=== PATIENT | male | born 1955 | race Caucasian/White ===

== ENCOUNTER 2017-09-24 23:14 | Inpatient (IN) | payer OTHER ==
[~2017-09-24] VITALS: Ht 177.8 cm; Wt 94.5 kg
[2017-09-24 23:17] VITALS: BP 187/100; PULSE 78; O2SAT 99
[2017-09-24 23:23] VITALS: BP 183/81; PULSE 88; RESP 14; O2SAT 99
[2017-09-24 23:26] VITALS: BP 144/103; PULSE 109; RESP 16; O2SAT 100
[2017-09-24 23:28] VITALS: O2SAT 100
[2017-09-24 23:45] VITALS: BP 225/106; PULSE 71; RESP 16; O2SAT 100
[2017-09-24] MEDS ORDERED: HEPARIN NS IV FLUSH ONE (23:51)
[2017-09-24] MEDS ORDERED: FLUSH IV FLUSH ONE (23:51)
[2017-09-24] MEDS ORDERED: HEPARIN SODIUM - IV 10,000 UNITS/10 ML VIAL ONE (23:51)
[2017-09-24] MEDS ORDERED: NITROGLYCERIN INJ 0 ML ONE (23:52)
[2017-09-25] VITALS (16 sets, daily range): BP systolic 91–201; BP diastolic 57–99; PULSE 45–87; RESP 15–39; TEMP 91.1–99; O2SAT 96–100
--- NOTE | 2017-09-25 00:11 | PD ---
HPI Chief Complaint: STEMI Alert Time Seen by Provider: 00:03 Travel History International Travel<30 days: No Contact w/Intl Traveler<30days: No Traveled to known affect area: No History of Present Illness HPI Patient is a 62-year-old male who suddenly became unresponsive after a day full of burping and complaining of indigestion to his . Patient has no significant cardiac history he is not diabetic his reports that he has had 2 episodes in the last year of passing out but usually after emotional upset. 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 Paramedics intubated and then shocked him out of V. fib after he was out of V. fib he went into PEA. PA on the monitor they gave epi and 2 A of bicarb with return of spontaneous pulse. Patient did not respond when he was intubated he had no gag reflex he had no neurological signs he arrives to the ER with a good pulse and good pressures his initial pressure was 186/100. He is satting 100% on the ventilator being bpm on arrival with an ET tube of 8.[address] confirmed by auscultation of the axilla. EKG shows inferior lead ST elevation and then he rapidly goes back into V. fib we immediately shocking with 200 J biphasic and he comes out of V. fib and goes back into normal sinus rhythm and his pressure returns to normal elevated 186 SBP. Patient's repeat EKG shows inferiorly elevation greater than 1 mm in 2-[address] Zacarias the ambulatory services representative interventionalists described EKG and his cardiac history of the night. I also called Dr. Patton the ICU attending to describe the possibility of post cardiac arrest cooling. Patient remains completely without any neurological response he is not fighting the tube he has not been giving any sedation and he has no 2 mm pupils bilateral nonreactive. Narcan is given to see if there is any component of opiate overdose and he has no response he still has no neurological activity . both cardiology and airline stewardess are en route [facility] Social History Tobacco Use: No (unable to obtain tobacco info) Allergies-Medications (Allergen,Severity, Reaction): Coded Allergies: No Known Allergies (Unverified , 09/24/17) Review of Systems ROS Limitations: Intubated, Unresponsive Except as stated in HPI: all other systems reviewed are Neg Physical Exam Narrative GENERAL: pt is intubated and without any response to pain he is not fighting the tube , he is not sedated SKIN: Warm and dry. HEAD: Atraumatic. Normocephalic. EYES: Pupils 2 mm equal sluggish to non reactive ENT: No nasal bleeding or discharge. Mucous membranes pink and moist. ET in oral airway NECK: Trachea midline. No JVD. CARDIOVASCULAR: pt was in sinus rhythm then he loss pulse, CPR resumed and epi Hco3 IVP to V fib 200 J shocked into sinus rhythm now has strong LV activity on US bedside RESPIRATORY: No respiratory effort , intubated has bilateral axilla BS with BVM only GASTROINTESTINAL: Abdomen soft, non-tender, nondistended. Hepatic and splenic margins not palpable. MUSCULOSKELETAL: Extremities without clubbing, cyanosis, or edema. No obvious deformities. NEUROLOGICAL: obtunded no cardiac activity no neurologic signs of response GCS 3 Data Data Last Documented VS Vital Signs Date Time Temp Pulse Resp B/P (MAP) Pulse Ox O2 Delivery O2 Flow Rate FiO2 09/24/17 23:46 100 09/24/17 23:45 71 16 225/106 (145) 100 Ventilator Orders Orders I-Stat Profile (09/24/17 23:20) Heparin-Ns/Pf Flush Bag (Heparin-Ns/Pf F (09/24/17 23:51) Heparin Inj (Heparin Inj) (09/24/17 23:51) Nitroglycerin Inj (Nitroglycerin Inj) (09/24/17 23:52) Ct Brain W/O Iv Contrast(Rout) (09/25/17 ) Naloxone Inj (Narcan Inj) (09/25/17 00:15) Admit Order (Ed Use Only) (09/25/17 00:11) Labs Laboratory Tests Test 09/24/17 23:20 Bedside Hemoglobin 14.6 G/DL Bedside Hematocrit 43.0 % Bedside Sodium 138 MMOL/L Blood Urea Nitrogen 25 MG/DL Creatinine 1.96 MG/DL Random Glucose 228 MG/DL Total Protein 6.8 GM/DL Albumin 3.6 GM/DL Calcium Level 8.6 MG/DL Phosphorus Level 5.8 MG/DL Magnesium Level 2.3 MG/DL Alkaline Phosphatase 100 U/L Aspartate Amino Transf (AST/SGOT) 247 U/L Alanine Aminotransferase (ALT/SGPT) 207 U/L Total Bilirubin 0.4 MG/DL Sodium Level 139 MEQ/L Potassium Level 3.4 MEQ/L Chloride Level 101 MEQ/L Carbon Dioxide Level 21.6 MEQ/L Bedside Potassium 3.3 MMOL/L Bedside Chloride 100 MMOL/L Anion Gap 16 MEQ/L Bedside Blood Urea Nitrogen 23 MG/DL Bedside Creatinine 1.7 MG/DL Estimat Glomerular Filtration Rate 30 ML/MIN Bedside Glucose 236 MG/DL Total Creatine Kinase 856 U/L Creatine Kinase MB 84.2 NG/ML Creatine Kinase MB % 9.8 % Troponin I 12.00 NG/ML Salicylates Level 3.3 MG/DL Acetaminophen Level LESS THAN 2.0 MCG/ML Ethyl Alcohol Level LESS THAN 3 MG/DL MDM Medical Decision Making Medical Screen Exam Complete: Yes Emergency Medical Condition: Yes Differential Diagnosis cardiac arrest from Resp arrest vs cardiac arrest to resp arrest, pt is v-fib arrest vs acidosisi from resp failure , vs ACS to CT - -> V-fib arrest Narrative Course pt has been resusitated by EMS then losses pulse agian goes into v-fib arrest , 200 J biphasic and shocked into sinus rhythm that continues steady after 1 shock and CPR then pulse check, and has BP and heart rate sinus on monitor, Inferior lead has mild elevation 2,3,avf cardilogy is paged and ICU called for possible post arrest cooling, I speak to who describes events and her immediate CPR and 20 minutes before EMS arrives and intubates , Pt EMS shows 12 lead with inferior lead elevation EKG in ER has elevation > 1mm in II III AvL pt admitted to ICU Dr Rell Bradshaw Cardilogy bedside. Critical Care Narrative CPR to v fib arrest to shock 200 J to sinus critical care time 30 minutes Diagnosis Primary Impression: Cardiac arrest with ventricular fibrillation Admitting Information Admitting Physician Requests: Admit Akbar Pagan MD Sep 25, 2017 00:11
[2017-09-25] MEDS ORDERED: ONDANSETRON HCL 4 MG/2 ML VIAL IV PUSH PRN (00:15)
[2017-09-25] MEDS: SODIUM CHLOR 0.9% 1000 ML INJ 1,000 ML IV SCH ×2 (00:15→16:40)
[2017-09-25] MEDS ORDERED: RESP: ALBUTEROL 2.5 MG/IPRATROPIUM 0.5 MG NEB (PRN) INH (00:15)
[2017-09-25] MEDS ORDERED: TERBUTALINE INJ 1 MG/ML AMP SQ PRN (00:15)
[2017-09-25] MEDS ORDERED: DEXTROSE 50% IN WATER 50 ML VIAL(D50) IV PUSH PRN ×3 (00:15→16:30)
[2017-09-25] MEDS ORDERED: NALOXONE HCL 2 MG/2 ML VIAL IV PUSH ONE (00:15)
[2017-09-25] MEDS ORDERED: NOREPINEPHRINE INJ 4 MG in SODIUM CHLOR 0.9% 250 ML INJ 246 ML IV PRN (00:15)
[2017-09-25] MEDS ORDERED: MISCELLANEOUS NURSING INFORMATION XX SCH (00:15)
[2017-09-25] MEDS ORDERED: CHLORHEXIDINE GLUCONATE 2 % 1 PACK (2 CLOTHS) TOP PRN (00:15)
[2017-09-25] MEDS ORDERED: LIDOCAINE HCL 2% 100 MG/5 ML SYRINGE IV PUSH ONE (00:30)
--- NOTE | 2017-09-25 00:33 | HHI.HP ---
[facility] Critical Care Medicine Primary Care Physician Unknown Admission Diagnosis POST CARDIAC ARREST Diagnosis: Chief Complaint: post-cardiac arrest Travel History International Travel<30 Days: No Contact w/Intl Traveler <30 Da: No Traveled to Known Affected Are: No History of Present Illness This is a 60yM who presented as an [id number] v. fib cardiac arrest. Per report, he complained of heartburn most of the day today. This evening he became acutely unresponsive. family member started bystander CPR. Reported down- time was 20 minutes. presenting rhythm to EMS was v. fib. ROSC was obtained and [id number] 12-leads suggests inferior st-elevations. upon arrival to ED, patient again had pulseless v. tach/v. fib arrest, ROSC obtained and again repeat 12-lead with inferior st- elevations. patient has poor neurologic exam despite receiving no neuro altering medications. long discussion with Dr. Zacarias: holding off on emergent left heart cath given poor neurologic function. no additional information obtainable from the patient due to his clinical condition. ROS unobtainable. Review of Systems ROS Limitations: Clinical Condition, Intubated, Altered Mental Status, Unresponsive Past Family Social History Allergies: Coded Allergies: No Known Allergies (Unverified , 09/24/17) Past Medical History unknown and unobtainable secondary to the clinical condition of the patient. Past Surgical History unknown and unobtainable secondary to the clinical condition of the patient. Reported Medications unknown and unobtainable secondary to the clinical condition of the patient. Active Ordered Medications See MAR Family History unknown and unobtainable secondary to the clinical condition of the patient. Social History unknown and unobtainable secondary to the clinical condition of the patient. Physical Exam Vital Signs Vital Signs Date Time Temp Pulse Resp B/P (MAP) Pulse Ox O2 Delivery O2 Flow Rate FiO2 09/24/17 23:46 100 09/24/17 23:45 71 16 225/106 (145) 100 Ventilator 09/24/17 23:28 100 100 09/24/17 23:26 109 16 144/103 (117) 100 09/24/17 23:23 88 14 183/81 (115) 99 09/24/17 23:17 78 187/100 (129) 99 Physical Exam gen: elderly-appearing male, lying in bed, intubated, unresponsive heent: nc. at. pupils are 2mm and equal, but disconjugate gaze. mucous membranes are moist neck: no jvd. trachea midline. chest: intubated. equal chest rise. prvc, fio2 40%. cv: normal rate, regular rhythm. sinus by tele. abd: soft, nontender, nondistended. no guarding. extr: cool, poorly perfused. no peripheral edema. distal pulses 2+ neuro: GCS 4. extensor posturing x 4. + cough. - gag. - corneals. pupils as above. Laboratory Laboratory Tests Test 09/24/17 23:20 Bedside Hemoglobin 14.6 Bedside Hematocrit 43.0 Bedside Sodium 138 Bedside Potassium 3.3 Bedside Chloride 100 Bedside Blood Urea Nitrogen 23 Bedside Creatinine 1.7 Bedside Glucose 236 Imaging Last Impressions Head CT 09/25/17 0000 Signed Impressions: Service Date/Time: Monday, September 25, 2017 00:31 - CONCLUSION: 1. No acute intracranial abnormality demonstrated. 2. Sinus disease. MD Sancho Dawson VTE Risk Assessment Caprini VTE Risk Assessment: Mod/High Risk (score >= 2) Caprini Risk Assessment Model Point Value = 1 Point Value = 2 Point Value = 3 Point Value = 5 Age 41-60 Minor surgery BMI > 25 kg/m2 Swollen legs Varicose veins or History of unexplained or recurrent spontaneous Oral contraceptives or hormone replacement Sepsis (< 1 month) Serious lung disease, including pneumonia (< 1 month) Abnormal pulmonary function Acute myocardial infarction Congestive heart failure (< 1 month) History of inflammatory bowel disease Medical patient at bed rest Age 61-74 Arthroscopic surgery Major open surgery (> 45 min) Laparoscopic surgery (> 45 min) Malignancy Confined to bed (> 72 hours) Immobilizing plaster cast Central venous access Age >= 75 History of VTE Family history of VTE Factor V Leiden Prothrombin [id number] Lupus anticoagulant Anticardiolipin antibodies Elevated serum homocysteine Heparin-induced thrombocytopenia Other congenital or acquired thrombophilia Stroke (< 1 month) Elective arthroplasty Hip, pelvis, or leg fracture Acute spinal cord injury (< 1 month) Prophylaxis Regimen Total Risk Factor Score Risk Level Prophylaxis Regimen 0-1 Low Early ambulation 2 Moderate Order ONE of the following: *Sequential Compression Device (SCD) *Heparin 5000 units SQ BID 3-4 Higher Order ONE of the following medications: *Heparin 5000 units SQ TID *Enoxaparin/Lovenox 40 mg SQ daily (WT < 150 kg, CrCl > 30 mL/min) *Enoxaparin/Lovenox 30 mg SQ daily (WT < 150 kg, CrCl > 10-29 mL/min) *Enoxaparin/Lovenox 30 mg SQ BID (WT < 150 kg, CrCl > 30 mL/min) AND/OR *Sequential Compression Device (SCD) 5 or more Highest Order ONE of the following medications: *Heparin 5000 units SQ TID (Preferred with Epidurals) *Enoxaparin/Lovenox 40 mg SQ daily (WT < 150 kg, CrCl > 30 mL/min) *Enoxaparin/Lovenox 30 mg SQ daily (WT < 150 kg, CrCl > 10-29 mL/min) *Enoxaparin/Lovenox 30 mg SQ BID (WT < 150 kg, CrCl > 30 mL/min) AND *Sequential Compression Device (SCD) Assessment and Plan Assessment and Plan Assessment: 60yM with out of hospital V. fib cardiac arrest. This is very clearly ischemic in nature, however given the patient's severely poor neurologic exam, risk-benefit at this time of invasive left heart catheterization is in favor of conservative management. I do think given that there is a clear timeline the patient was down for a minimal amount of time, 20 minutes, it is reasonable to proceed with therapeutic hypothermia. I agree with Dr. Zacarias's assessment and we will utilize lidocaine infusion to help prevent further V. fib and V. tach incidents. Patient remains very critically ill. Plan by systems: Neurologic: Hypoxic ischemic encephalopathy Acute encephalopathy Frequent neuro checks Therapeutic hypothermia for cerebral protection Propofol for sedation Goal RASS -2 Cisatricurium to prevent shivering Respiratory: Acute hypoxic and hypercarbic respiratory failure Vent bundle Head of bed 30 Nebs Wean FiO2 for goal SPO2 greater than 94% No weaning of mechanical ventilation until mental status improves Cardiovascular: Out of hospital V. fib cardiac arrest Recurrent ventricular tachycardia Cardiogenic shock Inferior STEMI Cardiology consulted: Dr. Zacarias Trend cardiac enzymes for prognosis and to develop trend Norepinephrine if needed to maintain endorgan perfusion, map greater than 65 Lidocaine infusion Heparin drip Renal: Acute kidney injury -- Strict I/Os Place Shazia FEN/GI: Normal saline at 42 mL's an hour ICU electrolyte protocol N.p.o. while in shock Daily BMP Send stat CMP, magnesium, phosphorus Heme/ID: send sputum culture in the setting that the patient may have aspirated. There is no clinical indication for antibiotics at this time Daily CBC Stat CBC and coags Endocrine: Hyperglycemia of critical illness -- SSI Prophylaxis: GI Prophylaxis Pepcid IV DVT Prophylaxis -- SCDs Heparin infusion Lines: 09/25 right femoral arterial line 09/25 right femoral cooling catheter [place] Dispo: Admit to ICU. Critically ill. This patient remains critically ill with one or more organ systems which are or may become a threat to life. I have spent in excess of 78 minutes discontinuously in the care and management of this patient. This time is exclusive of procedures, and includes, but is not limited to, evaluation of the patient, review of the medical record, discussions with family, consultants, nursing staff, or respiratory therapy, and documentation in the medical record. Alirio Silva MD Sep 25, 2017 00:33
--- NOTE | 2017-09-25 00:53 | RADRPT ---
EXAM DATE/TIME: 09/25/2017 00:31 [facility] COMPARISON: No previous studies available for comparison. INDICATIONS : Altered mental status. RADIATION DOSE: 38.64 CTDIvol (mGy) ; Patient motion MEDICAL HISTORY : Non-responsive. SURGICAL HISTORY : Non-responsive. ENCOUNTER: Initial ACUITY: 1 day PAIN SCALE: Non-responsive LOCATION: cranial TECHNIQUE: Multiple contiguous axial images were obtained of the head. Using automated exposure control and adj ustment of the mA and/or kV according to patient size, radiation dose was kept as low as reasonably a chievable to obtain optimal diagnostic quality images. DICOM format image data is available electro nically for review and comparison. FINDINGS: CEREBRUM: The ventricles are normal for age. No evidence of midline shift, mass lesion, hemorrhage or acute in farction. No extra-axial fluid collections are seen. POSTERIOR FOSSA: The cerebellum and brainstem are intact. The 4th ventricle is midline. The cerebellopontine angle i s unremarkable. EXTRACRANIAL: There is mucoperiosteal thickening of the paranasal sinuses, especially the ethmoid air cells. There is a fluid level in the left sphenoid air cell. Mastoid air cells are clear. SKULL: The calvaria is intact. No evidence of skull fracture. CONCLUSION: 1. No acute intracranial abnormality demonstrated. 2. Sinus disease. Mikhail Ruiz MD on September 25, 2017 at 0:51 Board Certified Radiologist. This report was verified electronically.
[2017-09-25] MEDS: PROPOFOL 1000 MG/100 ML INJ 100 ML IV PRN ×5 (00:55→18:12)
--- NOTE | 2017-09-25 00:58 | MB ---
cc: Zeke Zacarias DO DATE OF CONSULT: 09/25/2017 REASON FOR CONSULTATION: Cardiac arrest. HISTORY OF PRESENT ILLNESS: Colin [id number] is a 61-year-old male who presented as a cardiac arrest to [facility] on 09/24/2017. Due to the patient's current situation, he is unable to provide any history, and history is taken from his significant other. Apparently starting this afternoon and into this evening, he was having continual gas pain and indigestion which was not going away with simethicone. They were sitting on the couch and he kept saying the gas pain just was not going away like it normally would. Apparently he slumped over onto her lap and she kind of woke him up, and then he ended up doing it for a second time, and this time he did not wake up. At that time, she started CPR and called 911. She attempted CPR as well as respirations as best she could. EMS showed up and apparently he was in VFib arrest, and so he was shocked, given epinephrine and bicarb. He was intubated in the field without medications. He also went into PA arrest, and so CPR was continued. Per EMS, from the time of the 911 call to the time that he regained pulses, it was 20 minutes. On arrival, he was found to have ST elevations in the inferior leads. He also had one other episode of VFib arrest for which he was defibrillated. I was called emergently and came in to see the patient. On my exam, there is concern for no neurological function at this time. PAST MEDICAL HISTORY: History is limited, but per the significant other, no significant diabetes or coronary artery disease. PAST SURGICAL HISTORY: Unable to obtain at this time. ALLERGIES: NO KNOWN DRUG ALLERGIES. MEDICATIONS: Unable to obtain at this time. SOCIAL HISTORY: Unable to obtain at this time. FAMILY HISTORY: Unable to obtain at this time. PHYSICAL EXAMINATION: VITAL SIGNS: Heart rate 109, blood pressure 144/103, respirations 16, pulse ox 100% on the ventilator. GENERAL: The patient appears older than his stated age, currently intubated. HEENT: Pupils are pinpoint. No corneal reflex is obtained. Mucous membranes are moist. ET tube in place. No gag reflex noted. Minimal cough noted. NECK: No JVD at 45 degrees, no carotid bruits heard bilaterally. HEART: Regular rate and rhythm, positive first and second heart sounds with no noted murmurs, gallops or rubs. LUNGS: Decreased breath sounds bilaterally but no overt wheezes, rales or rhonchi. ABDOMEN: Soft, nondistended. EXTREMITIES: Trace edema but no cyanosis or clubbing. NEUROLOGICAL: Unable to obtain corneal reflex or gag reflex. He is not reacting to noxious stimuli. He does have some minimal movements concerning for posturing. SKIN: Warm, dry and intact. OSTEOPATHIC: No kyphoscoliosis or lordosis. LABORATORY DATA: Hemoglobin 14.6, hematocrit 43.0, potassium 3.3, BUN 23, creatinine 1.7. Electrocardiogram (09/24/2017): Sinus rhythm, minimal ST elevations inferiorly with expansive ST depressions anteriorly concerning for an inferior posterior CO. IMPRESSIONS: 1. Acute inferior posterior myocardial infarction. 2. Cardiac arrest. 3. Concern for hypoxic brain injury. RECOMMENDATIONS: 1. Colin Pena appears to have had an acute inferior posterior myocardial infarction complicated by VFib arrest. 2. His overall downtime was around 20 minutes, and there is concern for hypoxic brain injury, as he has no corneal or gag reflex, as well as posturing noted. 3. At this time, he is not a cardiac catheterization candidate due to limited chances of neurological return. 4. This was discussed with the patient's significant other, and she understands the decision. 5. Case was discussed with Dr. Silva from Critical Care. We will plan to CT his head to evaluate for any possible bleed. If CT of the head is negative, he can be started on heparin. 6. We will plan on starting him on antiarrhythmic medications, with a plan for Lidocaine due to his ischemia as well as VFib arrest. 7. If CT of the head is negative, consideration will be made for hypothermic protocol. 8. We will check a 2D echo to look at his overall left ventricular function, cardiac structure, and possible valvopathies. 9. Overall prognosis is poor at this time but will be reevaluated after hypothermic protocol. Thank you for allowing me to see Mikhail Pena. If there are any questions, please do not hesitate to call. Greater than 60 minutes of critical care time was spent evaluating the patient, discussing with his significant other, as well as ER physician, ER nurse, and critical care. DO JAMEL Bright , 12:23 AM , 12:56 AM MTDStephanie
[2017-09-25] MEDS: LIDOCAINE/D5W 2000 MG/500 ML 500 ML IV SCH ×2 (00:59→16:11)
[2017-09-25] MEDS ORDERED: ARTIFICIAL TEARS OPTH OINT 3.5 APPLIC/3.5 GM TUBO EACH EYE PRN ×2 (01:00→16:15)
[2017-09-25] MEDS ORDERED: SODIUM CHLORIDE 0.9% FLUSH 10 ML FLUSH IV FLUSH PRN ×2 (01:00→16:15)
[2017-09-25 01:40] LABS: ALBUMIN 3.6 GM/DL (3.4-5.0); ALT (GPT) 207 U/L (12-78); AST (GOT) 247 U/L (15-37); BICARBONATE 21.6 MEQ/L (21.0-32.0); BLOOD UREA NITROGEN 25 MG/DL (7-18); CALCIUM 8.6 MG/DL (8.5-10.1); CHLORIDE 101 MEQ/L (98-107); CREATININE 1.96 MG/DL (0.60-1.30); GLOMERULAR FILTRATION RATE 30 ML/MIN (>89); GLUCOSE,RANDOM 228 MG/DL (74-106); MAGNESIUM 2.3 MG/DL (1.5-2.5); PHOSPHORUS 5.8 MG/DL (2.5-4.9); SODIUM (NA) 139 MEQ/L (136-145)
[2017-09-25 01:46] LABS: ACETAMINOPHEN LESS THAN 2.0 MCG/ML (10.0-30.0); ALKALINE PHOSPHATASE 100 U/L (45-117); TOTAL BILIRUBIN ADULT 0.4 MG/DL (0.2-1.0); TOTAL PROTEIN 6.8 GM/DL (6.4-8.2)
--- NOTE | 2017-09-25 02:09 | PD.PROCEDR ---
Procedure Note Procedure Procedure: Arterial Line Placement Right femoral 16-gauge 20 cm arterial line Diagnosis: Cardiogenic shock Indications: Need for beat to beat hemodynamic monitoring Consent: Emergent Description of the Procedure: The right groin was prepped and draped sterilely. 1% lidocaine was used for local anesthesia. The pulse was located and a needle was advanced into the artery. A 16 gauge, 20 cm catheter was advanced into the artery using a modified Seldinger technique. The catheter was sutured to the skin and a sterile dressing was applied. The catheter was connected to a pressure transducer and an arterial waveform was noted. There were no immediate complications noted. There was minimal EBL. I personally performed the procedure. Alirio Silva MD Sep 25, 2017 02:09
--- NOTE | 2017-09-25 02:10 | PD.PROCEDR ---
Procedure Note Procedure Central Line Procedure Note Right femoral Quatro cooling catheter Diagnosis: Status post out of hospital cardiac arrest Indications: Status post out of hospital cardiac arrest with poor neurologic recovery Consent: Emergent Anesthesia: none Description of the Procedure: The patient was placed in the supine, mild- Trendelenburg position. The area was prepped and draped sterilely. A 19g needle was inserted under negative pressure aspiration and dark venous blood was obtained. A guidewire was inserted easily without resistance. A small incision was made using a #11 blade. Using a modified Seldinger technique, the dilator and cooling catheter were advanced over the guidewire without resistance. All ports were aspirated and flushed, and had brisk blood return. The line was secured at the skin using 2-0 silk interrupted sutures. A Biopatch and Transparent sterile dressing were applied. There were no immediate complications noted. There was minimal EBL. The patient tolerated the procedure well. Note, sutures were used to secure the device to the skin due to body habitus the patient and the size of the cooling catheter, since a non-suture StatLock device would not adequately secure device Ultrasound guidance was not used for this procedure I personally performed the procedure. Alirio Silva MD Sep 25, 2017 02:10
[2017-09-25] MEDS: CISATRACURIUM INJ 100 MG in SODIUM CHLOR 0.9% 250 ML INJ 240 ML IV PRN ×6 (02:33→22:14)
[2017-09-25] MEDS: RESP: ALBUTEROL 2.5 MG/IPRATROPIUM 0.5 MG NEB (SCH) INH ×4 (02:57→19:54)
[2017-09-25 03:20] LABS: WHITE BLOOD COUNT 15.7 TH/MM3 (4.0-11.0)
[2017-09-25 03:21] LABS: AUTOMATED NEUTROPHIL # 13.5 TH/MM3 (1.8-7.7); BASOPHIL % 0.1 % (0.0-2.0); HEMATOCRIT 39.6 % (39.0-51.0); HEMOGLOBIN 13.6 GM/DL (13.0-17.0); LYMPH % 5.7 % (9.0-44.0); LYMPHOCYTE # 0.9 TH/MM3 (1.0-4.8); MEAN CELL VOLUME 85.6 FL (80.0-100.0); MEAN CORPUSCULAR HEMOGLOBIN 29.5 PG (27.0-34.0); MEAN CORPUSCULAR HGB CONC 34.5 % (32.0-36.0); MEAN PLATELET VOLUME 9.2 FL (7.0-11.0); MONO % 7.9 % (0.0-8.0); MONOCYTE # 1.2 TH/MM3 (0-0.9); NEUT % 86.3 % (16.0-70.0); PLATELET COUNT 192 TH/MM3 (150-450); RED BLOOD COUNT 4.62 MIL/MM3 (4.50-5.90); RED CELL DISTRIBUTION WIDTH 13.7 % (11.6-17.2)
[2017-09-25] MEDS ORDERED: levETIRAcetam INJ 100 ML IV SCH (03:30)
[2017-09-25 03:35] LABS: PROTHROMBIN TIME - PATIENT 10.5 SEC (9.8-11.6)
[2017-09-25] MEDS: INSULIN NovoLIN REGULAR SUPPLEMENTAL SCALE SQ SCH ×3 (04:00→11:46)
[2017-09-25] MEDS: CHLORHEXIDINE GLUCONATE 2 % 1 PACK (2 CLOTHS) TOP SCH (04:00)
[2017-09-25] MEDS: niCARdipine 25 MG/NS 250 ML Vial2Bag or IV room IV PRN ×2 (04:07)
[2017-09-25] MEDS: HEPARIN INJ 25,000 UNITS in SODIUM CHLOR 0.9% 250 ML INJ 247.5 ML IV PRN (04:09)
[2017-09-25] MEDS: levETIRAcetam INJ 100 ML IV SCH ×2 (04:14→16:12)
[2017-09-25 04:35] LABS: BILIRUBIN, URINE NEG (NEG); BLOOD, URINE MOD (NEG); GLUCOSE,URINE TRACE mg/dL (NEG); KETONE, URINE 10 mg/dL (NEG); MUCUS URINE FEW /lpf (OCC); NITRITE,URINE NEG (NEG); SQUAMOUS EPITHELIAL CELL URINE 1 /hpf (0-5); URINE COLOR YELLOW (YELLW/STRAW); URINE LEUKOCYTE ESTERASE NEG (NEG)
[2017-09-25] MEDS ORDERED: AMIODARONE HCL 150 MG/3 ML VIAL IV ONE (05:00)
[2017-09-25] MEDS ORDERED: NALOXONE HCL 4 MG/10 ML MDV IV ONE (05:00)
[2017-09-25] MEDS ORDERED: SODIUM BICARBONATE 8.4% INJ 50 MEQ/50 ML SYR IV ONE (05:00)
[2017-09-25] MEDS ORDERED: EPINEPHrine HCL (1:10,000) 1 MG/10 ML SYRINGE IV ONE (05:00)
[2017-09-25 07:43] LABS: TROPONIN I 21.7 NG/ML (0.02-0.05)
[2017-09-25] MEDS: CHLORHEXIDINE 0.12% (ORAL KIT) 15 ML CUP MT SCH ×2 (08:05→22:12)
[2017-09-25] MEDS: ASPIRIN 81 MG CHEW TAB CHEW SCH (09:00)
[2017-09-25] MEDS ORDERED: SODIUM CHLORIDE 0.9% FLUSH 10 ML FLUSH IV FLUSH SCH (09:00)
[2017-09-25] MEDS ORDERED: FAMOTIDINE 20 MG/2 ML VIAL IV PUSH SCH (09:00)
[2017-09-25 13:39] LABS: TROPONIN I 24.3 NG/ML (0.02-0.05)
--- NOTE | 2017-09-25 14:18 | RADRPT ---
EXAM DATE/TIME: 09/25/2017 13:33 [facility] COMPARISON: No previous studies available for comparison. INDICATIONS : Post ET tube palcement. MEDICAL HISTORY : None. SURGICAL HISTORY : None. ENCOUNTER: Initial ACUITY: 1 day PAIN SCORE: Non-responsive. LOCATION: Bilateral chest FINDINGS: Single AP view of the chest. Endotracheal tube is in place with the tip 4 cm above the denton. Nasoga stric tube is in place with the tip below the [id number] of the radiograph. Mild patchy opacity at the left lung base. No evidence of pleural effusion or pneumothorax. Cardiomediastinal silhouette wi thin normal limits. CONCLUSION: 1. Mild patchy left lung base atelectasis versus consolidation. 2. Endotracheal tube and nasogastric tube in place. Pedro Aguirre MD on September 25, 2017 at 14:15 Board Certified Radiologist. This report was verified electronically.
--- NOTE | 2017-09-25 14:21 | PD.CARD.PN ---
Subjective Subjective Remarks Started on hypothermia protocol, reached goal temp at 5am No further arrhythmias noted Objective Medications Current Medications Medications (Trade) Dose Ordered Sig/Isabel Route Start Time Stop Time Status Last Admin (Peridex 0.12% Liq) 15 ml BID@08,20 MT 09/25/17 08:00 09/25/17 08:05 (D50w (Vial) Inj) 25 ml UNSCH PRN IV PUSH 09/25/17 00:15 (NovoLIN R SUPPLEMENTAL SCALE) 1 Q4HR SQ 09/25/17 04:00 09/25/17 11:46 (Duoneb Neb) 1 ampule Q6HR NEB INH 09/25/17 04:00 09/25/17 08:27 (Duoneb Neb) 1 ampule Q2HR NEB PRN INH 09/25/17 00:15 Propofol 100 ml @ 2.727 mls/ hr TITRATE PRN IV 09/25/17 00:15 09/25/17 12:11 Sodium Chloride 1,000 ml @ 42 mls/hr [id number] IV 09/25/17 00:15 09/25/17 00:15 (Pepcid Inj) 20 mg Q12HR IV PUSH 09/25/17 09:00 09/25/17 09:06 (Zofran Inj) 4 mg Q6H PRN IV PUSH 09/25/17 00:15 Miscellaneous Information 1 Q361D XX 09/25/17 00:15 (Chlorhexidine 2% Cloth) 3 pack Taper DAILY@04 TOP 09/25/17 04:00 09/21/18 03:59 09/25/17 04:00 (Chlorhexidine 2% Cloth) 3 pack UNSCH PRN TOP 09/25/17 00:15 09/25/17 02:31 Norepinephrine Bitartrate 4 mg/ Sodium Chloride 250 ml @ 7.5 mls/hr TITRATE PRN IV 09/25/17 00:15 (Brethine Inj) 1 mg UNSCH PRN SQ 09/25/17 00:15 Lidocaine HCl/ Dextrose 500 ml @ 30 mls/hr [id number] IV 09/25/17 00:21 09/25/17 00:59 (Aspirin Chew) 81 mg DAILY CHEW 09/25/17 09:00 (Ativan Inj) 1 mg Q1H PRN IV PUSH 09/25/17 01:00 Cisatracurium Besylate 100 mg/ Sodium Chloride 250 ml @ 45 mls/hr TITRATE PRN IV 09/25/17 01:30 09/25/17 13:06 (Lacrilube Opht Oint) 1 applic Q4H PRN EACH EYE 09/25/17 01:00 (NS Flush) 2 ml BID IV FLUSH 09/25/17 09:00 09/25/17 09:06 (NS Flush) 2 ml UNSCH PRN IV FLUSH 09/25/17 01:00 Miscellaneous Information 0 ml @ 0 mls/hr UNSCH IV 09/25/17 01:00 Heparin Sodium (Porcine) 97212 units/Sodium Chloride 250 ml @ 10 mls/hr TITRATE PRN IV 09/25/17 01:00 09/25/17 04:09 Levetriacetam 100 ml @ 400 mls/hr Q12H IV 09/25/17 04:00 09/25/17 04:14 Nicardipine HCl 25 mg/Sodium Chloride 250 ml @ 50 mls/hr TITRATE PRN IV 09/25/17 03:45 09/25/17 04:07 Vital Signs / I&O Vital Signs Date Time Temp Pulse Resp B/P (MAP) Pulse Ox O2 Delivery O2 Flow Rate FiO2 09/25/17 12:57 99 40 09/25/17 11:03 40 09/25/17 11:03 99 Mechanical Ventilator 40 09/25/17 11:02 53 09/25/17 11:01 91.1 52 15 99 122/73 (89) 09/25/17 08:27 97 40 09/25/17 07:49 96 Mechanical Ventilator 40 09/25/17 07:47 40 09/25/17 07:46 67 09/25/17 07:41 91.1 67 15 91/63 (72) 96 98/57 (71) 09/25/17 07:10 64 09/25/17 04:07 78 199/102 09/25/17 03:18 99 40 09/25/17 03:00 98.0 87 39 156/93 (114) 98 169/84 (112) 09/25/17 03:00 100 Mechanical Ventilator 40 09/25/17 03:00 80 09/25/17 01:00 99.0 87 39 201/99 (133) 98 09/25/17 01:00 80 09/25/17 01:00 98 Mechanical Ventilator 40 09/25/17 00:59 83 225/98 09/25/17 00:46 99 40 09/25/17 00:32 100 100 09/24/17 23:46 100 09/24/17 23:45 71 16 225/106 (145) 100 Ventilator 09/24/17 23:28 100 100 09/24/17 23:26 109 16 144/103 (117) 100 09/24/17 23:23 88 14 183/81 (115) 99 09/24/17 23:17 78 187/100 (129) 99 I/O 09/24/17 09/24/17 09/24/17 09/25/17 09/25/17 09/25/17 07:00 15:00 23:00 07:00 15:00 23:00 Intake Total 725 ml 1248.6 ml Output Total 1201 ml Balance 725 ml 47.6 ml Intake IV Total 725 ml 1248.6 ml Output Urine Total 900 ml Stool Total 1 ml Gastric Drainage Total 300 ml Physical Exam GENERAL: Intubated SKIN: Cool/dry HEAD: Atraumatic. Normocephalic. EYES: Pupils equal and round. No scleral icterus. No injection or drainage. ENT: No nasal bleeding or discharge. Mucous membranes pink and moist. NECK: Trachea midline. No JVD. CARDIOVASCULAR: Regular rate and rhythm. RESPIRATORY: No accessory muscle use. Clear to auscultation. Breath sounds equal bilaterally. GASTROINTESTINAL: Abdomen soft, non-tender, nondistended. Hepatic and splenic margins not palpable. MUSCULOSKELETAL: Extremities without clubbing, cyanosis, or edema. No obvious deformities. NEUROLOGICAL: Intubated Laboratory Laboratory Tests Test 09/24/17 23:20 09/25/17 00:15 09/25/17 00:45 09/25/17 02:58 Bedside Hemoglobin 14.6 G/DL Bedside Hematocrit 43.0 % Bedside Sodium 138 MMOL/L Blood Urea Nitrogen 25 MG/DL Creatinine 1.96 MG/DL Random Glucose 228 MG/DL Total Protein 6.8 GM/DL Albumin 3.6 GM/DL Calcium Level 8.6 MG/DL Phosphorus Level 5.8 MG/DL Magnesium Level 2.3 MG/DL Alkaline Phosphatase 100 U/L Aspartate Amino Transf (AST/SGOT) 247 U/L Alanine Aminotransferase (ALT/SGPT) 207 U/L Total Bilirubin 0.4 MG/DL Sodium Level 139 MEQ/L Potassium Level 3.4 MEQ/L Chloride Level 101 MEQ/L Carbon Dioxide Level 21.6 MEQ/L Bedside Potassium 3.3 MMOL/L Bedside Chloride 100 MMOL/L Anion Gap 16 MEQ/L Bedside Blood Urea Nitrogen 23 MG/DL Bedside Creatinine 1.7 MG/DL Estimat Glomerular Filtration Rate 30 ML/MIN Bedside Glucose 236 MG/DL Total Creatine Kinase 856 U/L Creatine Kinase MB 84.2 NG/ML Creatine Kinase MB % 9.8 % Troponin I 12.00 NG/ML Salicylates Level 3.3 MG/DL Acetaminophen Level LESS THAN 2.0 MCG/ML Ethyl Alcohol Level LESS THAN 3 MG/DL Blood Gas Puncture Site RT FEMORAL Blood Gas Patient Temperature 98.6 Blood Gas HCO3 25 mmol/L Blood Gas Base Excess 1.0 mmol/L Blood Gas Oxygen Saturation 99 % Arterial Blood pH 7.39 Arterial Blood Partial Pressure CO2 43 mmHg Arterial Blood Partial Pressure O2 582 mmHG Arterial Blood Oxygen Content 21.6 Vol % Arterial Blood Carboxyhemoglobin 1.0 % Arterial Blood Methemoglobin 0.6 % Blood Gas Hemoglobin 14.5 G/DL Oxygen Delivery Device VENTILATOR Blood Gas Ventilator Setting Blood Gas Inspired Oxygen 100 % Nasal Screen MRSA (PCR) MRSA NOT DETECTED White Blood Count 15.7 TH/MM3 Red Blood Count 4.62 MIL/MM3 Hemoglobin 13.6 GM/DL Hematocrit 39.6 % Mean Corpuscular Volume 85.6 FL Mean Corpuscular Hemoglobin 29.5 PG Mean Corpuscular Hemoglobin Concent 34.5 % Red Cell Distribution Width 13.7 % Platelet Count 192 TH/MM3 Mean Platelet Volume 9.2 FL Neutrophils (%) (Auto) 86.3 % Lymphocytes (%) (Auto) 5.7 % Monocytes (%) (Auto) 7.9 % Eosinophils (%) (Auto) 0.0 % Basophils (%) (Auto) 0.1 % Neutrophils # (Auto) 13.5 TH/MM3 Lymphocytes # (Auto) 0.9 TH/MM3 Monocytes # (Auto) 1.2 TH/MM3 Eosinophils # (Auto) 0.0 TH/MM3 Basophils # (Auto) 0.0 TH/MM3 CBC Comment DIFF FINAL Differential Comment Prothrombin Time 10.5 SEC Prothromb Time International Ratio 1.0 RATIO Activated Partial Thromboplast Time 24.5 SEC Lactic Acid Level 1.7 mmol/L Ammonia 21 MCMOL/L Test 09/25/17 04:00 09/25/17 05:27 09/25/17 08:59 09/25/17 12:12 Urine Color YELLOW Urine Turbidity HAZY Urine pH 5.[address] 1.021 Urine Protein TRACE mg/dL Urine Glucose (UA) TRACE mg/dL Urine Ketones 10 mg/dL Urine Occult Blood MOD Urine Nitrite NEG Urine Bilirubin NEG Urine Urobilinogen LESS THAN 2.0 MG/DL Urine Leukocyte Esterase NEG Urine RBC 3 /hpf Urine WBC 4 /hpf Urine Squamous Epithelial Cells 1 /hpf Urine Mucus FEW /lpf Urine Opiates Screen NEG Urine Barbiturates Screen NEG Urine Amphetamines Screen NEG Urine Benzodiazepines Screen NEG Urine Cocaine Screen NEG Urine Cannabinoids Screen POS Total Creatine Kinase 2123 U/L 2483 U/L Creatine Kinase MB 201.3 NG/ML 320.8 NG/ML Creatine Kinase MB % 9.5 % 12.9 % Troponin I 21.70 NG/ML 24.30 NG/ML Activated Partial Thromboplast Time 44.2 SEC Imaging Last [address] 09/25/17 0000 Signed Impressions: Service Date/Time: Monday, September 25, 2017 00:31 - CONCLUSION: 1. No acute intracranial abnormality demonstrated. 2. Sinus disease. Mikhail Ruiz MD Assessment and Plan Problem List: (1) Acute ST elevation myocardial infarction (STEMI) ICD Codes: I21.3 - ST elevation (STEMI) myocardial infarction of unspecified site (2) Cardiac arrest ICD Codes: I46.9 - Cardiac arrest, cause unspecified (3) Ventricular fibrillation ICD Codes: I49.01 - Ventricular fibrillation (4) Cardiac arrest with ventricular fibrillation ICD Codes: I46.9 - Cardiac arrest, cause unspecified; I49.01 - Ventricular fibrillation (5) Ventilator dependence ICD Codes: Z99.11 - Dependence on respirator [ventilator] status (6) IGNACIO (acute kidney injury) ICD Codes: N17.9 - Acute kidney failure, unspecified Assessment and Plan 1) Acute inferior STEMI Medical management for now as concern for limited neurologic recovery Heparin drip 2) Cardiac arrest/Vfib arrest Con't Lidocaine drip Overall down time until return of circulation was around 20 mins, with bystander CPR 3) Concern for hypoxic brain injury No corneal/gag reflex and posturing last night Hypothermia protocol in place 4) 2D echo pending 5) Discussed with significant other last night and again today 6) Prognosis is critical to poor, will await to see if neurologic return after hypothermia Zeke Zacarias DO Sep 25, 2017 14:21
[2017-09-25] MEDS: INSULIN ASPART SUPPLEMENTAL SCALE SQ SCH ×2 (16:00→20:00)
[2017-09-25] MEDS ORDERED: INSULIN REGULAR (IV INFUSION) 100 UNITS in SODIUM CHLORIDE 0.9% INJ 99 ML IV PRN (16:15)
[2017-09-25] MEDS ORDERED: MISC INFORMATION OTHER ONE (16:15)
[2017-09-25] MEDS ORDERED: GLUCAGON 1 MG/ML VIAL OTHER PRN (16:30)
--- NOTE | 2017-09-25 17:23 | ECHRPT ---
Indication: CONCLUSIONS Normal left ventricular size. Mild concentric left ventricular hypertrophy. The left ventricular systolic function is hlxktrjw-kl-neqvqns reduced with an estimated ejection fra ction in the range of 35-40%. There is diffuse global hypokinesis with distinct regional wall motion abnormalities (inferior). The left atrial size is vxaa-ig-gxvcvgcdpr dilated. The right atrial size is mildly dilated. No atrial level shunt is demonstrated by color flow Doppler interrogation. Qvyjg-db-iamg mitral valve regurgitation. There is trace tricuspid valve regurgitation. BP: 91 / 63 HR: Rhythm: Sinus MEASUREMENTS (Male / Female) Normal Values Technical Quality:Fair 2D ECHO LV Diastolic Diameter PLAX 5.0 cm 4.2 - 5.9 / 3.9 - 5.3 cm LV Systolic Diameter PLAX 3.8 cm IVS Diastolic Thickness 1.2 cm 0.6 - 1.0 / 0.6 - 0.9 cm LVPW Diastolic Thickness 1.2 cm 0.6 - 1.0 / 0.6 - 0.9 cm LV Relative Wall Thickness 0.5 RV Internal Dim ED PLAX 2.6 cm LVOT Diameter 2.0 cm Aortic Root Diameter 3.2 cm LA Systolic Diameter LX 3.3 cm 3.0 - 4.0 / 2.7 - 3.8 cm M-MODE AV Cusp Separation MM 2.2 cm DOPPLER AV Peak Velocity 103.0 cm/s AV Peak Gradient 4.2 mmHg AV Mean Gradient 2.0 mmHg AV Velocity Time Integral 19.5 cm LVOT Peak Velocity 97.8 cm/s LVOT Peak Gradient 3.8 mmHg LVOT Velocity Time Integral 17.7 cm AV Area Cont Eq vti 2.9 cm AV Area Cont Eq pk 3.0 cm Mitral E Point Velocity 35.0 cm/s Mitral A Point Velocity 74.0 cm/s Mitral E to A Ratio 0.5 LV E' Lateral Velocity 5.5 cm/s Mitral E to LV E' Lateral Ratio 6.4 LV E' Septal Velocity 2.9 cm/s Mitral E to LV E' Septal Ratio 12.1 TR Peak Velocity 198.0 cm/s TR Peak Gradient 15.7 mmHg PV Peak Velocity 35.3 cm/s PV Peak Gradient 0.5 mmHg FINDINGS LEFT VENTRICLE Normal left ventricular size. Mild concentric left ventricular hypertrophy. The left ventricular systolic function is dmotrsyu-at-elrcalq reduced with an estimated ejection fra ction in the range of 35-40%. There is diffuse global hypokinesis with distinct regional wall motion abnormalities. Doppler parameters are consistent with impaired left ventricular relaxtion (grade 1 diastolic dysfun ction). RIGHT VENTRICLE Normal right ventricular size and systolic function. LEFT ATRIUM The left atrial size is daqy-lo-rqygtsttip dilated. RIGHT ATRIUM The right atrial size is mildly dilated. ATRIAL SEPTUM No atrial level shunt is demonstrated by color flow Doppler interrogation. AORTA The aortic root and proximal ascending aorta are not well visualized. MITRAL VALVE Vwvih-gj-mgbo mitral valve regurgitation. AORTIC VALVE Trileaflet aortic valve. No aortic valve stenosis or regurgitation. TRICUSPID VALVE There is trace tricuspid valve regurgitation. PULMONARY VALVE No pulmonary valve regurgitation or stenosis. VESSELS The inferior vena cava is normal in size. PERICARDIUM No pericardial effusion. Thomas Perez MD (Electronically Signed) Final Date:25 September 2017 17:22
[2017-09-25 17:34] LABS: BICARBONATE 26.1 MEQ/L (21.0-32.0); CALCIUM 7.6 MG/DL (8.5-10.1); CREATININE 0.94 MG/DL (0.60-1.30); MAGNESIUM 2.3 MG/DL (1.5-2.5); PHOSPHORUS 2.6 MG/DL (2.5-4.9)
[2017-09-25] MEDS: SODIUM CHLORIDE 0.9% FLUSH 10 ML FLUSH IV FLUSH SCH (22:13)
[2017-09-25] MEDS: FAMOTIDINE 20 MG/2 ML VIAL IV PUSH SCH (22:13)
--- NOTE | 2017-09-25 23:59 | EKG ---
Date Performed: 09/24/2017 Time Performed: 23:22:47 PTAGE: 60 years EKG: Sinus rhythm WITH SINUS ARRHYTHMIA MINIMAL ST ELEVATION INFERIORLY, MOST LIKELY ACUTE STEMI WITH POSTERIOR EXTENS ION MARKED ST DEPRESSION, CONSIDER SUBENDOCARDIAL INJURY ABNORMAL ECG INTERPRETATION BASED ON A DEFA ULT AGE OF 39 YEARS NO PREVIOUS TRACING DOCTOR: Zeke Zacarias Interpretating Date/Time 09/25/2017 23:57:23
[2017-09-26] VITALS (16 sets, daily range): BP systolic 107–150; BP diastolic 61–95; PULSE 46–90; RESP 15–21; TEMP 91.4–97.7; O2SAT 92–100
[2017-09-26 00:36] LABS: MAGNESIUM 2.1 MG/DL (1.5-2.5)
[2017-09-26 00:45] LABS: BICARBONATE 25.5 MEQ/L (21.0-32.0); CALCIUM 7.8 MG/DL (8.5-10.1); CREATININE 0.85 MG/DL (0.60-1.30)
[2017-09-26 00:51] LABS: TROPONIN I 36.1 NG/ML (0.02-0.05)
[2017-09-26] MEDS: PROPOFOL 1000 MG/100 ML INJ 100 ML IV PRN ×5 (01:06→23:13)
[2017-09-26] MEDS: INSULIN ASPART SUPPLEMENTAL SCALE SQ SCH ×6 (04:00→20:00)
[2017-09-26] MEDS: CHLORHEXIDINE GLUCONATE 2 % 1 PACK (2 CLOTHS) TOP SCH (04:00)
[2017-09-26] MEDS: HEPARIN INJ 25,000 UNITS in SODIUM CHLOR 0.9% 250 ML INJ 247.5 ML IV PRN (04:04)
[2017-09-26] MEDS: CISATRACURIUM INJ 100 MG in SODIUM CHLOR 0.9% 250 ML INJ 240 ML IV PRN ×3 (04:24→15:25)
[2017-09-26] MEDS: levETIRAcetam INJ 100 ML IV SCH ×2 (04:34→15:45)
[2017-09-26] MEDS: RESP: ALBUTEROL 2.5 MG/IPRATROPIUM 0.5 MG NEB (SCH) INH ×4 (04:48→19:58)
[2017-09-26] MEDS: SODIUM CHLOR 0.9% 1000 ML INJ 1,000 ML IV SCH (05:45)
[2017-09-26 05:54] LABS: HEMATOCRIT 37.1 % (39.0-51.0); HEMOGLOBIN 12.8 GM/DL (13.0-17.0); MEAN CELL VOLUME 85.9 FL (80.0-100.0); MEAN CORPUSCULAR HEMOGLOBIN 29.6 PG (27.0-34.0); MEAN CORPUSCULAR HGB CONC 34.5 % (32.0-36.0); MEAN PLATELET VOLUME 9.6 FL (7.0-11.0); PLATELET COUNT 138 TH/MM3 (150-450); RED BLOOD COUNT 4.32 MIL/MM3 (4.50-5.90); RED CELL DISTRIBUTION WIDTH 13.7 % (11.6-17.2); WHITE BLOOD COUNT 10.1 TH/MM3 (4.0-11.0)
[2017-09-26 06:09] LABS: BICARBONATE 22.9 MEQ/L (21.0-32.0); CALCIUM 7.8 MG/DL (8.5-10.1); CREATININE 0.83 MG/DL (0.60-1.30)
[2017-09-26] MEDS: CHLORHEXIDINE 0.12% (ORAL KIT) 15 ML CUP MT SCH ×2 (07:53→21:32)
[2017-09-26] MEDS: FAMOTIDINE 20 MG/2 ML VIAL IV PUSH SCH ×2 (09:00→21:32)
[2017-09-26] MEDS: SODIUM CHLORIDE 0.9% FLUSH 10 ML FLUSH IV FLUSH SCH ×2 (09:00→21:32)
[2017-09-26] MEDS: ASPIRIN 81 MG CHEW TAB CHEW SCH (09:00)
[2017-09-26] MEDS: LIDOCAINE/D5W 2000 MG/500 ML 500 ML IV SCH (09:50)
[2017-09-26 10:37] LABS: BICARBONATE 25.9 MEQ/L (21.0-32.0); CALCIUM 7.5 MG/DL (8.5-10.1); CREATININE 0.82 MG/DL (0.60-1.30)
--- NOTE | 2017-09-26 12:26 | HHI.CCPN ---
Subjective Remarks/Hospital Course This is a 60yM who presented as an gxc-cj-fwkoixqt v. fib cardiac arrest. Per report, he complained of heartburn most of the day today. This evening he became acutely unresponsive. family member started bystander CPR. Reported down- time was 20 minutes. presenting rhythm to EMS was v. fib. ROSC was obtained and bow-ys-wfyeytdq 12-leads suggests inferior st-elevations. upon arrival to ED, patient again had pulseless v. tach/v. fib arrest, ROSC obtained and again repeat 12-lead with inferior st- elevations. patient has poor neurologic exam despite receiving no neuro altering medications. long discussion with Dr. Zacarias: holding off on emergent left heart cath given poor neurologic function. no additional information obtainable from the patient due to his clinical condition. ROS unobtainable. Subjective 09/26: Currently actively being rewarmed. No further dysrhythmias noted. Remains on lidocaine drip at 2 mg/min. Gram-negative andre and sputum identified. Objective Vital Signs Date Time Temp Pulse Resp B/P (MAP) Pulse Ox O2 Delivery O2 Flow Rate FiO2 09/26/17 12:18 15 09/26/17 11:05 99 Mechanical Ventilator 40 09/26/17 11:04 61 09/26/17 11:02 92.5 130/84 (99) 130/72 (91) Intake and Output 09/26/17 09/26/17 09/27/17 08:00 16:00 00:00 Intake Total 1300 ml 750 ml Output Total 760 ml Balance 540 ml 750 ml Result Diagram: 09/26/17 0450 09/26/17 1000 Other Results Microbiology Date/Time Source Procedure Growth Status 09/25/17 04:00 Sputum Endotracheal Gram Stain - Final Resulted 09/25/17 04:00 Sputum Endotracheal Sputum Culture Pending Resulted Imaging Last Impressions Head CT 09/25/17 0000 Signed Impressions: Service Date/Time: Monday, September 25, 2017 00:31 - CONCLUSION: 1. No acute intracranial abnormality demonstrated. 2. Sinus disease. Mikhail Ruiz MD Chest X-Ray 09/25/17 0000 Signed Impressions: Service Date/Time: Monday, September 25, 2017 13:33 - CONCLUSION: 1. Mild patchy left lung base atelectasis versus consolidation. 2. Endotracheal tube and nasogastric tube in place. Pedro Aguirre MD Objective Remarks gen: elderly-appearing male, lying in bed, intubated, unresponsive heent: nc. at. pupils are 3 mm and equal, but disconjugate gaze. mucous membranes are moist and pink neck: no jvd. trachea midline. chest: Essentially clear to auscultation bilaterally without wheezes rales rhonchi cv: RRR. S1, S2 no S4. No murmur abd: soft, nontender, nondistended hypoactive bowel sounds appreciated. Evolving hematoma at site of insertion of right femoral Quatro catheter extr: cool, poorly perfused. no peripheral edema. distal pulses 2+ neuro: Currently paralyzed on cisatracurium on the ventilator. No gag or corneal reflex. Urinary Catheter: Yes Assessment to: Continue Mccray insert reason: Prolonged Immobilization Vascular Central Line Catheter: Yes Assessment to: Continue Date of Insertion: Sep 25, 2017 Line: Central Venous Catheter Side: Right Location: Femoral A/P Assessment and Plan Neuro/Psych: Hypoxic ischemic encephalopathy Acute encephalopathy THC use Currently a propofol drip at 30 mcg/kg/min for sedation while intubated On cisatracurium 3.3 mcg/kg/min as paralytic for musqt-qq-eaua of 0-4 Therapeutic hypothermia for cerebral protection currently actually warming since [address] brain on admission revealed no acute intracranial findings. EEG ordered for a.m. Respiratory: Acute hypoxic and hypercarbic respiratory failure Left lower lobe infiltrate PRVC 16/500/1/5/40 Vent bundle Head of bed 30 Albuterol/ipratropium aerosols every 6 hours with albuterol aerosols every 2 hours as needed dyspnea Wean FiO2 for goal SPO2 greater than 92% No weaning of mechanical ventilation until mental status improves Cardiovascular: Out of hospital V. fib cardiac arrest Recurrent ventricular tachycardia Cardiogenic shock Inferior STEMI Acute systolic and diastolic heart failure Cardiology consulted: Dr. Zacarias Trend cardiac enzymes troponin currently 26 and downward trending Lidocaine infusion currently 2 mg a/minute continue Heparin drip 800 units an hour 2D echocardiogram revealed EF 35-40%. LVH. Inferior/global hypokinesis. Bilateral atrial enlargement. Grade 1 diastolic dysfunction. Renal: Acute kidney injury -- Strict I/Os Place Mccray Currently normal saline at 42 cc an hour FEN/GI: Elevated transaminases Hyperphosphatemia Normal saline at 42 mL's an hour ICU electrolyte protocol N.p.o. while in shock Daily BMP and electrolytes and replace as indicated Heme/ID: Normocytic anemia Thrombocytopenia Gram-negative andre pneumonia Start piperacillin/tazobactam day #1 Daily CBC Pertinent cultures 09/25 -sputum -gram-negative andre Endocrine: Hyperglycemia of critical illness -- SSI Novulog with Accu-Cheks every 4 hours Prophylaxis: GI Prophylaxis Pepcid IV DVT Prophylaxis -- SCDs Heparin infusion Lines: 09/25 right femoral arterial line 09/25 right femoral cooling catheter Mccray Clinical care time 35 minutes follow-up Howard Ramos MD Sep 26, 2017 12:26
--- NOTE | 2017-09-26 13:54 | PD.CARD.PN ---
Subjective Subjective Remarks Hypothermia, now warming No further arrhythmias noted Hemodynamically stable Objective Medications Current Medications Medications (Trade) Dose Ordered Sig/Isabel Route Start Time Stop Time Status Last Admin (Peridex 0.12% Liq) 15 ml BID@08,20 MT 09/25/17 08:00 09/26/17 07:53 (Duoneb Neb) 1 ampule Q6HR NEB INH 09/25/17 04:00 09/26/17 09:59 (Duoneb Neb) 1 ampule Q2HR NEB PRN INH 09/25/17 00:15 Propofol 100 ml @ 2.727 mls/ hr TITRATE PRN IV 09/25/17 00:15 09/26/17 13:22 Sodium Chloride 1,000 ml @ 42 mls/hr [id number] IV 09/25/17 00:15 09/26/17 05:45 (Zofran Inj) 4 mg Q6H PRN IV PUSH 09/25/17 00:15 Miscellaneous Information 1 Q361D XX 09/25/17 00:15 (Chlorhexidine 2% Cloth) 3 pack Taper DAILY@04 TOP 09/25/17 04:00 09/21/18 03:59 09/25/17 04:00 (Chlorhexidine 2% Cloth) 3 pack UNSCH PRN TOP 09/25/17 00:15 09/25/17 02:31 Norepinephrine Bitartrate 4 mg/ Sodium Chloride 250 ml @ 7.5 mls/hr TITRATE PRN IV 09/25/17 00:15 (Brethine Inj) 1 mg UNSCH PRN SQ 09/25/17 00:15 Lidocaine HCl/ Dextrose 500 ml @ 30 mls/hr [id number] IV 09/25/17 00:21 09/26/17 09:50 (Aspirin Chew) 81 mg DAILY CHEW 09/25/17 09:00 (Ativan Inj) 1 mg Q1H PRN IV PUSH 09/25/17 01:00 Cisatracurium Besylate 100 mg/ Sodium Chloride 250 ml @ 45 mls/hr TITRATE PRN IV 09/25/17 01:30 09/26/17 09:50 Miscellaneous Information 0 ml @ 0 mls/hr UNSCH IV 09/25/17 01:00 Heparin Sodium (Porcine) 94102 units/Sodium Chloride 250 ml @ 10 mls/hr TITRATE PRN IV 09/25/17 01:00 09/26/17 04:04 Levetriacetam 100 ml @ 400 mls/hr Q12H IV 09/25/17 04:00 09/26/17 04:34 Nicardipine HCl 25 mg/Sodium Chloride 250 ml @ 50 mls/hr TITRATE PRN IV 09/25/17 03:45 09/25/17 04:07 (fentaNYL INJ) 50 mcg Q1H PRN IV PUSH 09/25/17 16:15 09/26/17 11:44 (Versed Inj) 2 mg Q15M PRN IV PUSH 09/25/17 16:15 (Lacrilube Opht Oint) 1 applic Q4H PRN EACH EYE 09/25/17 16:15 (NS Flush) 2 ml BID IV FLUSH 09/25/17 21:00 09/26/17 09:00 (NS Flush) 2 ml UNSCH PRN IV FLUSH 09/25/17 16:15 Miscellaneous Information 0 ml @ 0 mls/hr UNSCH IV 09/25/17 16:15 (Pepcid Inj) 10 mg Q12HR IV PUSH 09/25/17 21:00 09/26/17 09:00 (D50w (Vial) Inj) 50 ml UNSCH PRN IV PUSH 09/25/17 16:30 (Glucagon Inj) 1 mg UNSCH PRN OTHER 09/25/17 16:30 (NovoLOG SUPPLEMENTAL SCALE) 1 Q4HR SQ 09/25/17 16:00 09/25/17 16:00 Vital Signs / I&O Vital Signs Date Time Temp Pulse Resp B/P (MAP) Pulse Ox O2 Delivery O2 Flow Rate FiO2 09/26/17 12:18 15 09/26/17 11:05 99 Mechanical Ventilator 40 09/26/17 11:05 40 09/26/17 11:04 61 09/26/17 11:02 92.5 61 15 130/84 (99) 99 130/72 (91) 09/26/17 10:30 100 40 09/26/17 09:50 50 09/26/17 08:13 100 40 09/26/17 08:02 09/26/17 07:27 100 Mechanical Ventilator 40 09/26/17 07:26 50 09/26/17 07:26 40 09/26/17 07:24 91.4 50 15 118/82 (94) 100 122/69 (86) 09/26/17 07:18 50 09/26/17 04:48 100 40 09/26/17 04:00 52 09/26/17 04:00 91.4 52 15 150/95 (113) 100 150/79 (102) 09/26/17 04:00 100 Mechanical Ventilator 40 09/26/17 04:00 40 09/26/17 00:26 100 40 09/26/17 00:00 40 09/26/17 00:00 100 Mechanical Ventilator 40 09/26/17 00:00 46 09/26/17 00:00 91.4 46 15 110/79 (89) 100 107/64 (78) 09/25/17 20:00 100 Mechanical Ventilator 40 09/25/17 20:00 40 09/25/17 20:00 09/25/17 20:00 91.4 46 15 130/86 (101) 100 131/75 (93) 09/25/17 20:00 46 09/25/17 19:55 100 40 09/25/17 16:25 100 40 09/25/17 16:11 48 09/25/17 15:11 40 09/25/17 15:11 99 Mechanical Ventilator 40 09/25/17 15:11 45 09/25/17 15:10 91.1 45 15 99 117/72 (87) I/O 09/25/17 09/25/17 09/25/17 09/26/17 09/26/17 09/26/17 07:00 15:00 23:00 07:00 15:00 23:00 Intake Total 725 ml 1248.6 ml 1100 ml 1200 ml 950 ml Output Total 1201 ml 570 ml 760 ml Balance 725 ml 47.6 ml 530 ml 440 ml 950 ml Intake Oral 0 ml IV Total 725 ml 1248.6 ml 1100 ml 1200 ml 950 ml Output Urine Total 900 ml 470 ml 460 ml Stool Total 1 ml Gastric Drainage Total 300 ml 100 ml 300 ml # Bowel Movements 0 0 Physical Exam GENERAL: Intubated SKIN: Cool/dry HEAD: Atraumatic. Normocephalic. EYES: Pupils equal and round. No scleral icterus. No injection or drainage. ENT: No nasal bleeding or discharge. Mucous membranes pink and moist. NECK: Trachea midline. No JVD. CARDIOVASCULAR: Regular rate and rhythm. RESPIRATORY: No accessory muscle use. Clear to auscultation. Breath sounds equal bilaterally. GASTROINTESTINAL: Abdomen soft, non-tender, nondistended. Hepatic and splenic margins not palpable. MUSCULOSKELETAL: Extremities without clubbing, cyanosis, or edema. No obvious deformities. NEUROLOGICAL: Intubated Laboratory Laboratory Tests Test 09/25/17 15:08 09/25/17 16:40 09/25/17 23:30 09/26/17 04:50 Activated Partial Thromboplast Time 67.9 SEC 105.0 SEC Blood Urea Nitrogen 22 MG/DL 18 MG/DL 17 MG/DL Creatinine 0.94 MG/DL 0.85 MG/DL 0.83 MG/DL Random Glucose 156 MG/DL 132 MG/DL 122 MG/DL Calcium Level 7.6 MG/DL 7.8 MG/DL 7.8 MG/DL Phosphorus Level 2.6 MG/DL Magnesium Level 2.3 MG/DL 2.1 MG/DL Sodium Level 139 MEQ/L 139 MEQ/L 139 MEQ/L Potassium Level 3.7 MEQ/L 3.6 MEQ/L 3.6 MEQ/L Chloride Level 105 MEQ/L 106 MEQ/L 106 MEQ/L Carbon Dioxide Level 26.1 MEQ/L 25.5 MEQ/L 22.9 MEQ/L Anion Gap 8 MEQ/L 8 MEQ/L 10 MEQ/L Estimat Glomerular Filtration Rate 81 ML/MIN 91 ML/MIN 94 ML/MIN Troponin I 36.10 NG/ML White Blood Count 10.1 TH/MM3 Red Blood Count 4.32 MIL/MM3 Hemoglobin 12.8 GM/DL Hematocrit 37.1 % Mean Corpuscular Volume 85.9 FL Mean Corpuscular Hemoglobin 29.6 PG Mean Corpuscular Hemoglobin Concent 34.5 % Red Cell Distribution Width 13.7 % Platelet Count 138 TH/MM3 Mean Platelet Volume 9.6 FL Test 09/26/17 04:55 09/26/17 10:00 Blood Gas Puncture Site RANDI Blood Gas Patient Temperature 98.6 Blood Gas HCO3 23 mmol/L Blood Gas Base Excess 0.0 mmol/L Blood Gas Oxygen Saturation 97 % Arterial Blood pH 7.46 Arterial Blood Partial Pressure CO2 34 mmHg Arterial Blood Partial Pressure O2 133 mmHg Arterial Blood Oxygen Content 17.9 Vol % Arterial Blood Carboxyhemoglobin 0.5 % Arterial Blood Methemoglobin 1.4 % Blood Gas Hemoglobin 13.0 G/DL Oxygen Delivery Device VENTILATOR Blood Gas Ventilator Setting AC/15/500/PEEP 5 Blood Gas Inspired Oxygen 40 % Activated Partial Thromboplast Time 58.7 SEC Blood Urea Nitrogen 15 MG/DL Creatinine 0.82 MG/DL Random Glucose 127 MG/DL Calcium Level 7.5 MG/DL Sodium Level 140 MEQ/L Potassium Level 3.8 MEQ/L Chloride Level 107 MEQ/L Carbon Dioxide Level 25.9 MEQ/L Anion Gap 7 MEQ/L Estimat Glomerular Filtration Rate 95 ML/MIN Troponin I 26.30 NG/ML Assessment and Plan Problem List: (1) Acute ST elevation myocardial infarction (STEMI) ICD Codes: I21.3 - ST elevation (STEMI) myocardial infarction of unspecified site (2) Cardiac arrest ICD Codes: I46.9 - Cardiac arrest, cause unspecified (3) Ventricular fibrillation ICD Codes: I49.01 - Ventricular fibrillation (4) Cardiac arrest with ventricular fibrillation ICD Codes: I46.9 - Cardiac arrest, cause unspecified; I49.01 - Ventricular fibrillation (5) Ventilator dependence ICD Codes: Z99.11 - Dependence on respirator [ventilator] status (6) IGNACIO (acute kidney injury) ICD Codes: N17.9 - Acute kidney failure, unspecified Assessment and Plan 1) Acute inferior STEMI Medical management for now as concern for limited neurologic recovery Heparin drip 2) Cardiac arrest/Vfib arrest Con't Lidocaine drip Overall down time until return of circulation was around 20 mins, with bystander CPR 3) Concern for hypoxic brain injury No corneal/gag reflex and posturing on admission Hypothermia protocol in place, will reevaluate after warming 4) EF 35-40% 5) Discussed with significant other on admission and yesterday 6) Prognosis is critical to poor, will await to see if neurologic return after hypothermia Zeke Zacarias DO Sep 26, 2017 13:54
[2017-09-26] MEDS ORDERED: POTASSIUM PHOSPHATE MONOBASIC 500 MG TAB PO/TUBE PRN (16:44)
[2017-09-26] MEDS ORDERED: RESP: ALBUTEROL 2.5 MG/3 ML NEB (PRN) NEB (16:45)
[2017-09-26] MEDS ORDERED: MAGNESIUM SULFATE INJ 2 GM in SODIUM CHLORIDE 0.9% INJ 96 ML IV PRN (16:45)
[2017-09-26] MEDS ORDERED: MAGNESIUM SULFATE INJ 4 GM in SODIUM CHLORIDE 0.9% INJ 92 ML IV PRN (16:45)
[2017-09-26] MEDS ORDERED: POTASSIUM CHLOR 20 MEQ PREMIX 100 ML IV PRN (16:45)
[2017-09-26] MEDS ORDERED: SODIUM PHOSPHATE INJ 30 MMOL in SODIUM CHLOR 0.9% 250 ML INJ 240 ML IV PRN (16:45)
[2017-09-26] MEDS ORDERED: POTASSIUM CHLOR 40 MEQ PREMIX 100 ML IV PRN ×2 (16:45)
[2017-09-26] MEDS ORDERED: POTASSIUM PHOSPHATE MONOBASIC 500 MG TAB PO PRN (16:45)
[2017-09-26] MEDS ORDERED: POTASSIUM CHLORIDE 25 MEQ EFFERVESCENT TAB PO PRN (16:45)
[2017-09-26] MEDS ORDERED: MAGNESIUM OXIDE 400 MG TAB PO PRN (16:45)
[2017-09-26 16:47] LABS: BICARBONATE 26.5 MEQ/L (21.0-32.0); CALCIUM 7.4 MG/DL (8.5-10.1); CREATININE 0.8 MG/DL (0.60-1.30)
[2017-09-26 17:11] LABS: CALCIUM-PROTEIN CORRECTED 8.1 MG/DL (8.5-10.1); TOTAL PROTEIN 5.8 GM/DL (6.4-8.2)
[2017-09-26] MEDS: niCARdipine 25 MG/NS 250 ML Vial2Bag or IV room IV PRN ×2 (18:06)
[2017-09-26] MEDS: PIPERACIL-TAZO 4.5 GM PREMIX 100 ML IV SCH (21:32)
[2017-09-26 23:07] LABS: BICARBONATE 23.2 MEQ/L (21.0-32.0); CALCIUM 7.6 MG/DL (8.5-10.1); CREATININE 1.08 MG/DL (0.60-1.30); MAGNESIUM 1.7 MG/DL (1.5-2.5)
[2017-09-26 23:08] LABS: PHOSPHORUS 2.2 MG/DL (2.5-4.9)
[2017-09-26 23:22] LABS: CHOLESTEROL/ HDL RATIO 4.48 RATIO; HDL CHOLESTEROL 27.9 MG/DL (40.0-60.0)
[2017-09-26 23:32] LABS: TROPONIN I 13.1 NG/ML (0.02-0.05)
[2017-09-27] VITALS (14 sets, daily range): BP systolic 105–170; BP diastolic 59–110; PULSE 70–93; RESP 18–45; TEMP 98.6–98.8; O2SAT 89–99
[2017-09-27] MEDS: PIPERACIL-TAZO 4.5 GM PREMIX 100 ML IV SCH ×4 (00:24→17:36)
[2017-09-27] MEDS: ARTIFICIAL TEARS OPTH SOLN 15 ML BTL EACH EYE SCH ×4 (00:24→22:00)
[2017-09-27] MEDS: PROPOFOL 1000 MG/100 ML INJ 100 ML IV PRN ×4 (02:07→17:36)
[2017-09-27] MEDS: LIDOCAINE/D5W 2000 MG/500 ML 500 ML IV SCH ×2 (03:22→19:01)
[2017-09-27] MEDS: SODIUM CHLOR 0.9% 1000 ML INJ 1,000 ML IV SCH ×2 (03:22→23:42)
[2017-09-27] MEDS: RESP: ALBUTEROL 2.5 MG/IPRATROPIUM 0.5 MG NEB (SCH) INH ×4 (03:29→21:28)
[2017-09-27] MEDS: CHLORHEXIDINE GLUCONATE 2 % 1 PACK (2 CLOTHS) TOP SCH (04:00)
[2017-09-27] MEDS: INSULIN ASPART SUPPLEMENTAL SCALE SQ SCH ×6 (04:00→20:00)
[2017-09-27 04:06] LABS: HEMATOCRIT 35.6 % (39.0-51.0); HEMOGLOBIN 12.2 GM/DL (13.0-17.0); MEAN CELL VOLUME 86.6 FL (80.0-100.0); MEAN CORPUSCULAR HEMOGLOBIN 29.7 PG (27.0-34.0); MEAN CORPUSCULAR HGB CONC 34.2 % (32.0-36.0); MEAN PLATELET VOLUME 9.7 FL (7.0-11.0); PLATELET COUNT 155 TH/MM3 (150-450); RED BLOOD COUNT 4.11 MIL/MM3 (4.50-5.90); WHITE BLOOD COUNT 13.5 TH/MM3 (4.0-11.0)
[2017-09-27 04:24] LABS: INTERNATIONAL NORMALIZED RATIO 1.1 RATIO; PROTHROMBIN TIME - PATIENT 10.9 SEC (9.8-11.6)
[2017-09-27 04:26] LABS: BICARBONATE 24.8 MEQ/L (21.0-32.0); CALCIUM 7.5 MG/DL (8.5-10.1); CREATININE 1.08 MG/DL (0.60-1.30)
[2017-09-27] MEDS: levETIRAcetam INJ 100 ML IV SCH ×2 (05:05→16:30)
--- NOTE | 2017-09-27 05:24 | RADRPT ---
EXAM DATE/TIME: 09/27/2017 04:15 [facility] COMPARISON: CHEST SINGLE AP, September 25, 2017, 13:33. INDICATIONS : Shortness of breath, possible pulmonary disease. MEDICAL HISTORY : None. SURGICAL HISTORY : None. ENCOUNTER: Subsequent ACUITY: 2 days PAIN SCORE: Non-responsive. LOCATION: Bilateral chest FINDINGS: There has been the development of small bilateral pleural effusions and associated atelectasis versus infiltrates. Heart is mildly large. Tip of endotracheal tube 3 cm proximal to denton. Nasogastric tu be tip courses off the inferior margin of the film. CONCLUSION: New bilateral pleural effusions and associated basilar atelectasis versus infiltrates. Moy Patton Jr., MD on September 27, 2017 at 5:22 Board Certified Radiologist. This report was verified electronically.
[2017-09-27] MEDS: ASPIRIN 81 MG CHEW TAB CHEW SCH (08:53)
[2017-09-27] MEDS: CHLORHEXIDINE 0.12% (ORAL KIT) 15 ML CUP MT SCH ×2 (08:53→20:40)
[2017-09-27] MEDS: FAMOTIDINE 20 MG/2 ML VIAL IV PUSH SCH ×2 (08:54→20:39)
[2017-09-27] MEDS: SODIUM CHLORIDE 0.9% FLUSH 10 ML FLUSH IV FLUSH SCH ×2 (08:54→20:39)
--- NOTE | 2017-09-27 10:15 | HHI.CCPN ---
Subjective Remarks/Hospital Course This is a 60yM who presented as an [id number] v. fib cardiac arrest. Per report, he complained of heartburn most of the day today. This evening he became acutely unresponsive. family member started bystander CPR. Reported down- time was 20 minutes. presenting rhythm to EMS was v. fib. ROSC was obtained and [id number] 12-leads suggests inferior st-elevations. upon arrival to ED, patient again had pulseless v. tach/v. fib arrest, ROSC obtained and again repeat 12-lead with inferior st- elevations. patient has poor neurologic exam despite receiving no neuro altering medications. long discussion with Dr. Zacarias: holding off on emergent left heart cath given poor neurologic function. no additional information obtainable from the patient due to his clinical condition. ROS unobtainable. 09/26: Currently actively being rewarmed. No further dysrhythmias noted. Remains on lidocaine drip at 2 mg/min. Gram-negative miguel angel and sputum identified. Subjective 09/27: Afebrile. Patient has been rewarmed. Will initiate tube feeds today. Appears to be posturing with decerebrate positioning. EEG ordered for today. Objective Vital Signs Date Time Temp Pulse Resp B/P (MAP) Pulse Ox O2 Delivery O2 Flow Rate FiO2 09/27/17 08:04 98 50 09/27/17 08:00 09/27/17 07:00 78 09/27/17 07:00 Mechanical Ventilator 09/27/17 04:00 98.6 19 Intake and Output 09/27/17 09/27/17 09/27/17 07:59 15:59 23:59 Intake Total 2000 ml Output Total 1010 ml Balance 990 ml Result Diagram: 09/27/17 0340 09/27/17 0340 Other Results Microbiology Date/Time Source Procedure Growth Status 09/25/17 04:00 Sputum Endotracheal Gram Stain - Final Resulted 09/25/17 04:00 Sputum Culture - Preliminary Gram Negative Miguel Angel Resulted Imaging Last Impressions Chest X-Ray 09/27/17 0600 Signed Impressions: Service Date/Time: Wednesday, September 27, 2017 04:15 - CONCLUSION: New bilateral pleural effusions and associated basilar atelectasis versus infiltrates. Moy Patton Jr., MD Head CT 09/25/17 0000 Signed Impressions: Service Date/Time: Monday, September 25, 2017 00:31 - CONCLUSION: 1. No acute intracranial abnormality demonstrated. 2. Sinus disease. Mikhail Ruiz MD Objective Remarks gen: elderly-appearing male, lying in bed, intubated, unresponsive heent: nc. at. pupils are 3 mm and equal, but disconjugate gaze. mucous membranes are moist and pink neck: no jvd. trachea midline. chest: Essentially clear to auscultation bilaterally without wheezes rales rhonchi cv: RRR. S1, S2 no S4. No murmur abd: soft, nontender, nondistended hypoactive bowel sounds appreciated. Evolving hematoma at site of insertion of right femoral Quatro catheter extr: cool, poorly perfused. no peripheral edema. distal pulses 2+ neuro: Currently paralyzed on cisatracurium on the ventilator. No gag or corneal reflex. Urinary Catheter: Yes Assessment to: Continue Mccray insert reason: Prolonged Immobilization Vascular Central Line Catheter: Yes Assessment to: Continue Date of Insertion: Sep 25, 2017 Line: Central Venous Catheter Side: Right Location: Femoral A/P Assessment and Plan Neuro/Psych: Hypoxic ischemic encephalopathy Acute encephalopathy THC use Currently a propofol drip at 30 mcg/kg/min for sedation while intubated Targeted temperature monitoring for cerebral protection has been completed CT brain on admission revealed no acute intracranial findings. EEG ordered for a.m. 09/27 Respiratory: Acute hypoxic and hypercarbic respiratory failure Left lower lobe infiltrate PRVC 16/500/1/8/40 Vent bundle Head of bed 30 Albuterol/ipratropium aerosols every 6 hours with albuterol aerosols every 2 hours as needed dyspnea Wean FiO2 for goal SPO2 greater than 92% Spontaneous breathing trials when clinically indicated Cardiovascular: Out of hospital V. fib cardiac arrest Recurrent ventricular tachycardia Cardiogenic shock Inferior STEMI Acute systolic and diastolic heart failure Cardiology consulted: Dr. Zacarias Trend cardiac enzymes troponin currently 13 and downward trending Lidocaine infusion currently 2 mg a/minute continue per cardiology recommendation Heparin drip 900 units an hour 2D echocardiogram revealed EF 35-40%. LVH. Inferior/global hypokinesis. Bilateral atrial enlargement. Grade 1 diastolic dysfunction. Renal: Acute kidney injury -resolving -- Strict I/Os Place Mccray Currently normal saline at 42 cc an hour FEN/GI: Elevated transaminases Hyperammonia Normal saline at 42 mL's an hour ICU electrolyte protocol Start tube feeding with vital 1.5 goal 50 cc now. Daily BMP and electrolytes and replace as indicated Lactulose 30 cc twice daily Heme/ID: Normocytic anemia Thrombocytopenia Gram-negative miguel angel pneumonia Start piperacillin/tazobactam day #2 Daily CBC Pertinent cultures 09/25 -sputum -gram-negative miguel angel Endocrine: Hyperglycemia of critical illness -- SSI Novulog with Accu-Cheks every 4 hours Prophylaxis: GI Prophylaxis Famotidine IV DVT Prophylaxis -- SCDs Heparin infusion Lines: 09/25 right femoral arterial line 09/25 right femoral cooling catheter Mccray Clinical care time 35 minutes follow-up Howard Ramos MD Sep 27, 2017 10:15
[2017-09-27] MEDS ORDERED: POTASSIUM CHLOR 20 MEQ PREMIX 100 ML IV ONE (10:45)
[2017-09-27] MEDS ORDERED: FUROSEMIDE 40 MG/4 ML VIAL IV PUSH ONE (10:45)
[2017-09-27] MEDS: MIDAZOLAM HCL 2 MG/2 ML VIAL IV PUSH PRN (10:59)
[2017-09-27] MEDS: LORazepam 2 MG/ML VIAL IV PUSH PRN (11:06)
[2017-09-27] MEDS ORDERED: LORazepam 2 MG/ML VIAL IV PUSH ONE (11:45)
[2017-09-27] MEDS: fentaNYL DRIP 250 ML IV PRN (12:59)
[2017-09-27] MEDS: MIDAZOLAM 100 MG/100 ML INJ 100 ML IV PRN (13:00)
[2017-09-27] MEDS: HEPARIN INJ 25,000 UNITS in SODIUM CHLOR 0.9% 250 ML INJ 247.5 ML IV PRN (14:03)
--- NOTE | 2017-09-27 16:44 | RADRPT ---
EXAM DATE/TIME: 09/27/2017 15:28 [facility] COMPARISON: CHEST SINGLE AP, September 27, 2017, 4:15. INDICATIONS : Shortness of breath. MEDICAL HISTORY : None. SURGICAL HISTORY : None. ENCOUNTER: Subsequent ACUITY: 1 day PAIN SCORE: Non-responsive. LOCATION: Bilateral chest FINDINGS: The ET tube is in good position. There is a nasogastric tube present. There are bilateral effusions. These are similar in size to previous exam. There is mild atelectatic change in both bases. The osseo us structures are grossly intact. CONCLUSION: 1. Small bilateral effusions unchanged from previous. 2. ET tube in good position. Geovanni Pride MD on September 27, 2017 at 16:41 Board Certified Radiologist. This report was verified electronically.
[2017-09-27 16:55] LABS: HEMOGLOBIN A1C 5.7 % (4.3-6.0)
--- NOTE | 2017-09-27 17:32 | PD.CARD.PN ---
Subjective Subjective Remarks Rewarmed from hypothermia protocol No further arrhythmias noted Hemodynamically stable Trouble with oxygenation, appears he was mucus plugging Objective Medications Current Medications Medications (Trade) Dose Ordered Sig/Isabel Route Start Time Stop Time Status Last Admin (Peridex 0.12% Liq) 15 ml BID@08,20 MT 09/25/17 08:00 09/27/17 08:53 (Duoneb Neb) 1 ampule Q6HR NEB INH 09/25/17 04:00 09/27/17 16:46 Propofol 100 ml @ 2.727 mls/ hr TITRATE PRN IV 09/25/17 00:15 09/27/17 09:30 Sodium Chloride 1,000 ml @ 42 mls/hr [id number] IV 09/25/17 00:15 09/27/17 03:22 (Zofran Inj) 4 mg Q6H PRN IV PUSH 09/25/17 00:15 Miscellaneous Information 1 Q361D XX 09/25/17 00:15 (Chlorhexidine 2% Cloth) 3 pack Taper DAILY@04 TOP 09/25/17 04:00 09/21/18 03:59 09/27/17 04:00 (Chlorhexidine 2% Cloth) 3 pack UNSCH PRN TOP 09/25/17 00:15 09/25/17 02:31 Norepinephrine Bitartrate 4 mg/ Sodium Chloride 250 ml @ 7.5 mls/hr TITRATE PRN IV 09/25/17 00:15 (Brethine Inj) 1 mg UNSCH PRN SQ 09/25/17 00:15 Lidocaine HCl/ Dextrose 500 ml @ 30 mls/hr [id number] IV 09/25/17 00:21 09/27/17 03:22 (Aspirin Chew) 81 mg DAILY CHEW 09/25/17 09:00 09/27/17 08:53 (Ativan Inj) 1 mg Q1H PRN IV PUSH 09/25/17 01:00 09/27/17 11:06 Miscellaneous Information 0 ml @ 0 mls/hr UNSCH IV 09/25/17 01:00 Heparin Sodium (Porcine) 00203 units/Sodium Chloride 250 ml @ 10 mls/hr TITRATE PRN IV 09/25/17 01:00 09/27/17 14:03 Levetriacetam 100 ml @ 400 mls/hr Q12H IV 09/25/17 04:00 09/27/17 16:30 Nicardipine HCl 25 mg/Sodium Chloride 250 ml @ 50 mls/hr TITRATE PRN IV 09/25/17 03:45 09/26/17 18:06 (fentaNYL INJ) 50 mcg Q1H PRN IV PUSH 09/25/17 16:15 09/26/17 11:44 (Versed Inj) 2 mg Q15M PRN IV PUSH 09/25/17 16:15 09/27/17 10:59 (NS Flush) 2 ml BID IV FLUSH 09/25/17 21:00 09/27/17 08:54 (NS Flush) 2 ml UNSCH PRN IV FLUSH 09/25/17 16:15 Miscellaneous Information 0 ml @ 0 mls/hr UNSCH IV 09/25/17 16:15 (D50w (Vial) Inj) 50 ml UNSCH PRN IV PUSH 09/25/17 16:30 (Glucagon Inj) 1 mg UNSCH PRN OTHER 09/25/17 16:30 (NovoLOG SUPPLEMENTAL SCALE) 1 Q4HR SQ 09/25/17 16:00 09/25/17 16:00 (Pepcid Inj) 20 mg Q12HR IV PUSH 09/26/17 21:00 09/27/17 08:54 (Albuterol Neb) 2.5 mg Q2HR NEB PRN NEB 09/26/17 16:45 09/27/17 10:59 (Tears Naturale Opth Soln) 1 drop Q8HR EACH EYE 09/26/17 22:00 09/27/17 14:00 Piperacillin Sod/ Tazobactam Sod 100 ml @ 200 mls/hr Q6H IV 09/26/17 18:00 09/27/17 11:49 Potassium Chloride 100 ml @ 50 mls/hr Q2H PRN IV 09/26/17 16:45 Potassium Chloride 100 ml @ 50 mls/hr Q2H PRN IV 09/26/17 16:45 (K-Lyte Cl Eff) 50 meq UNSCH PRN PO 09/26/17 16:45 Potassium Chloride 100 ml @ 25 mls/hr UNSCH PRN IV 09/26/17 16:45 Potassium Chloride 100 ml @ 50 mls/hr Q2H PRN IV 09/26/17 16:45 Magnesium Sulfate 4 gm/Sodium Chloride 100 ml @ 50 mls/hr UNSCH PRN IV 09/26/17 16:45 (Mag-Ox) 800 mg UNSCH PRN PO 09/26/17 16:45 Magnesium Sulfate 2 gm/Sodium Chloride 100 ml @ 50 mls/hr UNSCH PRN IV 09/26/17 16:45 (K-Phos) 2,000 mg Q4H PRN PO 09/26/17 16:45 Sodium Phosphate 30 mmol/Sodium Chloride 250 ml @ 42 mls/hr UNSCH PRN IV 09/26/17 16:45 09/27/17 05:37 (K-Phos) 2,000 mg UNSCH PRN PO/TUBE 09/26/17 16:44 Potassium Phosphate 30 mmol/ Sodium Chloride 260 ml @ 42 mls/hr UNSCH PRN IV 09/26/17 16:44 (Lactulose Liq) 30 ml BID PO 09/27/17 21:00 Fentanyl Citrate 250 ml @ 5 mls/hr TITRATE PRN IV 09/27/17 12:15 09/27/17 12:59 Midazolam HCl 100 ml @ 2 mls/hr TITRATE PRN IV 09/27/17 12:15 09/27/17 13:00 Cisatracurium Besylate 100 mg/ Sodium Chloride 260 ml @ 15.36 mls/ hr TITRATE PRN IV 09/27/17 16:15 Vital Signs / I&O Vital Signs Date Time Temp Pulse Resp B/P (MAP) Pulse Ox O2 Delivery O2 Flow Rate FiO2 09/27/17 16:19 99 100 09/27/17 15:00 99 Mechanical Ventilator 50 09/27/17 15:00 98.6 83 35 162/110 (127) 93 170/90 (116) 09/27/17 15:00 50 09/27/17 15:00 84 09/27/17 11:00 98.6 93 45 143/72 (95) 89 153/72 (99) 09/27/17 11:00 79 09/27/17 11:00 96 Mechanical Ventilator 50 09/27/17 11:00 50 09/27/17 10:59 89 100 09/27/17 08:04 98 50 09/27/17 08:00 09/27/17 07:00 50 09/27/17 07:00 98.6 75 21 123/70 (87) 97 121/78 (92) 09/27/17 07:00 78 09/27/17 07:00 96 Mechanical Ventilator 50 09/27/17 04:12 99 50 09/27/17 04:00 50 09/27/17 04:00 98.6 77 19 117/81 (93) 99 138/71 (93) 09/27/17 04:00 78 09/27/17 04:00 99 Mechanical Ventilator 50 09/27/17 03:22 77 125/70 09/27/17 02:00 99 Mechanical Ventilator 50 09/27/17 02:00 50 09/27/17 01:19 99 80 09/27/17 00:00 60 09/27/17 00:00 78 09/27/17 00:00 99 Mechanical Ventilator 60 09/27/17 00:00 98.8 78 22 123/79 (94) 99 123/69 (87) 09/26/17 23:00 99 Mechanical Ventilator 70 09/26/17 23:00 70 09/26/17 22:08 99 90 09/26/17 22:00 99 Mechanical Ventilator 80 09/26/17 22:00 80 09/26/17 21:00 90 09/26/17 21:00 97 Mechanical Ventilator 90 09/26/17 20:30 100 09/26/17 20:30 93 Mechanical Ventilator 100 09/26/17 20:00 09/26/17 20:00 92 Mechanical Ventilator 70 09/26/17 20:00 70 09/26/17 20:00 97.7 80 21 118/72 (87) 92 120/61 (80) 09/26/17 20:00 90 09/26/17 19:58 93 60 09/26/17 19:00 90 Mechanical Ventilator 60 09/26/17 19:00 80 120/61 09/26/17 18:54 60 09/26/17 18:06 166/81 I/O 09/26/17 09/26/17 09/26/17 09/27/17 09/27/17 09/27/17 07:00 15:00 23:00 07:00 15:00 23:00 Intake Total 1200 ml 950 ml 750 ml 2100 ml 800 ml 100 ml Output Total 760 ml 660 ml 1010 ml Balance 440 ml 950 ml 90 ml 1090 ml 800 ml 100 ml Intake Oral 0 ml IV Total 1200 ml 950 ml 750 ml 2100 ml 800 ml 100 ml Output Urine Total 460 ml 460 ml 610 ml Gastric Drainage Total 300 ml 200 ml 400 ml # Bowel Movements 0 0 0 Physical Exam GENERAL: Intubated SKIN: Cool/dry HEAD: Atraumatic. Normocephalic. EYES: Pupils equal and round. No scleral icterus. No injection or drainage. ENT: No nasal bleeding or discharge. Mucous membranes pink and moist. NECK: Trachea midline. No JVD. CARDIOVASCULAR: Regular rate and rhythm. RESPIRATORY: No accessory muscle use. Clear to auscultation. Breath sounds equal bilaterally. GASTROINTESTINAL: Abdomen soft, non-tender, nondistended. Hepatic and splenic margins not palpable. MUSCULOSKELETAL: Extremities without clubbing, cyanosis, or edema. No obvious deformities. NEUROLOGICAL: Intubated Laboratory Laboratory Tests Test 09/26/17 21:50 09/27/17 03:40 09/27/17 11:30 Blood Urea Nitrogen 13 MG/DL 12 MG/DL Creatinine 1.08 MG/DL 1.08 MG/DL Random Glucose 142 MG/DL 120 MG/DL Calcium Level 7.6 MG/DL 7.5 MG/DL Phosphorus Level 2.2 MG/DL Magnesium Level 1.7 MG/DL Sodium Level 138 MEQ/L 140 MEQ/L Potassium Level 3.8 MEQ/L 3.9 MEQ/L Chloride Level 105 MEQ/L 107 MEQ/L Carbon Dioxide Level 23.2 MEQ/L 24.8 MEQ/L Anion Gap 10 MEQ/L 8 MEQ/L Estimat Glomerular Filtration Rate 69 ML/MIN 69 ML/MIN Total Creatine Kinase 1106 U/L Creatine Kinase MB 230.2 NG/ML Creatine Kinase MB % 20.8 % Troponin I 13.10 NG/ML Triglycerides Level 250 MG/DL Cholesterol Level 125 MG/DL LDL Cholesterol 47 MG/DL HDL Cholesterol 27.9 MG/DL Cholesterol/HDL Ratio 4.48 RATIO Amylase Level 97 U/L Thyroid Stimulating Hormone 3rd Gen 0.935 uIU/ML White Blood Count 13.5 TH/MM3 Red Blood Count 4.11 MIL/MM3 Hemoglobin 12.2 GM/DL Hematocrit 35.6 % Mean Corpuscular Volume 86.6 FL Mean Corpuscular Hemoglobin 29.7 PG Mean Corpuscular Hemoglobin Concent 34.2 % Red Cell Distribution Width 14.0 % Platelet Count 155 TH/MM3 Mean Platelet Volume 9.7 FL Prothrombin Time 10.9 SEC Prothromb Time International Ratio 1.1 RATIO Activated Partial Thromboplast Time 32.1 SEC 31.2 SEC Fibrinogen 576 mg/dL Ammonia 59 MCMOL/L Imaging Last 24 hours Impressions Chest X-Ray 09/27/17 0600 Signed Impressions: Service Date/Time: Wednesday, September 27, 2017 04:15 - CONCLUSION: New bilateral pleural effusions and associated basilar atelectasis versus infiltrates. Moy Patton Jr., MD Chest X-Ray 09/27/17 0000 Signed Impressions: Service Date/Time: Wednesday, September 27, 2017 15:28 - CONCLUSION: 1. Small bilateral effusions unchanged from previous. 2. ET tube in good position. Geovanni Pride MD Assessment and Plan Problem List: (1) Acute ST elevation myocardial infarction (STEMI) ICD Codes: I21.3 - ST elevation (STEMI) myocardial infarction of unspecified site (2) Cardiac arrest ICD Codes: I46.9 - Cardiac arrest, cause unspecified (3) Ventricular fibrillation ICD Codes: I49.01 - Ventricular fibrillation (4) Cardiac arrest with ventricular fibrillation ICD Codes: I46.9 - Cardiac arrest, cause unspecified; I49.01 - Ventricular fibrillation (5) Ventilator dependence ICD Codes: Z99.11 - Dependence on respirator [ventilator] status (6) IGNACIO (acute kidney injury) ICD Codes: N17.9 - Acute kidney failure, unspecified Assessment and Plan 1) Acute inferior STEMI Medical management for now as concern for limited neurologic recovery Heparin drip 2) Cardiac arrest/Vfib arrest Will plan to stop Lidocaine drip Overall down time until return of circulation was around 20 mins, with bystander CPR 3) Concern for hypoxic brain injury No corneal/gag reflex and posturing on admission Hypothermia protocol in place, now rewarmed Concern for decorticate posturing 4) EF 35-40% 5) Prognosis is critical to poor, will await to see if neurologic return after hypothermia Zeke Zacarias DO Sep 27, 2017 17:32
[2017-09-27] MEDS: CISATRACURIUM INJ 100 MG in SODIUM CHLOR 0.9% 250 ML INJ 250 ML IV PRN (17:36)
[2017-09-27] MEDS: LACTULOSE SYRUP 20 GM/30 ML CUP PO SCH (20:39)
[2017-09-28] VITALS (19 sets, daily range): BP systolic 104–129; BP diastolic 57–79; PULSE 66–91; RESP 16–18; TEMP 98–100.8; O2SAT 75–99
[2017-09-28] MEDS: PIPERACIL-TAZO 4.5 GM PREMIX 100 ML IV SCH ×4 (00:30→16:38)
[2017-09-28] MEDS: RESP: ALBUTEROL 2.5 MG/IPRATROPIUM 0.5 MG NEB (SCH) INH ×5 (03:46→20:17)
[2017-09-28] MEDS: CHLORHEXIDINE GLUCONATE 2 % 1 PACK (2 CLOTHS) TOP SCH (04:00)
[2017-09-28] MEDS: INSULIN ASPART SUPPLEMENTAL SCALE SQ SCH ×6 (04:00→20:00)
[2017-09-28 04:50] LABS: AUTOMATED NEUTROPHIL # 7.8 TH/MM3 (1.8-7.7); BASOPHIL % 0.3 % (0.0-2.0); EOSINOPHIL % 0.3 % (0.0-4.0); HEMATOCRIT 31.5 % (39.0-51.0); HEMOGLOBIN 10.8 GM/DL (13.0-17.0); LYMPH % 23.2 % (9.0-44.0); LYMPHOCYTE # 2.6 TH/MM3 (1.0-4.8); MEAN CELL VOLUME 86.9 FL (80.0-100.0); MEAN CORPUSCULAR HEMOGLOBIN 29.8 PG (27.0-34.0); MEAN CORPUSCULAR HGB CONC 34.3 % (32.0-36.0); MEAN PLATELET VOLUME 9.8 FL (7.0-11.0); MONO % 5.8 % (0.0-8.0); MONOCYTE # 0.6 TH/MM3 (0-0.9); NEUT % 70.4 % (16.0-70.0); PLATELET COUNT 132 TH/MM3 (150-450); RED BLOOD COUNT 3.63 MIL/MM3 (4.50-5.90); RED CELL DISTRIBUTION WIDTH 13.9 % (11.6-17.2)
[2017-09-28] MEDS: levETIRAcetam INJ 100 ML IV SCH ×2 (04:53→16:38)
[2017-09-28 05:05] LABS: ALBUMIN 2.5 GM/DL (3.4-5.0); AST (GOT) 169 U/L (15-37); BICARBONATE 25.2 MEQ/L (21.0-32.0); BLOOD UREA NITROGEN 13 MG/DL (7-18); CALCIUM 8.1 MG/DL (8.5-10.1); CHLORIDE 107 MEQ/L (98-107); GLOMERULAR FILTRATION RATE 76 ML/MIN (>89); GLUCOSE,RANDOM 101 MG/DL (74-106); MAGNESIUM 1.9 MG/DL (1.5-2.5); SODIUM (NA) 142 MEQ/L (136-145)
--- NOTE | 2017-09-28 05:12 | RADRPT ---
EXAM DATE/TIME: 09/28/2017 04:09 [facility] COMPARISON: CHEST SINGLE AP, September 27, 2017, 15:28. INDICATIONS : Short of breath. MEDICAL HISTORY : None. SURGICAL HISTORY : None. ENCOUNTER: Subsequent ACUITY: 3 days PAIN SCORE: 0/10 LOCATION: Bilateral chest FINDINGS: Single portable frontal view of the chest shows no significant change in the bibasilar consolidations and tiny effusions. Heart is normal in size. Tip of the endotracheal tube 4 cm proximal to denton. N asogastric tube in the region of the antrum. CONCLUSION: 1. Unchanged small bilateral pleural effusions and atelectasis versus infiltrates. Moy Patton Jr., MD on September 28, 2017 at 5:10 Board Certified Radiologist. This report was verified electronically.
[2017-09-28 05:26] LABS: ALKALINE PHOSPHATASE 61 U/L (45-117); ALT (GPT) 126 U/L (12-78); PHOSPHORUS 1.8 MG/DL (2.5-4.9); TOTAL BILIRUBIN ADULT 0.6 MG/DL (0.2-1.0); TOTAL PROTEIN 5.7 GM/DL (6.4-8.2)
[2017-09-28] MEDS: ARTIFICIAL TEARS OPTH SOLN 15 ML BTL EACH EYE SCH ×3 (06:00→21:35)
[2017-09-28] MEDS: POTASSIUM PHOSPHATE INJ 30 MMOL in SODIUM CHLOR 0.9% 250 ML INJ 250 ML IV PRN (06:29)
[2017-09-28] MEDS: SODIUM CHLORIDE 0.9% FLUSH 10 ML FLUSH IV FLUSH SCH ×3 (09:00→21:35)
[2017-09-28] MEDS: ASPIRIN 81 MG CHEW TAB CHEW SCH (09:07)
[2017-09-28] MEDS: LACTULOSE SYRUP 20 GM/30 ML CUP PO SCH ×2 (09:07→21:34)
[2017-09-28] MEDS: FAMOTIDINE 20 MG/2 ML VIAL IV PUSH SCH ×2 (09:07→21:35)
[2017-09-28] MEDS: PROPOFOL 1000 MG/100 ML INJ 100 ML IV PRN (09:07)
[2017-09-28] MEDS: CHLORHEXIDINE 0.12% (ORAL KIT) 15 ML CUP MT SCH ×2 (09:08→20:00)
--- NOTE | 2017-09-28 09:17 | HHI.CCPN ---
Subjective Remarks/Hospital Course This is a 60yM who presented as an [id number] v. fib cardiac arrest. Per report, he complained of heartburn most of the day today. This evening he became acutely unresponsive. family member started bystander CPR. Reported down- time was 20 minutes. presenting rhythm to EMS was v. fib. ROSC was obtained and [id number] 12-leads suggests inferior st-elevations. upon arrival to ED, patient again had pulseless v. tach/v. fib arrest, ROSC obtained and again repeat 12-lead with inferior st- elevations. patient has poor neurologic exam despite receiving no neuro altering medications. long discussion with Dr. Zacarias: holding off on emergent left heart cath given poor neurologic function. no additional information obtainable from the patient due to his clinical condition. ROS unobtainable. 09/26: Currently actively being rewarmed. No further dysrhythmias noted. Remains on lidocaine drip at 2 mg/min. Gram-negative andre and sputum identified. 09/27: Afebrile. Patient has been rewarmed. Will initiate tube feeds today. Appears to be posturing with decerebrate positioning. EEG ordered for today. Subjective 09/28: Afebrile. Trickle feeds currently at 10 cc an hour. Required paralysis yesterday due to dyssynchrony of the ventilator causing hypoxia. Will diuresis with furosemide 40 mg IV 1 after potassium replacement today. No bowel movement since admission. Objective Vital Signs Date Time Temp Pulse Resp B/P (MAP) Pulse Ox O2 Delivery O2 Flow Rate FiO2 09/28/17 08:00 09/28/17 07:51 Mechanical Ventilator 70 09/28/17 07:49 98.2 69 18 96 Intake and Output 09/28/17 09/28/17 09/29/17 08:00 16:00 00:00 Intake Total 3150.8 ml Output Total 665.0 ml Balance 2485.8 ml Result Diagram: 09/28/17 0415 09/28/17 0415 Other Results Microbiology Date/Time Source Procedure Growth Status 09/25/17 04:00 Sputum Endotracheal Gram Stain - Final Complete 09/25/17 04:00 Sputum Culture - Final Serratia Marcescens Complete Imaging Last Impressions Chest X-Ray 09/28/17 0600 Signed Impressions: Service Date/Time: Thursday, September 28, 2017 04:09 - CONCLUSION: 1. Unchanged small bilateral pleural effusions and atelectasis versus infiltrates. Moy Patton Jr., MD Head CT 09/25/17 0000 Signed Impressions: Service Date/Time: Monday, September 25, 2017 00:31 - CONCLUSION: 1. No acute intracranial abnormality demonstrated. 2. Sinus disease. Mikhail Ruiz MD Objective Remarks gen: elderly-appearing male, lying in bed, intubated, unresponsive heent: nc. at. pupils are 3 mm and equal, but disconjugate gaze. mucous membranes are moist and pink neck: no jvd. trachea midline. chest: Essentially clear to auscultation bilaterally without wheezes rales rhonchi cv: RRR. S1, S2 no S4. No murmur abd: soft, nontender, nondistended hypoactive bowel sounds appreciated. Evolving hematoma at site of insertion of right femoral Quatro catheter extr: cool, poorly perfused. no peripheral edema. distal pulses 2+ neuro: Currently paralyzed on cisatracurium on the ventilator. No gag or corneal reflex. Urinary Catheter: Yes Assessment to: Continue Mccray insert reason: Prolonged Immobilization Vascular Central Line Catheter: Yes Assessment to: Remove Date of Insertion: Sep 25, 2017 Line: Central Venous Catheter Side: Right Location: Femoral A/P Assessment and Plan Neuro/Psych: Hypoxic ischemic encephalopathy Acute encephalopathy THC use Currently a propofol drip at 30 mcg/kg/min midazolam drip at 4 mg an hour and fentanyl drip at 100 mg an hour for sedation while intubated Cisatracurium at 1 mg/kg/min [id number] of 104 Targeted temperature monitoring for cerebral protection has been completed CT brain on admission revealed no acute intracranial findings. EEG ordered for a.m. 09/27 completed. Results pending Respiratory: Acute hypoxic and hypercarbic respiratory failure Left lower lobe infiltrate PRVC 16/500/1/8/55 Vent bundle Head of bed 30 Albuterol/ipratropium aerosols every 6 hours with albuterol aerosols every 2 hours as needed dyspnea Wean FiO2 for goal SPO2 greater than 92% Spontaneous breathing trials when clinically indicated We will attempt to withdraw sedation/paralytic today Cardiovascular: Out of hospital V. fib cardiac arrest Recurrent ventricular tachycardia Cardiogenic shock Inferior STEMI Acute systolic and diastolic heart failure Elevated triglycerides Cardiology consulted: Dr. Zacarias Trend cardiac enzymes troponin currently 13 and downward trending. Trending Lidocaine infusion currently 2 mg a/minute continue per cardiology recommendation discontinued 09/27. No further incidence of recurrent V. tach Heparin drip 900 units an hour 2D echocardiogram revealed EF 35-40%. LVH. Inferior/global hypokinesis. Bilateral atrial enlargement. Grade 1 diastolic dysfunction. Renal: Acute kidney injury -resolving -- Strict I/Os Place Mccray Currently normal saline at 42 cc an hour FEN/GI: Elevated transaminases Hyperammonia Hypoalbuminemia Hypokalemia Hypophosphatemia Normal saline at 42 mL's an hour ICU electrolyte protocol Start tube feeding with vital 1.5 goal 50 cc now. Daily BMP and electrolytes and replace as indicated Lactulose 30 cc twice daily. Add liquid docusate sodium 100 mg twice daily, liquid senna 8.6 mg twice daily and polyethylene glycol 17 g daily for bowel regimen 30 mmol K-Phos, 40 mEq KCl 1 now. Recheck potassium at 1500 hrs. Heme/ID: Normocytic anemia Thrombocytopenia Serratia marcescens pneumonia Start piperacillin/tazobactam day #3 Daily CBC Pertinent cultures 09/25 -sputum -Serratia marcescens Endocrine: Hyperglycemia of critical illness -- SSI Novulog with Accu-Cheks every 4 hours medium protocol Prophylaxis: GI Prophylaxis Famotidine IV DVT Prophylaxis -- SCDs Heparin infusion Lines: 09/25 right femoral arterial line 09/25 right femoral cooling catheter Mccray Clinical care time 35 minutes follow-up Howard Ramos MD Sep 28, 2017 09:17
[2017-09-28] MEDS ORDERED: POTASSIUM CHLOR 40 MEQ PREMIX 100 ML IV ONE (09:30)
[2017-09-28] MEDS: MAGNESIUM SULFATE 1 GM PREMIX 100 ML IV SCH ×2 (09:33→11:39)
[2017-09-28] MEDS ORDERED: POLYETHYLENE GLYCOL 17 GM PKG PO ONE (10:00)
[2017-09-28] MEDS ORDERED: FUROSEMIDE 40 MG/4 ML VIAL IV PUSH ONE (10:00)
[2017-09-28] MEDS ORDERED: RESP: ALBUTEROL 2.5 MG/IPRATROPIUM 0.5 MG NEB (SCH) INH (10:00)
[2017-09-28] MEDS ORDERED: LACTULOSE SYRUP 20 GM/30 ML CUP PO ONE (10:00)
--- NOTE | 2017-09-28 10:07 | PD.PROCEDR ---
Central Line Procedure REASON FOR PROCEDURE Central venous access PROCEDURE PERFORMED Central line placement: Left IJ CVL CONSENT Informed consent for procedure was obtained. The risks and benefits of the procedure were discussed to include but limited to bleeding, clot formation, infection, and even . ANESTHESIA Local injection of 1% Lidocaine DESCRIPTION OF THE PROCEDURE The patient was placed in supine, mild Trendelenburg position. The area was exposed and cleansed with ChloraPrep, times two. Large sterile drape was used to cover the patient, with the site exposed, under sterile conditions including cap, face mask, sterile gown, and sterile gloves. On single attempt, the introducer needle was inserted with negative pressure in syringe and venous flash was obtained. The guide wire was then advanced without any restriction and the needle was removed. The dilator was used without any complications. Using Seldinger technique the antibiotic coated triple lumen catheter was advanced over the guide wire to a depth of 20 centimeters. The guide wire was removed. All ports were aspirated with dark venous blood return and flushed easily with sterile saline. All ports were capped. Antibiotic disc was placed around central line at puncture site. The central line was secured to the skin with two interrupted 2.0 silk sutures. The area was bandaged with sterile see- through central line bandage. RADIOLOGICAL DATA Ultrasound guidance was used to locate left IJ CVL. Doppler/color flow was used to confirm venous flow. COMPLICATIONS: No apparent complications ESTIMATED BLOOD LOSS: Less than 1 cc. Howard Ramos MD Sep 28, 2017 10:07
[2017-09-28] MEDS ORDERED: SODIUM CHLORIDE 0.9% FLUSH 10 ML FLUSH IV FLUSH PRN (10:15)
--- NOTE | 2017-09-28 10:50 | RADRPT ---
EXAM DATE/TIME: 09/28/2017 10:15 [facility] COMPARISON: September 28 at 0409 INDICATIONS : <<Post central line placement.>> MEDICAL HISTORY : None. SURGICAL HISTORY : None. ENCOUNTER: Subsequent ACUITY: 1 day PAIN SCORE: Non-responsive. LOCATION: Bilateral chest FINDINGS: Left IJ line has been placed with tip in superior vena cava. Endotracheal tube in good position. Naso gastric tube enters stomach. Basal airspace disease and pleural effusions similar to exam from [facility] today. CONCLUSION: 1. Placement of left internal jugular central line superior vena cava. No pneumothorax. Remainder of exam unchanged from earlier today. Kameron Zapata MD on September 28, 2017 at 10:45 Board Certified Radiologist. This report was verified electronically.
--- NOTE | 2017-09-28 12:16 | MG ---
cc: Delmar Huff MD ELECTROENCEPHALOGRAM RECORD NUMBER: [id number] History of syncopal episodes, was on Diprivan, then taken off apparently. 1-3 Hz channel has delta activity 20-50 mV occurring intermittent and continuous frontal myogenic artifact. Pseudo frontal sharp transients appreciated. Limited driving with photic stimulation. Single-lead EKG showing sinus rhythm. INTERPRETATION: Moderate encephalopathy. Clinical correlation. MD EMILIE Baker/PILY , 12:05 PM , 12:16 PM
[2017-09-28] MEDS: POTASSIUM CHLOR 20 MEQ PREMIX 100 ML IV PRN ×2 (18:00→20:47)
[2017-09-28] MEDS: SENNOSIDES SYRUP 8.8 MG/5 ML CUP PO SCH (21:34)
[2017-09-28] MEDS: DOCUSATE SODIUM 100 MG/10 ML UDC PO SCH (21:34)
[2017-09-28] MEDS: HEPARIN INJ 25,000 UNITS in SODIUM CHLOR 0.9% 250 ML INJ 247.5 ML IV PRN (22:06)
[2017-09-29] VITALS (18 sets, daily range): BP systolic 111–148; BP diastolic 62–85; PULSE 65–88; RESP 16; TEMP 99–99.8; O2SAT 93–99
[2017-09-29] MEDS: CISATRACURIUM INJ 100 MG in SODIUM CHLOR 0.9% 250 ML INJ 250 ML IV PRN ×3 (00:08→21:26)
[2017-09-29] MEDS: PIPERACIL-TAZO 4.5 GM PREMIX 100 ML IV SCH ×4 (00:10→18:00)
[2017-09-29] MEDS: SODIUM CHLOR 0.9% 1000 ML INJ 1,000 ML IV SCH (00:11)
[2017-09-29] MEDS: PROPOFOL 1000 MG/100 ML INJ 100 ML IV PRN (00:11)
--- NOTE | 2017-09-29 00:11 | PD.CARD.PN ---
Subjective Subjective Remarks Patient was seen earlier on 09/28, late entry Rewarmed from hypothermia protocol No further arrhythmias noted, lidocaine stopped Hemodynamically stable Trouble with oxygenation, appears he was mucus plugging Objective Medications Current Medications Medications (Trade) Dose Ordered Sig/Isabel Route Start Time Stop Time Status Last Admin (Peridex 0.12% Liq) 15 ml BID@08,20 MT 09/25/17 08:00 09/28/17 20:00 Propofol 100 ml @ 2.727 mls/ hr TITRATE PRN IV 09/25/17 00:15 09/28/17 09:07 Sodium Chloride 1,000 ml @ 42 mls/hr [id number] IV 09/25/17 00:15 09/27/17 23:42 (Zofran Inj) 4 mg Q6H PRN IV PUSH 09/25/17 00:15 Miscellaneous Information 1 Q361D XX 09/25/17 00:15 (Chlorhexidine 2% Cloth) 3 pack Taper DAILY@04 TOP 09/25/17 04:00 09/21/18 03:59 09/28/17 04:00 (Chlorhexidine 2% Cloth) 3 pack UNSCH PRN TOP 09/25/17 00:15 09/25/17 02:31 Norepinephrine Bitartrate 4 mg/ Sodium Chloride 250 ml @ 7.5 mls/hr TITRATE PRN IV 09/25/17 00:15 (Brethine Inj) 1 mg UNSCH PRN SQ 09/25/17 00:15 (Aspirin Chew) 81 mg DAILY CHEW 09/25/17 09:00 09/28/17 09:07 (Ativan Inj) 1 mg Q1H PRN IV PUSH 09/25/17 01:00 09/27/17 11:06 Miscellaneous Information 0 ml @ 0 mls/hr UNSCH IV 09/25/17 01:00 Heparin Sodium (Porcine) 61390 units/Sodium Chloride 250 ml @ 10 mls/hr TITRATE PRN IV 09/25/17 01:00 09/28/17 22:06 Levetriacetam 100 ml @ 400 mls/hr Q12H IV 09/25/17 04:00 09/28/17 16:38 Nicardipine HCl 25 mg/Sodium Chloride 250 ml @ 50 mls/hr TITRATE PRN IV 09/25/17 03:45 09/26/17 18:06 (Versed Inj) 2 mg Q15M PRN IV PUSH 09/25/17 16:15 09/27/17 10:59 (NS Flush) 2 ml BID IV FLUSH 09/25/17 21:00 09/28/17 21:35 (NS Flush) 2 ml UNSCH PRN IV FLUSH 09/25/17 16:15 Miscellaneous Information 0 ml @ 0 mls/hr UNSCH IV 09/25/17 16:15 (D50w (Vial) Inj) 50 ml UNSCH PRN IV PUSH 09/25/17 16:30 (Glucagon Inj) 1 mg UNSCH PRN OTHER 09/25/17 16:30 (NovoLOG SUPPLEMENTAL SCALE) 1 Q4HR SQ 09/25/17 16:00 09/25/17 16:00 (Pepcid Inj) 20 mg Q12HR IV PUSH 09/26/17 21:00 09/28/17 21:35 (Tears Naturale Opth Soln) 1 drop Q8HR EACH EYE 09/26/17 22:00 09/28/17 21:35 Piperacillin Sod/ Tazobactam Sod 100 ml @ 200 mls/hr Q6H IV 09/26/17 18:00 09/28/17 16:38 Potassium Chloride 100 ml @ 50 mls/hr Q2H PRN IV 09/26/17 16:45 Potassium Chloride 100 ml @ 50 mls/hr Q2H PRN IV 09/26/17 16:45 (K-Lyte Cl Eff) 50 meq UNSCH PRN PO 09/26/17 16:45 Potassium Chloride 100 ml @ 25 mls/hr UNSCH PRN IV 09/26/17 16:45 Potassium Chloride 100 ml @ 50 mls/hr Q2H PRN IV 09/26/17 16:45 09/28/17 20:47 Magnesium Sulfate 4 gm/Sodium Chloride 100 ml @ 50 mls/hr UNSCH PRN IV 09/26/17 16:45 (Mag-Ox) 800 mg UNSCH PRN PO 09/26/17 16:45 Magnesium Sulfate 2 gm/Sodium Chloride 100 ml @ 50 mls/hr UNSCH PRN IV 09/26/17 16:45 (K-Phos) 2,000 mg Q4H PRN PO 09/26/17 16:45 Sodium Phosphate 30 mmol/Sodium Chloride 250 ml @ 42 mls/hr UNSCH PRN IV 09/26/17 16:45 09/27/17 05:37 (K-Phos) 2,000 mg UNSCH PRN PO/TUBE 09/26/17 16:44 Potassium Phosphate 30 mmol/ Sodium Chloride 260 ml @ 42 mls/hr UNSCH PRN IV 09/26/17 16:44 09/28/17 06:29 (Lactulose Liq) 30 ml BID PO 09/27/17 21:00 09/28/17 21:34 Fentanyl Citrate 250 ml @ 5 mls/hr TITRATE PRN IV 09/27/17 12:15 09/27/17 12:59 Midazolam HCl 100 ml @ 2 mls/hr TITRATE PRN IV 09/27/17 12:15 09/27/17 13:00 Cisatracurium Besylate 100 mg/ Sodium Chloride 260 ml @ 15.36 mls/ hr TITRATE PRN IV 09/27/17 16:15 09/29/17 00:08 (Duoneb Neb) 1 ampule Q6HR NEB INH 09/28/17 10:00 09/28/17 20:17 (Colace Liq) 100 mg Q12HR PO 09/28/17 21:00 09/28/17 21:34 (Senna Liq) 8.8 mg BID PO 09/28/17 21:00 09/28/17 21:34 (Miralax) 17 gm DAILY PO 09/29/17 09:00 (NS Flush) DAILY IV FLUSH 09/28/17 10:15 09/28/17 10:15 (NS Flush) UNSCH PRN IV FLUSH 09/28/17 10:15 Vital Signs / I&O Vital Signs Date Time Temp Pulse Resp B/P (MAP) Pulse Ox O2 Delivery O2 Flow Rate FiO2 09/28/17 22:33 98 40 09/28/17 20:26 87 117/67 (84) 115/61 (79) 09/28/17 20:02 98 60 09/28/17 19:52 82 09/28/17 19:52 100.8 87 16 117/67 (84) 97 115/61 (79) 09/28/17 19:52 60 09/28/17 19:52 97 Mechanical Ventilator 60 09/28/17 16:29 97 60 09/28/17 15:21 60 09/28/17 15:21 96 Mechanical Ventilator 80 09/28/17 15:19 98.2 91 16 96 117/67 (84) 09/28/17 15:00 81 09/28/17 14:04 97 80 09/28/17 12:16 94 100 09/28/17 11:17 97 Mechanical Ventilator 55 09/28/17 11:17 60 09/28/17 11:14 98.0 68 18 111/64 (80) 97 104/58 (73) 09/28/17 11:00 68 09/28/17 10:28 97 45 09/28/17 08:00 09/28/17 07:51 Mechanical Ventilator 70 09/28/17 07:51 70 09/28/17 07:49 98.2 69 18 117/69 (85) 96 106/57 (73) 09/28/17 07:31 97 70 09/28/17 07:00 68 09/28/17 05:00 90 Mechanical Ventilator 70 09/28/17 04:53 77 152/82 09/28/17 04:00 68 158/69 09/28/17 03:46 99 60 09/28/17 03:00 60 09/28/17 03:00 98.6 66 18 129/73 (91) 99 125/67 (86) 09/28/17 03:00 69 09/28/17 03:00 98 Mechanical Ventilator 60 09/28/17 02:00 99 Mechanical Ventilator 60 09/28/17 01:00 97 Mechanical Ventilator 70 09/28/17 00:45 90 Mechanical Ventilator 80 09/28/17 00:17 75 80 I/O 09/28/17 09/28/17 09/28/17 09/29/17 09/29/17 09/29/17 07:00 15:00 23:00 07:00 15:00 23:00 Intake Total 3150.8 ml 300 ml 1278 ml Output Total 645 ml 20.0 ml 2160 ml Balance 2505.8 ml 280.0 ml -882 ml Intake Oral 0 ml IV Total 3120.8 ml 300 ml 1115 ml Tube Feeding 30 ml 73 ml Tube Irrigant 90 ml Output Urine Total 645 ml 2160 ml Tube Feeding Residual Discard 20.0 ml # Bowel Movements 0 0 Physical Exam GENERAL: Intubated SKIN: Cool/dry HEAD: Atraumatic. Normocephalic. EYES: Pupils equal and round. No scleral icterus. No injection or drainage. ENT: No nasal bleeding or discharge. Mucous membranes pink and moist. NECK: Trachea midline. No JVD. CARDIOVASCULAR: Regular rate and rhythm. RESPIRATORY: No accessory muscle use. Clear to auscultation. Breath sounds equal bilaterally. GASTROINTESTINAL: Abdomen soft, non-tender, nondistended. Hepatic and splenic margins not palpable. MUSCULOSKELETAL: Extremities without clubbing, cyanosis, or edema. No obvious deformities. NEUROLOGICAL: Intubated Laboratory Laboratory Tests Test 09/28/17 01:04 09/28/17 04:15 09/28/17 07:45 09/28/17 15:00 Activated Partial Thromboplast Time 35.8 SEC 26.2 SEC White Blood Count 11.0 TH/MM3 Red Blood Count 3.63 MIL/MM3 Hemoglobin 10.8 GM/DL Hematocrit 31.5 % Mean Corpuscular Volume 86.9 FL Mean Corpuscular Hemoglobin 29.8 PG Mean Corpuscular Hemoglobin Concent 34.3 % Red Cell Distribution Width 13.9 % Platelet Count 132 TH/MM3 Mean Platelet Volume 9.8 FL Neutrophils (%) (Auto) 70.4 % Lymphocytes (%) (Auto) 23.2 % Monocytes (%) (Auto) 5.8 % Eosinophils (%) (Auto) 0.3 % Basophils (%) (Auto) 0.3 % Neutrophils # (Auto) 7.8 TH/MM3 Lymphocytes # (Auto) 2.6 TH/MM3 Monocytes # (Auto) 0.6 TH/MM3 Eosinophils # (Auto) 0.0 TH/MM3 Basophils # (Auto) 0.0 TH/MM3 CBC Comment DIFF FINAL Differential Comment Blood Urea Nitrogen 13 MG/DL Creatinine 1.00 MG/DL Random Glucose 101 MG/DL Total Protein 5.7 GM/DL Albumin 2.5 GM/DL Calcium Level 8.1 MG/DL Phosphorus Level 1.8 MG/DL Magnesium Level 1.9 MG/DL Alkaline Phosphatase 61 U/L Aspartate Amino Transf (AST/SGOT) 169 U/L Alanine Aminotransferase (ALT/SGPT) 126 U/L Total Bilirubin 0.6 MG/DL Sodium Level 142 MEQ/L Potassium Level 3.2 MEQ/L Chloride Level 107 MEQ/L Carbon Dioxide Level 25.2 MEQ/L Anion Gap 10 MEQ/L Estimat Glomerular Filtration Rate 76 ML/MIN Blood Gas Puncture Site ART LINE Blood Gas Patient Temperature 98.6 Blood Gas HCO3 24 mmol/L Blood Gas Base Excess 0.3 mmol/L Blood Gas Oxygen Saturation 96 % Arterial Blood pH 7.46 Arterial Blood Partial Pressure CO2 34 mmHg Arterial Blood Partial Pressure O2 132 mmHg Arterial Blood Oxygen Content 12.7 Vol % Arterial Blood Carboxyhemoglobin 0.7 % Arterial Blood Methemoglobin 1.6 % Blood Gas Hemoglobin 9.2 G/DL Oxygen Delivery Device VENTILATOR Blood Gas Ventilator Setting PRVC18/600/1.2/+8 Blood Gas Inspired Oxygen 70 % Test 09/28/17 17:02 09/28/17 22:18 Potassium Level 3.5 MEQ/L Activated Partial Thromboplast Time 32.2 SEC Imaging Last 24 hours Impressions Chest X-Ray 09/28/17 1007 Signed Impressions: Service Date/Time: Thursday, September 28, 2017 10:15 - CONCLUSION: 1. Placement of left internal jugular central line superior vena cava. No pneumothorax. Remainder of exam unchanged from earlier today. Kameron Zapata MD Chest X-Ray 09/28/17 0600 Signed Impressions: Service Date/Time: Thursday, September 28, 2017 04:09 - CONCLUSION: 1. Unchanged small bilateral pleural effusions and atelectasis versus infiltrates. Moy Patton Jr., MD Assessment and Plan Problem List: (1) Acute ST elevation myocardial infarction (STEMI) ICD Codes: I21.3 - ST elevation (STEMI) myocardial infarction of unspecified site (2) Cardiac arrest ICD Codes: I46.9 - Cardiac arrest, cause unspecified (3) Ventricular fibrillation ICD Codes: I49.01 - Ventricular fibrillation (4) Cardiac arrest with ventricular fibrillation ICD Codes: I46.9 - Cardiac arrest, cause unspecified; I49.01 - Ventricular fibrillation (5) Ventilator dependence ICD Codes: Z99.11 - Dependence on respirator [ventilator] status (6) IGNACIO (acute kidney injury) ICD Codes: N17.9 - Acute kidney failure, unspecified Assessment and Plan 1) Acute inferior STEMI Medical management for now as concern for limited neurologic recovery Heparin drip 2) Cardiac arrest/Vfib arrest Lidocaine stopped Overall down time until return of circulation was around 20 mins, with bystander CPR 3) Concern for hypoxic brain injury No corneal/gag reflex and posturing on admission Hypothermia protocol in place, now rewarmed Concern for decorticate posturing 4) EF 35-40% 5) Prognosis is critical to poor, will await to see if neurologic return after hypothermia Zeke Zacarias DO Sep 29, 2017 00:11
[2017-09-29] MEDS: RESP: ALBUTEROL 2.5 MG/IPRATROPIUM 0.5 MG NEB (SCH) INH ×4 (03:38→20:19)
[2017-09-29] MEDS: INSULIN ASPART SUPPLEMENTAL SCALE SQ SCH ×6 (04:00→20:00)
[2017-09-29] MEDS: CHLORHEXIDINE GLUCONATE 2 % 1 PACK (2 CLOTHS) TOP SCH (04:00)
[2017-09-29] MEDS: levETIRAcetam INJ 100 ML IV SCH ×2 (04:39→16:36)
[2017-09-29 05:45] LABS: HEMOGLOBIN 9.6 GM/DL (13.0-17.0); MEAN CELL VOLUME 86.9 FL (80.0-100.0); MEAN CORPUSCULAR HEMOGLOBIN 29.7 PG (27.0-34.0); MEAN CORPUSCULAR HGB CONC 34.1 % (32.0-36.0); MEAN PLATELET VOLUME 9.5 FL (7.0-11.0); PLATELET COUNT 135 TH/MM3 (150-450); RED BLOOD COUNT 3.22 MIL/MM3 (4.50-5.90); RED CELL DISTRIBUTION WIDTH 13.8 % (11.6-17.2); WHITE BLOOD COUNT 10.2 TH/MM3 (4.0-11.0)
[2017-09-29] MEDS: ARTIFICIAL TEARS OPTH SOLN 15 ML BTL EACH EYE SCH ×2 (05:57→14:19)
[2017-09-29 06:05] LABS: ALBUMIN 2.3 GM/DL (3.4-5.0); BICARBONATE 22.5 MEQ/L (21.0-32.0); CALCIUM 8.1 MG/DL (8.5-10.1); MAGNESIUM 2.3 MG/DL (1.5-2.5)
[2017-09-29 06:07] LABS: DIRECT BILIRUBIN ADULT 0.4 MG/DL (0.0-0.2)
[2017-09-29 06:10] LABS: INDIRECT BILIRUBIN 0.5 MG/DL (0.0-0.8); PHOSPHORUS 2.4 MG/DL (2.5-4.9); TOTAL BILIRUBIN ADULT 0.9 MG/DL (0.2-1.0); TOTAL PROTEIN 5.5 GM/DL (6.4-8.2)
[2017-09-29] MEDS: POTASSIUM PHOSPHATE INJ 30 MMOL in SODIUM CHLOR 0.9% 250 ML INJ 250 ML IV PRN (07:00)
[2017-09-29] MEDS: fentaNYL DRIP 250 ML IV PRN (08:32)
[2017-09-29] MEDS: SENNOSIDES SYRUP 8.8 MG/5 ML CUP PO SCH ×2 (08:33→20:58)
[2017-09-29] MEDS: LACTULOSE SYRUP 20 GM/30 ML CUP PO SCH ×2 (08:33→20:58)
[2017-09-29] MEDS: ASPIRIN 81 MG CHEW TAB CHEW SCH (08:33)
[2017-09-29] MEDS: POLYETHYLENE GLYCOL 17 GM PKG PO SCH (08:33)
[2017-09-29] MEDS: DOCUSATE SODIUM 100 MG/10 ML UDC PO SCH ×2 (08:33→20:58)
[2017-09-29] MEDS: FAMOTIDINE 20 MG/2 ML VIAL IV PUSH SCH ×2 (08:33→20:58)
[2017-09-29] MEDS: SODIUM CHLORIDE 0.9% FLUSH 10 ML FLUSH IV FLUSH SCH ×3 (08:34→20:59)
[2017-09-29] MEDS: CHLORHEXIDINE 0.12% (ORAL KIT) 15 ML CUP MT SCH ×2 (08:34→20:00)
--- NOTE | 2017-09-29 10:48 | HHI.CCPN ---
Subjective Remarks/Hospital Course This is a 60yM who presented as an [id number] v. fib cardiac arrest. Per report, he complained of heartburn most of the day today. This evening he became acutely unresponsive. family member started bystander CPR. Reported down- time was 20 minutes. presenting rhythm to EMS was v. fib. ROSC was obtained and [id number] 12-leads suggests inferior st-elevations. upon arrival to ED, patient again had pulseless v. tach/v. fib arrest, ROSC obtained and again repeat 12-lead with inferior st- elevations. patient has poor neurologic exam despite receiving no neuro altering medications. long discussion with Dr. Zacarias: holding off on emergent left heart cath given poor neurologic function. no additional information obtainable from the patient due to his clinical condition. ROS unobtainable. 09/26: Currently actively being rewarmed. No further dysrhythmias noted. Remains on lidocaine drip at 2 mg/min. Gram-negative andre and sputum identified. 09/27: Afebrile. Patient has been rewarmed. Will initiate tube feeds today. Appears to be posturing with decerebrate positioning. EEG ordered for today. 09/28: Afebrile. Trickle feeds currently at 10 cc an hour. Required paralysis yesterday due to dyssynchrony of the ventilator causing hypoxia. Will diuresis with furosemide 40 mg IV 1 after potassium replacement today. No bowel movement since admission. Subjective 09/29: Afebrile. Continue trickle feeds at 10 cc an hour. Again required paralysis for dyssynchrony on the ventilator causing hypoxia. MRI brain at noon , EEG today. Neurology consult per family's request for prognosis. Quattro catheter removed yesterday 09/28 without complication. Objective Vital Signs Date Time Temp Pulse Resp B/P (MAP) Pulse Ox O2 Delivery O2 Flow Rate FiO2 09/29/17 10:30 95 40 09/29/17 08:00 87 126/80 (95) 118/63 (81) 09/29/17 07:53 Mechanical Ventilator 09/29/17 07:45 99.4 16 Intake and Output 09/29/17 09/29/17 09/30/17 08:00 16:00 00:00 Intake Total 1719 ml Output Total 650 ml Balance 1069 ml Result Diagram: 09/29/17 0517 09/29/17 05 Other Results Microbiology Date/Time Source Procedure Growth Status 09/25/17 04:00 Sputum Endotracheal Gram Stain - Final Complete 09/25/17 04:00 Sputum Culture - Final Serratia Marcescens Complete Imaging Last Impressions Chest X-Ray 09/28/17 1007 Signed Impressions: Service Date/Time: Thursday, September 28, 2017 10:15 - CONCLUSION: 1. Placement of left internal jugular central line superior vena cava. No pneumothorax. Remainder of exam unchanged from earlier today. Kameron Zapata MD Head CT 09/25/17 0000 Signed Impressions: Service Date/Time: Monday, September 25, 2017 00:31 - CONCLUSION: 1. No acute intracranial abnormality demonstrated. 2. Sinus disease. Mikhail Ruiz MD Objective Remarks gen: elderly-appearing male, lying in bed, intubated, unresponsive heent: nc. at. pupils are 3 mm and equal, but disconjugate gaze. mucous membranes are moist and pink neck: no jvd. trachea midline. Left IJ CVL clean dry and intact chest: Essentially clear to auscultation bilaterally without wheezes rales rhonchi cv: RRR. S1, S2 no S4. No murmur abd: soft, nontender, nondistended hypoactive bowel sounds appreciated. Evolving ecchymosis around right femoral arterial line without hematoma extr: cool, poorly perfused. no peripheral edema. distal pulses 2+ neuro: Currently paralyzed on cisatracurium on the ventilator. No gag or corneal reflex. Urinary Catheter: Yes Assessment to: Continue Mccray insert reason: Prolonged Immobilization Vascular Central Line Catheter: Yes Assessment to: Continue Date of Insertion: Sep 28, 2017 Line: Central Venous Catheter Side: Left Location: Internal, Jugular A/P Assessment and Plan Neuro/Psych: Hypoxic ischemic encephalopathy Acute encephalopathy THC use Currently a propofol drip at 30 mcg/kg/min midazolam drip at 4 mg an hour and fentanyl drip at 100 mg an hour for sedation while intubated Cisatracurium at 2 mg/kg/min [id number]-abyd of 104 Targeted temperature monitoring for cerebral protection has been completed CT brain on admission revealed no acute intracranial findings. EEG ordered for a.m. 09/27 completed. Moderate slowing. Repeat today. MRI brain 09/29 pending Neurology consultation Respiratory: Acute hypoxic and hypercarbic respiratory failure Left lower lobe infiltrate PRVC 16/500/45 Vent bundle Head of bed 30 Albuterol/ipratropium aerosols every 6 hours with albuterol aerosols every 2 hours as needed dyspnea Wean FiO2 for goal SPO2 greater than 92% Spontaneous breathing trials when clinically indicated We will attempt to withdraw sedation/paralytic today Cardiovascular: Out of hospital V. fib cardiac arrest Recurrent ventricular tachycardia Cardiogenic shock Inferior STEMI Acute systolic and diastolic heart failure Elevated triglycerides Cardiology consulted: Dr. Zacarias Trend cardiac enzymes troponin currently 13 and downward trending. Trending Lidocaine infusion currently 2 mg a/minute continue per cardiology recommendation discontinued 09/27. No further incidence of recurrent V. tach Heparin drip 900 units an hour 2D echocardiogram revealed EF 35-40%. LVH. Inferior/global hypokinesis. Bilateral atrial enlargement. Grade 1 diastolic dysfunction. Renal: Acute kidney injury -resolving -- Strict I/Os Place Mccray Currently normal saline at 42 cc an hour FEN/GI: Elevated transaminases Hyperammonia Hypoalbuminemia Hypokalemia Hypophosphatemia Normal saline at 42 mL's an hour ICU electrolyte protocol Start tube feeding with vital 1.5 goal 50 cc now. Daily BMP and electrolytes and replace as indicated Lactulose 30 cc twice daily. Add liquid docusate sodium 100 mg twice daily, liquid senna 8.6 mg twice daily and polyethylene glycol 17 g daily for bowel regimen 30 mmol K-Phos, 40 mEq KCl 1 now. Recheck potassium at 1500 hrs. Heme/ID: Normocytic anemia Thrombocytopenia Serratia marcescens pneumonia Start piperacillin/tazobactam day #4 Daily CBC Pertinent cultures 09/25 -sputum -Serratia marcescens Endocrine: Hyperglycemia of critical illness -- SSI Novulog with Accu-Cheks every 4 hours medium protocol Prophylaxis: GI Prophylaxis Famotidine IV DVT Prophylaxis -- SCDs Heparin infusion Lines: 09/25 right femoral arterial line 09/25 right femoral cooling catheter -09/28 09/28 left internal jugular vein CVL Mccray Clinical care time 35 minutes follow-up Howard Ramos MD Sep 29, 2017 10:48
[2017-09-29] MEDS ORDERED: EPINEPHrine HCL (1:10,000) 1 MG/10 ML SYRINGE ONE (11:46)
[2017-09-29] MEDS ORDERED: ATROPINE SULFATE 1 MG/10 ML SYRINGE ONE (11:46)
--- NOTE | 2017-09-29 13:32 | RADRPT ---
EXAM DATE/TIME: 09/29/2017 12:35 [facility] COMPARISON: No previous studies available for comparison. INDICATIONS : Seizures. Hypoxic encephalopathy. Cardiac arrest. MEDICAL HISTORY : Hypertension. Arthritis. SURGICAL HISTORY : Polyp removal. ENCOUNTER: Subsequent ACUITY: 4-6 days PAIN SCORE: Nonresponsive. LOCATION: head. TECHNIQUE: Multiplanar, multisequence MRI of the brain was performed without contrast. FINDINGS: There is mild chronic ischemic changes within the deep white matter. No recent infarction identified on the diffusion weighted images. No hydrocephalus. No abnormal extra-axial fluid collections. There is fluid in the sphenoid sinus, ethmoid air cells and there is mucosal thickening in the right maxillary sinus. CONCLUSION: 1. No recent infarct. Mild chronic white matter ischemic changes. 2. Sphenoid and ethmoid sinusitis. Kameron Zapata MD on September 29, 2017 at 13:14 Board Certified Radiologist. This report was verified electronically.
[2017-09-29] MEDS: MIDAZOLAM 100 MG/100 ML INJ 100 ML IV PRN (14:19)
--- NOTE | 2017-09-29 14:44 | PD.CONS ---
History of Present Illness Service Neurology Consult Requested By [facility] Reason for Consult coma Primary Care Physician Unknown History of Present Illness 60y m who presented as an [id number] v. fib cardiac arrest. down for 20 mins estimated. hx of tob use. had code cool and off of it now. on sedatives and paralytics. off, has tachy and is hypertensive per rn. Review of Systems ROS Limitations: Intubated, Unresponsive Past Family Social History Allergies: Coded Allergies: No Known Allergies (Unverified , 09/24/17) Past Medical History unobtainable secondary to the clinical condition of the patient. Past Surgical History unobtainable secondary to the clinical condition of the patient. Reported Medications unobtainable secondary to the clinical condition of the patient. Active Ordered Medications See MAR Family History unobtainable secondary to the clinical condition of the patient. Social History unobtainable secondary to the clinical condition of the patient. Review of Systems All other ROS: Unable to obtain Past Family Social History Allergies: Coded Allergies: No Known Allergies (Unverified , 09/24/17) Active Ordered Medications Current Medications Medications (Trade) Dose Ordered Sig/Isabel Route Start Time Stop Time Status Last Admin (Peridex 0.12% Liq) 15 ml BID@08,20 MT 09/25/17 08:00 09/29/17 08:34 Propofol 100 ml @ 2.727 mls/ hr TITRATE PRN IV 09/25/17 00:15 09/29/17 00:11 Sodium Chloride 1,000 ml @ 42 mls/hr [id number] IV 09/25/17 00:15 09/29/17 00:11 (Zofran Inj) 4 mg Q6H PRN IV PUSH 09/25/17 00:15 Miscellaneous Information 1 Q361D XX 09/25/17 00:15 (Chlorhexidine 2% Cloth) 3 pack Taper DAILY@04 TOP 09/25/17 04:00 09/21/18 03:59 09/29/17 04:00 (Chlorhexidine 2% Cloth) 3 pack UNSCH PRN TOP 09/25/17 00:15 09/25/17 02:31 Norepinephrine Bitartrate 4 mg/ Sodium Chloride 250 ml @ 7.5 mls/hr TITRATE PRN IV 09/25/17 00:15 (Brethine Inj) 1 mg UNSCH PRN SQ 09/25/17 00:15 (Aspirin Chew) 81 mg DAILY CHEW 09/25/17 09:00 09/29/17 08:33 (Ativan Inj) 1 mg Q1H PRN IV PUSH 09/25/17 01:00 09/27/17 11:06 Miscellaneous Information 0 ml @ 0 mls/hr UNSCH IV 09/25/17 01:00 Heparin Sodium (Porcine) 41722 units/Sodium Chloride 250 ml @ 10 mls/hr TITRATE PRN IV 09/25/17 01:00 09/28/17 22:06 Levetriacetam 100 ml @ 400 mls/hr Q12H IV 09/25/17 04:00 09/29/17 04:39 Nicardipine HCl 25 mg/Sodium Chloride 250 ml @ 50 mls/hr TITRATE PRN IV 09/25/17 03:45 09/26/17 18:06 (Versed Inj) 2 mg Q15M PRN IV PUSH 09/25/17 16:15 09/27/17 10:59 (NS Flush) 2 ml BID IV FLUSH 09/25/17 21:00 09/29/17 08:34 (NS Flush) 2 ml UNSCH PRN IV FLUSH 09/25/17 16:15 Miscellaneous Information 0 ml @ 0 mls/hr UNSCH IV 09/25/17 16:15 (D50w (Vial) Inj) 50 ml UNSCH PRN IV PUSH 09/25/17 16:30 (Glucagon Inj) 1 mg UNSCH PRN OTHER 09/25/17 16:30 (NovoLOG SUPPLEMENTAL SCALE) 1 Q4HR SQ 09/25/17 16:00 09/25/17 16:00 (Pepcid Inj) 20 mg Q12HR IV PUSH 09/26/17 21:00 09/29/17 08:33 (Tears Naturale Opth Soln) 1 drop Q8HR EACH EYE 09/26/17 22:00 09/29/17 14:19 Piperacillin Sod/ Tazobactam Sod 100 ml @ 200 mls/hr Q6H IV 09/26/17 18:00 09/29/17 14:19 Potassium Chloride 100 ml @ 50 mls/hr Q2H PRN IV 09/26/17 16:45 Potassium Chloride 100 ml @ 50 mls/hr Q2H PRN IV 09/26/17 16:45 (K-Lyte Cl Eff) 50 meq UNSCH PRN PO 09/26/17 16:45 Potassium Chloride 100 ml @ 25 mls/hr UNSCH PRN IV 09/26/17 16:45 Potassium Chloride 100 ml @ 50 mls/hr Q2H PRN IV 09/26/17 16:45 09/28/17 20:47 Magnesium Sulfate 4 gm/Sodium Chloride 100 ml @ 50 mls/hr UNSCH PRN IV 09/26/17 16:45 (Mag-Ox) 800 mg UNSCH PRN PO 09/26/17 16:45 Magnesium Sulfate 2 gm/Sodium Chloride 100 ml @ 50 mls/hr UNSCH PRN IV 09/26/17 16:45 (K-Phos) 2,000 mg Q4H PRN PO 09/26/17 16:45 Sodium Phosphate 30 mmol/Sodium Chloride 250 ml @ 42 mls/hr UNSCH PRN IV 09/26/17 16:45 09/27/17 05:37 (K-Phos) 2,000 mg UNSCH PRN PO/TUBE 09/26/17 16:44 Potassium Phosphate 30 mmol/ Sodium Chloride 260 ml @ 42 mls/hr UNSCH PRN IV 09/26/17 16:44 09/29/17 07:00 (Lactulose Liq) 30 ml BID PO 09/27/17 21:00 09/29/17 08:33 Fentanyl Citrate 250 ml @ 5 mls/hr TITRATE PRN IV 09/27/17 12:15 09/29/17 08:32 Midazolam HCl 100 ml @ 2 mls/hr TITRATE PRN IV 09/27/17 12:15 09/29/17 14:19 Cisatracurium Besylate 100 mg/ Sodium Chloride 260 ml @ 15.36 mls/ hr TITRATE PRN IV 09/27/17 16:15 09/29/17 08:32 (Duoneb Neb) 1 ampule Q6HR NEB INH 09/28/17 10:00 09/29/17 10:30 (Colace Liq) 100 mg Q12HR PO 09/28/17 21:00 09/29/17 08:33 (Senna Liq) 8.8 mg BID PO 09/28/17 21:00 09/29/17 08:33 (Miralax) 17 gm DAILY PO 09/29/17 09:00 09/29/17 08:33 (NS Flush) DAILY IV FLUSH 09/28/17 10:15 09/28/17 10:15 (NS Flush) UNSCH PRN IV FLUSH 09/28/17 10:15 Exam I&O / VS Vital Signs Date Time Temp Pulse Resp B/P (MAP) Pulse Ox O2 Delivery O2 Flow Rate FiO2 09/29/17 12:00 99 09/29/17 10:30 95 40 09/29/17 08:00 87 126/80 (95) 118/63 (81) 09/29/17 07:53 97 Mechanical Ventilator 80 09/29/17 07:53 80 09/29/17 07:45 99.4 82 16 126/85 (99) 97 118/63 (81) 09/29/17 07:33 95 40 09/29/17 07:00 75 09/29/17 04:27 95 40 09/29/17 03:00 97 Mechanical Ventilator 40 09/29/17 03:00 83 09/29/17 03:00 40 09/29/17 03:00 99.6 88 16 148/78 (101) 97 129/64 (85) 09/29/17 01:00 97 40 09/28/17 23:00 40 09/28/17 23:00 99 Mechanical Ventilator 40 09/28/17 23:00 100.0 82 16 124/79 (94) 97 114/65 (81) 09/28/17 23:00 82 09/28/17 22:33 98 40 09/28/17 20:26 87 117/67 (84) 115/61 (79) 09/28/17 20:02 98 60 09/28/17 19:52 82 09/28/17 19:52 100.8 87 16 117/67 (84) 97 115/61 (79) 09/28/17 19:52 60 09/28/17 19:52 97 Mechanical Ventilator 60 09/28/17 16:29 97 60 09/28/17 15:21 60 09/28/17 15:21 96 Mechanical Ventilator 80 09/28/17 15:19 98.2 91 16 96 117/67 (84) 09/28/17 15:00 81 Exam Comments intubated on propofol, versed, fentanyl, paralytic agents, coma state. non- verbal/not following. grimaces to tactile, ou 2-1mm, weak horizontal eom, no ext movement, planterflexor Review/Management Diagnosis/Plan: (1) Hypoxic encephalopathy ICD Codes: G93.1 - Anoxic brain damage, not elsewhere classified Status: Acute Plan: +cortical and brainstem function eeg- +brain waves mri brain- no gross ischemia off code cool x 1 day recs no poor neuro prognostic signs at present limited exam 2/2 sedation/paralytic d/w rn prognosis indeterminate. suspect he will improve (2) Cardiac arrest with ventricular fibrillation ICD Codes: I46.9 - Cardiac arrest, cause unspecified; I49.01 - Ventricular fibrillation Status: Acute (3) IGNACIO (acute kidney injury) ICD Codes: N17.9 - Acute kidney failure, unspecified Status: Acute (4) Acute ST elevation myocardial infarction (STEMI) ICD Codes: I21.3 - ST elevation (STEMI) myocardial infarction of unspecified site Status: Acute Delmar Huff MD Sep 29, 2017 14:44
--- NOTE | 2017-09-29 16:09 | PD.CARD.PN ---
Subjective Subjective Remarks Rewarmed from hypothermia protocol Hemodynamically stable Objective Medications Current Medications Medications (Trade) Dose Ordered Sig/Isabel Route Start Time Stop Time Status Last Admin (Peridex 0.12% Liq) 15 ml BID@08,20 MT 09/25/17 08:00 09/29/17 08:34 Propofol 100 ml @ 2.727 mls/ hr TITRATE PRN IV 09/25/17 00:15 09/29/17 00:11 Sodium Chloride 1,000 ml @ 42 mls/hr [id number] IV 09/25/17 00:15 09/29/17 00:11 (Zofran Inj) 4 mg Q6H PRN IV PUSH 09/25/17 00:15 Miscellaneous Information 1 Q361D XX 09/25/17 00:15 (Chlorhexidine 2% Cloth) 3 pack Taper DAILY@04 TOP 09/25/17 04:00 09/21/18 03:59 09/29/17 04:00 (Chlorhexidine 2% Cloth) 3 pack UNSCH PRN TOP 09/25/17 00:15 09/25/17 02:31 Norepinephrine Bitartrate 4 mg/ Sodium Chloride 250 ml @ 7.5 mls/hr TITRATE PRN IV 09/25/17 00:15 (Brethine Inj) 1 mg UNSCH PRN SQ 09/25/17 00:15 (Aspirin Chew) 81 mg DAILY CHEW 09/25/17 09:00 09/29/17 08:33 (Ativan Inj) 1 mg Q1H PRN IV PUSH 09/25/17 01:00 09/27/17 11:06 Miscellaneous Information 0 ml @ 0 mls/hr UNSCH IV 09/25/17 01:00 Heparin Sodium (Porcine) 55732 units/Sodium Chloride 250 ml @ 10 mls/hr TITRATE PRN IV 09/25/17 01:00 09/28/17 22:06 Levetriacetam 100 ml @ 400 mls/hr Q12H IV 09/25/17 04:00 09/29/17 04:39 Nicardipine HCl 25 mg/Sodium Chloride 250 ml @ 50 mls/hr TITRATE PRN IV 09/25/17 03:45 09/26/17 18:06 (Versed Inj) 2 mg Q15M PRN IV PUSH 09/25/17 16:15 3/12/18 10:59 (NS Flush) 2 ml BID IV FLUSH 09/25/17 21:00 09/29/17 08:34 (NS Flush) 2 ml UNSCH PRN IV FLUSH 09/25/17 16:15 Miscellaneous Information 0 ml @ 0 mls/hr UNSCH IV 09/25/17 16:15 (D50w (Vial) Inj) 50 ml UNSCH PRN IV PUSH 09/25/17 16:30 (Glucagon Inj) 1 mg UNSCH PRN OTHER 09/25/17 16:30 (NovoLOG SUPPLEMENTAL SCALE) 1 Q4HR SQ 09/25/17 16:00 09/25/17 16:00 (Pepcid Inj) 20 mg Q12HR IV PUSH 09/26/17 21:00 09/29/17 08:33 (Tears Naturale Opth Soln) 1 drop Q8HR EACH EYE 09/26/17 22:00 09/29/17 14:19 Piperacillin Sod/ Tazobactam Sod 100 ml @ 200 mls/hr Q6H IV 09/26/17 18:00 09/29/17 14:19 Potassium Chloride 100 ml @ 50 mls/hr Q2H PRN IV 09/26/17 16:45 Potassium Chloride 100 ml @ 50 mls/hr Q2H PRN IV 09/26/17 16:45 (K-Lyte Cl Eff) 50 meq UNSCH PRN PO 09/26/17 16:45 Potassium Chloride 100 ml @ 25 mls/hr UNSCH PRN IV 09/26/17 16:45 Potassium Chloride 100 ml @ 50 mls/hr Q2H PRN IV 09/26/17 16:45 09/28/17 20:47 Magnesium Sulfate 4 gm/Sodium Chloride 100 ml @ 50 mls/hr UNSCH PRN IV 09/26/17 16:45 (Mag-Ox) 800 mg UNSCH PRN PO 09/26/17 16:45 Magnesium Sulfate 2 gm/Sodium Chloride 100 ml @ 50 mls/hr UNSCH PRN IV 09/26/17 16:45 (K-Phos) 2,000 mg Q4H PRN PO 09/26/17 16:45 Sodium Phosphate 30 mmol/Sodium Chloride 250 ml @ 42 mls/hr UNSCH PRN IV 09/26/17 16:45 3/12/18 05:37 (K-Phos) 2,000 mg UNSCH PRN PO/TUBE 09/26/17 16:44 Potassium Phosphate 30 mmol/ Sodium Chloride 260 ml @ 42 mls/hr UNSCH PRN IV 09/26/17 16:44 09/29/17 07:00 (Lactulose Liq) 30 ml BID PO 09/27/17 21:00 09/29/17 08:33 Fentanyl Citrate 250 ml @ 5 mls/hr TITRATE PRN IV 09/27/17 12:15 09/29/17 08:32 Midazolam HCl 100 ml @ 2 mls/hr TITRATE PRN IV 09/27/17 12:15 09/29/17 14:19 Cisatracurium Besylate 100 mg/ Sodium Chloride 260 ml @ 15.36 mls/ hr TITRATE PRN IV 09/27/17 16:15 09/29/17 08:32 (Duoneb Neb) 1 ampule Q6HR NEB INH 09/28/17 10:00 09/29/17 15:52 (Colace Liq) 100 mg Q12HR PO 09/28/17 21:00 09/29/17 08:33 (Senna Liq) 8.8 mg BID PO 09/28/17 21:00 09/29/17 08:33 (Miralax) 17 gm DAILY PO 09/29/17 09:00 09/29/17 08:33 (NS Flush) DAILY IV FLUSH 09/28/17 10:15 09/28/17 10:15 (NS Flush) UNSCH PRN IV FLUSH 09/28/17 10:15 Vital Signs / I&O Vital Signs Date Time Temp Pulse Resp B/P (MAP) Pulse Ox O2 Delivery O2 Flow Rate FiO2 09/29/17 15:52 98 50 09/29/17 15:07 99.0 72 16 136/84 (101) 97 129/68 (88) 09/29/17 15:06 97 Mechanical Ventilator 40 09/29/17 15:05 80 09/29/17 15:00 72 09/29/17 13:22 93 60 09/29/17 12:00 97 Mechanical Ventilator 40 09/29/17 12:00 80 09/29/17 12:00 99.2 65 16 128/74 (92) 97 136/74 (94) 09/29/17 12:00 99 09/29/17 10:30 95 40 09/29/17 08:00 87 126/80 (95) 118/63 (81) 09/29/17 07:53 97 Mechanical Ventilator 80 09/29/17 07:53 80 09/29/17 07:45 99.4 82 16 126/85 (99) 97 118/63 (81) 09/29/17 07:33 95 40 09/29/17 07:00 75 09/29/17 04:27 95 40 09/29/17 03:00 97 Mechanical Ventilator 40 09/29/17 03:00 83 09/29/17 03:00 40 09/29/17 03:00 99.6 88 16 148/78 (101) 97 129/64 (85) 09/29/17 01:00 97 40 09/28/17 23:00 40 09/28/17 23:00 99 Mechanical Ventilator 40 09/28/17 23:00 100.0 82 16 124/79 (94) 97 114/65 (81) 09/28/17 23:00 82 09/28/17 22:33 98 40 09/28/17 20:26 87 117/67 (84) 115/61 (79) 09/28/17 20:02 98 60 09/28/17 19:52 82 09/28/17 19:52 100.8 87 16 117/67 (84) 97 115/61 (79) 09/28/17 19:52 60 09/28/17 19:52 97 Mechanical Ventilator 60 09/28/17 16:29 97 60 I/O 09/28/17 09/28/17 09/28/17 09/29/17 09/29/17 09/29/17 07:00 15:00 23:00 07:00 15:00 23:00 Intake Total 3150.8 ml 300 ml 1728 ml 1719 ml Output Total 645 ml 20.0 ml 2160 ml 650 ml Balance 2505.8 ml 280.0 ml -432 ml 1069 ml Intake Oral 0 ml 0 ml IV Total 3120.8 ml 300 ml 1565 ml 1550 ml Tube Feeding 30 ml 73 ml 109 ml Tube Irrigant 90 ml 60 ml Output Urine Total 645 ml 2160 ml 650 ml Tube Feeding Residual Discard 20.0 ml # Bowel Movements 0 0 0 Physical Exam GENERAL: Intubated SKIN: Cool/dry HEAD: Atraumatic. Normocephalic. EYES: Pupils equal and round. No scleral icterus. No injection or drainage. ENT: No nasal bleeding or discharge. Mucous membranes pink and moist. NECK: Trachea midline. No JVD. CARDIOVASCULAR: Regular rate and rhythm. RESPIRATORY: No accessory muscle use. Clear to auscultation. Breath sounds equal bilaterally. GASTROINTESTINAL: Abdomen soft, non-tender, nondistended. Hepatic and splenic margins not palpable. MUSCULOSKELETAL: Extremities without clubbing, cyanosis, or edema. No obvious deformities. NEUROLOGICAL: Intubated Laboratory Laboratory Tests Test 09/28/17 17:02 09/28/17 22:18 09/29/17 05:17 09/29/17 13:30 Potassium Level 3.5 MEQ/L 3.4 MEQ/L Activated Partial Thromboplast Time 32.2 SEC 35.8 SEC 30.9 SEC White Blood Count 10.2 TH/MM3 Red Blood Count 3.22 MIL/MM3 Hemoglobin 9.6 GM/DL Hematocrit 28.0 % Mean Corpuscular Volume 86.9 FL Mean Corpuscular Hemoglobin 29.7 PG Mean Corpuscular Hemoglobin Concent 34.1 % Red Cell Distribution Width 13.8 % Platelet Count 135 TH/MM3 Mean Platelet Volume 9.5 FL Blood Urea Nitrogen 16 MG/DL Creatinine 1.00 MG/DL Random Glucose 108 MG/DL Total Protein 5.5 GM/DL Albumin 2.3 GM/DL Calcium Level 8.1 MG/DL Phosphorus Level 2.4 MG/DL Magnesium Level 2.3 MG/DL Alkaline Phosphatase 64 U/L Aspartate Amino Transf (AST/SGOT) 170 U/L Alanine Aminotransferase (ALT/SGPT) 94 U/L Total Bilirubin 0.9 MG/DL Direct Bilirubin 0.4 MG/DL Sodium Level 142 MEQ/L Chloride Level 110 MEQ/L Carbon Dioxide Level 22.5 MEQ/L Anion Gap 10 MEQ/L Estimat Glomerular Filtration Rate 76 ML/MIN Indirect Bilirubin 0.5 MG/DL Imaging Last 24 hours Impressions Brain MRI 09/29/17 0000 Signed Impressions: Service Date/Time: Friday, September 29, 2017 12:35 - CONCLUSION: 1. No recent infarct. Mild chronic white matter ischemic changes. 2. Sphenoid and ethmoid sinusitis. Kameron Zapata MD Assessment and Plan Problem List: (1) Acute ST elevation myocardial infarction (STEMI) ICD Codes: I21.3 - ST elevation (STEMI) myocardial infarction of unspecified site Status: Acute (2) Cardiac arrest ICD Codes: I46.9 - Cardiac arrest, cause unspecified (3) Ventricular fibrillation ICD Codes: I49.01 - Ventricular fibrillation (4) Cardiac arrest with ventricular fibrillation ICD Codes: I46.9 - Cardiac arrest, cause unspecified; I49.01 - Ventricular fibrillation Status: Acute (5) Ventilator dependence ICD Codes: Z99.11 - Dependence on respirator [ventilator] status (6) IGNACIO (acute kidney injury) ICD Codes: N17.9 - Acute kidney failure, unspecified Status: Acute Assessment and Plan 1) Acute inferior STEMI Medical management for now as concern for limited neurologic recovery Heparin drip 2) Cardiac arrest/Vfib arrest Lidocaine stopped Overall down time until return of circulation was around 20 mins, with bystander CPR 3) Concern for hypoxic brain injury No corneal/gag reflex and posturing on admission Hypothermia protocol in place, now rewarmed Concern for decorticate posturing 4) EF 35-40% 5) Prognosis is critical to poor, will await to see if neurologic return after hypothermia Zeke Zacarias DO Sep 29, 2017 16:09
[2017-09-29] MEDS: HEPARIN INJ 25,000 UNITS in SODIUM CHLOR 0.9% 250 ML INJ 247.5 ML IV PRN (16:53)
--- NOTE | 2017-09-29 21:08 | MG ---
cc: Delmar Huff MD EEG RECORD #[id number] A 61-year-old, history of cardiac arrest. 1-3 Hz generalized delta activity, occasional theta 3-5 Hz. 20-50 microvolts. Occasional episodes of arm twitching, not any epileptic correlation. No driving with photic stimulation. Single lead EKG showing sinus rhythm. Mild easy variability reactivity noted. INTERPRETATION: Moderate to severe encephalopathy. No epileptic activity. Medical correlation. Delmar Huff MD MG/rt , 08:55 PM , 09:07 PM
[2017-09-30] VITALS (17 sets, daily range): BP systolic 119–177; BP diastolic 66–88; PULSE 65–88; RESP 16–23; TEMP 98.1–99.3; O2SAT 87–99
[2017-09-30] MEDS: ARTIFICIAL TEARS OPTH SOLN 15 ML BTL EACH EYE SCH ×4 (00:14→22:00)
[2017-09-30] MEDS: PIPERACIL-TAZO 4.5 GM PREMIX 100 ML IV SCH ×4 (00:14→17:56)
[2017-09-30] MEDS: SODIUM CHLOR 0.9% 1000 ML INJ 1,000 ML IV SCH (03:22)
[2017-09-30] MEDS: levETIRAcetam INJ 100 ML IV SCH ×2 (04:00→15:42)
[2017-09-30] MEDS: CHLORHEXIDINE GLUCONATE 2 % 1 PACK (2 CLOTHS) TOP SCH (04:00)
[2017-09-30] MEDS: INSULIN ASPART SUPPLEMENTAL SCALE SQ SCH ×6 (04:00→20:00)
[2017-09-30] MEDS: RESP: ALBUTEROL 2.5 MG/IPRATROPIUM 0.5 MG NEB (SCH) INH ×4 (04:21→20:43)
[2017-09-30 04:59] LABS: HEMATOCRIT 27.1 % (39.0-51.0); HEMOGLOBIN 9.3 GM/DL (13.0-17.0); MEAN CELL VOLUME 87.3 FL (80.0-100.0); MEAN CORPUSCULAR HGB CONC 34.3 % (32.0-36.0); PLATELET COUNT 145 TH/MM3 (150-450); RED CELL DISTRIBUTION WIDTH 14.1 % (11.6-17.2)
[2017-09-30 05:22] LABS: CALCIUM 8.1 MG/DL (8.5-10.1); CREATININE 0.9 MG/DL (0.60-1.30)
[2017-09-30] MEDS: CISATRACURIUM INJ 100 MG in SODIUM CHLOR 0.9% 250 ML INJ 250 ML IV PRN (06:27)
[2017-09-30] MEDS: PROPOFOL 1000 MG/100 ML INJ 100 ML IV PRN (07:00)
[2017-09-30] MEDS: CHLORHEXIDINE 0.12% (ORAL KIT) 15 ML CUP MT SCH ×2 (08:43→20:00)
[2017-09-30] MEDS: LORazepam 2 MG/ML VIAL IV PUSH PRN (08:43)
[2017-09-30] MEDS: SODIUM CHLORIDE 0.9% FLUSH 10 ML FLUSH IV FLUSH SCH ×3 (09:00→20:53)
[2017-09-30] MEDS: LACTULOSE SYRUP 20 GM/30 ML CUP PO SCH ×2 (09:00→20:52)
[2017-09-30] MEDS ORDERED: FUROSEMIDE 40 MG/5 ML UNIT DOSE CUP NG ONE (09:45)
[2017-09-30] MEDS: FAMOTIDINE 20 MG/2 ML VIAL IV PUSH SCH ×2 (09:55→20:53)
[2017-09-30] MEDS: SENNOSIDES SYRUP 8.8 MG/5 ML CUP PO SCH ×2 (09:55→20:53)
[2017-09-30] MEDS: DOCUSATE SODIUM 100 MG/10 ML UDC PO SCH ×2 (09:55→20:52)
[2017-09-30] MEDS: POLYETHYLENE GLYCOL 17 GM PKG PO SCH (09:55)
[2017-09-30] MEDS: ASPIRIN 81 MG CHEW TAB CHEW SCH (09:55)
--- NOTE | 2017-09-30 09:58 | HHI.CCPN ---
Subjective Remarks/Hospital Course This is a 60yM who presented as an [id number] v. fib cardiac arrest. Per report, he complained of heartburn most of the day today. This evening he became acutely unresponsive. family member started bystander CPR. Reported down- time was 20 minutes. presenting rhythm to EMS was v. fib. ROSC was obtained and [id number] 12-leads suggests inferior st-elevations. upon arrival to ED, patient again had pulseless v. tach/v. fib arrest, ROSC obtained and again repeat 12-lead with inferior st- elevations. patient has poor neurologic exam despite receiving no neuro altering medications. long discussion with Dr. Zacarias: holding off on emergent left heart cath given poor neurologic function. no additional information obtainable from the patient due to his clinical condition. ROS unobtainable. 09/26: Currently actively being rewarmed. No further dysrhythmias noted. Remains on lidocaine drip at 2 mg/min. Gram-negative andre and sputum identified. 09/27: Afebrile. Patient has been rewarmed. Will initiate tube feeds today. Appears to be posturing with decerebrate positioning. EEG ordered for today. 09/28: Afebrile. Trickle feeds currently at 10 cc an hour. Required paralysis yesterday due to dyssynchrony of the ventilator causing hypoxia. Will diuresis with furosemide 40 mg IV 1 after potassium replacement today. No bowel movement since admission. Subjective 09/29: Afebrile. Continue trickle feeds at 10 cc an hour. Again required paralysis for dyssynchrony on the ventilator causing hypoxia. MRI brain at noon , EEG today. Neurology consult per family's request for prognosis. Quattro catheter removed yesterday 09/28 without complication. 09/30 Patient remains intubated and sedated with Versed, Diprivan, Fentanyl drips in addition he is on Nimbex. Afebrile. Objective Vital Signs Date Time Temp Pulse Resp B/P (MAP) Pulse Ox O2 Delivery O2 Flow Rate FiO2 09/30/17 08:02 99 45 09/30/17 08:00 70 134/74 (94) 09/30/17 07:00 Mechanical Ventilator 09/30/17 07:00 98.3 16 Intake and Output 09/30/17 09/30/17 10/01/17 08:00 16:00 00:00 Intake Total 796 ml Output Total 750 ml Balance 46 ml Result Diagram: 09/30/17 0435 09/30/17 0435 Other Results Laboratory Tests Test 09/29/17 13:30 09/30/17 00:00 09/30/17 04:35 Activated Partial Thromboplast Time 30.9 SEC 33.6 SEC White Blood Count 9.0 TH/MM3 Red Blood Count 3.10 MIL/MM3 Hemoglobin 9.3 GM/DL Hematocrit 27.1 % Mean Corpuscular Volume 87.3 FL Mean Corpuscular Hemoglobin 30.0 PG Mean Corpuscular Hemoglobin Concent 34.3 % Red Cell Distribution Width 14.1 % Platelet Count 145 TH/MM3 Mean Platelet Volume 9.0 FL Blood Urea Nitrogen 17 MG/DL Creatinine 0.90 MG/DL Random Glucose 102 MG/DL Calcium Level 8.1 MG/DL Sodium Level 146 MEQ/L Potassium Level 3.7 MEQ/L Chloride Level 113 MEQ/L Carbon Dioxide Level 22.0 MEQ/L Anion Gap 11 MEQ/L Estimat Glomerular Filtration Rate 86 ML/MIN Imaging Last Impressions Brain MRI 09/29/17 0000 Signed Impressions: Service Date/Time: Friday, September 29, 2017 12:35 - CONCLUSION: 1. No recent infarct. Mild chronic white matter ischemic changes. 2. Sphenoid and ethmoid sinusitis. Kameron Zapata MD Chest X-Ray 09/28/17 1007 Signed Impressions: Service Date/Time: Thursday, September 28, 2017 10:15 - CONCLUSION: 1. Placement of left internal jugular central line superior vena cava. No pneumothorax. Remainder of exam unchanged from earlier today. Kameron Zapata MD Head CT 09/25/17 0000 Signed Impressions: Service Date/Time: Monday, September 25, 2017 00:31 - CONCLUSION: 1. No acute intracranial abnormality demonstrated. 2. Sinus disease. Mikhail Ruiz MD Objective Remarks GENERAL: Patient is 61 yo intubated and sedated SKIN: Warm and dry. HEAD: Normocephalic. EYES: No scleral icterus. No injection or drainage. NECK: Supple, trachea midline. No JVD or lymphadenopathy. CARDIOVASCULAR: Regular rate and rhythm without murmurs, gallops, or rubs. RESPIRATORY: Breath sounds equal bilaterally. No accessory muscle use. GASTROINTESTINAL: Abdomen soft, non-tender, nondistended. MUSCULOSKELETAL: No cyanosis, or edema. Neuro: Sedated Date of Insertion: Sep 28, 2017 Line: Central Venous Catheter Side: Left Location: Internal, Jugular A/P Assessment and Plan Neuro/Psych: Hypoxic ischemic encephalopathy Hypoxic encephalopathy THC use On Diprivan, Versed, Fentanyl infusions for sedation. Daily sedation vacation. D/c Cisatracurium Targeted temperature monitoring for cerebral protection has been completed CT brain on admission revealed no acute intracranial findings. EEG ordered for a.m. 09/27 completed. Moderate slowing. No epileptiform features MRI brain 09/29 . No recent infarct. Mild chronic white matter ischemic changes. Neurology is following- Dr. Love. On [facility] Respiratory: Acute hypoxic and hypercarbic respiratory failure Left lower lobe infiltrate Continue vent support keep sats >92% Vent bundle Head of bed 30 Albuterol/ipratropium aerosols every 6 hours with albuterol aerosols every 2 hours as needed dyspnea Check ABG/ CXR Spontaneous breathing trials as abrahan Cardiovascular: Out of hospital V. fib cardiac arrest Recurrent ventricular tachycardia Cardiogenic shock Inferior STEMI Acute systolic and diastolic heart failure Elevated triglycerides Cardiology consulted: Dr. Zacarias Trend cardiac enzymes troponin downward trending. Lidocaine infusion currently 2 mg a/minute continue per cardiology recommendation discontinued 09/27. No further incidence of recurrent V. tach Heparin drip 900 units an hour 2D echocardiogram revealed EF 35-40%. LVH. Inferior/global hypokinesis. Bilateral atrial enlargement. Grade 1 diastolic dysfunction. Renal: Acute kidney injury -resolving Monitor renal function, I/O's, electrolytes replacement per protocol. d/c IVF and diurese with Lasix 40mg x1 FEN/GI: Elevated transaminases Monitor LFT's, check US liver. Check Ammonia level. Continue Vital 1.5 @20ml/hr Lactulose 30 cc twice daily. liquid docusate sodium 100 mg twice daily, liquid senna 8.6 mg twice daily and polyethylene glycol 17 g daily for bowel regimen Heme/ID: Normocytic anemia Thrombocytopenia Serratia marcescens pneumonia On piperacillin/tazobactam Monitor for signs of infections ( fever, WBC) Daily CBC, check sputum cx Pertinent cultures 09/25 -sputum -Serratia marcescens Endocrine: Hyperglycemia of critical illness -- SSI Novulog with Accu-Cheks every 4 hours medium protocol Prophylaxis: GI Prophylaxis Famotidine IV DVT Prophylaxis -- SCDs Heparin infusion Lines: 09/25 right femoral arterial line 09/25 right femoral cooling catheter - d/c 09/28 09/28 left internal jugular vein CVL [facility] Clinical care time 30 minutes follow-up Tai Shaw MD Sep 30, 2017 09:58
[2017-09-30] MEDS: niCARdipine 25 MG/NS 250 ML Vial2Bag or IV room IV PRN ×4 (11:40→21:40)
--- NOTE | 2017-09-30 13:46 | RADRPT ---
EXAM DATE/TIME: 09/30/2017 13:15 [facility] COMPARISON: CHEST SINGLE AP, September 28, 2017, 10:15. INDICATIONS : Ventilator-dependant respiratory failure. MEDICAL HISTORY : Hypertension. Arthritis. SURGICAL HISTORY : Polyp removal. ENCOUNTER: Subsequent ACUITY: 1 day PAIN SCORE: Non-responsive. LOCATION: Bilateral chest FINDINGS: A single view of the chest demonstrates endotracheal tube in good position. NG enters stomach. A left central line in the left brachiocephalic vein. Bilateral posterior basilar airspace disease and small effusions. No pneumothorax. CONCLUSION: 1. Support apparatus unchanged. Basilar airspace disease and pleural effusions similar to September 28. Kameron Zapata MD on September 30, 2017 at 13:41 Board Certified Radiologist. This report was verified electronically.
[2017-09-30] MEDS: METOPROLOL TARTRATE 50 MG TAB PO SCH ×2 (13:56→20:53)
--- NOTE | 2017-09-30 18:07 | RADRPT ---
EXAM DATE/TIME: 09/30/2017 17:06 [facility] COMPARISON: No previous studies available for comparison. INDICATIONS : Increased lab values. MEDICAL HISTORY : Hypertension. Arthritis. SURGICAL HISTORY : Polyp removal. ENCOUNTER: Initial ACUITY: 1 day PAIN SCORE: Nonresponsive. LOCATION: Bilateral upper quadrant MEASUREMENTS: LIVER: 19.1 cm length COMMON DUCT: 5 mm RIGHT KIDNEY: 11.9 x 5.3 x 5.9 cm SPLEEN: 12.5 cm length FINDINGS: Increased liver echogenicity enlarged to 19 cm most characteristic of fatty infiltration. Gallbladder common bile duct, right kidney unremarkable. Spleen upper limits of normal. No free fluid. Portal ve nous flow normal direction. CONCLUSION: 1. Fatty liver, enlarged. No free fluid. No gallstones or biliary ductal dilatation. Kameron Zapata MD on September 30, 2017 at 18:04 Board Certified Radiologist. This report was verified electronically.
--- NOTE | 2017-09-30 19:45 | PD.CARD.PN ---
Subjective Subjective Remarks Patient was seen earlier today, late entry Hemodynamically stable Off sedation he's not oxygenating well +Gag/Cough reflex Objective Medications Current Medications Medications (Trade) Dose Ordered Sig/Isabel Route Start Time Stop Time Status Last Admin (Peridex 0.12% Liq) 15 ml BID@08,20 MT 09/25/17 08:00 09/30/17 08:43 Propofol 100 ml @ 2.727 mls/ hr TITRATE PRN IV 09/25/17 00:15 09/30/17 07:00 (Zofran Inj) 4 mg Q6H PRN IV PUSH 09/25/17 00:15 Miscellaneous Information 1 Q361D XX 09/25/17 00:15 (Chlorhexidine 2% Cloth) Taper DAILY@04 TOP 09/25/17 04:00 09/21/18 03:59 09/30/17 04:00 (Chlorhexidine 2% Cloth) 3 pack UNSCH PRN TOP 09/25/17 00:15 09/25/17 02:31 (Brethine Inj) 1 mg UNSCH PRN SQ 09/25/17 00:15 (Aspirin Chew) 81 mg DAILY CHEW 09/25/17 09:00 09/30/17 09:55 (Ativan Inj) 1 mg Q1H PRN IV PUSH 09/25/17 01:00 09/30/17 08:43 Miscellaneous Information 0 ml @ 0 mls/hr UNSCH IV 09/25/17 01:00 Heparin Sodium (Porcine) 57433 units/Sodium Chloride 250 ml @ 10 mls/hr TITRATE PRN IV 09/25/17 01:00 09/29/17 16:53 Levetriacetam 100 ml @ 400 mls/hr Q12H IV 09/25/17 04:00 09/30/17 15:42 Nicardipine HCl 25 mg/Sodium Chloride 250 ml @ 50 mls/hr TITRATE PRN IV 09/25/17 03:45 09/30/17 11:40 (Versed Inj) 2 mg Q15M PRN IV PUSH 09/25/17 16:15 09/27/17 10:59 (NS Flush) 2 ml BID IV FLUSH 09/25/17 21:00 09/30/17 09:56 (NS Flush) 2 ml UNSCH PRN IV FLUSH 09/25/17 16:15 Miscellaneous Information 0 ml @ 0 mls/hr UNSCH IV 09/25/17 16:15 (D50w (Vial) Inj) 50 ml UNSCH PRN IV PUSH 09/25/17 16:30 (Glucagon Inj) 1 mg UNSCH PRN OTHER 09/25/17 16:30 (NovoLOG SUPPLEMENTAL SCALE) 1 Q4HR SQ 09/25/17 16:00 09/25/17 16:00 (Pepcid Inj) 20 mg Q12HR IV PUSH 09/26/17 21:00 09/30/17 09:55 (Tears Naturale Opth Soln) 1 drop Q8HR EACH EYE 09/26/17 22:00 09/30/17 14:00 Piperacillin Sod/ Tazobactam Sod 100 ml @ 200 mls/hr Q6H IV 09/26/17 18:00 09/30/17 17:56 Potassium Chloride 100 ml @ 50 mls/hr Q2H PRN IV 09/26/17 16:45 Potassium Chloride 100 ml @ 50 mls/hr Q2H PRN IV 09/26/17 16:45 (K-Lyte Cl Eff) 50 meq UNSCH PRN PO 09/26/17 16:45 Potassium Chloride 100 ml @ 25 mls/hr UNSCH PRN IV 09/26/17 16:45 Potassium Chloride 100 ml @ 50 mls/hr Q2H PRN IV 09/26/17 16:45 09/28/17 20:47 Magnesium Sulfate 4 gm/Sodium Chloride 100 ml @ 50 mls/hr UNSCH PRN IV 09/26/17 16:45 (Mag-Ox) 800 mg UNSCH PRN PO 09/26/17 16:45 Magnesium Sulfate 2 gm/Sodium Chloride 100 ml @ 50 mls/hr UNSCH PRN IV 09/26/17 16:45 (K-Phos) 2,000 mg Q4H PRN PO 09/26/17 16:45 Sodium Phosphate 30 mmol/Sodium Chloride 250 ml @ 42 mls/hr UNSCH PRN IV 09/26/17 16:45 09/27/17 05:37 (K-Phos) 2,000 mg UNSCH PRN PO/TUBE 09/26/17 16:44 Potassium Phosphate 30 mmol/ Sodium Chloride 260 ml @ 42 mls/hr UNSCH PRN IV 09/26/17 16:44 09/29/17 07:00 (Lactulose Liq) 30 ml BID PO 09/27/17 21:00 09/29/17 20:58 Fentanyl Citrate 250 ml @ 5 mls/hr TITRATE PRN IV 09/27/17 12:15 09/29/17 08:32 (Duoneb Neb) 1 ampule Q6HR NEB INH 09/28/17 10:00 09/30/17 15:54 (Colace Liq) 100 mg Q12HR PO 09/28/17 21:00 09/30/17 09:55 (Senna Liq) 8.8 mg BID PO 09/28/17 21:00 09/30/17 09:55 (Miralax) 17 gm DAILY PO 09/29/17 09:00 09/30/17 09:55 (NS Flush) DAILY IV FLUSH 09/28/17 10:15 09/28/17 10:15 (NS Flush) UNSCH PRN IV FLUSH 09/28/17 10:15 (Lopressor) 50 mg Q12HR PO 09/30/17 13:00 09/30/17 13:56 Vital Signs / I&O Vital Signs Date Time Temp Pulse Resp B/P (MAP) Pulse Ox O2 Delivery O2 Flow Rate FiO2 09/30/17 15:54 98 60 09/30/17 15:17 97 Mechanical Ventilator 80 09/30/17 15:17 80 09/30/17 15:16 68 09/30/17 15:15 99.0 68 18 124/75 (91) 97 119/68 (85) 09/30/17 12:02 87 70 09/30/17 11:40 76 169/89 09/30/17 11:00 98 Mechanical Ventilator 45 09/30/17 11:00 45 09/30/17 11:00 73 09/30/17 11:00 98.9 79 18 177/87 (117) 98 167/88 (114) 09/30/17 09:46 97 45 09/30/17 08:02 99 45 09/30/17 08:00 70 134/74 (94) 09/30/17 07:00 98 Mechanical Ventilator 45 09/30/17 07:00 45 09/30/17 07:00 98.3 69 16 122/82 (95) 98 132/70 (90) 09/30/17 07:00 69 09/30/17 04:21 98 45 09/30/17 03:00 45 09/30/17 03:00 99 Mechanical Ventilator 45 09/30/17 03:00 65 09/30/17 03:00 99.3 65 16 126/76 (93) 99 133/75 (94) 09/30/17 00:41 92 45 09/29/17 23:00 75 09/29/17 23:00 45 09/29/17 23:00 96 Mechanical Ventilator 45 09/29/17 23:00 99.3 75 16 120/72 (88) 96 111/63 (79) 09/29/17 22:00 97 45 09/29/17 20:18 99 45 09/29/17 20:00 78 119/73 (88) 112/62 (79) I/O 09/29/17 09/29/17 09/29/17 09/30/17 09/30/17 09/30/17 07:00 15:00 23:00 07:00 15:00 23:00 Intake Total 1719 ml 1400 ml 796 ml 81 ml 287 ml Output Total 650 ml 1005 ml 750 ml 1055 ml Balance 1069 ml 395 ml 46 ml 81 ml -768 ml Intake Oral 0 ml 0 ml 0 ml IV Total 1550 ml 1232 ml 560 ml 200 ml Tube Feeding 109 ml 78 ml 176 ml 81 ml 87 ml Tube Irrigant 60 ml 90 ml 60 ml Output Urine Total 650 ml 1005 ml 750 ml 1055 ml Gastric Drainage Total 0 ml # Bowel Movements 0 1 0 0 Physical Exam GENERAL: Intubated SKIN: Cool/dry HEAD: Atraumatic. Normocephalic. EYES: Pupils equal and round. No scleral icterus. No injection or drainage. ENT: No nasal bleeding or discharge. Mucous membranes pink and moist. NECK: Trachea midline. No JVD. CARDIOVASCULAR: Regular rate and rhythm. RESPIRATORY: No accessory muscle use. Clear to auscultation. Breath sounds equal bilaterally. GASTROINTESTINAL: Abdomen soft, non-tender, nondistended. Hepatic and splenic margins not palpable. MUSCULOSKELETAL: Extremities without clubbing, cyanosis, or edema. No obvious deformities. NEUROLOGICAL: Intubated Laboratory Laboratory Tests Test 09/30/17 00:00 09/30/17 04:35 3/15/18 10:54 09/30/17 11:20 Activated Partial Thromboplast Time 33.6 SEC 33.8 SEC White Blood Count 9.0 TH/MM3 Red Blood Count 3.10 MIL/MM3 Hemoglobin 9.3 GM/DL Hematocrit 27.1 % Mean Corpuscular Volume 87.3 FL Mean Corpuscular Hemoglobin 30.0 PG Mean Corpuscular Hemoglobin Concent 34.3 % Red Cell Distribution Width 14.1 % Platelet Count 145 TH/MM3 Mean Platelet Volume 9.0 FL Blood Urea Nitrogen 17 MG/DL Creatinine 0.90 MG/DL Random Glucose 102 MG/DL Calcium Level 8.1 MG/DL Sodium Level 146 MEQ/L Potassium Level 3.7 MEQ/L Chloride Level 113 MEQ/L Carbon Dioxide Level 22.0 MEQ/L Anion Gap 11 MEQ/L Estimat Glomerular Filtration Rate 86 ML/MIN Blood Gas Puncture Site ART LINE Blood Gas Patient Temperature 98.6 Blood Gas HCO3 23 mmol/L Blood Gas Base Excess -1.4 mmol/L Blood Gas Oxygen Saturation 96 % Arterial Blood pH 7.41 Arterial Blood Partial Pressure CO2 37 mmHg Arterial Blood Partial Pressure O2 115 mmHg Arterial Blood Oxygen Content 13.3 Vol % Arterial Blood Carboxyhemoglobin 0.9 % Arterial Blood Methemoglobin 1.4 % Blood Gas Hemoglobin 9.7 G/DL Oxygen Delivery Device VENTILATOR Blood Gas Ventilator Setting 16/735/PEEP5 Blood Gas Inspired Oxygen 45 % Ammonia 33 MCMOL/L Imaging Last 24 hours Impressions Liver Ultrasound 09/30/17 0000 Signed Impressions: Service Date/Time: September 17:06 - CONCLUSION: 1. Fatty liver, enlarged. No free fluid. No gallstones or biliary ductal dilatation. Kameron Zapata MD Chest X-Ray 09/30/17 0000 Signed Impressions: Service Date/Time: September 13:15 - CONCLUSION: 1. Support apparatus unchanged. Basilar airspace disease and pleural effusions similar to September 28. Kameron Zapata MD Assessment and Plan Problem List: (1) Acute ST elevation myocardial infarction (STEMI) ICD Codes: I21.3 - ST elevation (STEMI) myocardial infarction of unspecified site Status: Acute (2) Cardiac arrest ICD Codes: I46.9 - Cardiac arrest, cause unspecified (3) Ventricular fibrillation ICD Codes: I49.01 - Ventricular fibrillation (4) Cardiac arrest with ventricular fibrillation ICD Codes: I46.9 - Cardiac arrest, cause unspecified; I49.01 - Ventricular fibrillation Status: Acute (5) Ventilator dependence ICD Codes: Z99.11 - Dependence on respirator [ventilator] status (6) IGNACIO (acute kidney injury) ICD Codes: N17.9 - Acute kidney failure, unspecified Status: Acute Assessment and Plan 1) Acute inferior STEMI Medical management for now as concern for limited neurologic recovery Heparin drip 2) Cardiac arrest/Vfib arrest Lidocaine stopped Overall down time until return of circulation was around 20 mins, with bystander CPR 3) Concern for hypoxic brain injury No corneal/gag reflex and posturing on admission Hypothermia protocol in place, now rewarmed Concern for decorticate posturing 4) EF 35-40% 5) Prognosis is critical to poor, will await to see if neurologic return after hypothermia Zeke Zacarias DO Sep 30, 2017 19:45
[2017-09-30] MEDS: DEXMEDETOMIDINE INJ 200 MCG in SODIUM CHLORIDE 0.9% INJ 50 ML IV PRN (23:18)
[2017-10-01] VITALS (14 sets, daily range): BP systolic 109–142; BP diastolic 55–87; PULSE 64–82; RESP 16–20; TEMP 98.4–100.2; O2SAT 94–98
[2017-10-01] MEDS: PIPERACIL-TAZO 4.5 GM PREMIX 100 ML IV SCH ×4 (01:02→17:13)
[2017-10-01] MEDS: DEXMEDETOMIDINE INJ 200 MCG in SODIUM CHLORIDE 0.9% INJ 50 ML IV PRN ×4 (01:07→05:49)
[2017-10-01] MEDS: PROPOFOL 1000 MG/100 ML INJ 100 ML IV PRN (02:54)
[2017-10-01] MEDS: HEPARIN INJ 25,000 UNITS in SODIUM CHLOR 0.9% 250 ML INJ 247.5 ML IV PRN ×2 (02:55→16:46)
[2017-10-01] MEDS: niCARdipine 25 MG/NS 250 ML Vial2Bag or IV room IV PRN ×2 (02:55)
[2017-10-01] MEDS: CHLORHEXIDINE GLUCONATE 2 % 1 PACK (2 CLOTHS) TOP SCH (04:00)
[2017-10-01] MEDS: INSULIN ASPART SUPPLEMENTAL SCALE SQ SCH ×3 (04:00→08:00)
[2017-10-01] MEDS: levETIRAcetam INJ 100 ML IV SCH ×2 (04:06→15:56)
[2017-10-01] MEDS: RESP: ALBUTEROL 2.5 MG/IPRATROPIUM 0.5 MG NEB (SCH) INH ×2 (04:12→10:57)
[2017-10-01 05:26] LABS: AUTOMATED NEUTROPHIL # 6.7 TH/MM3 (1.8-7.7); BASOPHIL % 0.3 % (0.0-2.0); EOSINOPHIL % 0.1 % (0.0-4.0); HEMATOCRIT 27.8 % (39.0-51.0); HEMOGLOBIN 9.6 GM/DL (13.0-17.0); LYMPH % 17.5 % (9.0-44.0); LYMPHOCYTE # 1.6 TH/MM3 (1.0-4.8); MEAN CELL VOLUME 86.6 FL (80.0-100.0); MEAN CORPUSCULAR HGB CONC 34.6 % (32.0-36.0); MEAN PLATELET VOLUME 9.3 FL (7.0-11.0); MONO % 9.8 % (0.0-8.0); MONOCYTE # 0.9 TH/MM3 (0-0.9); NEUT % 72.3 % (16.0-70.0); PLATELET COUNT 148 TH/MM3 (150-450); RED BLOOD COUNT 3.21 MIL/MM3 (4.50-5.90); RED CELL DISTRIBUTION WIDTH 13.6 % (11.6-17.2); WHITE BLOOD COUNT 9.3 TH/MM3 (4.0-11.0)
[2017-10-01 05:37] LABS: ALBUMIN 2.4 GM/DL (3.4-5.0); ALT (GPT) 117 U/L (12-78); AST (GOT) 110 U/L (15-37); BLOOD UREA NITROGEN 17 MG/DL (7-18); CALCIUM 8.2 MG/DL (8.5-10.1); CHLORIDE 110 MEQ/L (98-107); CREATININE 0.96 MG/DL (0.60-1.30); GLOMERULAR FILTRATION RATE 79 ML/MIN (>89); GLUCOSE,RANDOM 123 MG/DL (74-106); PHOSPHORUS 2.7 MG/DL (2.5-4.9); SODIUM (NA) 145 MEQ/L (136-145)
[2017-10-01 05:39] LABS: ALKALINE PHOSPHATASE 93 U/L (45-117); TOTAL BILIRUBIN ADULT 1.2 MG/DL (0.2-1.0); TOTAL PROTEIN 6.2 GM/DL (6.4-8.2)
[2017-10-01] MEDS: ARTIFICIAL TEARS OPTH SOLN 15 ML BTL EACH EYE SCH ×3 (06:00→22:00)
--- NOTE | 2017-10-01 07:49 | HHI.CCPN ---
Subjective Remarks/Hospital Course This is a 60yM who presented as an [id number]-ov-[id number] v. fib cardiac arrest. Per report, he complained of heartburn most of the day today. This evening he became acutely unresponsive. family member started bystander CPR. Reported down- time was 20 minutes. presenting rhythm to EMS was v. fib. ROSC was obtained and [id number] 12-leads suggests inferior st-elevations. upon arrival to ED, patient again had pulseless v. tach/v. fib arrest, ROSC obtained and again repeat 12-lead with inferior st- elevations. patient has poor neurologic exam despite receiving no neuro altering medications. long discussion with Dr. Zacarias: holding off on emergent left heart cath given poor neurologic function. no additional information obtainable from the patient due to his clinical condition. ROS unobtainable. 09/26: Currently actively being rewarmed. No further dysrhythmias noted. Remains on lidocaine drip at 2 mg/min. Gram-negative andre and sputum identified. 09/27: Afebrile. Patient has been rewarmed. Will initiate tube feeds today. Appears to be posturing with decerebrate positioning. EEG ordered for today. 09/28: Afebrile. Trickle feeds currently at 10 cc an hour. Required paralysis yesterday due to dyssynchrony of the ventilator causing hypoxia. Will diuresis with furosemide 40 mg IV 1 after potassium replacement today. No bowel movement since admission. Subjective 09/29: Afebrile. Continue trickle feeds at 10 cc an hour. Again required paralysis for dyssynchrony on the ventilator causing hypoxia. MRI brain at noon , EEG today. Neurology consult per family's request for prognosis. Quattro catheter removed yesterday 09/28 without complication. 09/30 Patient remains intubated and sedated with Versed, Diprivan, Fentanyl drips in addition he is on Nimbex. Afebrile. 10/01 Patient remains intubated now only on Precedex drip. T:100.2. On Heparin drip Objective Vital Signs Date Time Temp Pulse Resp B/P (MAP) Pulse Ox O2 Delivery O2 Flow Rate FiO2 10/01/17 07:33 69 10/01/17 07:33 100.2 16 126/70 (88) 98 10/01/17 07:32 45 10/01/17 07:31 Mechanical Ventilator Intake and Output 10/01/17 10/01/17 10/02/17 08:00 16:00 00:00 Intake Total 1167 ml Output Total 2195 ml Balance -1028 ml Result Diagram: 10/01/17 0445 10/01/17 0445 Other Results Laboratory Tests Test 09/30/17 10:54 09/30/17 11:20 09/30/17 21:20 10/01/17 04:45 Blood Gas Puncture Site ART LINE Blood Gas Patient Temperature 98.6 Blood Gas HCO3 23 mmol/L Blood Gas Base Excess -1.4 mmol/L Blood Gas Oxygen Saturation 96 % Arterial Blood pH 7.41 Arterial Blood Partial Pressure CO2 37 mmHg Arterial Blood Partial Pressure O2 115 mmHg Arterial Blood Oxygen Content 13.3 Vol % Arterial Blood Carboxyhemoglobin 0.9 % Arterial Blood Methemoglobin 1.4 % Blood Gas Hemoglobin 9.7 G/DL Oxygen Delivery Device VENTILATOR Blood Gas Ventilator Setting [id number] Blood Gas Inspired Oxygen 45 % Activated Partial Thromboplast Time 33.8 SEC 33.4 SEC Ammonia 33 MCMOL/L White Blood Count 9.3 TH/MM3 Red Blood Count 3.21 MIL/MM3 Hemoglobin 9.6 GM/DL Hematocrit 27.8 % Mean Corpuscular Volume 86.6 FL Mean Corpuscular Hemoglobin 30.0 PG Mean Corpuscular Hemoglobin Concent 34.6 % Red Cell Distribution Width 13.6 % Platelet Count 148 TH/MM3 Mean Platelet Volume 9.3 FL Neutrophils (%) (Auto) 72.3 % Lymphocytes (%) (Auto) 17.5 % Monocytes (%) (Auto) 9.8 % Eosinophils (%) (Auto) 0.1 % Basophils (%) (Auto) 0.3 % Neutrophils # (Auto) 6.7 TH/MM3 Lymphocytes # (Auto) 1.6 TH/MM3 Monocytes # (Auto) 0.9 TH/MM3 Eosinophils # (Auto) 0.0 TH/MM3 Basophils # (Auto) 0.0 TH/MM3 CBC Comment DIFF FINAL Differential Comment Blood Urea Nitrogen 17 MG/DL Creatinine 0.96 MG/DL Random Glucose 123 MG/DL Total Protein 6.2 GM/DL Albumin 2.4 GM/DL Calcium Level 8.2 MG/DL Phosphorus Level 2.7 MG/DL Magnesium Level 2.0 MG/DL Alkaline Phosphatase 93 U/L Aspartate Amino Transf (AST/SGOT) 110 U/L Alanine Aminotransferase (ALT/SGPT) 117 U/L Total Bilirubin 1.2 MG/DL Sodium Level 145 MEQ/L Potassium Level 3.6 MEQ/L Chloride Level 110 MEQ/L Carbon Dioxide Level 24.0 MEQ/L Anion Gap 11 MEQ/L Estimat Glomerular Filtration Rate 79 ML/MIN Test 10/01/17 05:10 Activated Partial Thromboplast Time 34.7 SEC Imaging Last Impressions Liver Ultrasound 09/30/17 0000 Signed Impressions: Service Date/Time: September 17:06 - CONCLUSION: 1. Fatty liver, enlarged. No free fluid. No gallstones or biliary ductal dilatation. Kameron Zapata MD Chest X-Ray 09/30/17 0000 Signed Impressions: Service Date/Time: September 13:15 - CONCLUSION: 1. Support apparatus unchanged. Basilar airspace disease and pleural effusions similar to September 28. Kameron Zapata MD Brain MRI 09/29/17 0000 Signed Impressions: Service Date/Time: Friday, September 29, 2017 12:35 - CONCLUSION: 1. No recent infarct. Mild chronic white matter ischemic changes. 2. Sphenoid and ethmoid sinusitis. Kameron Zapata MD Head CT 09/25/17 0000 Signed Impressions: Service Date/Time: Monday, September 25, 2017 00:31 - CONCLUSION: 1. No acute intracranial abnormality demonstrated. 2. Sinus disease. Mikhail Ruiz MD Objective Remarks GENERAL: Patient is 61 yo intubated and sedated SKIN: Warm and dry. HEAD: Normocephalic. EYES: No scleral icterus. No injection or drainage. NECK: Supple, trachea midline. No JVD or lymphadenopathy. CARDIOVASCULAR: Regular rate and rhythm without murmurs, gallops, or rubs. RESPIRATORY: Breath sounds equal bilaterally. No accessory muscle use. GASTROINTESTINAL: Abdomen soft, non-tender, nondistended. MUSCULOSKELETAL: No cyanosis, or edema. Neuro: Sedated Date of Insertion: Sep 28, 2017 Line: Central Venous Catheter Side: Left Location: Internal, Jugular A/P Assessment and Plan Neuro/Psych: Hypoxic ischemic encephalopathy Hypoxic encephalopathy THC use On Precedex drip for sedation and to facilitate with weaning trials Targeted temperature monitoring for cerebral protection has been completed CT brain on admission revealed no acute intracranial findings. EEG ordered for a.m. 09/27 completed. Moderate slowing. No epileptiform features MRI brain 09/29 . No recent infarct. Mild chronic white matter ischemic changes. Neurology is following- Dr. Love. On Keppra Respiratory: Acute hypoxic and hypercarbic respiratory failure Left lower lobe infiltrate Continue vent support keep sats >92% Vent bundle Head of bed 30 Albuterol/ipratropium aerosols every 6 hours with albuterol aerosols every 2 hours as needed dyspnea Spontaneous breathing trials as abrahan Cardiovascular: Out of hospital V. fib cardiac arrest Recurrent ventricular tachycardia Cardiogenic shock Inferior STEMI Acute systolic and diastolic heart failure Elevated triglycerides Monitor HR and BP keep MAP>65mmHg, On Lopressor 50mg Q12 Cardiology consulted: Dr. Zacarias Trend cardiac enzymes troponin downward trending. Lidocaine infusion currently 2 mg a/minute continue per cardiology recommendation discontinued 09/27. No further incidence of recurrent V. tach Heparin drip 900 units an hour 2D echocardiogram revealed EF 35-40%. LVH. Inferior/global hypokinesis. Bilateral atrial enlargement. Grade 1 diastolic dysfunction. Renal: Acute kidney injury -resolving Monitor renal function, I/O's, electrolytes replacement per protocol. Diurese with Lasix 40mg x1 FEN/GI: Elevated transaminases Monitor LFT's( trending down) Ammonia level: 33 US Liver: Fatty liver, enlarged. No free fluid. No gallstones or biliary ductal dilatation. TF placed on hold for emesis in additionpatient had approx 200ml gastric output. Check KUB abdomen . Lactulose 30 cc twice daily. liquid docusate sodium 100 mg twice daily, liquid senna 8.6 mg twice daily and polyethylene glycol 17 g daily for bowel regimen Heme/ID: Normocytic anemia Thrombocytopenia Serratia marcescens pneumonia On piperacillin/tazobactam Monitor for signs of infections ( fever, WBC) Daily CBC, follow up on sputum cx from 09/30 Pertinent cultures 09/25 -sputum -Serratia marcescens Endocrine: Hyperglycemia of critical illness -- SSI Novulog with Accu-Cheks every 4 hours medium protocol Prophylaxis: GI Prophylaxis Famotidine IV DVT Prophylaxis -- SCDs Heparin infusion Lines: 09/25 right femoral arterial line 09/25 right femoral cooling catheter - d/c 09/28 09/28 left internal jugular vein CVL M[place]ray Level 3 Tai Shaw MD Oct 01, 2017 07:49
[2017-10-01] MEDS: CHLORHEXIDINE 0.12% (ORAL KIT) 15 ML CUP MT SCH ×2 (08:00→20:00)
[2017-10-01] MEDS ORDERED: FUROSEMIDE 40 MG/4 ML VIAL IV PUSH ONE (08:00)
[2017-10-01] MEDS: SODIUM CHLORIDE 0.9% FLUSH 10 ML FLUSH IV FLUSH SCH ×3 (09:00→21:18)
--- NOTE | 2017-10-01 09:09 | RADRPT ---
EXAM DATE/TIME: 10/01/2017 08:11 [place] COMPARISON: No previous studies available for comparison. INDICATIONS : Post cardiac arrest. Rule out ileus. MEDICAL HISTORY : Hypertension. SURGICAL HISTORY : Polyp removal. ENCOUNTER: Initial ACUITY: 1 day PAIN SCORE: Non-responsive. LOCATION: Bilateral abdomen FINDINGS: There is mild gaseous distention of the colon. Small bowel unremarkable. No free air. NG tube in dist al stomach. Rectal temperature probe noted. Right femoral catheter. CONCLUSION: 1. Mild gaseous distention of the colon. No free air. Kameron Zapata MD on October 01, 2017 at 9:06 Board Certified Radiologist. This report was verified electronically.
[2017-10-01] MEDS: DOCUSATE SODIUM 100 MG/10 ML UDC PO SCH ×2 (09:18→21:00)
[2017-10-01] MEDS: POLYETHYLENE GLYCOL 17 GM PKG PO SCH (09:18)
[2017-10-01] MEDS: LACTULOSE SYRUP 20 GM/30 ML CUP PO SCH ×2 (09:18→21:00)
[2017-10-01] MEDS: SENNOSIDES SYRUP 8.8 MG/5 ML CUP PO SCH ×2 (09:18→21:00)
[2017-10-01] MEDS: ASPIRIN 81 MG CHEW TAB CHEW SCH (09:19)
[2017-10-01] MEDS: FAMOTIDINE 20 MG/2 ML VIAL IV PUSH SCH ×2 (09:19→21:17)
[2017-10-01] MEDS: METOPROLOL TARTRATE 50 MG TAB PO SCH ×2 (09:19→21:17)
[2017-10-01] MEDS ORDERED: RESP: ALBUTEROL 2.5 MG/IPRATROPIUM 0.5 MG NEB (PRN) NEB (10:45)
[2017-10-01] MEDS: RESP: ALBUTEROL 2.5 MG/IPRATROPIUM 0.5 MG NEB (SCH) NEB ×4 (12:00→23:42)
--- NOTE | 2017-10-01 13:01 | PD.CARD.PN ---
Subjective Subjective Remarks Hemodynamically stable Extubated, following commands Objective Medications Current Medications Medications (Trade) Dose Ordered Sig/Isabel Route Start Time Stop Time Status Last Admin (Peridex 0.12% Liq) 15 ml BID@08,20 MT 09/25/17 08:00 10/01/17 08:00 (Zofran Inj) 4 mg Q6H PRN IV PUSH 09/25/17 00:15 09/30/17 23:17 Miscellaneous Information 1 Q361D XX 09/25/17 00:15 (Chlorhexidine 2% Cloth) Taper DAILY@04 TOP 09/25/17 04:00 09/21/18 03:59 10/01/17 04:00 (Chlorhexidine 2% Cloth) 3 pack UNSCH PRN TOP 09/25/17 00:15 09/25/17 02:31 (Brethine Inj) 1 mg UNSCH PRN SQ 09/25/17 00:15 (Aspirin Chew) 81 mg DAILY CHEW 09/25/17 09:00 10/01/17 09:19 (Ativan Inj) 1 mg Q1H PRN IV PUSH 09/25/17 01:00 09/30/17 08:43 Miscellaneous Information 0 ml @ 0 mls/hr UNSCH IV 09/25/17 01:00 Heparin Sodium (Porcine) 93758 units/Sodium Chloride 250 ml @ 10 mls/hr TITRATE PRN IV 09/25/17 01:00 10/01/17 02:55 Levetriacetam 100 ml @ 400 mls/hr Q12H IV 09/25/17 04:00 10/01/17 04:06 (Versed Inj) 2 mg Q15M PRN IV PUSH 09/25/17 16:15 09/27/17 10:59 (NS Flush) 2 ml BID IV FLUSH 09/25/17 21:00 10/01/17 09:19 (NS Flush) 2 ml UNSCH PRN IV FLUSH 09/25/17 16:15 Miscellaneous Information 0 ml @ 0 mls/hr UNSCH IV 09/25/17 16:15 (Pepcid Inj) 20 mg Q12HR IV PUSH 09/26/17 21:00 10/01/17 09:19 (Tears Naturale Opth Soln) 1 drop Q8HR EACH EYE 09/26/17 22:00 10/01/17 06:00 Piperacillin Sod/ Tazobactam Sod 100 ml @ 200 mls/hr Q6H IV 09/26/17 18:00 10/01/17 12:15 Potassium Chloride 100 ml @ 50 mls/hr Q2H PRN IV 09/26/17 16:45 Potassium Chloride 100 ml @ 50 mls/hr Q2H PRN IV 09/26/17 16:45 (K-Lyte Cl Eff) 50 meq UNSCH PRN PO 09/26/17 16:45 Potassium Chloride 100 ml @ 25 mls/hr UNSCH PRN IV 09/26/17 16:45 Potassium Chloride 100 ml @ 50 mls/hr Q2H PRN IV 09/26/17 16:45 09/28/17 20:47 Magnesium Sulfate 4 gm/Sodium Chloride 100 ml @ 50 mls/hr UNSCH PRN IV 09/26/17 16:45 (Mag-Ox) 800 mg UNSCH PRN PO 09/26/17 16:45 Magnesium Sulfate 2 gm/Sodium Chloride 100 ml @ 50 mls/hr UNSCH PRN IV 09/26/17 16:45 (K-Phos) 2,000 mg Q4H PRN PO 09/26/17 16:45 Sodium Phosphate 30 mmol/Sodium Chloride 250 ml @ 42 mls/hr UNSCH PRN IV 09/26/17 16:45 09/27/17 05:37 (K-Phos) 2,000 mg UNSCH PRN PO/TUBE 09/26/17 16:44 Potassium Phosphate 30 mmol/ Sodium Chloride 260 ml @ 42 mls/hr UNSCH PRN IV 09/26/17 16:44 09/29/17 07:00 (Lactulose Liq) 30 ml BID PO 09/27/17 21:00 10/01/17 09:18 (Colace Liq) 100 mg Q12HR PO 09/28/17 21:00 10/01/17 09:18 (Senna Liq) 8.8 mg BID PO 09/28/17 21:00 10/01/17 09:18 (Miralax) 17 gm DAILY PO 09/29/17 09:00 10/01/17 09:18 (NS Flush) DAILY IV FLUSH 09/28/17 10:15 09/28/17 10:15 (NS Flush) UNSCH PRN IV FLUSH 09/28/17 10:15 (Lopressor) 50 mg Q12HR PO 09/30/17 13:00 10/01/17 09:19 (Duoneb Neb) 1 ampule Q4HR NEB NEB 10/01/17 12:00 (Duoneb Neb) 1 ampule Q2HR NEB PRN NEB 10/01/17 10:45 Vital Signs / I&O Vital Signs Date Time Temp Pulse Resp B/P (MAP) Pulse Ox O2 Delivery O2 Flow Rate FiO2 10/01/17 11:07 98.9 64 20 109/55 (73) 94 10/01/17 11:07 64 10/01/17 11:06 94 Nasal Cannula 4.00 10/01/17 10:36 97 Nasal Cannula 3 10/01/17 08:09 97 45 10/01/17 08:09 Nasal Cannula 45 10/01/17 07:39 98 45 10/01/17 07:33 69 10/01/17 07:33 100.2 68 16 126/70 (88) 98 10/01/17 07:32 45 10/01/17 07:31 98 Mechanical Ventilator 45 10/01/17 04:12 97 45 10/01/17 03:00 50 10/01/17 03:00 69 10/01/17 03:00 97 Mechanical Ventilator 50 10/01/17 03:00 98.4 69 16 132/71 (91) 97 10/01/17 02:55 76 125/68 10/01/17 00:55 96 50 09/30/17 23:00 88 09/30/17 23:00 50 09/30/17 23:00 99.0 85 23 137/75 (95) 98 09/30/17 23:00 97 Mechanical Ventilator 50 09/30/17 22:39 96 50 09/30/17 22:00 88 158/80 09/30/17 21:40 83 164/90 09/30/17 20:42 98 55 09/30/17 20:00 71 137/81 (99) 120/66 (84) 09/30/17 19:00 99 Mechanical Ventilator 55 09/30/17 19:00 70 09/30/17 19:00 55 09/30/17 19:00 98.1 66 19 133/78 (96) 98 132/71 (91) 09/30/17 15:54 98 60 09/30/17 15:17 97 Mechanical Ventilator 80 09/30/17 15:17 80 09/30/17 15:16 68 09/30/17 15:15 99.0 68 18 124/75 (91) 97 119/68 (85) I/O 09/30/17 09/30/17 09/30/17 10/01/17 10/01/17 10/01/17 07:00 15:00 23:00 07:00 15:00 23:00 Intake Total 796 ml 81 ml 287 ml 1067 ml 100 ml Output Total 750 ml 1055 ml 2195 ml Balance 46 ml 81 ml -768 ml -1128 ml 100 ml Intake Oral 0 ml IV Total 560 ml 200 ml 1047 ml 100 ml Tube Feeding 176 ml 81 ml 87 ml 20 ml Tube Irrigant 60 ml Output Urine Total 750 ml 1055 ml 1945 ml Gastric Drainage Total 0 ml 250 ml # Bowel Movements 0 0 2 Physical Exam GENERAL: NAD SKIN: Warm/dry HEAD: Atraumatic. Normocephalic. EYES: Pupils equal and round. No scleral icterus. No injection or drainage. ENT: No nasal bleeding or discharge. Mucous membranes pink and moist. NECK: Trachea midline. No JVD. CARDIOVASCULAR: Regular rate and rhythm. RESPIRATORY: No accessory muscle use. Clear to auscultation. Breath sounds equal bilaterally. GASTROINTESTINAL: Abdomen soft, non-tender, nondistended. Hepatic and splenic margins not palpable. MUSCULOSKELETAL: Extremities without clubbing, cyanosis, or edema. No obvious deformities. NEUROLOGICAL: No focal deficits Laboratory Laboratory Tests Test 09/30/17 21:20 10/01/17 04:45 10/01/17 05:10 10/01/17 10:19 Activated Partial Thromboplast Time 33.4 SEC 34.7 SEC White Blood Count 9.3 TH/MM3 Red Blood Count 3.21 MIL/MM3 Hemoglobin 9.6 GM/DL Hematocrit 27.8 % Mean Corpuscular Volume 86.6 FL Mean Corpuscular Hemoglobin 30.0 PG Mean Corpuscular Hemoglobin Concent 34.6 % Red Cell Distribution Width 13.6 % Platelet Count 148 TH/MM3 Mean Platelet Volume 9.3 FL Neutrophils (%) (Auto) 72.3 % Lymphocytes (%) (Auto) 17.5 % Monocytes (%) (Auto) 9.8 % Eosinophils (%) (Auto) 0.1 % Basophils (%) (Auto) 0.3 % Neutrophils # (Auto) 6.7 TH/MM3 Lymphocytes # (Auto) 1.6 TH/MM3 Monocytes # (Auto) 0.9 TH/MM3 Eosinophils # (Auto) 0.0 TH/MM3 Basophils # (Auto) 0.0 TH/MM3 CBC Comment DIFF FINAL Differential Comment Blood Urea Nitrogen 17 MG/DL Creatinine 0.96 MG/DL Random Glucose 123 MG/DL Total Protein 6.2 GM/DL Albumin 2.4 GM/DL Calcium Level 8.2 MG/DL Phosphorus Level 2.7 MG/DL Magnesium Level 2.0 MG/DL Alkaline Phosphatase 93 U/L Aspartate Amino Transf (AST/SGOT) 110 U/L Alanine Aminotransferase (ALT/SGPT) 117 U/L Total Bilirubin 1.2 MG/DL Sodium Level 145 MEQ/L Potassium Level 3.6 MEQ/L Chloride Level 110 MEQ/L Carbon Dioxide Level 24.0 MEQ/L Anion Gap 11 MEQ/L Estimat Glomerular Filtration Rate 79 ML/MIN Blood Gas Puncture Site RIGHT FEMORAL Blood Gas Patient Temperature 98.6 Blood Gas HCO3 25 mmol/L Blood Gas Base Excess 0.8 mmol/L Blood Gas Oxygen Saturation 96 % Arterial Blood pH 7.41 Arterial Blood Partial Pressure CO2 40 mmHg Arterial Blood Partial Pressure O2 110 mmHg Arterial Blood Oxygen Content 13.6 Vol % Arterial Blood Carboxyhemoglobin 0.9 % Arterial Blood Methemoglobin 1.3 % Blood Gas Hemoglobin 10.0 G/DL Oxygen Delivery Device VENTILATOR Blood Gas Ventilator Setting CPAP PEEP5/PS8 Blood Gas Inspired Oxygen 45 % Imaging Last 24 hours Impressions Abdomen X-Ray 10/01/17 0000 Signed Impressions: Service Date/Time: Sunday, October 01, 2017 08:11 - CONCLUSION: 1. Mild gaseous distention of the colon. No free air. Kameron Zapata MD Assessment and Plan Problem List: (1) Acute ST elevation myocardial infarction (STEMI) ICD Codes: I21.3 - ST elevation (STEMI) myocardial infarction of unspecified site Status: Acute (2) Cardiac arrest ICD Codes: I46.9 - Cardiac arrest, cause unspecified (3) Ventricular fibrillation ICD Codes: I49.01 - Ventricular fibrillation (4) Cardiac arrest with ventricular fibrillation ICD Codes: I46.9 - Cardiac arrest, cause unspecified; I49.01 - Ventricular fibrillation Status: Acute (5) Ventilator dependence ICD Codes: Z99.11 - Dependence on respirator [ventilator] status (6) IGNACIO (acute kidney injury) ICD Codes: N17.9 - Acute kidney failure, unspecified Status: Acute Assessment and Plan 1) Acute inferior STEMI Heparin drip 2) Cardiac arrest/Vfib arrest Lidocaine stopped Overall down time until return of circulation was around 20 mins, with bystander CPR 3) EF 35-40% 4) Plan for cardiac evaluation next week, possible Wednesday Most likely cardiac catheterization to determine coronary anatomy and cause of V.Fib arrest Zeke Zacarias DO Oct 01, 2017 13:01
[2017-10-01] MEDS ORDERED: SODIUM CHLORIDE 0.9% FLUSH 10 ML FLUSH IV FLUSH PRN (15:45)
[2017-10-01] MEDS: MIDAZOLAM HCL 2 MG/2 ML VIAL IV PUSH PRN (22:20)
[2017-10-02] VITALS (9 sets, daily range): BP systolic 132–159; BP diastolic 70–92; PULSE 66–80; RESP 16–20; TEMP 97.5–99.2; O2SAT 93–98
[2017-10-02] MEDS: RESP: ALBUTEROL 2.5 MG/IPRATROPIUM 0.5 MG NEB (SCH) NEB ×5 (03:29→21:04)
[2017-10-02] MEDS: CHLORHEXIDINE GLUCONATE 2 % 1 PACK (2 CLOTHS) TOP SCH (04:00)
[2017-10-02] MEDS: levETIRAcetam INJ 100 ML IV SCH (04:23)
[2017-10-02 04:42] LABS: AUTOMATED NEUTROPHIL # 6.1 TH/MM3 (1.8-7.7); BASOPHIL % 0.5 % (0.0-2.0); EOSINOPHIL % 0.3 % (0.0-4.0); HEMATOCRIT 26.8 % (39.0-51.0); HEMOGLOBIN 9.2 GM/DL (13.0-17.0); LYMPH % 19.6 % (9.0-44.0); LYMPHOCYTE # 1.8 TH/MM3 (1.0-4.8); MEAN CELL VOLUME 88.2 FL (80.0-100.0); MEAN CORPUSCULAR HEMOGLOBIN 30.3 PG (27.0-34.0); MEAN CORPUSCULAR HGB CONC 34.4 % (32.0-36.0); MEAN PLATELET VOLUME 9.3 FL (7.0-11.0); NEUT % 68.6 % (16.0-70.0); PLATELET COUNT 153 TH/MM3 (150-450); RED BLOOD COUNT 3.03 MIL/MM3 (4.50-5.90); RED CELL DISTRIBUTION WIDTH 13.8 % (11.6-17.2); WHITE BLOOD COUNT 8.9 TH/MM3 (4.0-11.0)
[2017-10-02 05:08] LABS: ALBUMIN 2.4 GM/DL (3.4-5.0); AST (GOT) 113 U/L (15-37); BICARBONATE 26.2 MEQ/L (21.0-32.0); BLOOD UREA NITROGEN 19 MG/DL (7-18); CALCIUM 8.1 MG/DL (8.5-10.1); CHLORIDE 109 MEQ/L (98-107); CREATININE 0.99 MG/DL (0.60-1.30); GLOMERULAR FILTRATION RATE 77 ML/MIN (>89); GLUCOSE,RANDOM 112 MG/DL (74-106); MAGNESIUM 2.2 MG/DL (1.5-2.5); SODIUM (NA) 145 MEQ/L (136-145)
[2017-10-02 05:26] LABS: ALKALINE PHOSPHATASE 72 U/L (45-117); ALT (GPT) 115 U/L (12-78); PHOSPHORUS 3.3 MG/DL (2.5-4.9); TOTAL BILIRUBIN ADULT 1.2 MG/DL (0.2-1.0); TOTAL PROTEIN 6.1 GM/DL (6.4-8.2)
[2017-10-02 05:43] LABS: LYMPHOCYTES 29 % (9-44); METAMYELOCYTES 1 % (0-1); MONOCYTES 7 % (0-8); MYELOCYTES 1 % (0-0); NEUTROPHIL # MANUAL DIFF 5.7 TH/MM3 (1.8-7.7); POLYS (SEG NEUTROPHILS) 62 % (16-70)
[2017-10-02] MEDS: ARTIFICIAL TEARS OPTH SOLN 15 ML BTL EACH EYE SCH (06:00)
[2017-10-02] MEDS: PIPERACIL-TAZO 4.5 GM PREMIX 100 ML IV SCH ×4 (06:20→17:22)
[2017-10-02] MEDS: HEPARIN INJ 25,000 UNITS in SODIUM CHLOR 0.9% 250 ML INJ 247.5 ML IV PRN ×2 (07:44→17:22)
[2017-10-02] MEDS: POLYETHYLENE GLYCOL 17 GM PKG PO SCH (09:00)
[2017-10-02] MEDS ORDERED: SODIUM CHLORIDE 0.9% FLUSH 10 ML FLUSH IV FLUSH SCH (09:00)
[2017-10-02] MEDS: LACTULOSE SYRUP 20 GM/30 ML CUP PO SCH ×2 (09:00→21:00)
[2017-10-02] MEDS: ASPIRIN 81 MG CHEW TAB CHEW SCH (09:40)
[2017-10-02] MEDS: DOCUSATE SODIUM 100 MG/10 ML UDC PO SCH ×2 (09:40→21:00)
[2017-10-02] MEDS: METOPROLOL TARTRATE 50 MG TAB PO SCH ×2 (09:41→21:40)
[2017-10-02] MEDS: SODIUM CHLORIDE 0.9% FLUSH 10 ML FLUSH IV FLUSH SCH ×3 (09:42→21:00)
[2017-10-02] MEDS: FAMOTIDINE 20 MG/2 ML VIAL IV PUSH SCH ×2 (09:42→21:40)
[2017-10-02] MEDS: SENNOSIDES SYRUP 8.8 MG/5 ML CUP PO SCH ×2 (09:42→21:00)
--- NOTE | 2017-10-02 09:52 | HHI.CCPN ---
Subjective Remarks/Hospital Course This is a 60yM who presented as an [id number] v. fib cardiac arrest. Per report, he complained of heartburn most of the day today. This evening he became acutely unresponsive. family member started bystander CPR. Reported down- time was 20 minutes. presenting rhythm to EMS was v. fib. ROSC was obtained and [id number] 12-leads suggests inferior st-elevations. upon arrival to ED, patient again had pulseless v. tach/v. fib arrest, ROSC obtained and again repeat 12-lead with inferior st- elevations. patient has poor neurologic exam despite receiving no neuro altering medications. long discussion with Dr. Zacarias: holding off on emergent left heart cath given poor neurologic function. no additional information obtainable from the patient due to his clinical condition. ROS unobtainable. 09/26: Currently actively being rewarmed. No further dysrhythmias noted. Remains on lidocaine drip at 2 mg/min. Gram-negative andre and sputum identified. 09/27: Afebrile. Patient has been rewarmed. Will initiate tube feeds today. Appears to be posturing with decerebrate positioning. EEG ordered for today. 09/28: Afebrile. Trickle feeds currently at 10 cc an hour. Required paralysis yesterday due to dyssynchrony of the ventilator causing hypoxia. Will diuresis with furosemide 40 mg IV 1 after potassium replacement today. No bowel movement since admission. Subjective 09/29: Afebrile. Continue trickle feeds at 10 cc an hour. Again required paralysis for dyssynchrony on the ventilator causing hypoxia. MRI brain at noon , EEG today. Neurology consult per family's request for prognosis. Quattro catheter removed yesterday 09/28 without complication. 09/30 Patient remains intubated and sedated with Versed, Diprivan, Fentanyl drips in addition he is on Nimbex. Afebrile. 10/01 Patient remains intubated now only on Precedex drip. T:100.2. On Heparin drip 10/02: Tmax 100.2. Patient alert and oriented 2, to person and place. Patient agitated during the night Precedex infusion restarted now discontinued. Patient continues on Keppra. Patient is tentatively scheduled for cardiac catheterization early next week. Patient having active bowel movements though KUB showed gaseous distention yesterday. The patient underwent formal swallow, currently tolerating a pured diet with honey thickened liquids. Objective Vital Signs Date Time Temp Pulse Resp B/P (MAP) Pulse Ox O2 Delivery O2 Flow Rate FiO2 10/02/17 08:00 97.5 80 16 146/81 (102) 97 140/81 (100) 10/02/17 08:00 Nasal Cannula 10/02/17 07:42 5.00 10/01/17 08:09 45 Intake and Output 10/02/17 10/02/17 10/03/17 08:00 16:00 00:00 Intake Total 727 ml Output Total 905 ml Balance -178 ml Result Diagram: 10/02/17 0356 10/02/17 0356 Other Results Laboratory Tests Test 10/01/17 10:19 Blood Gas Puncture Site RIGHT FEMORAL Blood Gas Patient Temperature 98.6 Blood Gas HCO3 25 mmol/L (22-26) Blood Gas Base Excess 0.8 mmol/L (-2-2) Blood Gas Oxygen Saturation 96 % (90-100) Arterial Blood pH 7.41 (7.380-7.420) Arterial Blood Partial Pressure CO2 40 mmHg (38-42) Arterial Blood Partial Pressure O2 110 mmHg (61-120) Arterial Blood Oxygen Content 13.6 Vol % (12.0-20.0) Arterial Blood Carboxyhemoglobin 0.9 % (0-4) Arterial Blood Methemoglobin 1.3 % (0-2) Blood Gas Hemoglobin 10.0 G/DL (12.0-16.0) Oxygen Delivery Device VENTILATOR Blood Gas Ventilator Setting CPAP PEEP5/PS8 Blood Gas Inspired Oxygen 45 % Imaging Last Impressions Abdomen X-Ray 10/01/17 0000 Signed Impressions: Service Date/Time: Sunday, October 01, 2017 08:11 - CONCLUSION: 1. Mild gaseous distention of the colon. No free air. Kameron Zapata MD Liver Ultrasound 09/30/17 0000 Signed Impressions: Service Date/Time: September 17:06 - CONCLUSION: 1. Fatty liver, enlarged. No free fluid. No gallstones or biliary ductal dilatation. Kameron Zapata MD Chest X-Ray 09/30/17 0000 Signed Impressions: Service Date/Time: September 13:15 - CONCLUSION: 1. Support apparatus unchanged. Basilar airspace disease and pleural effusions similar to September 28. Kameron Zapata MD Brain MRI 09/29/17 0000 Signed Impressions: Service Date/Time: Friday, September 29, 2017 12:35 - CONCLUSION: 1. No recent infarct. Mild chronic white matter ischemic changes. 2. Sphenoid and ethmoid sinusitis. Kameron Zapata MD Head CT 09/25/17 0000 Signed Impressions: Service Date/Time: Monday, September 25, 2017 00:31 - CONCLUSION: 1. No acute intracranial abnormality demonstrated. 2. Sinus disease. Mikhail Ruiz MD Last Impressions Liver Ultrasound 09/30/17 0000 Signed Impressions: Service Date/Time: September 17:06 - CONCLUSION: 1. Fatty liver, enlarged. No free fluid. No gallstones or biliary ductal dilatation. Kameron Zapata MD Chest X-Ray 09/30/17 0000 Signed Impressions: Service Date/Time: September 13:15 - CONCLUSION: 1. Support apparatus unchanged. Basilar airspace disease and pleural effusions similar to September 28. Kameron Zapata MD Brain MRI 09/29/17 0000 Signed Impressions: Service Date/Time: Friday, September 29, 2017 12:35 - CONCLUSION: 1. No recent infarct. Mild chronic white matter ischemic changes. 2. Sphenoid and ethmoid sinusitis. Kameron Zapata MD Head CT 09/25/17 0000 Signed Impressions: Service Date/Time: Monday, September 25, 2017 00:31 - CONCLUSION: 1. No acute intracranial abnormality demonstrated. 2. Sinus disease. Mikhail Ruiz MD Objective Remarks GENERAL: A well-developed well-nourished male looking older than stated age alert and oriented to self and place SKIN: Warm and dry. HEAD: Normocephalic. EYES: No scleral icterus. No injection or drainage. NECK: Supple, trachea midline. No JVD or lymphadenopathy. CARDIOVASCULAR: Regular rate and rhythm without murmurs, gallops, or rubs. RESPIRATORY: Breath sounds equal bilaterally. No accessory muscle use. GASTROINTESTINAL: Abdomen soft, non-tender, nondistended. MUSCULOSKELETAL: No cyanosis, or edema. Neuro: GCS 14. Moving extremities 4 upon commands Date of Insertion: Sep 28, 2017 Line: Central Venous Catheter Side: Left Location: Internal, Jugular A/P Assessment and Plan Neuro/Psych: Hypoxic ischemic encephalopathy Hypoxic encephalopathy THC use 10/[address] brain on admission revealed no acute intracranial findings. EEG ordered for a.m. 09/27 completed. Moderate slowing. No epileptiform features MRI brain 09/29 . No recent infarct. Mild chronic white matter ischemic changes. Neurology is following- Dr. Love. Continues on Keppra Respiratory: Acute hypoxic and hypercarbic respiratory failure Left lower lobe infiltrate Continue vent support keep sats >92 Head of bed 30 Albuterol/ipratropium aerosols every 6 hours with albuterol aerosols every 2 hours as needed dyspnea 10/01- extubated Cardiovascular: Out of hospital V. fib cardiac arrest Recurrent ventricular tachycardia Cardiogenic shock Inferior STEMI Acute systolic and diastolic heart failure Elevated triglycerides Monitor HR and BP keep MAP>65mmHg, On Lopressor 50mg Q12 Cardiology consulted: Dr. Zacarias Trend cardiac enzymes troponin downward trending. Lidocaine infusion currently 2 mg a/minute continue per cardiology recommendation discontinued 09/27. No further incidence of recurrent V. tach Heparin drip 1200 units an hour 2D echocardiogram revealed EF 35-40%. LVH. Inferior/global hypokinesis. Bilateral atrial enlargement. Grade 1 diastolic dysfunction. Tentatively scheduled for cardiac catheterization next week, remains on heparin infusion Renal: Acute kidney injury -resolving Monitor renal function, I/O's, electrolytes replacement per protocol. Diurese with Lasix 40mg x1 FEN/GI: Elevated transaminases Monitor LFT's( trending down) Ammonia level: 33 Repeat ammonia level in am US Liver: Fatty liver, enlarged. No free fluid. No gallstones or biliary ductal dilatation. 10/01 KUB abdomen -mild gaseous distention. BM 10/02 Lactulose 30 cc twice daily. liquid docusate sodium 100 mg twice daily, liquid senna 8.6 mg twice daily and polyethylene glycol 17 g daily for bowel regimen Formal swallow successful-tolerating pured diet with honey thickened liquids Heme/ID: Normocytic anemia Thrombocytopenia Serratia marcescens pneumonia On piperacillin/tazobactam Monitor for signs of infections ( fever, WBC) Daily CBC, follow up on sputum cx from 09/30 Pertinent cultures 09/25 -sputum -Serratia marcescens Endocrine: Hyperglycemia of critical illness -- SSI Novulog with Accu-Cheks every 4 hours medium protocol Prophylaxis: GI Prophylaxis Famotidine IV DVT Prophylaxis -- SCDs Heparin infusion Lines: 09/25 right femoral arterial line 09/25 right femoral cooling catheter - d/c 09/28 09/28 left internal jugular vein CVL [place] Level [facility] with close monitoring near nurses station secondary to confusion, upon bed availability. Patient tentatively scheduled for cardiac catheterization early next week. Physician Pamela Jackson MD Oct 02, 2017 09:52
[2017-10-02] MEDS ORDERED: CISATRACURIUM INJ 100 MG in SODIUM CHLOR 0.9% 250 ML INJ 250 ML IV PRN (11:00)
--- NOTE | 2017-10-02 14:17 | HHI.PR ---
Review/Management Diagnosis/Plan: (1) Hypoxic encephalopathy ICD Codes: G93.1 - Anoxic brain damage, not elsewhere classified Status: Acute Plan: +cortical and brainstem function eeg- +brain waves mri brain- no gross ischemia off code cool recs significantly improved d/c sj andrew for cath will follow peripherally. may need outpatient cognitive testing if confusion persists. hopefully lingering med affect (2) Cardiac arrest with ventricular fibrillation ICD Codes: I46.9 - Cardiac arrest, cause unspecified; I49.01 - Ventricular fibrillation Status: Acute (3) IGNACIO (acute kidney injury) ICD Codes: N17.9 - Acute kidney failure, unspecified Status: Acute (4) Acute ST elevation myocardial infarction (STEMI) ICD Codes: I21.3 - ST elevation (STEMI) myocardial infarction of unspecified site Status: Acute Subjective Subjective Comments No acute events reported requesting to go home? No headache No chest pain No dyspnea Active Medications Current Medications Medications (Trade) Dose Ordered Sig/Isabel Route Start Time Stop Time Status Last Admin (Peridex 0.12% Liq) 15 ml BID@08,20 MT 09/25/17 08:00 10/01/17 08:00 (Zofran Inj) 4 mg Q6H PRN IV PUSH 09/25/17 00:15 09/30/17 23:17 Miscellaneous Information 1 Q361D XX 09/25/17 00:15 (Chlorhexidine 2% Cloth) Taper DAILY@04 TOP 09/25/17 04:00 09/21/18 03:59 10/01/17 04:00 (Chlorhexidine 2% Cloth) 3 pack UNSCH PRN TOP 09/25/17 00:15 09/25/17 02:31 (Brethine Inj) 1 mg UNSCH PRN SQ 09/25/17 00:15 (Aspirin Chew) 81 mg DAILY CHEW 09/25/17 09:00 10/02/17 09:40 Miscellaneous Information 0 ml @ 0 mls/hr UNSCH IV 09/25/17 01:00 Heparin Sodium (Porcine) 26003 units/Sodium Chloride 250 ml @ 10 mls/hr TITRATE PRN IV 09/25/17 01:00 10/02/17 07:44 Levetriacetam 100 ml @ 400 mls/hr Q12H IV 09/25/17 04:00 10/02/17 04:23 (NS Flush) 2 ml BID IV FLUSH 09/25/17 21:00 10/02/17 09:42 (NS Flush) 2 ml UNSCH PRN IV FLUSH 09/25/17 16:15 Miscellaneous Information 0 ml @ 0 mls/hr UNSCH IV 09/25/17 16:15 (Pepcid Inj) 20 mg Q12HR IV PUSH 09/26/17 21:00 10/02/17 09:42 Piperacillin Sod/ Tazobactam Sod 100 ml @ 200 mls/hr Q6H IV 09/26/17 18:00 10/09/17 18:00 10/02/17 12:42 Potassium Chloride 100 ml @ 50 mls/hr Q2H PRN IV 09/26/17 16:45 Potassium Chloride 100 ml @ 50 mls/hr Q2H PRN IV 09/26/17 16:45 (K-Lyte Cl Eff) 50 meq UNSCH PRN PO 09/26/17 16:45 Potassium Chloride 100 ml @ 25 mls/hr UNSCH PRN IV 09/26/17 16:45 Potassium Chloride 100 ml @ 50 mls/hr Q2H PRN IV 09/26/17 16:45 09/28/17 20:47 Magnesium Sulfate 4 gm/Sodium Chloride 100 ml @ 50 mls/hr UNSCH PRN IV 09/26/17 16:45 (Mag-Ox) 800 mg UNSCH PRN PO 09/26/17 16:45 Magnesium Sulfate 2 gm/Sodium Chloride 100 ml @ 50 mls/hr UNSCH PRN IV 09/26/17 16:45 (K-Phos) 2,000 mg Q4H PRN PO 09/26/17 16:45 Sodium Phosphate 30 mmol/Sodium Chloride 250 ml @ 42 mls/hr UNSCH PRN IV 09/26/17 16:45 09/27/17 05:37 (K-Phos) 2,000 mg UNSCH PRN PO/TUBE 09/26/17 16:44 Potassium Phosphate 30 mmol/ Sodium Chloride 260 ml @ 42 mls/hr UNSCH PRN IV 09/26/17 16:44 09/29/17 07:00 (Lactulose Liq) 30 ml BID PO 09/27/17 21:00 10/01/17 09:18 (Colace Liq) 100 mg Q12HR PO 09/28/17 21:00 10/02/17 09:40 (Senna Liq) 8.8 mg BID PO 09/28/17 21:00 10/02/17 09:42 (Miralax) 17 gm DAILY PO 09/29/17 09:00 10/01/17 09:18 (NS Flush) DAILY IV FLUSH 09/28/17 10:15 10/02/17 12:44 (NS Flush) UNSCH PRN IV FLUSH 09/28/17 10:15 (Lopressor) 50 mg Q12HR PO 09/30/17 13:00 10/02/17 09:41 (Duoneb Neb) 1 ampule Q4HR NEB NEB 10/01/17 12:00 10/02/17 12:34 (Duoneb Neb) 1 ampule Q2HR NEB PRN NEB 10/01/17 10:45 (Ativan Inj) 1 mg Q4H PRN IV PUSH 10/02/17 09:45 (Melatonin) 5 mg HS PRN PO 10/02/17 21:00 Allergies Allergies Coded Allergies No Known Allergies (Unverified09/24/17) Review of Systems All other ROS: ROS reviewed as documented in chart, Unable to obtain Exam I&O / VS Vital Signs Date Time Temp Pulse Resp B/P (MAP) Pulse Ox O2 Delivery O2 Flow Rate FiO2 10/02/17 12:00 70 10/02/17 12:00 99.2 70 16 141/78 (99) 95 137/70 (92) 10/02/17 12:00 97 Nasal Cannula 10/02/17 08:00 97.5 80 16 146/81 (102) 97 140/81 (100) 10/02/17 08:00 97 Nasal Cannula 10/02/17 07:42 98 Nasal Cannula 5.00 10/02/17 03:20 94 Simple Mask 8.00 10/02/17 03:20 98.6 66 18 159/92 (114) 94 151/78 (102) 10/02/17 03:00 69 10/01/17 23:15 98.6 82 20 138/87 (104) 94 142/72 (95) 10/01/17 23:15 94 Nasal Cannula 3.00 10/01/17 23:00 74 10/01/17 19:54 94 Nasal Cannula 3.00 10/01/17 19:30 98.6 82 20 138/87 (104) 94 142/72 (95) 10/01/17 19:30 94 Nasal Cannula 3.00 10/01/17 19:00 78 10/01/17 15:03 94 Nasal Cannula 3.00 10/01/17 15:02 77 10/01/17 15:02 98.5 71 19 129/55 (79) 95 Exam Comments alert, ox 2, not to date, follows, perseverates on wanting to leave, recognizes fiancee, eomi, vff, wheeler to gravity Objective Micro and Labs Laboratory Tests Test 10/01/17 20:23 10/02/17 03:56 10/02/17 11:30 Activated Partial Thromboplast Time 37.3 46.4 40.4 White Blood Count 8.9 Red Blood Count 3.03 Hemoglobin 9.2 Hematocrit 26.8 Mean Corpuscular Volume 88.2 Mean Corpuscular Hemoglobin 30.3 Mean Corpuscular Hemoglobin Concent 34.4 Red Cell Distribution Width 13.8 Platelet Count 153 Mean Platelet Volume 9.3 Neutrophils (%) (Auto) 68.6 Lymphocytes (%) (Auto) 19.6 Monocytes (%) (Auto) 11.0 Eosinophils (%) (Auto) 0.3 Basophils (%) (Auto) 0.5 Neutrophils # (Auto) 6.1 Lymphocytes # (Auto) 1.8 Monocytes # (Auto) 1.0 Eosinophils # (Auto) 0.0 Basophils # (Auto) 0.0 CBC Comment AUTO DIFF Differential Total Cells Counted 100 Neutrophils % (Manual) 62 Lymphocytes % 29 Monocytes % 7 Neutrophils # (Manual) 5.7 Metamyelocytes 1 Myelocytes 1 Differential Comment FINAL DIFF MANUAL Platelet Estimate NORMAL Platelet Morphology Comment NORMAL Basophilic Stippling FAINT Blood Urea Nitrogen 19 Creatinine 0.99 Random Glucose 112 Total Protein 6.1 Albumin 2.4 Calcium Level 8.1 Phosphorus Level 3.3 Magnesium Level 2.2 Alkaline Phosphatase 72 Aspartate Amino Transf (AST/SGOT) 113 Alanine Aminotransferase (ALT/SGPT) 115 Total Bilirubin 1.2 Sodium Level 145 Potassium Level 3.5 Chloride Level 109 Carbon Dioxide Level 26.2 Anion Gap 10 Estimat Glomerular Filtration Rate 77 Date/Time Source Procedure Growth Status 09/30/17 13:45 Sputum Endotracheal Gram Stain - Final Complete 3/15/18 13:45 Sputum Culture - Final Serratia Marcescens Complete Delmar Huff MD Oct 02, 2017 14:17
[2017-10-02] MEDS: LORazepam 2 MG/ML VIAL IV PUSH PRN (17:21)
[2017-10-02] MEDS: CHLORHEXIDINE 0.12% (ORAL KIT) 15 ML CUP MT SCH (20:00)
[2017-10-02] MEDS: MELATONIN 5 MG TAB PO PRN (21:43)
[2017-10-03] VITALS (8 sets, daily range): BP systolic 143–175; BP diastolic 74–97; PULSE 68–74; RESP 16–22; TEMP 98–98.9; O2SAT 94–97
[2017-10-03] MEDS: RESP: ALBUTEROL 2.5 MG/IPRATROPIUM 0.5 MG NEB (SCH) NEB ×6 (00:50→20:27)
[2017-10-03] MEDS: CHLORHEXIDINE GLUCONATE 2 % 1 PACK (2 CLOTHS) TOP SCH (04:00)
[2017-10-03] MEDS: PIPERACIL-TAZO 4.5 GM PREMIX 100 ML IV SCH ×4 (06:26→17:33)
[2017-10-03] MEDS: HEPARIN INJ 25,000 UNITS in SODIUM CHLOR 0.9% 250 ML INJ 247.5 ML IV PRN ×2 (06:43→17:28)
[2017-10-03 06:55] LABS: BICARBONATE 25.2 MEQ/L (21.0-32.0); CALCIUM 8.4 MG/DL (8.5-10.1); CREATININE 0.83 MG/DL (0.60-1.30); MAGNESIUM 2.1 MG/DL (1.5-2.5); PHOSPHORUS 2.8 MG/DL (2.5-4.9)
[2017-10-03 07:06] LABS: HEMATOCRIT 26.3 % (39.0-51.0); HEMOGLOBIN 8.9 GM/DL (13.0-17.0); MEAN CELL VOLUME 87.1 FL (80.0-100.0); MEAN CORPUSCULAR HEMOGLOBIN 29.3 PG (27.0-34.0); MEAN CORPUSCULAR HGB CONC 33.7 % (32.0-36.0); MEAN PLATELET VOLUME 9.3 FL (7.0-11.0); PLATELET COUNT 177 TH/MM3 (150-450); RED BLOOD COUNT 3.02 MIL/MM3 (4.50-5.90); RED CELL DISTRIBUTION WIDTH 13.7 % (11.6-17.2)
[2017-10-03] MEDS: LACTULOSE SYRUP 20 GM/30 ML CUP PO SCH ×2 (09:00→21:00)
[2017-10-03] MEDS: SENNOSIDES SYRUP 8.8 MG/5 ML CUP PO SCH ×2 (09:00→21:00)
[2017-10-03] MEDS: SODIUM CHLORIDE 0.9% FLUSH 10 ML FLUSH IV FLUSH SCH ×3 (09:00→21:24)
[2017-10-03] MEDS: DOCUSATE SODIUM 100 MG/10 ML UDC PO SCH ×2 (09:00→21:00)
[2017-10-03] MEDS: POLYETHYLENE GLYCOL 17 GM PKG PO SCH (09:00)
--- NOTE | 2017-10-03 11:04 | HHI.PR ---
Subjective Remarks This is a 61 year old male patient who presented as an [id number] v. fib cardiac arrest. Per report, he complained of heartburn most of the day then in the evening he became acutely unresponsive. family member started bystander CPR. Reported down-time was 10-20 minutes. Upon arrival to ED, patient again had pulseless v. tach/v. fib arrest, ROSC obtained and again repeat 12-lead with inferior st- elevations. patient has poor neurologic exam despite receiving no neuro altering medications. long discussion with Dr. Zacarias: holding off on emergent left heart cath given poor neurologic function. Patient was treated in the ICU with hypothermia protocol. Initially was intubated, sedated and required paralysis. Patient was also on Lidocaine drip to prevent further athymias. Gram-negative andre in sputum identified. Neurology consult per family's request for prognosis. Patient alert and oriented to person only with periods of agitation and confusion. Patient is tentatively scheduled for cardiac catheterization early next week. Currently tolerating a pured diet with honey thickened liquids. Family at bedside. Patient reports feeling wonderful offers no complaints at this time. Patient's family reports his mental status has improved over the last few days. Objective Vitals Vital Signs Date Time Temp Pulse Resp B/P (MAP) Pulse Ox O2 Delivery O2 Flow Rate FiO2 10/03/17 08:40 96 Nasal Cannula 2.00 10/03/17 03:00 94 Nasal Cannula 2.00 10/03/17 03:00 98.9 69 22 162/97 (118) 94 175/92 (119) 10/03/17 03:00 69 10/02/17 23:00 66 10/02/17 23:00 96 Nasal Cannula 2.00 10/02/17 23:00 98.6 66 20 132/78 (96) 96 146/76 (99) 10/02/17 21:04 93 Nasal Cannula 2.00 10/02/17 19:00 74 10/02/17 19:00 95 Nasal Cannula 2.00 10/02/17 19:00 98.8 74 18 152/75 (100) 95 152/82 (105) 10/02/17 15:10 97 Nasal Cannula 10/02/17 15:10 70 10/02/17 15:10 98.5 78 16 154/81 (105) 93 135/72 (93) 10/02/17 12:00 70 10/02/17 12:00 99.2 70 16 141/78 (99) 95 137/70 (92) 10/02/17 12:00 97 Nasal Cannula Result Diagram: 10/03/17 0510 10/03/17 0510 Other Results Laboratory Tests Test 09/30/17 21:20 10/01/17 04:45 10/01/17 05:10 10/01/17 10:19 Activated Partial Thromboplast Time 33.4 SEC 34.7 SEC White Blood Count 9.3 TH/MM3 Red Blood Count 3.21 MIL/MM3 Hemoglobin 9.6 GM/DL Hematocrit 27.8 % Mean Corpuscular Volume 86.6 FL Mean Corpuscular Hemoglobin 30.0 PG Mean Corpuscular Hemoglobin Concent 34.6 % Red Cell Distribution Width 13.6 % Platelet Count 148 TH/MM3 Mean Platelet Volume 9.3 FL Neutrophils (%) (Auto) 72.3 % Lymphocytes (%) (Auto) 17.5 % Monocytes (%) (Auto) 9.8 % Eosinophils (%) (Auto) 0.1 % Basophils (%) (Auto) 0.3 % Neutrophils # (Auto) 6.7 TH/MM3 Lymphocytes # (Auto) 1.6 TH/MM3 Monocytes # (Auto) 0.9 TH/MM3 Eosinophils # (Auto) 0.0 TH/MM3 Basophils # (Auto) 0.0 TH/MM3 CBC Comment DIFF FINAL Differential Comment Blood Urea Nitrogen 17 MG/DL Creatinine 0.96 MG/DL Random Glucose 123 MG/DL Total Protein 6.2 GM/DL Albumin 2.4 GM/DL Calcium Level 8.2 MG/DL Phosphorus Level 2.7 MG/DL Magnesium Level 2.0 MG/DL Alkaline Phosphatase 93 U/L Aspartate Amino Transf (AST/SGOT) 110 U/L Alanine Aminotransferase (ALT/SGPT) 117 U/L Total Bilirubin 1.2 MG/DL Sodium Level 145 MEQ/L Potassium Level 3.6 MEQ/L Chloride Level 110 MEQ/L Carbon Dioxide Level 24.0 MEQ/L Anion Gap 11 MEQ/L Estimat Glomerular Filtration Rate 79 ML/MIN Blood Gas Puncture Site RIGHT FEMORAL Blood Gas Patient Temperature 98.6 Blood Gas HCO3 25 mmol/L Blood Gas Base Excess 0.8 mmol/L Blood Gas Oxygen Saturation 96 % Arterial Blood pH 7.41 Arterial Blood Partial Pressure CO2 40 mmHg Arterial Blood Partial Pressure O2 110 mmHg Arterial Blood Oxygen Content 13.6 Vol % Arterial Blood Carboxyhemoglobin 0.9 % Arterial Blood Methemoglobin 1.3 % Blood Gas Hemoglobin 10.0 G/DL Oxygen Delivery Device VENTILATOR Blood Gas Ventilator Setting CPAP PEEP5/PS8 Blood Gas Inspired Oxygen 45 % Test 10/01/17 13:20 10/01/17 20:23 10/02/17 03:56 10/02/17 11:30 Activated Partial Thromboplast Time 35.3 SEC 37.3 SEC 46.4 SEC 40.4 SEC White Blood Count 8.9 TH/MM3 Red Blood Count 3.03 MIL/MM3 Hemoglobin 9.2 GM/DL Hematocrit 26.8 % Mean Corpuscular Volume 88.2 FL Mean Corpuscular Hemoglobin 30.3 PG Mean Corpuscular Hemoglobin Concent 34.4 % Red Cell Distribution Width 13.8 % Platelet Count 153 TH/MM3 Mean Platelet Volume 9.3 FL Neutrophils (%) (Auto) 68.6 % Lymphocytes (%) (Auto) 19.6 % Monocytes (%) (Auto) 11.0 % Eosinophils (%) (Auto) 0.3 % Basophils (%) (Auto) 0.5 % Neutrophils # (Auto) 6.1 TH/MM3 Lymphocytes # (Auto) 1.8 TH/MM3 Monocytes # (Auto) 1.0 TH/MM3 Eosinophils # (Auto) 0.0 TH/MM3 Basophils # (Auto) 0.0 TH/MM3 CBC Comment AUTO DIFF Differential Total Cells Counted 100 Neutrophils % (Manual) 62 % Lymphocytes % 29 % Monocytes % 7 % Neutrophils # (Manual) 5.7 TH/MM3 Metamyelocytes 1 % Myelocytes 1 % Differential Comment FINAL DIFF MANUAL Platelet Estimate NORMAL Platelet Morphology Comment NORMAL Basophilic Stippling FAINT Blood Urea Nitrogen 19 MG/DL Creatinine 0.99 MG/DL Random Glucose 112 MG/DL Total Protein 6.1 GM/DL Albumin 2.4 GM/DL Calcium Level 8.1 MG/DL Phosphorus Level 3.3 MG/DL Magnesium Level 2.2 MG/DL Alkaline Phosphatase 72 U/L Aspartate Amino Transf (AST/SGOT) 113 U/L Alanine Aminotransferase (ALT/SGPT) 115 U/L Total Bilirubin 1.2 MG/DL Sodium Level 145 MEQ/L Potassium Level 3.5 MEQ/L Chloride Level 109 MEQ/L Carbon Dioxide Level 26.2 MEQ/L Anion Gap 10 MEQ/L Estimat Glomerular Filtration Rate 77 ML/MIN Test 10/02/17 17:40 10/03/17 05:10 10/03/17 06:31 Activated Partial Thromboplast Time 43.6 SEC 49.5 SEC White Blood Count 11.0 TH/MM3 Red Blood Count 3.02 MIL/MM3 Hemoglobin 8.9 GM/DL Hematocrit 26.3 % Mean Corpuscular Volume 87.1 FL Mean Corpuscular Hemoglobin 29.3 PG Mean Corpuscular Hemoglobin Concent 33.7 % Red Cell Distribution Width 13.7 % Platelet Count 177 TH/MM3 Mean Platelet Volume 9.3 FL Blood Urea Nitrogen 17 MG/DL Creatinine 0.83 MG/DL Random Glucose 100 MG/DL Calcium Level 8.4 MG/DL Phosphorus Level 2.8 MG/DL Magnesium Level 2.1 MG/DL Sodium Level 144 MEQ/L Potassium Level 3.4 MEQ/L Chloride Level 108 MEQ/L Carbon Dioxide Level 25.2 MEQ/L Anion Gap 11 MEQ/L Estimat Glomerular Filtration Rate 94 ML/MIN Ammonia 30 MCMOL/L Imaging Last Impressions Abdomen X-Ray 10/01/17 0000 Signed Impressions: Service Date/Time: Sunday, October 01, 2017 08:11 - CONCLUSION: 1. Mild gaseous distention of the colon. No free air. Kameron Zapata MD Liver Ultrasound 09/30/17 0000 Signed Impressions: Service Date/Time: September 17:06 - CONCLUSION: 1. Fatty liver, enlarged. No free fluid. No gallstones or biliary ductal dilatation. Kameron Zapata MD Chest X-Ray 09/30/17 0000 Signed Impressions: Service Date/Time: September 13:15 - CONCLUSION: 1. Support apparatus unchanged. Basilar airspace disease and pleural effusions similar to September 28. Kameron Zapata MD Brain MRI 09/29/17 0000 Signed Impressions: Service Date/Time: Friday, September 29, 2017 12:35 - CONCLUSION: 1. No recent infarct. Mild chronic white matter ischemic changes. 2. Sphenoid and ethmoid sinusitis. Kameron Zapata MD Head CT 09/25/17 0000 Signed Impressions: Service Date/Time: Monday, September 25, 2017 00:31 - CONCLUSION: 1. No acute intracranial abnormality demonstrated. 2. Sinus disease. Mikhail Ruiz MD Objective Remarks GENERAL: This is a well-nourished, well-developed patient confused but in no apparent distress. CARDIOVASCULAR: Regular rate and rhythm RESPIRATORY: Clear to auscultation. Breath sounds equal bilaterally. GASTROINTESTINAL: Abdomen soft, non-tender, nondistended. Normal active bowel sounds MUSCULOSKELETAL: Extremities without clubbing, cyanosis, or edema. NEURO: awake, oriented to person only. has periods of impulsiveness. Moves all ext x4 Date of Insertion: Sep 28, 2017 Line: Central Venous Catheter Side: Left Location: Internal, Jugular A/P Problem List: (1) Cardiac arrest with ventricular fibrillation ICD Codes: I46.9 - Cardiac arrest, cause unspecified; I49.01 - Ventricular fibrillation Status: Acute Plan: Acute inferior STEMI Cardiac arrest/Vfib arrest This is a 61 year old male patient who presented as an [id number] v. fib cardiac arrest. Per report, he complained of heartburn most of the day then in the evening he became acutely unresponsive. family member started bystander CPR. Reported down-time was 20 minutes. Upon arrival to ED, patient again had pulseless v. tach/v. fib arrest, ROSC obtained and again repeat 12-lead with inferior st- elevations. patient has poor neurologic exam despite receiving no neuro altering medications. long discussion with Dr. Zacarias: holding off on emergent left heart cath given poor neurologic function. Patient was treated in the ICU with hypothermia protocol. Initially was intubated, sedated and required paralysis. Patient was also on Lidocaine drip to prevent further athymias. Gram-negative andre in sputum identified. Neurology consult per family 's request for prognosis. Patient alert and oriented 2, to person and place with periods of agitation and confusion. Patient is tentatively scheduled for cardiac catheterization early next week. Currently tolerating a pured diet with honey thickened liquids. Also followed by cardiology continue Heparin drip EF 35-40% Tentative plan for cardiac evaluation next week, possible Wednesday to determine coronary anatomy and cause of V.Fib arrest potassium replaced recheck CBC and CMP in AM (2) Acute ST elevation myocardial infarction (STEMI) ICD Codes: I21.3 - ST elevation (STEMI) myocardial infarction of unspecified site Status: Acute Plan: see above (3) Hypoxic encephalopathy ICD Codes: G93.1 - Anoxic brain damage, not elsewhere classified Status: Acute Plan: Patient followed by Neurology Dr. Huff who has [facility] cleared for cardiac catheterization At this point neurology will follow peripherally. recommends outpatient cognitive testing if confusion persists. Patient oriented to person only with confusion and impulsiveness. Risperidone 1 mg Q12H Ativan 1 mg IV Q4H as needed (4) Abnormal sputum ICD Codes: R09.3 - Abnormal sputum Status: Acute Plan: Left lower lobe infiltrate S/P vent support Albuterol/ipratropium aerosols every 6 hours with albuterol aerosols every 2 hours as needed dyspnea 10/01- extubated Gram-negative andre in sputum identified patient started on Zosyn 09/26/17 (5) Transaminitis ICD Codes: R74.0 - Nonspecific elevation of levels of transaminase and lactic acid dehydrogenase [LDH] Status: Acute Plan: Monitor LFT's( trending down) Ammonia level: 30 (10/03) US Liver: Fatty liver, enlarged. No free fluid. No gallstones or biliary ductal dilatation. 10/01 KUB abdomen -mild gaseous distention. BM 10/02 Lactulose 30 cc twice daily- DC'd (10/03) patient has not taken since 10/01 and ammonia is 30 continue bowel regiment Formal swallow successful-tolerating pured diet with honey thickened liquids Assessment and Plan Patient examined. Assessment and plan formulated with Krissy Khan PA-C. I agree with the above. Krissy Khan Oct 03, 2017 11:04 Larry Urbina DO Oct 07, 2017 22:41
[2017-10-03] MEDS: METOPROLOL TARTRATE 50 MG TAB PO SCH ×2 (11:54→21:23)
[2017-10-03] MEDS: ASPIRIN 81 MG CHEW TAB CHEW SCH (11:54)
[2017-10-03] MEDS: FAMOTIDINE 20 MG/2 ML VIAL IV PUSH SCH ×2 (11:55→21:23)
[2017-10-03] MEDS ORDERED: POTASSIUM CHLORIDE 25 MEQ EFFERVESCENT TAB PO ONE (12:00)
--- NOTE | 2017-10-03 13:16 | HHI.PR ---
Review/Management Diagnosis/Plan: (1) Hypoxic encephalopathy ICD Codes: G93.1 - Anoxic brain damage, not elsewhere classified Status: Acute Plan: +cortical and brainstem function eeg- +brain waves mri brain- no gross ischemia off code cool recs will add risperdal short-term for compulsiveness/mild agitation. d/c it upon discharge guilherme feels he is making new memories which is encouraging ok for cath will follow peripherally. may need outpatient cognitive testing no driving (2) Cardiac arrest with ventricular fibrillation ICD Codes: I46.9 - Cardiac arrest, cause unspecified; I49.01 - Ventricular fibrillation Status: Acute (3) IGNACIO (acute kidney injury) ICD Codes: N17.9 - Acute kidney failure, unspecified Status: Acute (4) Acute ST elevation myocardial infarction (STEMI) ICD Codes: I21.3 - ST elevation (STEMI) myocardial infarction of unspecified site Status: Acute Subjective Subjective Comments No acute events reported perseverates at times on leaving hospital; gets anxious ativan limited help No headache No chest pain No dyspnea Active Medications Current Medications Medications (Trade) Dose Ordered Sig/Isabel Route Start Time Stop Time Status Last Admin (Zofran Inj) 4 mg Q6H PRN IV PUSH 09/25/17 00:15 09/30/17 23:17 (Brethine Inj) 1 mg UNSCH PRN SQ 09/25/17 00:15 (Aspirin Chew) 81 mg DAILY CHEW 09/25/17 09:00 10/03/17 11:54 Miscellaneous Information 0 ml @ 0 mls/hr UNSCH IV 09/25/17 01:00 Heparin Sodium (Porcine) 33151 units/Sodium Chloride 250 ml @ 10 mls/hr TITRATE PRN IV 09/25/17 01:00 10/03/17 06:43 (NS Flush) 2 ml BID IV FLUSH 09/25/17 21:00 10/03/17 09:00 (NS Flush) 2 ml UNSCH PRN IV FLUSH 09/25/17 16:15 Miscellaneous Information 0 ml @ 0 mls/hr UNSCH IV 09/25/17 16:15 (Pepcid Inj) 20 mg Q12HR IV PUSH 09/26/17 21:00 10/03/17 11:55 Piperacillin Sod/ Tazobactam Sod 100 ml @ 200 mls/hr Q6H IV 09/26/17 18:00 10/09/17 18:00 10/03/17 11:56 (Lactulose Liq) 30 ml BID PO 09/27/17 21:00 10/01/17 09:18 (Colace Liq) 100 mg Q12HR PO 09/28/17 21:00 10/02/17 09:40 (Senna Liq) 8.8 mg BID PO 09/28/17 21:00 10/02/17 09:42 (Miralax) 17 gm DAILY PO 09/29/17 09:00 10/01/17 09:18 (NS Flush) DAILY IV FLUSH 09/28/17 10:15 10/03/17 09:00 (NS Flush) UNSCH PRN IV FLUSH 09/28/17 10:15 (Lopressor) 50 mg Q12HR PO 09/30/17 13:00 10/03/17 11:54 (Duoneb Neb) 1 ampule Q4HR NEB NEB 10/01/17 12:00 10/03/17 12:33 (Duoneb Neb) 1 ampule Q2HR NEB PRN NEB 10/01/17 10:45 (Ativan Inj) 1 mg Q4H PRN IV PUSH 10/02/17 09:45 10/02/17 17:21 (Melatonin) 5 mg HS PRN PO 10/02/17 21:00 10/02/17 21:43 Allergies Allergies Coded Allergies No Known Allergies (Unverified09/24/17) Review of Systems All other ROS: ROS reviewed as documented in chart, Unable to obtain Exam I&O / VS Vital Signs Date Time Temp Pulse Resp B/P (MAP) Pulse Ox O2 Delivery O2 Flow Rate FiO2 10/03/17 11:00 95 Nasal Cannula 2.00 10/03/17 11:00 98.6 71 16 157/77 (103) 95 Arterial Line 10/03/17 11:00 71 10/03/17 08:40 96 Nasal Cannula 2.00 10/03/17 07:00 68 10/03/17 07:00 96 Nasal Cannula 2.00 10/03/17 07:00 98.2 68 16 156/88 (110) 96 143/74 (97) 10/03/17 03:00 94 Nasal Cannula 2.00 10/03/17 03:00 98.9 69 22 162/97 (118) 94 175/92 (119) 10/03/17 03:00 69 10/02/17 23:00 66 10/02/17 23:00 96 Nasal Cannula 2.00 10/02/17 23:00 98.6 66 20 132/78 (96) 96 146/76 (99) 10/02/17 21:04 93 Nasal Cannula 2.00 10/02/17 19:00 74 10/02/17 19:00 95 Nasal Cannula 2.00 10/02/17 19:00 98.8 74 18 152/75 (100) 95 152/82 (105) 10/02/17 15:10 97 Nasal Cannula 10/02/17 15:10 70 10/02/17 15:10 98.5 78 16 154/81 (105) 93 135/72 (93) Exam Comments alert, ox 2, not to date, follows, perseverates on wanting to leave again, redirectable, recognizes fiancee, eomi, vff, wheeler to gravity Objective Micro and Labs Laboratory Tests Test 10/02/17 17:40 10/03/17 05:10 10/03/17 06:31 Activated Partial Thromboplast Time 43.6 49.5 White Blood Count 11.0 Red Blood Count 3.02 Hemoglobin 8.9 Hematocrit 26.3 Mean Corpuscular Volume 87.1 Mean Corpuscular Hemoglobin 29.3 Mean Corpuscular Hemoglobin Concent 33.7 Red Cell Distribution Width 13.7 Platelet Count 177 Mean Platelet Volume 9.3 Blood Urea Nitrogen 17 Creatinine 0.83 Random Glucose 100 Calcium Level 8.4 Phosphorus Level 2.8 Magnesium Level 2.1 Sodium Level 144 Potassium Level 3.4 Chloride Level 108 Carbon Dioxide Level 25.2 Anion Gap 11 Estimat Glomerular Filtration Rate 94 Ammonia 30 Date/Time Source Procedure Growth Status 09/30/17 13:45 Sputum Endotracheal Gram Stain - Final Complete 09/30/17 13:45 Sputum Culture - Final Serratia Marcescens Complete Delmar Huff MD Oct 03, 2017 13:16
[2017-10-03] MEDS ORDERED: risperiDONE 0.25 MG TAB PO PRN (13:30)
[2017-10-03] MEDS: LORazepam 2 MG/ML VIAL IV PUSH PRN (15:22)
[2017-10-03] MEDS: risperiDONE 1 MG TAB PO SCH ×2 (21:00→21:23)
[2017-10-03] MEDS: MELATONIN 5 MG TAB PO PRN (21:51)
[2017-10-04] VITALS (25 sets, daily range): BP systolic 124–163; BP diastolic 69–96; PULSE 63–102; RESP 18–22; TEMP 98.1–100; O2SAT 92–100
[2017-10-04] MEDS: RESP: ALBUTEROL 2.5 MG/IPRATROPIUM 0.5 MG NEB (SCH) NEB ×7 (00:20→23:53)
[2017-10-04] MEDS: PIPERACIL-TAZO 4.5 GM PREMIX 100 ML IV SCH ×5 (02:44→23:56)
[2017-10-04] MEDS: HEPARIN INJ 25,000 UNITS in SODIUM CHLOR 0.9% 250 ML INJ 247.5 ML IV PRN ×2 (06:55→18:42)
--- NOTE | 2017-10-04 08:11 | HHI.PR ---
Review/Management Diagnosis/Plan: (1) Hypoxic encephalopathy ICD Codes: G93.1 - Anoxic brain damage, not elsewhere classified Status: Acute Plan: +cortical and brainstem function eeg- +brain waves mri brain- no gross ischemia off code cool guilherme feels he is making new memories which is encouraging recs guilherme feels risperdal not working and does better on ativan will d/c risperdal try seroquel at night prn continue ativan as needed will follow peripherally. may need outpatient cognitive testing no driving (2) Cardiac arrest with ventricular fibrillation ICD Codes: I46.9 - Cardiac arrest, cause unspecified; I49.01 - Ventricular fibrillation Status: Acute (3) IGNACIO (acute kidney injury) ICD Codes: N17.9 - Acute kidney failure, unspecified Status: Acute (4) Acute ST elevation myocardial infarction (STEMI) ICD Codes: I21.3 - ST elevation (STEMI) myocardial infarction of unspecified site Status: Acute Subjective Subjective Comments didn't sleep well overnight No headache No chest pain No dyspnea Active Medications Current Medications Medications (Trade) Dose Ordered Sig/Isabel Route Start Time Stop Time Status Last Admin (Zofran Inj) 4 mg Q6H PRN IV PUSH 09/25/17 00:15 09/30/17 23:17 (Brethine Inj) 1 mg UNSCH PRN SQ 09/25/17 00:15 (Aspirin Chew) 81 mg DAILY CHEW 09/25/17 09:00 10/03/17 11:54 Miscellaneous Information 0 ml @ 0 mls/hr UNSCH IV 09/25/17 01:00 Heparin Sodium (Porcine) 94538 units/Sodium Chloride 250 ml @ 10 mls/hr TITRATE PRN IV 09/25/17 01:00 10/04/17 06:55 (NS Flush) 2 ml BID IV FLUSH 09/25/17 21:00 10/03/17 21:24 (NS Flush) 2 ml UNSCH PRN IV FLUSH 09/25/17 16:15 Miscellaneous Information 0 ml @ 0 mls/hr UNSCH IV 09/25/17 16:15 (Pepcid Inj) 20 mg Q12HR IV PUSH 09/26/17 21:00 10/03/17 21:23 Piperacillin Sod/ Tazobactam Sod 100 ml @ 200 mls/hr Q6H IV 09/26/17 18:00 10/09/17 18:00 10/04/17 06:18 (Lactulose Liq) 30 ml BID PO 09/27/17 21:00 10/01/17 09:18 (Colace Liq) 100 mg Q12HR PO 09/28/17 21:00 10/02/17 09:40 (Senna Liq) 8.8 mg BID PO 09/28/17 21:00 10/02/17 09:42 (Miralax) 17 gm DAILY PO 09/29/17 09:00 10/01/17 09:18 (NS Flush) DAILY IV FLUSH 09/28/17 10:15 10/03/17 09:00 (NS Flush) UNSCH PRN IV FLUSH 09/28/17 10:15 (Lopressor) 50 mg Q12HR PO 09/30/17 13:00 10/03/17 21:23 (Duoneb Neb) 1 ampule Q4HR NEB NEB 10/01/17 12:00 10/04/17 07:51 (Duoneb Neb) 1 ampule Q2HR NEB PRN NEB 10/01/17 10:45 (Ativan Inj) 1 mg Q4H PRN IV PUSH 10/02/17 09:45 10/03/17 15:22 (Melatonin) 5 mg HS PRN PO 10/02/17 21:00 10/03/17 21:51 (risperDAL) 1 mg Q12HR PO 10/03/17 20:00 10/03/17 21:00 Allergies Allergies Coded Allergies No Known Allergies (Unverified09/24/17) Review of Systems All other ROS: ROS reviewed as documented in chart, Unable to obtain Exam I&O / VS Vital Signs Date Time Temp Pulse Resp B/P (MAP) Pulse Ox O2 Delivery O2 Flow Rate FiO2 10/04/17 07:51 98 Nasal Cannula 2.00 10/04/17 07:00 98.1 68 20 124/69 (87) 96 10/04/17 07:00 68 10/04/17 07:00 96 Nasal Cannula 3.00 10/04/17 04:00 96 Nasal Cannula 3.00 10/04/17 04:00 71 20 162/96 (118) 92 10/04/17 03:30 81 10/04/17 01:30 98 Nasal Cannula 3.00 10/04/17 00:00 98.9 74 20 130/79 (96) 92 10/04/17 00:00 92 Nasal Cannula 2.00 10/04/17 00:00 71 10/03/17 20:27 95 Nasal Cannula 2.00 10/03/17 20:00 97 Nasal Cannula 2.00 10/03/17 20:00 98.0 74 20 158/86 (110) 97 10/03/17 19:00 74 10/03/17 15:00 98.4 74 16 161/91 (114) 94 10/03/17 15:00 74 10/03/17 15:00 94 Nasal Cannula 2.00 10/03/17 11:00 95 Nasal Cannula 2.00 10/03/17 11:00 98.6 71 16 157/77 (103) 95 Arterial Line 10/03/17 11:00 71 10/03/17 08:40 96 Nasal Cannula 2.00 Exam Comments alert, ox 2, not to date, follows, eomi, vff, wheeler to gravity Objective Micro and Labs Date/Time Source Procedure Growth Status 09/30/17 13:45 Sputum Endotracheal Gram Stain - Final Complete 09/30/17 13:45 Sputum Culture - Final Serratia Marcescens Complete Delmar Huff MD Oct 04, 2017 08:11
[2017-10-04] MEDS ORDERED: QUEtiapine FUMARATE 25 MG TAB PO PRN (08:15)
[2017-10-04 08:48] LABS: INTERNATIONAL NORMALIZED RATIO 1.2 RATIO
[2017-10-04] MEDS: LACTULOSE SYRUP 20 GM/30 ML CUP PO SCH (09:00)
[2017-10-04] MEDS: SODIUM CHLORIDE 0.9% FLUSH 10 ML FLUSH IV FLUSH SCH ×3 (09:00→21:00)
[2017-10-04] MEDS: DOCUSATE SODIUM 100 MG/10 ML UDC PO SCH (09:00)
[2017-10-04] MEDS: SENNOSIDES SYRUP 8.8 MG/5 ML CUP PO SCH ×2 (09:00→22:56)
[2017-10-04] MEDS: POLYETHYLENE GLYCOL 17 GM PKG PO SCH (09:00)
[2017-10-04] MEDS: ASPIRIN 81 MG CHEW TAB CHEW SCH (09:28)
[2017-10-04] MEDS: FAMOTIDINE 20 MG/2 ML VIAL IV PUSH SCH (09:28)
[2017-10-04] MEDS: METOPROLOL TARTRATE 50 MG TAB PO SCH ×2 (09:28→22:56)
--- NOTE | 2017-10-04 09:59 | HHI.PR ---
Subjective Remarks good [facility] memory. trouble with short term happy and cooperative. significant other at bedside Objective Vitals happy. easily discusses [facility] memories. heart reg lung few wheezes right abd s/nt ext no edema Vital Signs Date Time Temp Pulse Resp B/P (MAP) Pulse Ox O2 Delivery O2 Flow Rate FiO2 10/04/17 07:51 98 Nasal Cannula 2.00 10/04/17 07:00 98.1 68 20 124/69 (87) 96 10/04/17 07:00 68 10/04/17 07:00 96 Nasal Cannula 3.00 10/04/17 04:00 96 Nasal Cannula 3.00 10/04/17 04:00 71 20 162/96 (118) 92 10/04/17 03:30 81 10/04/17 01:30 98 Nasal Cannula 3.00 10/04/17 00:00 98.9 74 20 130/79 (96) 92 10/04/17 00:00 92 Nasal Cannula 2.00 10/04/17 00:00 71 10/03/17 20:27 95 Nasal Cannula 2.00 10/03/17 20:00 97 Nasal Cannula 2.00 10/03/17 20:00 98.0 74 20 158/86 (110) 97 10/03/17 19:00 74 10/03/17 15:00 98.4 74 16 161/91 (114) 94 10/03/17 15:00 74 10/03/17 15:00 94 Nasal Cannula 2.00 10/03/17 11:00 95 Nasal Cannula 2.00 10/03/17 11:00 98.6 71 16 157/77 (103) 95 Arterial Line 10/03/17 11:00 71 Result Diagram: 10/03/17 0510 10/03/17 0510 Imaging Last Impressions Abdomen X-Ray 10/01/17 0000 Signed Impressions: Service Date/Time: Sunday, October 01, 2017 08:11 - CONCLUSION: 1. Mild gaseous distention of the colon. No free air. Kameron Zapata MD Liver Ultrasound 09/30/17 0000 Signed Impressions: Service Date/Time: September 17:06 - CONCLUSION: 1. Fatty liver, enlarged. No free fluid. No gallstones or biliary ductal dilatation. Kameron Zapata MD Chest X-Ray 09/30/17 0000 Signed Impressions: Service Date/Time: September 13:15 - CONCLUSION: 1. Support apparatus unchanged. Basilar airspace disease and pleural effusions similar to September 28. Kameron Zapata MD Brain MRI 09/29/17 0000 Signed Impressions: Service Date/Time: Friday, September 29, 2017 12:35 - CONCLUSION: 1. No recent infarct. Mild chronic white matter ischemic changes. 2. Sphenoid and ethmoid sinusitis. Kameron Zapata MD Head CT 09/25/17 0000 Signed Impressions: Service Date/Time: Monday, September 25, 2017 00:31 - CONCLUSION: 1. No acute intracranial abnormality demonstrated. 2. Sinus disease. Mikhail Ruiz MD Date of Insertion: Sep 28, 2017 Line: Central Venous Catheter Side: Left Location: Internal, Jugular A/P Problem List: (1) Cardiac arrest with ventricular fibrillation ICD Codes: I46.9 - Cardiac arrest, cause unspecified; I49.01 - Ventricular fibrillation Status: Acute Plan: Acute inferior STEMI Cardiac arrest/Vfib arrest This is a 61 year old male patient who presented as an hkr-rs-yeekmpds v. fib cardiac arrest. Per report, he complained of heartburn most of the day then in the evening he became acutely unresponsive. family member started bystander CPR. Reported down-time was 20 minutes. Upon arrival to ED, patient again had pulseless v. tach/v. fib arrest, ROSC obtained and again repeat 12-lead with inferior st- elevations. patient has poor neurologic exam despite receiving no neuro altering medications. long discussion with Dr. Zacarias: held off on emergent left heart cath given poor neurologic function. Patient was treated in the ICU with hypothermia protocol. Initially was intubated, sedated and required paralysis. Patient was also on Lidocaine drip to prevent further athymias. EF 35-40%. concern for hypoxic brain injury sputum serratia marcescens. cont current abx lhc planned today to eval for underlying cad.. Currently tolerating a pured diet with honey thickened liquids. continue Heparin drip risperdal switched to seroquel per neurology. will need snf after dc PT daily. (2) Acute ST elevation myocardial infarction (STEMI) ICD Codes: I21.3 - ST elevation (STEMI) myocardial infarction of unspecified site Status: Acute Plan: see above (3) Hypoxic encephalopathy ICD Codes: G93.1 - Anoxic brain damage, not elsewhere classified Status: Acute Plan: Patient followed by Neurology Dr. Huff who has [place] [facility] cleared for cardiac catheterization At this point neurology will follow peripherally. recommends outpatient cognitive testing if confusion persists. see above (4) Abnormal sputum ICD Codes: R09.3 - Abnormal sputum Status: Acute Plan: Left lower lobe infiltrate S/P vent support Albuterol/ipratropium aerosols every 6 hours with albuterol aerosols every 2 hours as needed dyspnea 10/01- extubated patient started on Zosyn 09/26/17 sputum serration marcescens (5) Transaminitis ICD Codes: R74.0 - Nonspecific elevation of levels of transaminase and lactic acid dehydrogenase [LDH] Status: Acute Plan: Monitor LFT's( trending down) Ammonia level: 30 (10/03) US Liver: Fatty liver, enlarged. No free fluid. No gallstones or biliary ductal dilatation. 10/01 KUB abdomen -mild gaseous distention. BM 10/02 Lactulose 30 cc twice daily- DC'd (10/03) patient has not taken since 10/01 and ammonia is 30 continue bowel regiment Formal swallow successful-tolerating pured diet with honey thickened liquids Sebastián Gu MD Oct 04, 2017 09:59
[2017-10-04] MEDS ORDERED: HEPARIN-NS/PF FLUSH BAG 2,000 ML IV FLUSH ONE (11:18)
[2017-10-04] MEDS ORDERED: VERAPAMIL HCL 5 MG/2 ML VIAL ONE (11:18)
[2017-10-04] MEDS ORDERED: HEPARIN SODIUM - IV 10,000 UNITS/10 ML VIAL ONE (11:19)
--- NOTE | 2017-10-04 12:06 | CATHPROC ---
[employer] HIS Report Study Information Study Number Admission Scheduled Start Study Start [id number] Sep 25 2017 12:13AM 10/03/2017 Oct 04 2017 11:00AM [place] Service Cardiac Catheterization Admit Source Facility Department Emergency department [facility] - [employer] Operator Physician and Clinical Staff Initial Zeke Le [employer] Engineering Teacher Juan J De Jesus RN Recorder Janice Goddard BSN Scrub Hostcarlo, [place],RT(R) Procedures Performed Procedure Location (Site) Vessel Name Coronary Angiograms LCA Left Coronary Coronary Angiograms RCA Right Coronary L Heart Cath Wire insertion Radial (right) Radial Art. Equipment Time Benefits Advisor Description Size Mfg Part Number Used/Scraped TRANSDUCER, TRUWAVE [id number] 11:34 STACK FULLER * Used W/STOCKCOCK *[id number] 11:34 Lytro PACK, CCL CUSTOM * Used *[id number] 11:34 [employer]ytro SUPPORT, ARTERIAL ADULT 10345 *[id number] Used [id number] 11:33 MEDTRONIC JL 3.5 DXTERITY CATHETER FR 5 Used *[id number] 11:33 [employer] JR 4.0 DXTERITY CATHETER FR 5 Used *[id number] BAND, RADIAL COMPRESSION TR [id number] 11:55 [employer] MEDICAL 29CM Used LARGE 29 *[id number] 11:34 [employer] MEDICAL WIRE, EXCHANGE 260CM 3MMJ 260CM Used *[id number] 11:34 NAMIC MANIFOLD, 4 PORT * Used *[id number] 11:34 NYCOMED OMNIPAQUE, 350 MG, 150ML 150ML [id number] Used [id number] 11:34 BARNEY MEDICAL BLANKET,WARM AIR CCL * Used *[id number] SHEATH, FR6 TRANSRADIAL RM*[id number] 11:34 Twones FR 6 Used SLENDER 10CM *[id number] Equipment Model, Serial, Lot Number and Expiration Data Description Model Number Serial Number Lot Number Expiration D ate JR 4.0 DXTERITY CATHETER [id number] 04-26-2020 History: Allergies Allergy Reaction No Known Allergies History: Risk Factors Family History of Hypertension Dyslipidemia Previous [place] Previous Heart Failure Premature CAD Yes No No No No Prior Valve Prior PCI Prior CABG Surgery No No No Cerebrovascular Peripheral Artery Chronic Lung On Dialysis Diabetes Disease Disease Disease No No No No No History: Stress Tests Stress or Imaging Studies Performed No History: Other Current Smoker Method Quit Packs a Day Years Used Pack Years No Cigarettes 15 Years Ago 1 25 25 Labs Hgb (g/dl) Hct (%) RBC (MIL/MM3) WBC (l/cumm) Platelets (thousands) 11.60-17.00 35.00-51.00 4.00-5.90 4.00-11.00 150.00-450.00 8.9 26.3 3 11 177 Glucose (mg/dl) BUN (mg/dl) Creatinine (mg/dl) BUN:Creatinine (1:x) 74.00-106.00 7.00-18.00 0.50-1.30 10.00-20.00 100 17 0.8 21.3 Na (meq/l) K (meq/l) 136.00-145.00 3.50-5.10 144 3.4 PT (sec) INR (PTT:PT) 9.80-11.60 0.90-1.10 12 1.2 Troponin I (ng/ml) Troponin T (ng/ml) CPK (u/l) 0.02-0.05 0.40-2.10 26.00-308.00 26.3 13.1 1106 Medication Medication Total Dose (Bolus/Oral) Medication Total Dosage/Unit 1% XYLOCAINE 5 mL FENTANYL 25 mcg RADIAL COCKTAIL 5 mL (Bolus) Medications (Bolus/Oral) Medication Time Given Dosage/Unit Administered By Reason 1% XYLOCAINE 10/04/2017 11:39:50 AM 5 mL Zeke Zacarias 5 mL 1% XYLOCAINE given in lab by Zeke Zacarias in Right Radial via Subcutaneous. Ordered by Zeke German FENTANYL 10/04/2017 11:40:26 AM 25 mcg Juan J De Jesus 25 mcg FENTANYL given in lab by Juan J De Jesus RN in Right Antecubital via Peripheral IV. Ordered by Zeke Zacarias RADIAL COCKTAIL 10/04/2017 11:41:08 AM 5 mL (Bolus) Zeke Zacarias 5 mL (Bolus) RADIAL COCKTAIL given in lab by Juan J De Jesus RN via Radial. Ordered by Cristofer Zacarias Ntg 200mcg Verapamil 2.5mg Heparin 3800U. Medication (Drip) Medication Time Given Dosage/Unit Concentration/Unit Diluent (ml) Solution IV Solutions 10/04/2017 11:26:13 AM 50 mL (IV) NaCl .9 IV Solutions given in lab by Juan J De Jesus RN in Right Antecubital via Peripheral IV. Pump/Drip Flow using NaCl .9 at o. Ordered by Zeke Zacarias Initial Case Assessment Cardiovascular HR Rhythm NIBP 69 sr 166/91 Edema Present Skin color Skin None Normal Warm Dry Circulatory - Right Pulses Dorsalis Pedis Femoral Radial 1 2 2 Scale (0,1,2,3,4,d) Circulatory - Left Pulses Dorsalis Pedis Femoral Radial 1 2 2 Scale (0,1,2,3,4,d) Circulatory - Lower Extremities Color Lower Right Color Lower Left Normal Normal Neurological State Alert Moves all extremities Comment: patient forgetful Respiration - General Respiration Rate SpO2 (%) O2 (lpm) (B/min) 23 99 4 Final Case Assessment Cardiovascular HR Rhythm NIBP 62 sr 166/97 Edema Present Skin color Skin None Normal Warm Dry Circulatory - Right Pulses Dorsalis Pedis Femoral Radial 1 2 2 Scale (0,1,2,3,4,d) Circulatory - Left Pulses Dorsalis Pedis Femoral Radial 1 2 2 Scale (0,1,2,3,4,d) Circulatory - Lower Extremities Color Lower Right Color Lower Left Normal Normal Neurological State Alert Moves all extremities Comment: patient forgetful Respiration - General Respiration Rate SpO2 (%) O2 (lpm) (B/min) 23 99 4 Chronological Log Time Study Chronological Log 11:12:27 Patient arrived via Bed. 11:12:54 Patient Name, D.O.B, / Armband Verified By R.N. 11:13:24 Consent signed by the physician and the patient and verified by the [employer] staff. 11:15:18 heparin was turned off at 1105 11:15:31 Allens test performed on the right radial and ulnar artery. 11:15:36 Patient has been NPO for More than 6Hrs. 11:17:39 Skin Breakdown- BRUISING TO RIGHT GROIN 11:24:44 Right Radial and groin(s) prepped with 2% chlorhexidine, and draped after a 3 min. waiting time. 11:26:01 A # 20 IV was noted in the Antecubital (right). Grade = 0 IV Solutions given in lab by Juan J De Jesus RN in Right Antecubital via Peripheral IV. Pump/Dri p Flow using NaCl .9 at 11:26:13 kvo. Ordered by Zeke Zacarias 11:26:32 History and physical on the chart or being dictated. Assessment: Initial Case, HR=69 BPM, Rhythm=sr, RSPY=622/91 mmhg, Edema=None, Color=Normal, Ski n = Warm, Dry Right Pulses: David Ped=1, Femoral=2, Radial=2 Left Pulses: David Ped=1, Femoral=2, Radial=2 11:26:39 Lower Right Extremities: Color=Normal Lower Left Extremities: Color=Normal Neurological: State=Alert, CANCHOLA, Comment=patient forgetful Respiration: Resp=23 B/min, SpO2=99 %, O2=4 lpm Vitals capture started with the following parameters, Patient=Adult, Interval=5 min, Initial Pr hpcqhd=335 mmHg, 11:26:48 Deflation Rate=5 mmHg, Cuff placed on Right Ankle 11:28:15 HR=68 bpm, JTZD=266/91 mmhg, VoJ2=436.0 %, Resp=22 B/min, Pain=0, Stevie=10, Cardona=2 11:32:21 Pressure channel 1 zeroed. 11:32:31 HR=68 bpm, QWOI=301/92 mmhg, SpO2=99 %, Resp=21 B/min, Pain=0, Stevie=10, Cardona=2 11:33:24 Reference ECG taken 11:33:45 MD paged 11:34:51 MD arrived. 11:37:32 HR=68 bpm, XRJF=112/96 mmhg, SpO2=99 %, Resp=21 B/min, Pain=0, Stevie=10, Cardona=2 Time Out. Correct patient, correct procedure, correct physician, power injector not loaded with contrast with surgical 11:38:31 team present. Time Out Concurred by MD and individual staff in procedure. 11:38:52 Case Start 5 mL 1% XYLOCAINE given in lab by Zeke Zacarias in Right Radial via Subcutaneous. Ordered by Rell, 11:39:50 Zeke Suazo. 25 mcg FENTANYL given in lab by Juan J De Jesus, RN in Right Antecubital via Peripheral IV. Order ed by Zeke Zacarias 11:40:26 G. 11:40:47 Access site was Radial Artery. A SHEATH, FR6 TRANSRADIAL SLENDER 10CM FR 6 was advanced into the Radial (right) using the Perc utaneous 11:40:55 technique. 5 mL (Bolus) RADIAL COCKTAIL given in lab by Juan J De Jesus RN via Radial. Ordered by Zeke Zacarias Ntg 11:41:08 200mcg Verapamil 2.5mg Heparin 3800U. A JR 4.0 DXTERITY CATHETER FR 5 was advanced over a wire. OMNIPAQUE, 350 MG, 150ML 150ML was us ed for 11:42:04 injections. 11:42:33 HR=83 bpm, ZXYH=593/83 mmhg, SpO2=97.0 %, Resp=23 B/min, Pain=0, Stevie=10, Cardona=2 Recorded Pressure: LV, HR=81, Condition=Condition 1 11:42:58 (Left Ventricle) LV 152/13/35 Recorded Pressure: LV, Ao, HR=81, Condition=Condition 1 11:43:11 (Left Ventricle) LV 141/5/21, (Aorta) Ao 144/78/111 Recorded Pressure: Ao, HR=72, Condition=Condition 1 11:43:36 (Aorta) Ao 138/79/105 11:43:59 The RCA was injected and visualized at various angles. OMNIPAQUE, 350 MG, 150ML 150ML used . After removing the current catheter a JL 3.5 DXTERITY CATHETER FR 5 was advanced over a WIRE, E XCHANGE 260CM 11:44:37 3MMJ 260CM. 11:47:25 The LCA was injected and visualized at various angles. OMNIPAQUE, 350 MG, 150ML 150ML used . 11:47:28 HR=70 bpm, XQQE=243/91 mmhg, SpO2=93.0 %, Resp=20 B/min, Pain=0, Stevie=10, Cardona=2 11:51:26 A WIRE, EXCHANGE 260CM 3MMJ 260CM was inserted via Radial (right). 11:51:45 Catheter and wire removed without difficulty 11:52:01 Case End Assessment: Final Case, HR=62 BPM, Rhythm=sr, DNHB=791/97 mmhg, Edema=None, Color=Normal, Skin = Warm, Dry Right Pulses: David Ped=1, Femoral=2, Radial=2 Left Pulses: David Ped=1, Femoral=2, Radial=2 11:52:56 Lower Right Extremities: Color=Normal Lower Left Extremities: Color=Normal Neurological: State=Alert, CANCHOLA, Comment=patient forgetful Respiration: Resp=23 B/min, SpO2=99 %, O2=4 lpm 11:53:12 HR=66 bpm, YKWM=208/97 mmhg, Resp=20 B/min Radial Compression Device Used. 10 mLs of air placed in BAND, RADIAL COMPRESSION TR LARGE 29 2 9CM. Affected 11:54:38 hand 96 % O2 saturation. 11:54:59 No case complications noted. 11:55:01 Cine recording checked. 11:55:03 Bedside Report will be given. 11:55:08 A Left Heart Cath was performed. 12:04:10 Patient moved to stretcher End Study - Contrast Media Used In Study Contrast Total Opened (mL) Total Used (mL) Total Wasted (mL) Omnipaque 55 55 0 End Study - Maximum Contrast Load Max Contrast Load (mL) 612.5 End Study - Radiation Exposure Fluoro Time (minutes) 1.6 End Study - Patient Disposition Complications Transferred To Telemetry Bed
[2017-10-04] MEDS ORDERED: IOHEXOL 350 MG/ML 100 ML BTL (for Cath Lab) OTHER ONE (12:27)
--- NOTE | 2017-10-04 12:57 | PD.CARD.PN ---
Subjective Subjective Remarks Doing well Post-cath No complaints Objective Medications Current Medications Medications (Trade) Dose Ordered Sig/Isabel Route Start Time Stop Time Status Last Admin (Zofran Inj) 4 mg Q6H PRN IV PUSH 09/25/17 00:15 09/30/17 23:17 (Brethine Inj) 1 mg UNSCH PRN SQ 09/25/17 00:15 (Aspirin Chew) 81 mg DAILY CHEW 09/25/17 09:00 10/04/17 09:28 Miscellaneous Information 0 ml @ 0 mls/hr UNSCH IV 09/25/17 01:00 Heparin Sodium (Porcine) 47103 units/Sodium Chloride 250 ml @ 10 mls/hr TITRATE PRN IV 09/25/17 01:00 10/04/17 06:55 (NS Flush) 2 ml BID IV FLUSH 09/25/17 21:00 10/04/17 09:27 (NS Flush) 2 ml UNSCH PRN IV FLUSH 09/25/17 16:15 Miscellaneous Information 0 ml @ 0 mls/hr UNSCH IV 09/25/17 16:15 Piperacillin Sod/ Tazobactam Sod 100 ml @ 200 mls/hr Q6H IV 09/26/17 18:00 10/09/17 18:00 10/04/17 06:18 (Senna Liq) 8.8 mg BID PO 09/28/17 21:00 10/02/17 09:42 (NS Flush) DAILY IV FLUSH 09/28/17 10:15 10/03/17 09:00 (NS Flush) UNSCH PRN IV FLUSH 09/28/17 10:15 (Lopressor) 50 mg Q12HR PO 09/30/17 13:00 10/04/17 09:28 (Duoneb Neb) 1 ampule Q4HR NEB NEB 10/01/17 12:00 10/04/17 07:51 (Duoneb Neb) 1 ampule Q2HR NEB PRN NEB 10/01/17 10:45 (Ativan Inj) 1 mg Q4H PRN IV PUSH 10/02/17 09:45 10/03/17 15:22 (Melatonin) 5 mg HS PRN PO 10/02/17 21:00 10/03/17 21:51 (SEROquel) 50 mg HS PRN PO 10/04/17 08:15 (Protonix) 40 mg DAILY PO 10/05/17 09:00 Vital Signs / I&O Vital Signs Date Time Temp Pulse Resp B/P (MAP) Pulse Ox O2 Delivery O2 Flow Rate FiO2 10/04/17 11:00 72 10/04/17 11:00 96 Nasal Cannula 3.00 10/04/17 07:51 98 Nasal Cannula 2.00 10/04/17 07:00 98.1 68 20 124/69 (87) 96 10/04/17 07:00 68 10/04/17 07:00 96 Nasal Cannula 3.00 10/04/17 04:00 96 Nasal Cannula 3.00 10/04/17 04:00 71 20 162/96 (118) 92 10/04/17 03:30 81 10/04/17 01:30 98 Nasal Cannula 3.00 10/04/17 00:00 98.9 74 20 130/79 (96) 92 10/04/17 00:00 92 Nasal Cannula 2.00 10/04/17 00:00 71 10/03/17 20:27 95 Nasal Cannula 2.00 10/03/17 20:00 97 Nasal Cannula 2.00 10/03/17 20:00 98.0 74 20 158/86 (110) 97 10/03/17 19:00 74 10/03/17 15:00 98.4 74 16 161/91 (114) 94 10/03/17 15:00 74 10/03/17 15:00 94 Nasal Cannula 2.00 I/O 10/03/17 10/03/17 10/03/17 10/04/17 10/04/17 10/04/17 07:00 15:00 23:00 07:00 15:00 23:00 Intake Total 830 ml 1397 ml 596 ml Output Total 400 ml 400 ml 500 ml Balance 430 ml 997 ml 96 ml Intake Oral 240 ml 960 ml 240 ml IV Total 590 ml 437 ml 356 ml Output Urine Total 400 ml 400 ml 500 ml # Voids 6 6 # Bowel Movements 1 3 0 Physical Exam GENERAL: NAD SKIN: Warm/dry HEAD: Atraumatic. Normocephalic. EYES: Pupils equal and round. No scleral icterus. No injection or drainage. ENT: No nasal bleeding or discharge. Mucous membranes pink and moist. NECK: Trachea midline. No JVD. CARDIOVASCULAR: Regular rate and rhythm. RESPIRATORY: No accessory muscle use. Clear to auscultation. Breath sounds equal bilaterally. GASTROINTESTINAL: Abdomen soft, non-tender, nondistended. Hepatic and splenic margins not palpable. MUSCULOSKELETAL: Extremities without clubbing, cyanosis, or edema. No obvious deformities. NEUROLOGICAL: No focal deficits Laboratory Laboratory Tests Test 10/04/17 08:20 Prothrombin Time 12.0 SEC Prothromb Time International Ratio 1.2 RATIO Activated Partial Thromboplast Time 42.0 SEC Assessment and Plan Problem List: (1) Acute ST elevation myocardial infarction (STEMI) ICD Codes: I21.3 - ST elevation (STEMI) myocardial infarction of unspecified site Status: Acute (2) Cardiac arrest ICD Codes: I46.9 - Cardiac arrest, cause unspecified (3) Ventricular fibrillation ICD Codes: I49.01 - Ventricular fibrillation (4) Cardiac arrest with ventricular fibrillation ICD Codes: I46.9 - Cardiac arrest, cause unspecified; I49.01 - Ventricular fibrillation Status: Acute (5) Ventilator dependence ICD Codes: Z99.11 - Dependence on respirator [ventilator] status (6) IGNACIO (acute kidney injury) ICD Codes: N17.9 - Acute kidney failure, unspecified Status: Acute Assessment and Plan 1) Acute inferior STEMI/MVCAD Heparin drip, restart 1 hour after TR band removed CT surgery evaluation for CABG 2) Cardiac arrest/Vfib arrest No further arrhythmias 3) EF 35-40% 4) Discussed with patient and Zeke Barajas DO Oct 04, 2017 12:57
[2017-10-04] MEDS ORDERED: PAPAVERINE INJ 60 MG, NITROGLYCERIN INJ 100 MCG, DILTIAZEM INJ 100 MG in SODIUM CHLORID... IRRIGATION SCH (15:15)
[2017-10-04] MEDS ORDERED: DEXTROSE 50% IN WATER 50 ML VIAL(D50) IV PUSH PRN (15:15)
[2017-10-04] MEDS ORDERED: CEFAZOLIN INJ 500 MG in SODIUM CHLORIDE 0.9% IRR BTL 500 ML IRRIGATION SCH (15:15)
[2017-10-04] MEDS ORDERED: METOPROLOL TARTRATE 25 MG TAB PO SCH (15:15)
[2017-10-04] MEDS ORDERED: INSULIN REGULAR (IV INFUSION) 100 UNITS in SODIUM CHLORIDE 0.9% INJ 99 ML IV PRN (15:15)
[2017-10-04] MEDS ORDERED: SODIUM CHLORIDE 0.9% FLUSH 10 ML FLUSH IV FLUSH PRN (15:15)
[2017-10-04] MEDS ORDERED: CHLORHEXIDINE GLUCONATE 4% SOLN 120 ML BTL TOPICAL SCH (15:15)
[2017-10-04] MEDS ORDERED: ceFAZolin 2 GM PREMIX 50 ML IV SCH (15:15)
--- NOTE | 2017-10-04 15:17 | PD.CAR.PN ---
CVT Progress Note Subjective/Hospital Course: pt seen and evaluated / full consult to follow sts discussed with pt RISK SCORES About the STS Risk Calculator Procedure: CAB Only Risk of Mortality: 0.872% Morbidity or Mortality: 12.838% Long Length of Stay: 4.719% Short Length of Stay: 47.784% Permanent Stroke: 1.382% Prolonged Ventilation: 9.772% DSW Infection: 0.423% Renal Failure: 1.226% Reoperation: 4.838% Objective: Vital Signs Date Time Temp Pulse Resp B/P (MAP) Pulse Ox O2 Delivery O2 Flow Rate FiO2 10/04/17 14:40 71 18 158/88 (111) 97 10/04/17 14:20 71 18 152/91 (111) 98 10/04/17 14:13 72 10/04/17 13:30 76 18 157/87 (110) 100 10/04/17 13:00 67 18 161/90 (113) 100 10/04/17 12:50 66 18 163/90 (114) 100 10/04/17 12:30 66 18 161/87 (111) 100 10/04/17 12:11 67 18 160/87 (111) 100 10/04/17 12:01 98.8 67 20 161/95 (117) 100 10/04/17 11:00 72 10/04/17 11:00 96 Nasal Cannula 3.00 10/04/17 07:51 98 Nasal Cannula 2.00 10/04/17 07:00 98.1 68 20 124/69 (87) 96 10/04/17 07:00 68 10/04/17 07:00 96 Nasal Cannula 3.00 10/04/17 04:00 96 Nasal Cannula 3.00 10/04/17 04:00 71 20 162/96 (118) 92 10/04/17 03:30 81 10/04/17 01:30 98 Nasal Cannula 3.00 10/04/17 00:00 98.9 74 20 130/79 (96) 92 10/04/17 00:00 92 Nasal Cannula 2.00 10/04/17 00:00 71 10/03/17 20:27 95 Nasal Cannula 2.00 10/03/17 20:00 97 Nasal Cannula 2.00 10/03/17 20:00 98.0 74 20 158/86 (110) 97 10/03/17 19:00 74 Labs: Laboratory Tests Test 10/04/17 08:20 Prothrombin Time 12.0 SEC (9.8-11.6) Prothromb Time International Ratio 1.2 RATIO Activated Partial Thromboplast Time 42.0 SEC (24.3-30.1) Result Diagram: 10/03/17 0510 10/03/17 0510 (1) Acute ST elevation myocardial infarction (STEMI) (2) Cardiac arrest (3) Ventricular fibrillation (4) Cardiac arrest with ventricular fibrillation (5) Ventilator dependence (6) IGNACIO (acute kidney injury) Jaylene Khan Oct 04, 2017 15:17
--- NOTE | 2017-10-04 16:13 | MB ---
cc: Dominique Mora MD DATE: 10/04/2017 HISTORY OF PRESENT ILLNESS: A 61-year-old male presented as a cardiac arrest witnessed on 09/24/2017. Apparently, was with his significant other when he was complaining of some gas pain and indigestion earlier that day. He Sat on the couch, slumped over on his significant other's lab. She tried to wake him up and for the second time, he did not wake up, but she started CPR and called 911. EMS showed up and he was in V-fib arrest, so he was shocked and given ACLS drugs. He was intubated in the field, went into PEA arrest. CPR was continued. It was approximately 20 minutes when he regained pulses. He was found to have ST elevation and a STEMI upon arrival and had another episode of V-fib where he was defibrillated. At the time of the ER admission, he was also seen and evaluated by critical care. Since the patient had return of spontaneous circulation, was a post pulseless V-tach, V-fib arrest, he had initial poor neurological exam despite receiving no neuro altering meds, they held off the emergent left heart cath given poor neurological function; however, they did proceed with hypothermia therapy. The patient has since recovered neurologically, was extubated on Wednesday. He then underwent cardiac cath today, which showed an EF of 40%. The echo shows an EF of 30%. He has left main of 60%, proximal LAD 80%, the diagonal 50%, the circumflex 100%, the OM1 of 100%, the RCA 100%. We were consulted to evaluate for coronary artery bypass grafting. The patient's echo also showed the EF of 35-40%, left atrial size mild to moderately dilated. The right atrial size was mildly dilated. There was trace to mild mitral regurgitation and trace tricuspid regurgitation. At this time, the patient has good long-term memory. He has some short-term memory problems; however, per his significant other, his short-term is improving daily. He has not been out of bed due to the weakness; however, he moves all extremities. He does answer questions appropriately with some obvious forgetfulness with some short-term memory. PAST MEDICAL HISTORY: Only noted for some hypertension. PAST SURGICAL HISTORY: Include tonsillectomy; however, he does get some loose stools if he takes laxatives. ALLERGIES: HE HAS NO KNOWN ALLERGIES. MEDICATIONS: He takes lisinopril at home. REVIEW OF SYSTEMS: As above in the HPI. The other 12 systems unremarkable. PHYSICAL EXAMINATION: VITAL SIGNS: Blood pressure 150/80, heart rate is 70, afebrile, O2 saturation 97 on room air. GENERAL: Patient is awake, alert, answering my questions appropriately. He has some forgetfulness, however. Speech is appropriate. HEENT: Head is normocephalic, atraumatic. He has partial dentures, uppers and lowers. NECK: Supple. No JVD. HEART: Sounds S1, S2. Regular rate and rhythm. No audible rubs, murmurs or gallops. LUNGS: He has got faint expiratory wheeze, otherwise clear to auscultation. ABDOMEN: Obese, soft, nontender. No masses or organomegaly. EXTREMITIES: No cyanosis, clubbing, or edema. LABORATORY DATA: Shows hemoglobin of 8.9, hematocrit of 26, white cell count of 11, platelet count of 177. Sodium 144, potassium 3.4, BUN is 17, creatinine 0.83, mag level 2.1. INR 1.2. Tox screen is positive for cannabinoids. Urine unremarkable. MRSA screen, none detected. Micro, he did grow Serratia marcescens in the sputum culture on the . He is currently on Zosyn. The patient had a liver ultrasound secondary to recent elevated LFTs, showed a fatty liver, enlarged. No free fluid, no gallstones or biliary tract obstruction. MRI of the brain showed no recent infarcts and mild chronic white matter ischemic changes, some ethmoid and sphenoid sinusitis. IMPRESSION: This is a 61-year-old male, out of hospital ventricular fibrillation, cardiac arrest, return of spontaneous circulation. Also had ventricular tachycardia. The patient is status post hypothermia therapy, now status post heart catheterization with multivessel disease, ejection fraction of 35-40%. Since patient has recovered and improved neurologically, procedures, alternatives and risks have been discussed with the patient and the significant other. Apparently, the son will be the healthcare surrogate for signing any forms. He is to be continued on his Zosyn for his recent pneumonia. Plan at this time is for evaluation for surgery on the , which is a . Dictated by Araceli Khan, EDIE MD RAMAKRISHNA Hernandez , 03:25 PM , 04:11 PM
--- NOTE | 2017-10-04 17:10 | RADRPT ---
EXAM DATE/TIME: 10/04/2017 15:53 [facility] COMPARISON: No previous studies available for comparison. INDICATIONS : Preop cardiac surgery. MEDICAL HISTORY : Hypercholesterolemia. Hypertension. Myocardial infarction. Syncope. Sleep apnea. Cardiac arrest. Arth ritis. SURGICAL HISTORY : Polyp removal. ENCOUNTER: Initial ACUITY: 1 day PAIN SCORE: 0/10 LOCATION: Bilateral legs. TECHNIQUE: Venous ultrasound of the left and right leg was performed from the inguinal ligament to the proximal calf. Real-time, color Doppler and spectral tracing, compression and augmentation techniques were us ed. FINDINGS: RIGHT LEG: There is normal compressibility of the deep venous system from the inguinal region to the proximal ca lf. No echogenic clot is seen in the lumen of the common femoral, femoral, popliteal, and posterior tibial veins. There is a normal response of the venous system to proximal and distal augmentation an d respiration. LEFT LEG: There is normal compressibility of the deep venous system from the inguinal region to the proximal ca lf. No echogenic clot is seen in the lumen of the common femoral, femoral, popliteal, and posterior tibial veins. There is a normal response of the venous system to proximal and distal augmentation an d respiration. CONCLUSION: Normal examination. Mikhail Hennessy MD on October 04, 2017 at 17:07 Board Certified Radiologist. This report was verified electronically.
--- NOTE | 2017-10-04 17:17 | RADRPT ---
EXAM DATE/TIME: 10/04/2017 16:23 [facility] COMPARISON: No previous studies available for comparison. INDICATIONS : Preop cardiac surgery. MEDICAL HISTORY : Hypercholesterolemia. Hypertension. Myocardial infarction. Syncope. Sleep apnea. Cardiac arrest. Arth ritis. SURGICAL HISTORY : Polyp removal. ENCOUNTER: Initial ACUITY: 1 day PAIN SCORE: 0/10 LOCATION: Bilateral neck PEAK SYSTOLIC VELOCITIES (cm/sec): ICA/CCA RATIO: Right: 1.3 Left: 1.6 ICA: Right: 144 Left: 146 CCA: Right: 111 Left: 90 ECA: Right: 223 Left: 174 VERTEBRAL: Right: 35 antegrade Left: 85 antegrade Elevated flow velocities and ICA/CCA ratios have been found to correlate with increased degrees of vessel stenosis, calculated as percentage of diameter relative to a normal segment of distal ICA/CCA FINDINGS: RIGHT CAROTID: There is no evidence for a hemodynamically significant carotid stenosis. Minimal intimal hyperplasia is present with scattered calcific plaque. LEFT CAROTID: There is no evidence for a hemodynamically significant carotid stenosis. Minimal intimal hyperplasia is present with scattered calcific plaque. VERTEBRAL ARTERIES: Flow is antegrade in both vertebral arteries. MISCELLANEOUS: There are no ancillary masses or adenopathy. CONCLUSION: Negative examination for a hemodynamically significant carotid stenosis. . Blaine Pride MD FACR on October 04, 2017 at 17:15 Board Certified Radiologist. This report was verified electronically.
--- NOTE | 2017-10-04 17:17 | RADRPT ---
EXAM DATE/TIME: 10/04/2017 16:02 [facility] COMPARISON: No previous studies available for comparison. INDICATIONS : Preop cardiac surgery.. MEDICAL HISTORY : Hypercholesterolemia. Hypertension. Myocardial infarction. Syncope. Sleep apnea. Cardiac arrest. Arth ritis. SURGICAL HISTORY : Polyp removal. ENCOUNTER: Initial ACUITY: 1 day PAIN SCORE: 0/10 LOCATION: Bilateral legs. GREATER SAPHENOUS VEIN THIGH: PROXIMAL: Right 7 mm Left 5 mm MID: Right 4 mm Left 4 mm DISTAL: Right 4 mm Left 2 mm CALF: PROXIMAL: Right 2 mm Left 3 mm MID: Right Non-visualized Left 2 mm DISTAL: Right Non-visualized Left 2 mm FINDINGS: The venous system of the lower extremities are patent by color Doppler imaging. Measurements of the leg veins (in mm) are listed above. CONCLUSION: Venous mapping as above Blaine Pride MD FACR on October 04, 2017 at 17:15 Board Certified Radiologist. This report was verified electronically.
[2017-10-04] MEDS ORDERED: POTASSIUM CHLORIDE 20 MEQ CONTROLLED RELEASE TAB PO ONE (20:30)
[2017-10-04] MEDS ORDERED: FUROSEMIDE 40 MG TAB PO ONE (20:30)
[2017-10-04] MEDS: LORazepam 2 MG/ML VIAL IV PUSH PRN (23:55)
[2017-10-05] VITALS (33 sets, daily range): BP systolic 131–187; BP diastolic 69–106; PULSE 75–102; RESP 16–24; TEMP 97.1–99.8; O2SAT 94–100
[2017-10-05] MEDS: cloNIDine HCL 0.1 MG TAB PO PRN ×2 (01:03→22:21)
[2017-10-05] MEDS: RESP: ALBUTEROL 2.5 MG/IPRATROPIUM 0.5 MG NEB (SCH) NEB ×3 (03:16→11:36)
[2017-10-05] MEDS: PIPERACIL-TAZO 4.5 GM PREMIX 100 ML IV SCH ×4 (05:38→22:41)
[2017-10-05 06:18] LABS: AUTOMATED NEUTROPHIL # 9.4 TH/MM3 (1.8-7.7); BASOPHIL % 0.4 % (0.0-2.0); EOSINOPHIL # 0.1 TH/MM3 (0-0.4); EOSINOPHIL % 0.5 % (0.0-4.0); HEMATOCRIT 27.3 % (39.0-51.0); HEMOGLOBIN 9.2 GM/DL (13.0-17.0); LYMPH % 17.9 % (9.0-44.0); LYMPHOCYTE # 2.3 TH/MM3 (1.0-4.8); MEAN CELL VOLUME 87.6 FL (80.0-100.0); MEAN CORPUSCULAR HEMOGLOBIN 29.4 PG (27.0-34.0); MEAN CORPUSCULAR HGB CONC 33.6 % (32.0-36.0); MEAN PLATELET VOLUME 9.4 FL (7.0-11.0); MONO % 7.5 % (0.0-8.0); NEUT % 73.7 % (16.0-70.0); PLATELET COUNT 232 TH/MM3 (150-450); RED BLOOD COUNT 3.12 MIL/MM3 (4.50-5.90); RED CELL DISTRIBUTION WIDTH 13.5 % (11.6-17.2); WHITE BLOOD COUNT 12.8 TH/MM3 (4.0-11.0)
[2017-10-05 06:42] LABS: ALBUMIN 2.5 GM/DL (3.4-5.0); BICARBONATE 28.7 MEQ/L (21.0-32.0); CALCIUM 8.3 MG/DL (8.5-10.1); CREATININE 0.97 MG/DL (0.60-1.30); DIRECT BILIRUBIN ADULT 0.3 MG/DL (0.0-0.2)
[2017-10-05 06:46] LABS: INDIRECT BILIRUBIN 0.4 MG/DL (0.0-0.8); TOTAL BILIRUBIN ADULT 0.7 MG/DL (0.2-1.0); TOTAL PROTEIN 6.2 GM/DL (6.4-8.2)
--- NOTE | 2017-10-05 08:42 | HHI.PR ---
Subjective Remarks no complaints Objective Vitals heart reg lung course bs abd s/nt ext no edema Vital Signs Date Time Temp Pulse Resp B/P (MAP) Pulse Ox O2 Delivery O2 Flow Rate FiO2 10/05/17 08:26 96 Nasal Cannula 4.00 10/05/17 08:00 Nasal Cannula 2.00 10/05/17 08:00 98.2 78 20 149/69 (95) 95 10/05/17 07:00 75 10/05/17 06:00 78 10/05/17 05:00 78 10/05/17 04:00 Nasal Cannula 3.00 10/05/17 04:00 99.1 79 24 133/83 (100) 96 10/05/17 04:00 80 10/05/17 03:17 99 Nasal Cannula 4.00 10/05/17 03:00 78 10/05/17 02:00 86 10/05/17 01:00 88 10/05/17 00:00 98 10/05/17 00:00 Nasal Cannula 3.00 10/05/17 00:00 99.8 102 24 187/106 (133) 96 10/04/17 23:53 98 Nasal Cannula 4.00 10/04/17 23:00 102 10/04/17 22:00 92 10/04/17 21:00 86 10/04/17 20:00 81 10/04/17 20:00 Nasal Cannula 3.00 10/04/17 20:00 100.0 78 22 142/85 (104) 99 10/04/17 19:38 97 Nasal Cannula 2.00 10/04/17 18:44 77 10/04/17 17:56 63 10/04/17 15:50 71 18 159/88 (111) 98 10/04/17 15:23 68 10/04/17 15:23 98 Nasal Cannula 3.00 10/04/17 15:23 98.9 68 18 147/94 (111) 98 10/04/17 14:40 71 18 158/88 (111) 97 10/04/17 14:20 71 18 152/91 (111) 98 10/04/17 14:13 72 10/04/17 13:30 76 18 157/87 (110) 100 10/04/17 13:00 67 18 161/90 (113) 100 10/04/17 12:50 66 18 163/90 (114) 100 10/04/17 12:30 66 18 161/87 (111) 100 10/04/17 12:11 67 18 160/87 (111) 100 10/04/17 12:01 98.8 67 20 161/95 (117) 100 10/04/17 11:00 72 10/04/17 11:00 96 Nasal Cannula 3.00 Result Diagram: 10/05/17 0519 10/05/17 0519 Imaging Last Impressions Abdomen X-Ray 10/01/17 0000 Signed Impressions: Service Date/Time: Sunday, October 01, 2017 08:11 - CONCLUSION: 1. Mild gaseous distention of the colon. No free air. Kameron Zapata MD Liver Ultrasound 09/30/17 0000 Signed Impressions: Service Date/Time: September 17:06 - CONCLUSION: 1. Fatty liver, enlarged. No free fluid. No gallstones or biliary ductal dilatation. Kameron Zapata MD Chest X-Ray 09/30/17 0000 Signed Impressions: Service Date/Time: September 13:15 - CONCLUSION: 1. Support apparatus unchanged. Basilar airspace disease and pleural effusions similar to September 28. Kameron Zapata MD Brain MRI 09/29/17 0000 Signed Impressions: Service Date/Time: Friday, September 29, 2017 12:35 - CONCLUSION: 1. No recent infarct. Mild chronic white matter ischemic changes. 2. Sphenoid and ethmoid sinusitis. Kameron Zapata MD Head CT 09/25/17 0000 Signed Impressions: Service Date/Time: Monday, September 25, 2017 00:31 - CONCLUSION: 1. No acute intracranial abnormality demonstrated. 2. Sinus disease. Mikhail Ruiz MD Date of Insertion: Sep 28, 2017 Line: Central Venous Catheter Side: Left Location: Internal, Jugular A/P Problem List: (1) Cardiac arrest with ventricular fibrillation ICD Codes: I46.9 - Cardiac arrest, cause unspecified; I49.01 - Ventricular fibrillation Status: Acute Plan: Acute inferior STEMI Cardiac arrest/Vfib arrest This is a 61 year old male patient who presented as an cnc-ke-nphqmbaq v. fib cardiac arrest. Per report, he complained of heartburn most of the day then in the evening he became acutely unresponsive. family member started bystander CPR. Reported down-time was 20 minutes. Upon arrival to ED, patient again had pulseless v. tach/v. fib arrest, ROSC obtained and again repeat 12-lead with inferior st- elevations. patient has poor neurologic exam despite receiving no neuro altering medications. long discussion with Dr. Zacarias: held off on emergent left heart cath given poor neurologic function. Patient was treated in the ICU with hypothermia protocol. Initially was intubated, sedated and required paralysis. Patient was also on Lidocaine drip to prevent further athymias. EF 35-40%. concern for hypoxic brain injury sputum serratia marcescens. cont current abx lhc planned on 10/04 shows MV disease and CTS is evaluated for cabg on continue Heparin drip and bb. currently not on a statin risperdal switched to seroquel per neurology. replace potassium will need snf after dc PT daily. (2) Acute ST elevation myocardial infarction (STEMI) ICD Codes: I21.3 - ST elevation (STEMI) myocardial infarction of unspecified site Status: Acute Plan: see above (3) Hypoxic encephalopathy ICD Codes: G93.1 - Anoxic brain damage, not elsewhere classified Status: Acute Plan: Patient followed by Neurology Dr. Huff who has DC keppra cleared for cardiac catheterization At this point neurology will follow peripherally. recommends outpatient cognitive testing if confusion persists. see above (4) Abnormal sputum ICD Codes: R09.3 - Abnormal sputum Status: Acute Plan: Left lower lobe infiltrate S/P vent support Albuterol/ipratropium aerosols every 6 hours with albuterol aerosols every 2 hours as needed dyspnea 10/01- extubated patient started on Zosyn 09/26/17 sputum serration marcescens (5) Transaminitis ICD Codes: R74.0 - Nonspecific elevation of levels of transaminase and lactic acid dehydrogenase [LDH] Status: Acute Plan: Monitor LFT's( trending down) Ammonia level: 30 (10/03) US Liver: Fatty liver, enlarged. No free fluid. No gallstones or biliary ductal dilatation. 10/01 KUB abdomen -mild gaseous distention. BM 10/02 laxatives on hold Sebastián Gu MD Oct 05, 2017 08:42
--- NOTE | 2017-10-05 08:44 | MA ---
cc: Zeke Zacarias DO 10/04/2017 PROCEDURE: Left heart catheterization, coronary angiogram. PREPROCEDURE DIAGNOSIS: Acute STEMI, cardiac arrest status post hypothermic protocol. POSTPROCEDURE: Multivessel coronary artery disease. MEDICATIONS: Verapamil 2.5 mg, nitro 200 mcg, heparin 3800 units, fentanyl 25 mcg. CONTRAST USED: 55 mL. FLUOROSCOPY: 1.6 minutes. ANESTHESIA: Moderate sedation 0 minutes. ESTIMATED BLOOD LOSS: 10 mL PROCEDURAL SUMMARY: Alirio Cosme is a pleasant 61-year-old male who originally presented on 09/25/2017 after a cardiac arrest. The cardiac arrest was determined to be v-fib arrest and on EKG had ST elevations. At that time, there was concern for no neurological function and so he was placed under hypothermic protocol. He has since been extubated and cleared by neurology for cardiac catheterization. Risks, benefits and alternatives were explained to him and consented as such, as well as consent was obtained from his son. He was brought to the lab and prepped in the usual sterile fashion. The right radial artery was accessed using modified Seldinger technique and placement of a 5/6 Scottish slender sheath. This was easily aspirated and flushed. A JR4 was advanced over a J-wire to the ascending aorta and across the aortic valve for measurement of left ventricular pressure. This was pulled back across the aortic valve showing no significant gradient of aortic stenosis. JR4 was used for selective angiography of the right coronary artery system. This was exchanged out for a JL3.5, which was used for selective angiography of the left coronary artery system. JL3.5 was removed over a J wire. A radial band was placed over the arteriotomy site for hemostasis. 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 FINDINGS: Left main: A normal size vessel with 60% ostial stenosis. It bifurcates into an LAD and circumflex. LAD: Normal size vessel with 80% stenosis in the proximal portion at the takeoff of the diagonal. Distally, there is diffuse 30% disease. First diagonal is overall a large vessel with a 60-70% mid stenosis. The second and third diagonals are overall small. There is left-right collaterals noted which supply a posterolateral branch of the right coronary artery. This in turn fills into the mid RCA and fills into the PDA. Left circumflex: Subtotally occluded at the ostial portion. It does supply a little antegrade flow into the first obtuse marginal, but there is gtxi-li-kagh collaterals which fills the obtuse marginal, which overall has an upper and lower branch to it. RCA: 100% occluded with some klvyg-fk-cfafz collaterals noted. LVEDP 21. IMPRESSIONS: 1. Acute ST elevation myocardial infarction (09/25/2017). 2. Multivessel coronary artery disease. 3. Cardiac arrest, status post hypothermia protocol. RECOMMENDATIONS: 1. Mr. Cosme appears to have multivessel disease including an occluded RCA, a subtotal occluded left circumflex, LAD disease and left main disease. He will be recommended evaluation by CT surgery for consideration of coronary artery bypass grafting. 2. I spoke with Dr. Mora about the patient and he agrees to see the patient in consultation for consideration. 3. Further recommendations will be made based on the hospital course. Thank you for allowing me to see Alirio Cosme. If there are any questions, please do not hesitate to call. Zeke Zacarias, DO VGP/DL , 11:47 PM , 08:15 AM
[2017-10-05] MEDS ORDERED: POTASSIUM CHLORIDE 20 MEQ CONTROLLED RELEASE TAB PO ONE (08:45)
[2017-10-05 09:06] LABS: BILIRUBIN, URINE NEG (NEG); BLOOD, URINE TRACE (NEG); GLUCOSE,URINE NEG (NEG); KETONE, URINE NEG (NEG); NITRITE,URINE NEG (NEG); PH, URINE 6.5 (5.0-8.5); SQUAMOUS EPITHELIAL CELL URINE <1 /hpf (0-5); URINE COLOR YELLOW (YELLW/STRAW); URINE LEUKOCYTE ESTERASE NEG (NEG)
[2017-10-05] MEDS: PANTOPRAZOLE SOD 40 MG DELAYED RELEASE TAB PO SCH (10:12)
[2017-10-05] MEDS: ASPIRIN 81 MG CHEW TAB CHEW SCH (10:13)
[2017-10-05] MEDS: METOPROLOL TARTRATE 50 MG TAB PO SCH ×2 (10:15→22:21)
[2017-10-05] MEDS: SENNOSIDES SYRUP 8.8 MG/5 ML CUP PO SCH ×2 (10:17→22:21)
[2017-10-05] MEDS: SODIUM CHLORIDE 0.9% FLUSH 10 ML FLUSH IV FLUSH SCH ×3 (10:19→21:00)
--- NOTE | 2017-10-05 14:54 | PD.CAR.PN ---
CVT Progress Note Subjective/Hospital Course: pt/ot ordered for surgery on Objective: Vital Signs Date Time Temp Pulse Resp B/P (MAP) Pulse Ox O2 Delivery O2 Flow Rate FiO2 10/05/17 13:00 76 10/05/17 12:07 81 10/05/17 12:06 97.1 75 16 131/77 (95) 98 10/05/17 12:00 78 10/05/17 11:23 98.4 77 18 133/73 (93) 94 10/05/17 11:23 94 Nasal Cannula 2.00 10/05/17 11:00 81 10/05/17 10:49 86 10/05/17 10:03 87 10/05/17 10:00 86 10/05/17 09:00 80 10/05/17 08:54 76 10/05/17 08:26 96 Nasal Cannula 4.00 10/05/17 08:00 Nasal Cannula 2.00 10/05/17 08:00 76 10/05/17 08:00 98.2 78 20 149/69 (95) 95 10/05/17 08:00 98.2 76 16 147/99 (115) 95 10/05/17 07:00 75 10/05/17 06:00 78 10/05/17 05:00 78 10/05/17 04:00 Nasal Cannula 3.00 10/05/17 04:00 99.1 79 24 133/83 (100) 96 10/05/17 04:00 80 10/05/17 03:17 99 Nasal Cannula 4.00 10/05/17 03:00 78 10/05/17 02:00 86 10/05/17 01:00 88 10/05/17 00:00 98 10/05/17 00:00 Nasal Cannula 3.00 10/05/17 00:00 99.8 102 24 187/106 (133) 96 10/04/17 23:53 98 Nasal Cannula 4.00 10/04/17 23:00 102 10/04/17 22:00 92 10/04/17 21:00 86 10/04/17 20:00 81 10/04/17 20:00 Nasal Cannula 3.00 10/04/17 20:00 100.0 78 22 142/85 (104) 99 10/04/17 19:38 97 Nasal Cannula 2.00 10/04/17 18:44 77 10/04/17 17:56 63 10/04/17 15:50 71 18 159/88 (111) 98 10/04/17 15:23 68 10/04/17 15:23 98 Nasal Cannula 3.00 10/04/17 15:23 98.9 68 18 147/94 (111) 98 Labs: Laboratory Tests Test 10/05/17 05:19 10/05/17 07:59 10/05/17 08:20 10/05/17 08:55 White Blood Count 12.8 TH/MM3 (4.0-11.0) Red Blood Count 3.12 MIL/MM3 (4.50-5.90) Hemoglobin 9.2 GM/DL (13.0-17.0) Hematocrit 27.3 % (39.0-51.0) Mean Corpuscular Volume 87.6 FL (80.0-100.0) Mean Corpuscular Hemoglobin 29.4 PG (27.0-34.0) Mean Corpuscular Hemoglobin Concent 33.6 % (32.0-36.0) Red Cell Distribution Width 13.5 % (11.6-17.2) Platelet Count 232 TH/MM3 (150-450) Mean Platelet Volume 9.4 FL (7.0-11.0) Neutrophils (%) (Auto) 73.7 % (16.0-70.0) Lymphocytes (%) (Auto) 17.9 % (9.0-44.0) Monocytes (%) (Auto) 7.5 % (0.0-8.0) Eosinophils (%) (Auto) 0.5 % (0.0-4.0) Basophils (%) (Auto) 0.4 % (0.0-2.0) Neutrophils # (Auto) 9.4 TH/MM3 (1.8-7.7) Lymphocytes # (Auto) 2.3 TH/MM3 (1.0-4.8) Monocytes # (Auto) 1.0 TH/MM3 (0-0.9) Eosinophils # (Auto) 0.1 TH/MM3 (0-0.4) Basophils # (Auto) 0.0 TH/MM3 (0-0.2) CBC Comment DIFF FINAL Differential Comment Blood Urea Nitrogen 14 MG/DL (7-18) Creatinine 0.97 MG/DL (0.60-1.30) Random Glucose 92 MG/DL (74-106) Total Protein 6.2 GM/DL (6.4-8.2) Albumin 2.5 GM/DL (3.4-5.0) Calcium Level 8.3 MG/DL (8.5-10.1) Alkaline Phosphatase 68 U/L (45-117) Aspartate Amino Transf (AST/SGOT) 49 U/L (15-37) Alanine Aminotransferase (ALT/SGPT) 91 U/L (12-78) Total Bilirubin 0.7 MG/DL (0.2-1.0) Direct Bilirubin 0.3 MG/DL (0.0-0.2) Sodium Level 140 MEQ/L (136-145) Potassium Level 3.2 MEQ/L (3.5-5.1) Chloride Level 103 MEQ/L (98-107) Carbon Dioxide Level 28.7 MEQ/L (21.0-32.0) Anion Gap 8 MEQ/L (5-15) Estimat Glomerular Filtration Rate 78 ML/MIN (>89) Indirect Bilirubin 0.4 MG/DL (0.0-0.8) Nasal Screen MRSA (PCR) MRSA NOT DETECTED (NOT Urine Color YELLOW (YELLW/STRAW) Urine Turbidity CLEAR (CLEAR) Urine pH 6.5 (5.0-8.5) Urine Specific [place] 1.017 (1.002-1.035) Urine Protein NEG mg/dL (NEG-TRACE) Urine Glucose (UA) NEG mg/dL (NEG) Urine Ketones NEG mg/dL (NEG) Urine Occult Blood TRACE (NEG) Urine Nitrite NEG (NEG) Urine Bilirubin NEG (NEG) Urine Urobilinogen LESS THAN 2.0 MG/DL (LESS Urine Leukocyte Esterase NEG (NEG) Urine RBC 2 /hpf (0-3) Urine WBC 1 /hpf (0-5) Urine Squamous Epithelial Cells <1 /hpf (0-5) Microscopic Urinalysis Comment CULT NOT INDICATED Activated Partial Thromboplast Time 26.8 SEC (24.3-30.1) Result Diagram: 10/05/1751810/05/17518 (1) Acute ST elevation myocardial infarction (STEMI) (2) Cardiac arrest (3) Ventricular fibrillation (4) Cardiac arrest with ventricular fibrillation (5) Ventilator dependence (6) IGNACIO (acute kidney injury) Jaylene Khan Oct 05, 2017 14:54
--- NOTE | 2017-10-05 16:31 | PD.WCN.NOT ---
Wound Consult Description: Consult placed for Wound Management of right buttock wound per Dr Gu Communicated with: JACK Soriano Dr paged for recommendations and findings. Recommendation: Turn patient Q2H to relieve pressure from sacral/buttocks areas. Apply Calazime skin protectant paste to buttocks BID and PRN. Obtain and place Anabella Protevo Convertible Alternating Pressure Surface pump on bed. Use only disposable ultrasorb for moisture. *PLEASE DO NOT USE COTTON UNDER PADS WITH MOISTURE RELATED SKIN BREAKDOWN* Additional Information: Patient seen on [facility] for wound evaluation. Patient positioned himself to his right side for assessment. Right and Left buttocks were visualized by justowriter operator. Right buttock noted with partial thickness skin loss measuring ~3cm x 2cm x <0.1cm with 100% pink tissue, oval shape, even sharp wound margins even with wound bed indicating a Stage 2 pressure injury. Calazime skin protectant paste residue noted to entire buttock with a blanching periwound. There are multiple partial thickness skin loss areas noted to left buttock that are dry and appear to be of moisture etiology with blanching erythema and Calazime residue. Recommend to continue Calazime BID and PRN for partial thickness skin loss Stage 2 pressure injury on right buttock and moisture related denuded incontinence associated dermatitis on left buttock. Regi Hardwick [facility] Oct 05, 2017 16:31
--- NOTE | 2017-10-05 17:13 | PD.CARD.PN ---
Subjective Subjective Remarks Doing well No complaints Objective Medications Current Medications Medications (Trade) Dose Ordered Sig/Isabel Route Start Time Stop Time Status Last Admin (Zofran Inj) 4 mg Q6H PRN IV PUSH 09/25/17 00:15 09/30/17 23:17 (Brethine Inj) 1 mg UNSCH PRN SQ 09/25/17 00:15 (Aspirin Chew) 81 mg DAILY CHEW 09/25/17 09:00 10/05/17 10:13 Miscellaneous Information 0 ml @ 0 mls/hr UNSCH IV 09/25/17 01:00 Heparin Sodium (Porcine) 63151 units/Sodium Chloride 250 ml @ 10 mls/hr TITRATE PRN IV 09/25/17 01:00 10/04/17 18:42 Miscellaneous Information 0 ml @ 0 mls/hr UNSCH IV 09/25/17 16:15 Piperacillin Sod/ Tazobactam Sod 100 ml @ 200 mls/hr Q6H IV 09/26/17 18:00 10/09/17 18:00 10/05/17 12:24 (Senna Liq) 8.8 mg BID PO 09/28/17 21:00 10/05/17 10:17 (NS Flush) DAILY IV FLUSH 09/28/17 10:15 10/03/17 09:00 (NS Flush) UNSCH PRN IV FLUSH 09/28/17 10:15 (Lopressor) 50 mg Q12HR PO 09/30/17 13:00 10/05/17 10:15 (Duoneb Neb) 1 ampule Q2HR NEB PRN NEB 10/01/17 10:45 (Ativan Inj) 1 mg Q4H PRN IV PUSH 10/02/17 09:45 10/04/17 23:55 (Melatonin) 5 mg HS PRN PO 10/02/17 21:00 10/03/17 21:51 (SEROquel) 50 mg HS PRN PO 10/04/17 08:15 (Protonix) 40 mg DAILY PO 10/05/17 09:00 10/05/17 10:12 (NS Flush) 2 ml BID IV FLUSH 10/04/17 21:00 (NS Flush) 2 ml UNSCH PRN IV FLUSH 10/04/17 15:15 Papaverine HCl 60 mg/Nitroglycerin 100 mcg/Diltiazem HCl 100 mg/Sodium Chloride 100 ml @ 0 mls/hr [employer]ATION 10/04/17 15:15 10/11/17 15:14 Cefazolin Sodium 500 mg/Sodium Chloride 505 ml @ 0 mls/hr [employer] 10/04/17 15:15 10/11/17 15:14 Cefazolin Sodium/ Dextrose 50 ml @ 150 mls/hr [employer] IV 10/04/17 15:15 10/11/17 15:14 (Lopressor) 12.5 mg [employer] PO 10/04/17 15:15 10/11/17 15:14 (Hibiclens 4% Top Soln) 1 applic [employer] TOPICAL 10/04/17 15:15 10/11/17 15:14 Insulin Human Regular 100 units/ Sodium Chloride 100 ml @ 3 mls/hr TITRATE PRN IV 10/04/17 15:15 10/11/17 15:14 (D50w (Vial) Inj) 50 ml UNSCH PRN IV PUSH 10/04/17 15:15 (Catapres) 0.1 mg Q6H PRN PO 10/05/17 00:45 10/05/17 01:03 Vital Signs / I&O Vital Signs Date Time Temp Pulse Resp B/P (MAP) Pulse Ox O2 Delivery O2 Flow Rate FiO2 10/05/17 15:13 98.4 78 20 134/78 (96) 96 10/05/17 15:13 96 Nasal Cannula 4.00 10/05/17 13:00 76 10/05/17 12:07 81 10/05/17 12:06 97.1 75 16 131/77 (95) 98 10/05/17 12:00 78 10/05/17 11:23 98.4 77 18 133/73 (93) 94 10/05/17 11:23 94 Nasal Cannula 2.00 10/05/17 11:00 81 10/05/17 10:49 86 10/05/17 10:03 87 10/05/17 10:00 86 10/05/17 09:00 80 10/05/17 08:54 76 10/05/17 08:26 96 Nasal Cannula 4.00 10/05/17 08:00 Nasal Cannula 2.00 10/05/17 08:00 76 10/05/17 08:00 98.2 78 20 149/69 (95) 95 10/05/17 08:00 98.2 76 16 147/99 (115) 95 10/05/17 07:00 75 10/05/17 06:00 78 10/05/17 05:00 78 10/05/17 04:00 Nasal Cannula 3.00 10/05/17 04:00 99.1 79 24 133/83 (100) 96 10/05/17 04:00 80 10/05/17 03:17 99 Nasal Cannula 4.00 10/05/17 03:00 78 10/05/17 02:00 86 10/05/17 01:00 88 10/05/17 00:00 98 10/05/17 00:00 Nasal Cannula 3.00 10/05/17 00:00 99.8 102 24 187/106 (133) 96 10/04/17 23:53 98 Nasal Cannula 4.00 10/04/17 23:00 102 10/04/17 22:00 92 10/04/17 21:00 86 10/04/17 20:00 81 10/04/17 20:00 Nasal Cannula 3.00 10/04/17 20:00 100.0 78 22 142/85 (104) 99 10/04/17 19:38 97 Nasal Cannula 2.00 10/04/17 18:44 77 10/04/17 17:56 63 I/O 10/04/17 10/04/17 10/04/17 10/05/17 10/05/17 10/05/17 07:00 15:00 23:00 07:00 15:00 23:00 Intake Total 596 ml 480 ml Output Total 500 ml 300 ml 1400 ml Balance 96 ml 180 ml -1400 ml Intake Oral 240 ml 480 ml IV Total 356 ml Output Urine Total 500 ml 300 ml 1400 ml # Voids 6 2 # Bowel Movements 0 0 Physical Exam GENERAL: NAD SKIN: Warm/dry HEAD: Atraumatic. Normocephalic. EYES: Pupils equal and round. No scleral icterus. No injection or drainage. ENT: No nasal bleeding or discharge. Mucous membranes pink and moist. NECK: Trachea midline. No JVD. CARDIOVASCULAR: Regular rate and rhythm. RESPIRATORY: No accessory muscle use. Clear to auscultation. Breath sounds equal bilaterally. GASTROINTESTINAL: Abdomen soft, non-tender, nondistended. Hepatic and splenic margins not palpable. MUSCULOSKELETAL: Extremities without clubbing, cyanosis, or edema. No obvious deformities. NEUROLOGICAL: No focal deficits Laboratory Laboratory Tests Test 10/05/17 01:32 10/05/17 05:19 10/05/17 07:59 10/05/17 08:20 Activated Partial Thromboplast Time 26.1 SEC White Blood Count 12.8 TH/MM3 Red Blood Count 3.12 MIL/MM3 Hemoglobin 9.2 GM/DL Hematocrit 27.3 % Mean Corpuscular Volume 87.6 FL Mean Corpuscular Hemoglobin 29.4 PG Mean Corpuscular Hemoglobin Concent 33.6 % Red Cell Distribution Width 13.5 % Platelet Count 232 TH/MM3 Mean Platelet Volume 9.4 FL Neutrophils (%) (Auto) 73.7 % Lymphocytes (%) (Auto) 17.9 % Monocytes (%) (Auto) 7.5 % Eosinophils (%) (Auto) 0.5 % Basophils (%) (Auto) 0.4 % Neutrophils # (Auto) 9.4 TH/MM3 Lymphocytes # (Auto) 2.3 TH/MM3 Monocytes # (Auto) 1.0 TH/MM3 Eosinophils # (Auto) 0.1 TH/MM3 Basophils # (Auto) 0.0 TH/MM3 CBC Comment DIFF FINAL Differential Comment Blood Urea Nitrogen 14 MG/DL Creatinine 0.97 MG/DL Random Glucose 92 MG/DL Total Protein 6.2 GM/DL Albumin 2.5 GM/DL Calcium Level 8.3 MG/DL Alkaline Phosphatase 68 U/L Aspartate Amino Transf (AST/SGOT) 49 U/L Alanine Aminotransferase (ALT/SGPT) 91 U/L Total Bilirubin 0.7 MG/DL Direct Bilirubin 0.3 MG/DL Sodium Level 140 MEQ/L Potassium Level 3.2 MEQ/L Chloride Level 103 MEQ/L Carbon Dioxide Level 28.7 MEQ/L Anion Gap 8 MEQ/L Estimat Glomerular Filtration Rate 78 ML/MIN Indirect Bilirubin 0.4 MG/DL Nasal Screen MRSA (PCR) MRSA NOT DETECTED Urine Color YELLOW Urine Turbidity CLEAR Urine pH 6.5 Urine Specific [place] 1.017 Urine Protein NEG mg/dL Urine Glucose (UA) NEG mg/dL Urine Ketones NEG mg/dL Urine Occult Blood TRACE Urine Nitrite NEG Urine Bilirubin NEG Urine Urobilinogen LESS THAN 2.0 MG/DL Urine Leukocyte Esterase NEG Urine RBC 2 /hpf Urine WBC 1 /hpf Urine Squamous Epithelial Cells <1 /hpf Microscopic Urinalysis Comment CULT NOT INDICATED Test 10/05/17 08:55 Activated Partial Thromboplast Time 26.8 SEC Assessment and Plan Problem List: (1) Acute ST elevation myocardial infarction (STEMI) ICD Codes: I21.3 - ST elevation (STEMI) myocardial infarction of unspecified site Status: Acute (2) Cardiac arrest ICD Codes: I46.9 - Cardiac arrest, cause unspecified (3) Ventricular fibrillation ICD Codes: I49.01 - Ventricular fibrillation (4) Cardiac arrest with ventricular fibrillation ICD Codes: I46.9 - Cardiac arrest, cause unspecified; I49.01 - Ventricular fibrillation Status: Acute (5) Ventilator dependence ICD Codes: Z99.11 - Dependence on respirator [ventilator] status (6) IGNACIO (acute kidney injury) ICD Codes: N17.9 - Acute kidney failure, unspecified Status: Acute Assessment and Plan 1) Acute inferior STEMI/MVCAD Heparin drip CT surgery evaluation for CABG, possibly 2) Cardiac arrest/Vfib arrest No further arrhythmias 3) EF 35-40% 4) Discussed with patient and fiance 5) Mild anoxic brain injury Zeke Zacarias DO Oct 05, 2017 17:13
[2017-10-05] MEDS: LORazepam 2 MG/ML VIAL IV PUSH PRN (22:40)
[2017-10-06] VITALS (31 sets, daily range): BP systolic 116–171; BP diastolic 65–96; PULSE 66–82; RESP 16–22; TEMP 98.7–99.6; O2SAT 93–100
[2017-10-06 02:17] LABS: AUTOMATED NEUTROPHIL # 9.7 TH/MM3 (1.8-7.7); BASOPHIL # 0.1 TH/MM3 (0-0.2); BASOPHIL % 0.5 % (0.0-2.0); EOSINOPHIL # 0.1 TH/MM3 (0-0.4); EOSINOPHIL % 0.8 % (0.0-4.0); HEMATOCRIT 29.2 % (39.0-51.0); HEMOGLOBIN 9.8 GM/DL (13.0-17.0); LYMPH % 15.8 % (9.0-44.0); MEAN CELL VOLUME 87.7 FL (80.0-100.0); MEAN CORPUSCULAR HEMOGLOBIN 29.4 PG (27.0-34.0); MEAN CORPUSCULAR HGB CONC 33.5 % (32.0-36.0); MEAN PLATELET VOLUME 9.3 FL (7.0-11.0); MONO % 6.7 % (0.0-8.0); MONOCYTE # 0.9 TH/MM3 (0-0.9); NEUT % 76.2 % (16.0-70.0); PLATELET COUNT 265 TH/MM3 (150-450); RED BLOOD COUNT 3.33 MIL/MM3 (4.50-5.90); RED CELL DISTRIBUTION WIDTH 13.6 % (11.6-17.2); WHITE BLOOD COUNT 12.7 TH/MM3 (4.0-11.0)
[2017-10-06 02:31] LABS: INTERNATIONAL NORMALIZED RATIO 1.2 RATIO; PROTHROMBIN TIME - PATIENT 11.9 SEC (9.8-11.6)
[2017-10-06 02:40] LABS: ALBUMIN 2.5 GM/DL (3.4-5.0); ALT (GPT) 78 U/L (12-78); AST (GOT) 47 U/L (15-37); BICARBONATE 31.3 MEQ/L (21.0-32.0); BLOOD UREA NITROGEN 13 MG/DL (7-18); CALCIUM 8.1 MG/DL (8.5-10.1); CHLORIDE 104 MEQ/L (98-107); CREATININE 0.97 MG/DL (0.60-1.30); GLOMERULAR FILTRATION RATE 78 ML/MIN (>89); GLUCOSE,RANDOM 95 MG/DL (74-106); SODIUM (NA) 143 MEQ/L (136-145)
[2017-10-06 02:43] LABS: ALKALINE PHOSPHATASE 63 U/L (45-117); TOTAL BILIRUBIN ADULT 0.6 MG/DL (0.2-1.0); TOTAL PROTEIN 6.3 GM/DL (6.4-8.2)
[2017-10-06] MEDS ORDERED: traMADol HCL 50 MG TAB PO SCH (04:15)
[2017-10-06] MEDS: PIPERACIL-TAZO 4.5 GM PREMIX 100 ML IV SCH ×3 (05:16→19:07)
[2017-10-06] MEDS ORDERED: POTASSIUM CHLORIDE 20 MEQ CONTROLLED RELEASE TAB PO ONE (07:30)
--- NOTE | 2017-10-06 08:12 | HHI.PR ---
Subjective Remarks no complaints Objective Vitals heart reg lung course bs irma abd s/nt ext no edema Vital Signs Date Time Temp Pulse Resp B/P (MAP) Pulse Ox O2 Delivery O2 Flow Rate FiO2 10/06/17 08:07 99.6 72 16 134/79 (97) 93 10/06/17 07:50 72 10/06/17 06:00 70 10/06/17 05:00 70 10/06/17 04:00 99.3 68 22 146/85 (105) 97 10/06/17 04:00 74 10/06/17 04:00 Nasal Cannula 3.00 10/06/17 03:00 66 10/06/17 02:00 72 10/06/17 01:00 72 10/06/17 00:00 98.7 82 22 171/96 (121) 100 10/06/17 00:00 Nasal Cannula 3.00 10/06/17 00:00 71 10/05/17 23:00 80 10/05/17 23:00 77 22 171/96 (121) 100 10/05/17 22:00 78 10/05/17 22:00 81 22 171/97 (121) 94 10/05/17 21:00 81 22 158/84 (108) 97 10/05/17 21:00 78 10/05/17 20:00 79 10/05/17 20:00 99.4 79 22 141/81 (101) 98 10/05/17 20:00 Nasal Cannula 3.00 10/05/17 19:45 99 4.00 10/05/17 19:45 99 Nasal Cannula 4.00 10/05/17 18:00 78 10/05/17 17:00 76 10/05/17 16:00 76 10/05/17 15:13 98.4 78 20 134/78 (96) 96 10/05/17 15:13 96 Nasal Cannula 4.00 10/05/17 15:00 80 10/05/17 14:00 76 10/05/17 13:00 76 10/05/17 12:07 81 10/05/17 12:06 97.1 75 16 131/77 (95) 98 10/05/17 12:00 78 10/05/17 11:23 98.4 77 18 133/73 (93) 94 10/05/17 11:23 94 Nasal Cannula 2.00 10/05/17 11:00 81 10/05/17 10:49 86 10/05/17 10:03 87 10/05/17 10:00 86 10/05/17 09:00 80 10/05/17 08:54 76 10/05/17 08:26 96 Nasal Cannula 4.00 Result Diagram: 10/06/17 0157 10/06/17 0157 Imaging Last Impressions Abdomen X-Ray 10/01/17 0000 Signed Impressions: Service Date/Time: Sunday, October 01, 2017 08:11 - CONCLUSION: 1. Mild gaseous distention of the colon. No free air. Kameron Zapata MD Liver Ultrasound 09/30/17 0000 Signed Impressions: Service Date/Time: September 17:06 - CONCLUSION: 1. Fatty liver, enlarged. No free fluid. No gallstones or biliary ductal dilatation. Kameron Zapata MD Chest X-Ray 09/30/17 0000 Signed Impressions: Service Date/Time: September 13:15 - CONCLUSION: 1. Support apparatus unchanged. Basilar airspace disease and pleural effusions similar to September 28. Kameron Zapata MD Brain MRI 09/29/17 0000 Signed Impressions: Service Date/Time: Friday, September 29, 2017 12:35 - CONCLUSION: 1. No recent infarct. Mild chronic white matter ischemic changes. 2. Sphenoid and ethmoid sinusitis. Kameron Zapata MD Head CT 09/25/17 0000 Signed Impressions: Service Date/Time: Monday, September 25, 2017 00:31 - CONCLUSION: 1. No acute intracranial abnormality demonstrated. 2. Sinus disease. Mikhail Ruiz MD Date of Insertion: Sep 28, 2017 Line: Central Venous Catheter Side: Left Location: Internal, Jugular A/P Problem List: (1) Cardiac arrest with ventricular fibrillation ICD Codes: I46.9 - Cardiac arrest, cause unspecified; I49.01 - Ventricular fibrillation Status: Acute Plan: Acute inferior STEMI Cardiac arrest/Vfib arrest This is a 61 year old male patient who presented as an [id number] v. fib cardiac arrest. Per report, he complained of heartburn most of the day then in the evening he became acutely unresponsive. family member started bystander CPR. Reported down-time was 20 minutes. Upon arrival to ED, patient again had pulseless v. tach/v. fib arrest, ROSC obtained and again repeat 12-lead with inferior st- elevations. patient has poor neurologic exam despite receiving no neuro altering medications. long discussion with Dr. Zacarias: held off on emergent left heart cath given poor neurologic function. Patient was treated in the ICU with hypothermia protocol. Initially was intubated, sedated and required paralysis. Patient was also on Lidocaine drip to prevent further athymias. EF 35-40%. concern for hypoxic brain injury sputum serratia marcescens. cont current abx lhc planned on 10/04 shows MV disease and CTS is evaluated for cabg on start scheduled lasix/kcl cont scheduled duonebs continue Heparin drip and bb. currently not on a statin risperdal switched to seroquel per neurology. replace potassium will need snf after dc PT daily. (2) Acute ST elevation myocardial infarction (STEMI) ICD Codes: I21.3 - ST elevation (STEMI) myocardial infarction of unspecified site Status: Acute Plan: see above (3) Hypoxic encephalopathy ICD Codes: G93.1 - Anoxic brain damage, not elsewhere classified Status: Acute Plan: Patient followed by Neurology Dr. Huff who has DC kera cleared for cardiac catheterization At this point neurology will follow peripherally. recommends outpatient cognitive testing if confusion persists. see above (4) Abnormal sputum ICD Codes: R09.3 - Abnormal sputum Status: Acute Plan: Left lower lobe infiltrate S/P vent support Albuterol/ipratropium aerosols every 6 hours with albuterol aerosols every 2 hours as needed dyspnea 10/01- extubated patient started on Zosyn 09/26/17 sputum serration marcescens (5) Transaminitis ICD Codes: R74.0 - Nonspecific elevation of levels of transaminase and lactic acid dehydrogenase [LDH] Status: Acute Plan: Monitor LFT's( trending down) Ammonia level: 30 (10/03) US Liver: Fatty liver, enlarged. No free fluid. No gallstones or biliary ductal dilatation. 10/01 KUB abdomen -mild gaseous distention. BM 10/02 laxatives on hold Sebastián Gu MD Oct 06, 2017 08:12
--- NOTE | 2017-10-06 08:30 | HHI.PR ---
Review/Management Diagnosis/Plan: (1) Hypoxic encephalopathy ICD Codes: G93.1 - Anoxic brain damage, not elsewhere classified Status: Acute Plan: doing well eeg- +brain waves mri brain- no gross ischemia recs doing alot better. mental status appears intact plans for cabg in am seroquel prn qhs if needed for agitation d/w rn's will follow peripherally. may need outpatient cognitive testing no driving (2) Cardiac arrest with ventricular fibrillation ICD Codes: I46.9 - Cardiac arrest, cause unspecified; I49.01 - Ventricular fibrillation Status: Acute (3) IGNACIO (acute kidney injury) ICD Codes: N17.9 - Acute kidney failure, unspecified Status: Acute (4) Acute ST elevation myocardial infarction (STEMI) ICD Codes: I21.3 - ST elevation (STEMI) myocardial infarction of unspecified site Status: Acute Subjective Subjective Comments fell out of bed, trying to get up and walk. pt states it was his fault No headache, no weakness, no vision changes, no vertigo No chest pain No dyspnea Active Medications Current Medications Medications (Trade) Dose Ordered Sig/Isabel Route Start Time Stop Time Status Last Admin (Zofran Inj) 4 mg Q6H PRN IV PUSH 09/25/17 00:15 09/30/17 23:17 (Brethine Inj) 1 mg UNSCH PRN SQ 09/25/17 00:15 (Aspirin Chew) 81 mg DAILY CHEW 09/25/17 09:00 10/05/17 10:13 Miscellaneous Information 0 ml @ 0 mls/hr UNSCH IV 09/25/17 01:00 Heparin Sodium (Porcine) 93696 units/Sodium Chloride 250 ml @ 10 mls/hr TITRATE PRN IV 09/25/17 01:00 10/04/17 18:42 Miscellaneous Information 0 ml @ 0 mls/hr UNSCH IV 09/25/17 16:15 Piperacillin Sod/ Tazobactam Sod 100 ml @ 200 mls/hr Q6H IV 09/26/17 18:00 10/09/17 18:00 10/06/17 05:16 (Senna Liq) 8.8 mg BID PO 09/28/17 21:00 10/05/17 22:21 (NS Flush) DAILY IV FLUSH 09/28/17 10:15 10/03/17 09:00 (NS Flush) UNSCH PRN IV FLUSH 09/28/17 10:15 (Lopressor) 50 mg Q12HR PO 09/30/17 13:00 10/05/17 22:21 (Duoneb Neb) 1 ampule Q2HR NEB PRN NEB 10/01/17 10:45 (Ativan Inj) 1 mg Q4H PRN IV PUSH 10/02/17 09:45 10/05/17 22:40 (Melatonin) 5 mg HS PRN PO 10/02/17 21:00 10/03/17 21:51 (SEROquel) 50 mg HS PRN PO 10/04/17 08:15 (Protonix) 40 mg DAILY PO 10/05/17 09:00 10/05/17 10:12 (NS Flush) 2 ml BID IV FLUSH 10/04/17 21:00 (NS Flush) 2 ml UNSCH PRN IV FLUSH 10/04/17 15:15 Papaverine HCl 60 mg/Nitroglycerin 100 mcg/Diltiazem HCl 100 mg/Sodium Chloride 100 ml @ 0 mls/hr [employer] IRRIGATION 10/04/17 15:15 10/11/17 15:14 Cefazolin Sodium 500 mg/Sodium Chloride 505 ml @ 0 mls/hr [employer] IRRIGATION 10/04/17 15:15 10/11/17 15:14 Cefazolin Sodium/ Dextrose 50 ml @ 150 mls/hr [employer]PER[employer] IV 10/04/17 15:15 10/11/17 15:14 (Lopressor) 12.5 mg [employer]OR PO 10/04/17 15:15 10/11/17 15:14 (Hibiclens 4% Top Soln) 1 applic [employer] TOPICAL 10/04/17 15:15 10/11/17 15:14 Insulin Human Regular 100 units/ Sodium Chloride 100 ml @ 3 mls/hr TITRATE PRN IV 10/04/17 15:15 10/11/17 15:14 (D50w (Vial) Inj) 50 ml UNSCH PRN IV PUSH 10/04/17 15:15 (Catapres) 0.1 mg Q6H PRN PO 10/05/17 00:45 10/05/17 22:21 (Lasix) 20 mg DAILY PO 10/06/17 09:00 (KCl) 20 meq Q12HR PO 10/06/17 21:00 (Duoneb Neb) 1 ampule Q4HR WHILE AWAKE NEB NEB 10/06/17 12:00 Allergies Allergies Coded Allergies No Known Allergies (Unverified09/24/17) Review of Systems All other ROS: ROS reviewed as documented in chart, Unable to obtain Exam I&O / VS Vital Signs Date Time Temp Pulse Resp B/P (MAP) Pulse Ox O2 Delivery O2 Flow Rate FiO2 10/06/17 08:19 74 10/06/17 08:07 99.6 72 16 134/79 (97) 93 10/06/17 07:50 72 10/06/17 06:00 70 10/06/17 05:00 70 10/06/17 04:00 99.3 68 22 146/85 (105) 97 10/06/17 04:00 74 10/06/17 04:00 Nasal Cannula 3.00 10/06/17 03:00 66 10/06/17 02:00 72 10/06/17 01:00 72 10/06/17 00:00 98.7 82 22 171/96 (121) 100 10/06/17 00:00 Nasal Cannula 3.00 10/06/17 00:00 71 10/05/17 23:00 80 10/05/17 23:00 77 22 171/96 (121) 100 10/05/17 22:00 78 10/05/17 22:00 81 22 171/97 (121) 94 10/05/17 21:00 81 22 158/84 (108) 97 10/05/17 21:00 78 10/05/17 20:00 79 10/05/17 20:00 99.4 79 22 141/81 (101) 98 10/05/17 20:00 Nasal Cannula 3.00 10/05/17 19:45 99 4.00 10/05/17 19:45 99 Nasal Cannula 4.00 10/05/17 18:00 78 10/05/17 17:00 76 10/05/17 16:00 76 10/05/17 15:13 98.4 78 20 134/78 (96) 96 10/05/17 15:13 96 Nasal Cannula 4.00 10/05/17 15:00 80 10/05/17 14:00 76 10/05/17 13:00 76 10/05/17 12:07 81 10/05/17 12:06 97.1 75 16 131/77 (95) 98 10/05/17 12:00 78 10/05/17 11:23 98.4 77 18 133/73 (93) 94 10/05/17 11:23 94 Nasal Cannula 2.00 10/05/17 11:00 81 10/05/17 10:49 86 10/05/17 10:03 87 10/05/17 10:00 86 10/05/17 09:00 80 10/05/17 08:54 76 Exam Comments alert, ox 3, much more calm and appropriate, follows, eomi, vff, ou 3-2mm, wheeler to gravity, no drift Objective Micro and Labs Laboratory Tests Test 10/05/17 08:55 10/05/17 18:27 10/06/17 01:57 Activated Partial Thromboplast Time 26.8 28.3 28.5 White Blood Count 12.7 Red Blood Count 3.33 Hemoglobin 9.8 Hematocrit 29.2 Mean Corpuscular Volume 87.7 Mean Corpuscular Hemoglobin 29.4 Mean Corpuscular Hemoglobin Concent 33.5 Red Cell Distribution Width 13.6 Platelet Count 265 Mean Platelet Volume 9.3 Neutrophils (%) (Auto) 76.2 Lymphocytes (%) (Auto) 15.8 Monocytes (%) (Auto) 6.7 Eosinophils (%) (Auto) 0.8 Basophils (%) (Auto) 0.5 Neutrophils # (Auto) 9.7 Lymphocytes # (Auto) 2.0 Monocytes # (Auto) 0.9 Eosinophils # (Auto) 0.1 Basophils # (Auto) 0.1 CBC Comment DIFF FINAL Differential Comment Prothrombin Time 11.9 Prothromb Time International Ratio 1.2 Blood Urea Nitrogen 13 Creatinine 0.97 Random Glucose 95 Total Protein 6.3 Albumin 2.5 Calcium Level 8.1 Alkaline Phosphatase 63 Aspartate Amino Transf (AST/SGOT) 47 Alanine Aminotransferase (ALT/SGPT) 78 Total Bilirubin 0.6 Sodium Level 143 Potassium Level 3.4 Chloride Level 104 Carbon Dioxide Level 31.3 Anion Gap 8 Estimat Glomerular Filtration Rate 78 Date/Time Source Procedure Growth Status 09/30/17 13:45 Sputum Endotracheal Gram Stain - Final Complete 09/30/17 13:45 Sputum Culture - Final Serratia Marcescens Complete Delmar Huff MD Oct 06, 2017 08:30
[2017-10-06] MEDS: PANTOPRAZOLE SOD 40 MG DELAYED RELEASE TAB PO SCH (08:50)
[2017-10-06] MEDS: METOPROLOL TARTRATE 50 MG TAB PO SCH ×2 (08:50→21:07)
[2017-10-06] MEDS: ASPIRIN 81 MG CHEW TAB CHEW SCH (08:51)
[2017-10-06] MEDS: SODIUM CHLORIDE 0.9% FLUSH 10 ML FLUSH IV FLUSH SCH ×3 (08:51→21:08)
[2017-10-06] MEDS: SENNOSIDES SYRUP 8.8 MG/5 ML CUP PO SCH ×2 (08:52→21:08)
[2017-10-06] MEDS ORDERED: FUROSEMIDE 20 MG TAB PO SCH (09:00)
[2017-10-06] MEDS: RESP: ALBUTEROL 2.5 MG/IPRATROPIUM 0.5 MG NEB (SCH) NEB ×3 (11:38→19:31)
--- NOTE | 2017-10-06 13:55 | RADRPT ---
EXAM DATE/TIME: 10/06/2017 13:45 [facility] COMPARISON: CT BRAIN W/O CONTRAST, September 25, 2017, 0:31. INDICATIONS : Post fall this morning, cephalgia. RADIATION DOSE: 56.35 CTDIvol (mGy) MEDICAL HISTORY : Hypertension. Syncope SURGICAL HISTORY : Polyp removal ENCOUNTER: Initial ACUITY: 1 day PAIN SCALE: 5/10 LOCATION: cranial TECHNIQUE: Multiple contiguous axial images were obtained of the head. Using automated exposure control and adj ustment of the mA and/or kV according to patient size, radiation dose was kept as low as reasonably a chievable to obtain optimal diagnostic quality images. DICOM format image data is available electro nically for review and comparison. FINDINGS: CEREBRUM: The ventricles are normal for age. No evidence of midline shift, mass lesion, hemorrhage or acute in farction. No extra-axial fluid collections are seen. POSTERIOR FOSSA: The cerebellum and brainstem are intact. The 4th ventricle is midline. The cerebellopontine angle i s unremarkable. EXTRACRANIAL: The visualized portion of the orbits is intact. SKULL: The calvaria is intact. No evidence of skull fracture. CONCLUSION: 1. No acute intracranial abnormality. Geovanni Pride MD on October 06, 2017 at 13:52 Board Certified Radiologist. This report was verified electronically.
[2017-10-06 18:10] LABS: HEMOGLOBIN A1C 5.3 % (4.3-6.0)
[2017-10-06] MEDS ORDERED: COLCHICINE 0.6 MG TAB PO ONE (18:15)
[2017-10-06] MEDS ORDERED: methylPREDNISolone SOD SUCC 125 MG/2 ML VIAL IV PUSH ONE (18:15)
--- NOTE | 2017-10-06 18:19 | PD.CARD.PN ---
Subjective Subjective Remarks Doing well No complaints Objective Medications Current Medications Medications (Trade) Dose Ordered Sig/Isabel Route Start Time Stop Time Status Last Admin (Zofran Inj) 4 mg Q6H PRN IV PUSH 09/25/17 00:15 09/30/17 23:17 (Brethine Inj) 1 mg UNSCH PRN SQ 09/25/17 00:15 (Aspirin Chew) 81 mg DAILY CHEW 09/25/17 09:00 10/06/17 08:51 Miscellaneous Information 0 ml @ 0 mls/hr UNSCH IV 09/25/17 01:00 Heparin Sodium (Porcine) 34224 units/Sodium Chloride 250 ml @ 10 mls/hr TITRATE PRN IV 09/25/17 01:00 10/04/17 18:42 Miscellaneous Information 0 ml @ 0 mls/hr UNSCH IV 09/25/17 16:15 Piperacillin Sod/ Tazobactam Sod 100 ml @ 200 mls/hr Q6H IV 09/26/17 18:00 10/09/17 18:00 10/06/17 12:00 (Senna Liq) 8.8 mg BID PO 09/28/17 21:00 10/05/17 22:21 (NS Flush) DAILY IV FLUSH 09/28/17 10:15 10/03/17 09:00 (NS Flush) UNSCH PRN IV FLUSH 09/28/17 10:15 (Lopressor) 50 mg Q12HR PO 09/30/17 13:00 10/06/17 08:50 (Duoneb Neb) 1 ampule Q2HR NEB PRN NEB 10/01/17 10:45 (Ativan Inj) 1 mg Q4H PRN IV PUSH 10/02/17 09:45 10/05/17 22:40 (Melatonin) 5 mg HS PRN PO 10/02/17 21:00 10/03/17 21:51 (SEROquel) 50 mg HS PRN PO 10/04/17 08:15 (Protonix) 40 mg DAILY PO 10/05/17 09:00 10/06/17 08:50 (NS Flush) 2 ml BID IV FLUSH 10/04/17 21:00 (NS Flush) 2 ml UNSCH PRN IV FLUSH 10/04/17 15:15 Papaverine HCl 60 mg/Nitroglycerin 100 mcg/Diltiazem HCl 100 mg/Sodium Chloride 100 ml @ 0 mls/hr [employer] 10/04/17 15:15 10/11/17 15:14 Cefazolin Sodium 500 mg/Sodium Chloride 505 ml @ 0 mls/hr [employer] 10/04/17 15:15 10/11/17 15:14 Cefazolin Sodium/ Dextrose 50 ml @ 150 mls/hr [employer] IV 10/04/17 15:15 10/11/17 15:14 (Lopressor) 12.5 mg [employer] PO 10/04/17 15:15 10/11/17 15:14 (Hibiclens 4% Top Soln) 1 applic [employer] TOPICAL 10/04/17 15:15 10/11/17 15:14 Insulin Human Regular 100 units/ Sodium Chloride 100 ml @ 3 mls/hr TITRATE PRN IV 10/04/17 15:15 10/11/17 15:14 (D50w (Vial) Inj) 50 ml UNSCH PRN IV PUSH 10/04/17 15:15 (Catapres) 0.1 mg Q6H PRN PO 10/05/17 00:45 10/05/17 22:21 (Lasix) 20 mg DAILY PO 10/06/17 09:00 10/06/17 08:55 (KCl) 20 meq Q12HR PO 10/06/17 21:00 (Duoneb Neb) 1 ampule Q4HR WHILE AWAKE NEB NEB 10/06/17 12:00 10/06/17 15:41 Vital Signs / I&O Vital Signs Date Time Temp Pulse Resp B/P (MAP) Pulse Ox O2 Delivery O2 Flow Rate FiO2 10/06/17 13:00 74 10/06/17 12:31 73 10/06/17 12:29 98.9 71 16 116/65 (82) 96 10/06/17 12:00 78 10/06/17 11:40 99 Nasal Cannula 4.00 10/06/17 11:30 72 10/06/17 11:00 70 10/06/17 10:08 72 10/06/17 10:00 80 10/06/17 09:06 74 10/06/17 09:00 68 10/06/17 08:19 74 10/06/17 08:07 99.6 72 16 134/79 (97) 93 10/06/17 08:00 74 10/06/17 08:00 100 Nasal Cannula 10/06/17 07:50 72 10/06/17 07:00 72 10/06/17 06:00 70 10/06/17 05:00 70 10/06/17 04:00 99.3 68 22 146/85 (105) 97 10/06/17 04:00 74 10/06/17 04:00 Nasal Cannula 3.00 10/06/17 03:00 66 10/06/17 02:00 72 10/06/17 01:00 72 10/06/17 00:00 98.7 82 22 171/96 (121) 100 10/06/17 00:00 Nasal Cannula 3.00 10/06/17 00:00 71 10/05/17 23:00 80 10/05/17 23:00 77 22 171/96 (121) 100 10/05/17 22:00 78 10/05/17 22:00 81 22 171/97 (121) 94 10/05/17 21:00 81 22 158/84 (108) 97 10/05/17 21:00 78 10/05/17 20:00 79 10/05/17 20:00 99.4 79 22 141/81 (101) 98 10/05/17 20:00 Nasal Cannula 3.00 10/05/17 19:45 99 4.00 10/05/17 19:45 99 Nasal Cannula 4.00 I/O 10/05/17 10/05/17 10/05/17 10/06/17 10/06/17 10/06/17 07:00 15:00 23:00 07:00 15:00 23:00 Intake Total 720 ml 200 ml Output Total 1400 ml 1400 ml 550 ml Balance -1400 ml -680 ml -350 ml Intake Oral 720 ml 200 ml Output Urine Total 1400 ml 1400 ml 550 ml # Voids 1 3 # Bowel Movements 1 1 Physical Exam GENERAL: NAD SKIN: Warm/dry HEAD: Atraumatic. Normocephalic. EYES: Pupils equal and round. No scleral icterus. No injection or drainage. ENT: No nasal bleeding or discharge. Mucous membranes pink and moist. NECK: Trachea midline. No JVD. CARDIOVASCULAR: Regular rate and rhythm. RESPIRATORY: No accessory muscle use. Clear to auscultation. Breath sounds equal bilaterally. GASTROINTESTINAL: Abdomen soft, non-tender, nondistended. Hepatic and splenic margins not palpable. MUSCULOSKELETAL: Extremities without clubbing, cyanosis, or edema. No obvious deformities. NEUROLOGICAL: No focal deficits Laboratory Laboratory Tests Test 10/05/17 18:27 10/06/17 01:57 10/06/17 12:07 Activated Partial Thromboplast Time 28.3 SEC 28.5 SEC 28.2 SEC White Blood Count 12.7 TH/MM3 Red Blood Count 3.33 MIL/MM3 Hemoglobin 9.8 GM/DL Hematocrit 29.2 % Mean Corpuscular Volume 87.7 FL Mean Corpuscular Hemoglobin 29.4 PG Mean Corpuscular Hemoglobin Concent 33.5 % Red Cell Distribution Width 13.6 % Platelet Count 265 TH/MM3 Mean Platelet Volume 9.3 FL Neutrophils (%) (Auto) 76.2 % Lymphocytes (%) (Auto) 15.8 % Monocytes (%) (Auto) 6.7 % Eosinophils (%) (Auto) 0.8 % Basophils (%) (Auto) 0.5 % Neutrophils # (Auto) 9.7 TH/MM3 Lymphocytes # (Auto) 2.0 TH/MM3 Monocytes # (Auto) 0.9 TH/MM3 Eosinophils # (Auto) 0.1 TH/MM3 Basophils # (Auto) 0.1 TH/MM3 CBC Comment DIFF FINAL Differential Comment Prothrombin Time 11.9 SEC Prothromb Time International Ratio 1.2 RATIO Blood Urea Nitrogen 13 MG/DL Creatinine 0.97 MG/DL Random Glucose 95 MG/DL Total Protein 6.3 GM/DL Albumin 2.5 GM/DL Calcium Level 8.1 MG/DL Alkaline Phosphatase 63 U/L Aspartate Amino Transf (AST/SGOT) 47 U/L Alanine Aminotransferase (ALT/SGPT) 78 U/L Total Bilirubin 0.6 MG/DL Sodium Level 143 MEQ/L Potassium Level 3.4 MEQ/L Chloride Level 104 MEQ/L Carbon Dioxide Level 31.3 MEQ/L Anion Gap 8 MEQ/L Estimat Glomerular Filtration Rate 78 ML/MIN Imaging Last [address] 10/06/17 0000 Signed Impressions: Service Date/Time: Friday, October 06, 2017 13:45 - CONCLUSION: 1. No acute intracranial abnormality. Geovanni Pride MD Assessment and Plan Problem List: (1) Acute ST elevation myocardial infarction (STEMI) ICD Codes: I21.3 - ST elevation (STEMI) myocardial infarction of unspecified site Status: Acute (2) Cardiac arrest ICD Codes: I46.9 - Cardiac arrest, cause unspecified (3) Ventricular fibrillation ICD Codes: I49.01 - Ventricular fibrillation (4) Cardiac arrest with ventricular fibrillation ICD Codes: I46.9 - Cardiac arrest, cause unspecified; I49.01 - Ventricular fibrillation Status: Acute (5) Ventilator dependence ICD Codes: Z99.11 - Dependence on respirator [ventilator] status (6) IGNACIO (acute kidney injury) ICD Codes: N17.9 - Acute kidney failure, unspecified Status: Acute Assessment and Plan 1) Acute inferior STEMI/MVCAD Heparin drip CT surgery evaluation for CABG, possibly tomorrow 2) Cardiac arrest/Vfib arrest No further arrhythmias 3) EF 35-40% 4) Discussed with patient and fiance 5) Mild anoxic brain injury 6) Left knee with fluid, possible pseudo-gout Discussed with Dr. Thurstonite Does not appear infectious Zeke Zacarias DO Oct 06, 2017 18:19
[2017-10-06] MEDS ORDERED: POTASSIUM CHLORIDE 20 MEQ CONTROLLED RELEASE TAB PO SCH (21:00)
[2017-10-07] VITALS (13 sets, daily range): BP systolic 103–150; BP diastolic 50–86; PULSE 59–80; RESP 14–18; TEMP 97.6–98.9; O2SAT 94–99
[2017-10-07] MEDS: PIPERACIL-TAZO 4.5 GM PREMIX 100 ML IV SCH ×5 (01:06→23:37)
[2017-10-07] MEDS ORDERED: VANCOMYCIN HCL 1000 MG VIAL ONE (06:25)
[2017-10-07] MEDS ORDERED: ceFAZolin 2 GM PREMIX 50 ML ONE (06:25)
[2017-10-07] MEDS ORDERED: HEPARIN SODIUM - SQ 10,000 UNITS/ML VIAL ONE (06:25)
[2017-10-07] MEDS: METOPROLOL TARTRATE 50 MG TAB PO SCH (06:48)
[2017-10-07] MEDS: RESP: ALBUTEROL 2.5 MG/IPRATROPIUM 0.5 MG NEB (SCH) NEB ×4 (07:39→19:23)
--- NOTE | 2017-10-07 08:29 | HHI.PR ---
Subjective Remarks going for cabg this AM Objective Vitals heart reg lung course bs abd s/nt ext left knee mild sup. effusion not hot. mild tenderness Vital Signs Date Time Temp Pulse Resp B/P (MAP) Pulse Ox O2 Delivery O2 Flow Rate FiO2 10/07/17 05:00 71 10/07/17 04:00 98.4 66 18 150/82 (104) 96 10/07/17 04:00 71 10/07/17 03:12 96 Nasal Cannula 3.00 10/07/17 03:00 64 10/07/17 02:00 71 10/07/17 00:00 96 Nasal Cannula 3.00 10/07/17 00:00 98.4 76 18 148/86 (106) 96 10/06/17 21:14 98.9 77 20 150/83 (105) 96 10/06/17 21:14 96 Nasal Cannula 3.00 10/06/17 19:33 96 Nasal Cannula 3.00 10/06/17 18:00 78 10/06/17 17:00 76 10/06/17 16:00 74 10/06/17 15:15 96 Nasal Cannula 3.00 10/06/17 15:15 98.7 76 16 131/73 (92) 96 10/06/17 15:00 74 10/06/17 14:00 72 10/06/17 13:00 74 10/06/17 12:31 73 10/06/17 12:29 98.9 71 16 116/65 (82) 96 10/06/17 12:00 78 10/06/17 11:40 99 Nasal Cannula 4.00 10/06/17 11:30 72 10/06/17 11:00 96 Nasal Cannula 3.00 10/06/17 11:00 70 10/06/17 10:08 72 10/06/17 10:00 80 10/06/17 09:06 74 10/06/17 09:00 68 Result Diagram: 10/06/177 10/06/17156 Imaging Last Impressions Abdomen X-Ray 10/01/17 0000 Signed Impressions: Service Date/Time: Sunday, October 01, 2017 08:11 - CONCLUSION: 1. Mild gaseous distention of the colon. No free air. Kameron Zapata MD Liver Ultrasound 09/30/17 0000 Signed Impressions: Service Date/Time: September 17:06 - CONCLUSION: 1. Fatty liver, enlarged. No free fluid. No gallstones or biliary ductal dilatation. Kmaeron Zapata MD Chest X-Ray 09/30/17 0000 Signed Impressions: Service Date/Time: September 13:15 - CONCLUSION: 1. Support apparatus unchanged. Basilar airspace disease and pleural effusions similar to September 28. Kameron Zapata MD Brain MRI 09/29/17 0000 Signed Impressions: Service Date/Time: Friday, September 29, 2017 12:35 - CONCLUSION: 1. No recent infarct. Mild chronic white matter ischemic changes. 2. Sphenoid and ethmoid sinusitis. Kameron Zapata MD Head CT 09/25/17 0000 Signed Impressions: Service Date/Time: Monday, September 25, 2017 00:31 - CONCLUSION: 1. No acute intracranial abnormality demonstrated. 2. Sinus disease. Mikhail Ruiz MD Date of Insertion: Sep 28, 2017 Line: Central Venous Catheter Side: Left Location: Internal, Jugular A/P Problem List: (1) Cardiac arrest with ventricular fibrillation ICD Codes: I46.9 - Cardiac arrest, cause unspecified; I49.01 - Ventricular fibrillation Status: Acute Plan: Acute inferior STEMI Cardiac arrest/Vfib arrest This is a 61 year old male patient who presented as an [id number] v. fib cardiac arrest. Per report, he complained of heartburn most of the day then in the evening he became acutely unresponsive. family member started bystander CPR. Reported down-time was 20 minutes. Upon arrival to ED, patient again had pulseless v. tach/v. fib arrest, ROSC obtained and again repeat 12-lead with inferior st- elevations. patient has poor neurologic exam despite receiving no neuro altering medications. long discussion with Dr. Zacarias: held off on emergent left heart cath given poor neurologic function. Patient was treated in the ICU with hypothermia protocol. Initially was intubated, sedated and required paralysis. Patient was also on Lidocaine drip to prevent further athymias. EF 35-40%. concern for hypoxic brain injury sputum serratia marcescens. cont current abx lhc planned on 10/04 shows MV disease and CTS to do CABG today on scheduled lasix/kcl cont scheduled duonebs Heparin drip and bb. currently not on a statin risperdal switched to seroquel per neurology. replace potassium ordered solumedrol/colchicine x 1 10/06 for left knee swelling. hx pseudogout. will need snf after dc PT daily. (2) Acute ST elevation myocardial infarction (STEMI) ICD Codes: I21.3 - ST elevation (STEMI) myocardial infarction of unspecified site Status: Acute Plan: see above (3) Hypoxic encephalopathy ICD Codes: G93.1 - Anoxic brain damage, not elsewhere classified Status: Acute Plan: Patient followed by Neurology Dr. Huff who has [facility] cleared for cardiac catheterization At this point neurology will follow peripherally. recommends outpatient cognitive testing if confusion persists. see above (4) Abnormal sputum ICD Codes: R09.3 - Abnormal sputum Status: Acute Plan: Left lower lobe infiltrate S/P vent support Albuterol/ipratropium aerosols every 6 hours with albuterol aerosols every 2 hours as needed dyspnea 10/01- extubated patient started on Zosyn 09/26/17 sputum serration marcescens (5) Transaminitis ICD Codes: R74.0 - Nonspecific elevation of levels of transaminase and lactic acid dehydrogenase [LDH] Status: Acute Plan: Monitor LFT's( trending down) Ammonia level: 30 (10/03) US Liver: Fatty liver, enlarged. No free fluid. No gallstones or biliary ductal dilatation. 10/01 KUB abdomen -mild gaseous distention. BM 10/02 laxatives on hold Sebastián Gu MD Oct 07, 2017 08:29
[2017-10-07] MEDS: SENNOSIDES SYRUP 8.8 MG/5 ML CUP PO SCH ×2 (09:00→20:38)
[2017-10-07] MEDS: ASPIRIN 81 MG CHEW TAB CHEW SCH (09:00)
[2017-10-07] MEDS: SODIUM CHLORIDE 0.9% FLUSH 10 ML FLUSH IV FLUSH SCH ×3 (09:00→20:38)
[2017-10-07] MEDS ORDERED: ACETAMINOPHEN 1000 MG/100 ML 100 ML IV ONE (10:53)
[2017-10-07] MEDS ORDERED: ceFAZolin INJ 1,000 MG VIAL ONE (10:53)
[2017-10-07] MEDS ORDERED: DOBUTamine PREMIX DRIP 250 ML IV PRN (11:53)
[2017-10-07] MEDS ORDERED: RESP: ALBUTEROL 2.5 MG/IPRATROPIUM 0.5 MG NEB (PRN) NEB (12:00)
[2017-10-07] MEDS ORDERED: DEXMEDETOMIDINE INJ 200 MCG in SODIUM CHLORIDE 0.9% INJ 50 ML IV PRN (12:00)
[2017-10-07] MEDS ORDERED: CLEVIDIPINE INJ 50 ML IV PRN (12:00)
[2017-10-07] MEDS ORDERED: PHENYLEPHRINE INJ 40 MG in DEXTROSE 5% IN WATE 500 ML INJ 496 ML IV PRN ×2 (12:00)
[2017-10-07] MEDS ORDERED: METOPROLOL TARTRATE 5 MG/5 ML VIAL IV PUSH PRN (12:00)
[2017-10-07] MEDS ORDERED: ALBUMIN 5% INJ 250 ML IV PRN (12:00)
[2017-10-07] MEDS ORDERED: DOPamine 800 MG/500 ML INJ 500 ML IV PRN (12:00)
[2017-10-07] MEDS ORDERED: SODIUM BICARBONATE 8.4% SOLN 50 MEQ/50 ML VIAL IV PUSH PRN ×2 (12:00→14:00)
--- NOTE | 2017-10-07 12:05 | PD.OP ---
cc: Domiinque Mora MD; Zeke Zacarias DO Operative Report Date of Surgery: Oct 07, 2017 Preoperative Diagnosis: Postoperative Diagnosis: Procedure: 1. Urgent Off-pump Coronary Artery Bypass Grafting x 4 with Left Internal Mammary Artery (RGOERS) to the Left Anterior Descending (LAD), reverse saphenous vein graft to the Obtuse Marginal 1 (OM1), reverse saphenous vein graft to the Posterolateral branch of the Right Coronary Artery (RPLB) 2. Left Leg Endoscopic Vein Benson 3. Intraoperative Vein Mapping Surgeon: Dominique Mora Orthotic And Prosthetic Technician(s): Gary Fowler Operation and Findings: PREPROCEDURE DIAGNOSES 1. Multi-Vessel Coronary Artery Disease. 2. Acute Myocardial Infarction (STEMI) 3. Ventricular Fibrillation Cardiac Arrest 4. Cool-SC Protocol 5. Moderate Left Ventricular Dysfunction 6. Sternal Comminuted Fractures POSTPROCEDURE DIAGNOSES Same SURGICAL PROCEDURE 1. Urgent Off-pump Coronary Artery Bypass Grafting x 4 with Left Internal Mammary Artery (ROGERS) to the Left Anterior Descending (LAD), reverse saphenous vein graft to the Obtuse Marginal 1 (OM1), reverse saphenous vein graft to the Posterolateral branch of the Right Coronary Artery (RPLB) 2. Left Leg Endoscopic Vein Benson 3. Intraoperative Vein Mapping SURGEON Dominique Mora MD WASHTUB WORKER JAI Jesus ANESTHESIA General endotracheal FIRER DIESEL LOCOMOTIVE ANGELITO Delaney MD PREPARATION ChloraPrep. COUNTS Needle, sponge, and instrument counts were correct. DRAINS Two 32-Hebrew mediastinal tubes. COMPLICATIONS None. INDICATIONS FOR PROCEDURE The patient is a 61-year-old initially presenting with cardiac arrest, STEMI and multi-vessel coronary artery disease. He is being brought to the operating room for surgical revascularization therapy. PROCEDURE Patient was brought to the operating room and placed supine on the OR table. Following the induction of adequate general endotracheal anesthesia and placement of appropriate monitoring devices, intraoperative vein mapping was performed which revealed suitable-caliber conduit in the left leg. The patient was then prepped and draped in standard sterile fashion. Next, 2500 units of intravenous heparin was given. Left leg greater saphenous veins were harvested endoscopically. This appeared to be a good-caliber conduit. Simultaneously, a median sternotomy was performed and the left internal mammary artery dissected free off the posterior sternal table. The superior aspect of the sternum and the manubrium were noted to be severely fractured with comminuted fragments from the CPR effort. The patient was systemically heparinized and anticoagulation monitored by serial ACT measurements. The internal mammary artery had good pulsatile flow in it and was an excellent-caliber conduit. The pericardium was then divided in the midline, the cradle created and targets analyzed. At this point, all anastomoses were performed in a beating-heart fashion using the D-Share stabilizing system. The left internal mammary artery was anastomosed to the distal LAD (2 mm) in an end-to-side fashion using 7-0 Prolene. The next segment was anastomosed to the OM1 (2 mm) in an end-to-side fashion using a running 7-0 Prolene. The final segment was anastomosed to the RPLB (1 mm) in an end-to-side fashion using a running 7-0 Prolene. The proximal anastomoses were then constructed to the ascending aorta in a running manner using 6-0 Prolene. All anastomotic sites were inspected and appeared to be hemostatic and patent. Protamine solution was given. Strict hemostasis was assured. The closure was undertaken. 2 chest tubes and pacing wires were placed. The pericardium was reapproximated in the midline. The sternum was approximated using sternal wires. The muscular and fascial layer were then closed in 3 layers. The endoscopic vein harvest sites were closed in 2 layers. The patient tolerated the procedure well and was transferred to CVICU in stable condition. Dominique Mora MD Oct 07, 2017 12:05
[2017-10-07] MEDS: INSULIN REGULAR (IV INFUSION) 100 UNITS in SODIUM CHLORIDE 0.9% INJ 99 ML IV PRN (12:23)
[2017-10-07] MEDS ORDERED: MIDAZOLAM HCL 2 MG/2 ML VIAL ONE (12:37)
[2017-10-07] MEDS ORDERED: fentaNYL CITRATE 250 MCG/5 ML AMP ONE (12:37)
--- NOTE | 2017-10-07 12:58 | RADRPT ---
EXAM DATE/TIME: 10/07/2017 12:34 [facility] COMPARISON: CHEST SINGLE AP, September 30, 2017, 13:15. INDICATIONS : Post CABG. MEDICAL HISTORY : Hypertension. Myocardial infarction SURGICAL HISTORY : CABG. ENCOUNTER: Subsequent ACUITY: 2 weeks PAIN SCORE: Non-responsive. LOCATION: Bilateral chest FINDINGS: Status post CABG. The support devices are in place. There is no evidence of pneumothorax. There are s ome scattered areas of atelectasis in both lung bases. There is some mild platelike atelectasis in th e left midlung. The heart size is stable. The bony structures are stable. CONCLUSION: Scattered areas of atelectasis. No evidence of pneumothorax. Anam Yañez MD on October 07, 2017 at 12:55 Board Certified Radiologist. This report was verified electronically.
[2017-10-07] MEDS ORDERED: PROPOFOL 500 MG/50 ML INJ 50 ML ONE (13:14)
[2017-10-07] MEDS ORDERED: ONDANSETRON HCL 4 MG/2 ML VIAL IV PUSH PRN (13:45)
[2017-10-07] MEDS ORDERED: MORPHINE SULFATE 2 MG/ML INJ IV PUSH PRN (13:45)
[2017-10-07] MEDS ORDERED: SODIUM CHLORIDE 0.9% FLUSH 10 ML FLUSH IV FLUSH PRN (13:45)
[2017-10-07] MEDS ORDERED: Post-op Orders (for Pharmacy) OTHER ONE (13:45)
[2017-10-07] MEDS ORDERED: ACETAMINOPHEN 650 MG SUPP RECTAL PRN (13:45)
[2017-10-07] MEDS ORDERED: ACETAMINOPHEN 325 MG TAB PO PRN (13:45)
--- NOTE | 2017-10-07 13:47 | RSPPFT ---
DATE OF PROCEDURE: 10/05/17 COMMENTS: The forced vital capacity, FEV1 and FEF 25-75 are all markedly reduced. The FEV1/FVC ratio is normal. IMPRESSION: This is compatible with severe, large and small airways, obstructive lung disease.
[2017-10-07] MEDS ORDERED: POTASSIUM CHLORIDE 20 MEQ CONTROLLED RELEASE TAB PO PRN ×2 (14:00)
[2017-10-07] MEDS ORDERED: RESP: RACEPINEPHRINE 2.25% 0.5 ML NEB NEB PRN (14:00)
[2017-10-07] MEDS ORDERED: MAGNESIUM SULFATE INJ 2 GM in SODIUM CHLORIDE 0.9% INJ 100 ML IV PRN ×4 (14:00)
[2017-10-07] MEDS ORDERED: ACETAMINOPHEN 1000 MG/100 ML 100 ML IV SCH (14:00)
[2017-10-07] MEDS ORDERED: POTASSIUM CHLOR 20 MEQ PREMIX 100 ML IV PRN ×3 (14:00)
[2017-10-07] MEDS: CALCIUM CHLORIDE INJ 1 GM in SODIUM CHLORIDE 0.9% INJ 100 ML IV PRN ×2 (14:11→16:53)
[2017-10-07] MEDS ORDERED: DEXTROSE 50% IN WATER 50 ML VIAL(D50) IV PUSH PRN ×2 (14:30→15:15)
[2017-10-07] MEDS ORDERED: PHENYLEPHRINE HCL 10 MG/ML VIAL ONE ×2 (14:37→14:42)
[2017-10-07] MEDS ORDERED: MEPERIDINE HCL 25 MG/ML VIAL IV PUSH PRN (15:00)
[2017-10-07] MEDS ORDERED: CALCIUM CHLORIDE 10% 1 GRAM/10 ML VIAL IV PUSH PRN (15:00)
[2017-10-07] MEDS ORDERED: LACTATED RINGER'S 1000 ML INJ 500 ML IV PRN (15:00)
[2017-10-07] MEDS ORDERED: DOBUTamine INJ 250 MG in SODIUM CHLOR 0.9% 250 ML INJ 230 ML IV PRN (15:00)
[2017-10-07] MEDS ORDERED: PROPOFOL 1000 MG/100 ML IV PRN (15:00)
--- NOTE | 2017-10-07 15:05 | HHI.CCPN ---
Subjective Remarks/Hospital Course This is a 60yM who presented as an txr-xn-wvricazh v. fib cardiac arrest. Per report, he complained of heartburn most of the day today. This evening he became acutely unresponsive. family member started bystander CPR. Reported down- time was 20 minutes. presenting rhythm to EMS was v. fib. ROSC was obtained and [id number] 12-leads suggests inferior st-elevations. upon arrival to ED, patient again had pulseless v. tach/v. fib arrest, ROSC obtained and again repeat 12-lead with inferior st- elevations. patient has poor neurologic exam despite receiving no neuro altering medications. long discussion with Dr. Zacarias: holding off on emergent left heart cath given poor neurologic function. no additional information obtainable from the patient due to his clinical condition. ROS unobtainable. 09/26: Currently actively being rewarmed. No further dysrhythmias noted. Remains on lidocaine drip at 2 mg/min. Gram-negative andre and sputum identified. 09/27: Afebrile. Patient has been rewarmed. Will initiate tube feeds today. Appears to be posturing with decerebrate positioning. EEG ordered for today. 09/28: Afebrile. Trickle feeds currently at 10 cc an hour. Required paralysis yesterday due to dyssynchrony of the ventilator causing hypoxia. Will diuresis with furosemide 40 mg IV 1 after potassium replacement today. No bowel movement since admission. Subjective 09/29: Afebrile. Continue trickle feeds at 10 cc an hour. Again required paralysis for dyssynchrony on the ventilator causing hypoxia. MRI brain at noon , EEG today. Neurology consult per family's request for prognosis. Quattro catheter removed yesterday 09/28 without complication. 09/30 Patient remains intubated and sedated with Versed, Diprivan, Fentanyl drips in addition he is on Nimbex. Afebrile. 10/01 Patient remains intubated now only on Precedex drip. T:100.2. On Heparin drip 10/02: Tmax 100.2. Patient alert and oriented 2, to person and place. Patient agitated during the night Precedex infusion restarted now discontinued. Patient continues on Keppra. Patient is tentatively scheduled for cardiac catheterization early next week. Patient having active bowel movements though KUB showed gaseous distention yesterday. The patient underwent formal swallow, currently tolerating a pured diet with honey thickened liquids. 10/07 Patient s/p CABG x 4 remains intubated on CPAP. On Precedex drip and being weaned off Neosyn. Objective Vital Signs Date Time Temp Pulse Resp B/P (MAP) Pulse Ox O2 Delivery O2 Flow Rate FiO2 10/07/17 14:28 95 Nasal Cannula 5 10/07/17 13:10 50 10/07/17 12:23 59 10/07/17 12:23 98.9 16 103/57 (72) 104/50 (68) Intake and Output 10/07/17 10/07/17 10/08/17 08:00 16:00 00:00 Intake Total 340 ml 4150 ml Output Total 600 ml 2000 ml Balance -260 ml 2150 ml Result Diagram: 10/06/17 0157 10/06/17 0157 Other Results Laboratory Tests Test 10/06/17 22:30 10/07/17 06:22 Activated Partial Thromboplast Time 28.6 SEC 25.0 SEC Imaging Last Impressions Chest X-Ray 10/07/17 0000 Signed Impressions: Service Date/Time: September 12:34 - CONCLUSION: Scattered areas of atelectasis. No evidence of pneumothorax. Anam Yañez MD Head CT 10/06/17 0000 Signed Impressions: Service Date/Time: Friday, October 06, 2017 13:45 - CONCLUSION: 1. No acute intracranial abnormality. Geovanni Pride MD Lower Extremity Ultrasound 10/04/17 0000 Signed Impressions: Service Date/Time: Wednesday, October 04, 2017 16:02 - CONCLUSION: Venous mapping as above Blaine Pride MD FACR Carotid Artery Ultrasound 10/04/17 0000 Signed Impressions: Service Date/Time: Wednesday, October 04, 2017 16:23 - CONCLUSION: Negative examination for a hemodynamically significant carotid stenosis. . Blaine Pride MD FACR Abdomen X-Ray 10/01/17 0000 Signed Impressions: Service Date/Time: Sunday, October 01, 2017 08:11 - CONCLUSION: 1. Mild gaseous distention of the colon. No free air. Kameron Zapata MD Liver Ultrasound 09/30/17 0000 Signed Impressions: Service Date/Time: September 17:06 - CONCLUSION: 1. Fatty liver, enlarged. No free fluid. No gallstones or biliary ductal dilatation. Kameron Zapata MD Brain MRI 09/29/17 0000 Signed Impressions: Service Date/Time: Friday, September 29, 2017 12:35 - CONCLUSION: 1. No recent infarct. Mild chronic white matter ischemic changes. 2. Sphenoid and ethmoid sinusitis. Kameron Zapata MD Objective Remarks GENERAL: A well-developed well-nourished male looking older than stated age alert and oriented to self and place SKIN: Warm and dry. HEAD: Normocephalic. EYES: No scleral icterus. No injection or drainage. NECK: Supple, trachea midline. No JVD or lymphadenopathy. CARDIOVASCULAR: Regular rate and rhythm without murmurs, gallops, or rubs. RESPIRATORY: Breath sounds equal bilaterally. No accessory muscle use. GASTROINTESTINAL: Abdomen soft, non-tender, nondistended. MUSCULOSKELETAL: No cyanosis, or edema. Neuro: intubated Date of Insertion: Sep 28, 2017 Line: Central Venous Catheter Side: Left Location: Internal, Jugular A/P Assessment and Plan Neuro/Psych: Hypoxic ischemic encephalopathy Hypoxic encephalopathy THC use Wean off Precedex drip, monitor neuro status CT brain on admission revealed no acute intracranial findings. EEG ordered for a.m. 09/27 completed. Moderate slowing. No epileptiform features MRI brain 09/29 . No recent infarct. Mild chronic white matter ischemic changes. Neurology is following- Dr. Love. Continues on Keppra s/p hypothermia cool Respiratory: Acute hypoxic and hypercarbic respiratory failure Left lower lobe infiltrate Continue vent support keep sats >92 Albuterol/ipratropium aerosols every 6 hours with albuterol aerosols every 2 hours as needed dyspnea SBT daily as abrahan. Cardiovascular: s/p CABG x4 today Out of hospital V. fib cardiac arrest Recurrent ventricular tachycardia Cardiogenic shock Inferior STEMI Acute systolic and diastolic heart failure Elevated triglycerides Monitor HR and BP keep MAP>65mmHg, On ASA/Plavix Cardiology is following- Dr. Zacarias Lidocaine infusion currently 2 mg a/minute continue per cardiology recommendation discontinued 09/27. No further incidence of recurrent V. tach 2D echocardiogram revealed EF 35-40%. LVH. Inferior/global hypokinesis. Bilateral atrial enlargement. Grade 1 diastolic dysfunction. s/p CABG x4 Renal: Acute kidney injury -resolving Monitor renal function, I/O's, electrolytes replacement per protocol. FEN/GI: Elevated transaminases Monitor LFT's( trending down) US Liver: Fatty liver, enlarged. No free fluid. No gallstones or biliary ductal dilatation. Heme/ID: Normocytic anemia Thrombocytopenia Serratia marcescens pneumonia Monitor for signs of infections ( fever, WBC) Continue with Zosyn till 10/09 to finish 2 week course as ordered. Pertinent cultures 09/25 -sputum -Serratia marcescens Endocrine: Hyperglycemia of critical illness -- SSI Novulog with Accu-Cheks every 4 hours medium protocol Prophylaxis: GI Prophylaxis Famotidine IV DVT Prophylaxis -- SCDs Start DVT prophylaxis once cleared by CTS Check labs Level 3 Tai Shaw MD Oct 07, 2017 15:05
[2017-10-07] MEDS: PHENYLEPHRINE INJ 40 MG in SODIUM CHLORID 0.9% 500 ML INJ 500 ML IV PRN (15:07)
[2017-10-07] MEDS ORDERED: RASS Change Order XX ONE (15:15)
[2017-10-07] MEDS ORDERED: GLUCAGON 1 MG/ML VIAL OTHER PRN (15:15)
[2017-10-07] MEDS: INSULIN NovoLIN REGULAR SUPPLEMENTAL SCALE SQ SCH ×2 (15:15→20:26)
[2017-10-07] MEDS ORDERED: hydrALAZINE HCL 20 MG/ML VIAL IV PUSH PRN (15:15)
[2017-10-07] MEDS ORDERED: DOPAMINE IV PRN ×2 (15:30→18:15)
[2017-10-07] MEDS ORDERED: NITROGLYCERIN-D5W 50 MG/250 ML 250 ML IV PRN (15:30)
[2017-10-07] MEDS ORDERED: SODIUM CHLORID 0.9% IV PRN ×2 (15:30→18:15)
[2017-10-07 15:57] LABS: AUTOMATED NEUTROPHIL # 26.7 TH/MM3 (1.8-7.7); BASOPHIL # 0.1 TH/MM3 (0-0.2); BASOPHIL % 0.2 % (0.0-2.0); HEMOGLOBIN 8.3 GM/DL (13.0-17.0); LYMPH % 8.8 % (9.0-44.0); LYMPHOCYTE # 2.8 TH/MM3 (1.0-4.8); MEAN CELL VOLUME 88.3 FL (80.0-100.0); MEAN CORPUSCULAR HEMOGLOBIN 29.2 PG (27.0-34.0); MEAN CORPUSCULAR HGB CONC 33.1 % (32.0-36.0); MEAN PLATELET VOLUME 9.5 FL (7.0-11.0); MONO % 5.6 % (0.0-8.0); MONOCYTE # 1.8 TH/MM3 (0-0.9); NEUT % 85.4 % (16.0-70.0); PLATELET COUNT 322 TH/MM3 (150-450); RED BLOOD COUNT 2.84 MIL/MM3 (4.50-5.90); WHITE BLOOD COUNT 31.3 TH/MM3 (4.0-11.0)
--- NOTE | 2017-10-07 16:26 | PD.CAR.PN ---
CVT Progress Note Subjective/Hospital Course: A 61-year-old male presented as a cardiac arrest witnessed on 09/24/2017. Apparently, was with his significant other when he was complaining of some gas pain and indigestion earlier that day. He sat on the couch, slumped over on his significant other's lap. She tried to wake him up and for the second time, he did not wake up, but she started CPR and called 911. EMS showed up and he was in V-fib arrest, so he was shocked and given ACLS drugs. He was intubated in the field, went into PEA arrest. CPR was continued. It was approximately 20 minutes when he regained pulses. He was found to have ST elevation and a STEMI upon arrival and had another episode of V-fib where he was defibrillated. At the time of the ER admission, he was also seen and evaluated by critical care. Since the patient had return of spontaneous circulation, was a post pulseless V-tach, V-fib arrest, he had initial poor neurological exam despite receiving no neuro altering meds, they held off the emergent left heart cath given poor neurological function; however, they did proceed with hypothermia therapy. The patient has since recovered neurologically, was extubated on last Wednesday. He then underwent cardiac cath today, which showed an EF of 40%. The echo shows an EF of 30%. He has left main of 60%, proximal LAD 80%, the diagonal 50%, the circumflex 100%, the OM1 of 100%, the RCA 100%. We were consulted to evaluate for coronary artery bypass grafting. The patient's echo also showed the EF of 35-40%, left atrial size mild to moderately dilated. The right atrial size was mildly dilated. There was trace to mild mitral regurgitation and trace tricuspid regurgitation. At this time, the patient has good long-term memory. He has some short-term memory problems; however, per his significant other, his short-term is improving daily. He has not been out of bed due to the weakness; however, he moves all extremities. He does answer questions appropriately with some obvious forgetfulness with some short-term memory. 10/07 surgery: Urgent Off-pump Coronary Artery Bypass Grafting x 4 with Left Internal Mammary Artery (ROGERS) to the Left Anterior Descending (LAD), reverse saphenous vein graft to the Obtuse Marginal 1 (OM1), reverse saphenous vein graft to the Posterolateral branch of the Right Coronary Artery (RPLB), Left Leg Endoscopic Vein [place] was also noted to have Sternal Comminuted Fractures ( previous CPR) Objective: Vital Signs Date Time Temp Pulse Resp B/P (MAP) Pulse Ox O2 Delivery O2 Flow Rate FiO2 10/07/17 16:06 66 128/67 10/07/17 15:07 59 104/50 10/07/17 15:00 63 10/07/17 15:00 99 Nasal Cannula 5.00 10/07/17 15:00 97.6 63 14 119/79 (92) 99 120/51 (74) 10/07/17 14:28 95 Nasal Cannula 5.00 10/07/17 14:28 95 Nasal Cannula 5 10/07/17 14:00 63 104/59 10/07/17 13:10 96 50 10/07/17 12:30 63 94/50 10/07/17 12:26 95 40 10/07/17 12:23 59 10/07/17 12:23 98.9 59 16 103/57 (72) 99 104/50 (68) 10/07/17 12:23 59 104/50 10/07/17 12:23 40 10/07/17 05:00 71 10/07/17 04:00 98.4 66 18 150/82 (104) 96 10/07/17 04:00 71 10/07/17 03:12 96 Nasal Cannula 3.00 10/07/17 03:00 64 10/07/17 02:00 71 10/07/17 00:00 96 Nasal Cannula 3.00 10/07/17 00:00 98.4 76 18 148/86 (106) 96 10/06/17 21:14 98.9 77 20 150/83 (105) 96 10/06/17 21:14 96 Nasal Cannula 3.00 10/06/17 19:33 96 Nasal Cannula 3.00 10/06/17 18:00 78 10/06/17 17:00 76 Labs: Laboratory Tests Test 10/07/17 06:22 10/07/17 14:43 Activated Partial Thromboplast Time 25.0 SEC (24.3-30.1) White Blood Count 31.3 TH/MM3 (4.0-11.0) Red Blood Count 2.84 MIL/MM3 (4.50-5.90) Hemoglobin 8.3 GM/DL (13.0-17.0) Hematocrit 25.0 % (39.0-51.0) Mean Corpuscular Volume 88.3 FL (80.0-100.0) Mean Corpuscular Hemoglobin 29.2 PG (27.0-34.0) Mean Corpuscular Hemoglobin Concent 33.1 % (32.0-36.0) Red Cell Distribution Width 14.0 % (11.6-17.2) Platelet Count 322 TH/MM3 (150-450) Mean Platelet Volume 9.5 FL (7.0-11.0) Neutrophils (%) (Auto) 85.4 % (16.0-70.0) Lymphocytes (%) (Auto) 8.8 % (9.0-44.0) Monocytes (%) (Auto) 5.6 % (0.0-8.0) Eosinophils (%) (Auto) 0.0 % (0.0-4.0) Basophils (%) (Auto) 0.2 % (0.0-2.0) Neutrophils # (Auto) 26.7 TH/MM3 (1.8-7.7) Lymphocytes # (Auto) 2.8 TH/MM3 (1.0-4.8) Monocytes # (Auto) 1.8 TH/MM3 (0-0.9) Eosinophils # (Auto) 0.0 TH/MM3 (0-0.4) Basophils # (Auto) 0.1 TH/MM3 (0-0.2) CBC Comment AUTO DIFF Result Diagram: 10/07/17 1443 10/06/17 0157 (1) Acute ST elevation myocardial infarction (STEMI) (2) Cardiac arrest (3) Ventricular fibrillation (4) Cardiac arrest with ventricular fibrillation (5) Ventilator dependence (6) IGNACIO (acute kidney injury) (7) S/P CABG x 4 Jaylene Khan Oct 07, 2017 16:26
[2017-10-07 16:29] LABS: ALBUMIN 1.7 GM/DL (3.4-5.0); ALKALINE PHOSPHATASE 47 U/L (45-117); ALT (GPT) 45 U/L (12-78); AST (GOT) 26 U/L (15-37); BICARBONATE 24.4 MEQ/L (21.0-32.0); BLOOD UREA NITROGEN 17 MG/DL (7-18); CALCIUM 8.1 MG/DL (8.5-10.1); CHLORIDE 110 MEQ/L (98-107); CREATININE 0.85 MG/DL (0.60-1.30); GLOMERULAR FILTRATION RATE 91 ML/MIN (>89); GLUCOSE,RANDOM 109 MG/DL (74-106); MAGNESIUM 2.1 MG/DL (1.5-2.5); PHOSPHORUS 3.9 MG/DL (2.5-4.9); SODIUM (NA) 143 MEQ/L (136-145); TOTAL BILIRUBIN ADULT 0.5 MG/DL (0.2-1.0); TOTAL PROTEIN 4.5 GM/DL (6.4-8.2)
[2017-10-07] MEDS: ACETAMINOPHEN 1000 MG/100 ML 100 ML IV SCH ×2 (16:53→23:37)
[2017-10-07] MEDS: LORazepam 2 MG/ML VIAL IV PUSH PRN (17:21)
[2017-10-07 17:53] LABS: BANDS 4 % (0-6); LYMPHOCYTES 4 % (9-44); MONOCYTES 4 % (0-8); NEUTROPHIL # MANUAL DIFF 28.8 TH/MM3 (1.8-7.7); POLYS (SEG NEUTROPHILS) 88 % (16-70)
[2017-10-07] MEDS: KETOROLAC TROMETHAMINE 30 MG/ML (IVP) VIAL IV PUSH PRN (18:33)
[2017-10-07] MEDS: ceFAZolin 2 GM PREMIX 50 ML IV SCH (20:37)
[2017-10-07] MEDS ORDERED: CHLORHEXIDINE GLUCONATE 2 % 1 PACK (2 CLOTHS) TOPICAL PRN (23:30)
[2017-10-07] MEDS ORDERED: LACTATED RINGER'S 1000 ML IV PRN (23:30)
[2017-10-07] MEDS ORDERED: POVIDONE IODINE 5% (ANTISEPSIS KIT) 4 APPLICATIONS EACH NARE PRN (23:30)
[2017-10-08] VITALS (14 sets, daily range): BP systolic 74–144; BP diastolic 54–81; PULSE 70–109; RESP 16–20; TEMP 98–99; O2SAT 94–99
[2017-10-08] MEDS: KETOROLAC TROMETHAMINE 30 MG/ML (IVP) VIAL IV PUSH PRN ×3 (02:09→23:50)
[2017-10-08] MEDS: RESP: ALBUTEROL 2.5 MG/IPRATROPIUM 0.5 MG NEB (SCH) NEB ×4 (02:39→19:26)
[2017-10-08] MEDS: INSULIN NovoLIN REGULAR SUPPLEMENTAL SCALE SQ SCH (02:43)
[2017-10-08] MEDS: LORazepam 2 MG/ML VIAL IV PUSH PRN (03:42)
[2017-10-08] MEDS: ACETAMINOPHEN 1000 MG/100 ML 100 ML IV SCH ×2 (04:43→11:17)
[2017-10-08] MEDS: ceFAZolin 2 GM PREMIX 50 ML IV SCH ×3 (04:43→20:16)
[2017-10-08 04:44] LABS: BASOPHIL # 0.1 TH/MM3 (0-0.2); BASOPHIL % 0.6 % (0.0-2.0); HEMOGLOBIN 7.7 GM/DL (13.0-17.0); LYMPH % 20.2 % (9.0-44.0); LYMPHOCYTE # 3.6 TH/MM3 (1.0-4.8); MEAN CORPUSCULAR HEMOGLOBIN 29.7 PG (27.0-34.0); MEAN CORPUSCULAR HGB CONC 33.7 % (32.0-36.0); MEAN PLATELET VOLUME 9.4 FL (7.0-11.0); MONO % 6.9 % (0.0-8.0); MONOCYTE # 1.2 TH/MM3 (0-0.9); NEUT % 72.3 % (16.0-70.0); PLATELET COUNT 332 TH/MM3 (150-450); RED BLOOD COUNT 2.61 MIL/MM3 (4.50-5.90); RED CELL DISTRIBUTION WIDTH 14.1 % (11.6-17.2)
[2017-10-08 05:08] LABS: ALBUMIN 1.9 GM/DL (3.4-5.0); AST (GOT) 28 U/L (15-37); BICARBONATE 27.4 MEQ/L (21.0-32.0); BLOOD UREA NITROGEN 20 MG/DL (7-18); CALCIUM 7.8 MG/DL (8.5-10.1); CHLORIDE 108 MEQ/L (98-107); CREATININE 1.07 MG/DL (0.60-1.30); GLOMERULAR FILTRATION RATE 70 ML/MIN (>89); GLUCOSE,RANDOM 102 MG/DL (74-106); SODIUM (NA) 141 MEQ/L (136-145)
[2017-10-08 05:10] LABS: ALT (GPT) 39 U/L (12-78)
[2017-10-08 05:11] LABS: ALKALINE PHOSPHATASE 55 U/L (45-117); TOTAL BILIRUBIN ADULT 0.5 MG/DL (0.2-1.0); TOTAL PROTEIN 4.9 GM/DL (6.4-8.2)
--- NOTE | 2017-10-08 05:47 | RADRPT ---
EXAM DATE/TIME: 10/08/2017 04:33 [facility] COMPARISON: CHEST SINGLE AP, October 07, 2017, 12:34. INDICATIONS : Status post CABG. MEDICAL HISTORY : Hypertension. Myocardial infarction SURGICAL HISTORY : CABG. ENCOUNTER: Subsequent ACUITY: 2 days PAIN SCORE: Non-responsive. LOCATION: chest FINDINGS: A single AP semierect portable view of the chest was obtained and demonstrates interval extubation an d removal of the nasogastric tube. The right internal jugular central venous line remains in place. T here is a left-sided chest tube with no pneumothorax. There is mild hazy opacity of the lung bases. T he heart size is mildly prominent. Patient is status post median sternotomy. CONCLUSION: 1. Interval extubation and removal of nasogastric tube. 2. Left-sided chest tube with no pneumothorax. 3. Mild cardiomegaly with hazy opacity of the lung bases. Perez Griffin MD on October 08, 2017 at 5:45 Board Certified Radiologist. This report was verified electronically.
[2017-10-08] MEDS: PIPERACIL-TAZO 4.5 GM PREMIX 100 ML IV SCH ×3 (06:00→18:00)
[2017-10-08] MEDS: PANTOPRAZOLE SOD 40 MG DELAYED RELEASE TAB PO SCH (06:00)
[2017-10-08] MEDS: PHENYLEPHRINE INJ 40 MG in SODIUM CHLORID 0.9% 500 ML INJ 500 ML IV PRN (07:44)
--- NOTE | 2017-10-08 09:02 | HHI.PR ---
Review/Management Diagnosis/Plan: (1) Hypoxic encephalopathy ICD Codes: G93.1 - Anoxic brain damage, not elsewhere classified Status: Acute Plan: doing well eeg- +brain waves mri brain- no gross ischemia ct brain naicp 10/06 recs neuro stable post-op will follow peripherally. may need outpatient cognitive testing d/w pt/partner no driving (2) Cardiac arrest with ventricular fibrillation ICD Codes: I46.9 - Cardiac arrest, cause unspecified; I49.01 - Ventricular fibrillation Status: Acute (3) IGNACIO (acute kidney injury) ICD Codes: N17.9 - Acute kidney failure, unspecified Status: Acute (4) Acute ST elevation myocardial infarction (STEMI) ICD Codes: I21.3 - ST elevation (STEMI) myocardial infarction of unspecified site Status: Acute Subjective Subjective Comments No acute events reported No headache chest discomfort No dyspnea Active Medications Current Medications Medications (Trade) Dose Ordered Sig/Isabel Route Start Time Stop Time Status Last Admin (Brethine Inj) 1 mg UNSCH PRN SQ 09/25/17 00:15 Miscellaneous Information 0 ml @ 0 mls/hr UNSCH IV 09/25/17 16:15 Piperacillin Sod/ Tazobactam Sod 100 ml @ 200 mls/hr Q6H IV 09/26/17 18:00 10/09/17 18:00 10/08/17 06:00 (Senna Liq) 8.8 mg BID PO 09/28/17 21:00 10/07/17 20:38 (NS Flush) DAILY IV FLUSH 09/28/17 10:15 10/03/17 09:00 (NS Flush) UNSCH PRN IV FLUSH 09/28/17 10:15 (Ativan Inj) 1 mg Q4H PRN IV PUSH 10/02/17 09:45 10/08/17 03:42 (Melatonin) 5 mg HS PRN PO 10/02/17 21:00 10/03/17 21:51 (SEROquel) 50 mg HS PRN PO 10/04/17 08:15 Cefazolin Sodium/ Dextrose 50 ml @ 150 mls/hr RIBBON WEAVER IV 10/04/17 15:15 10/11/17 15:14 10/07/17 08:07 (Hibiclens 4% Top Soln) 1 applic RIBBON WEAVER TOPICAL 10/04/17 15:15 10/11/17 15:14 (Catapres) 0.1 mg Q6H PRN PO 10/05/17 00:45 10/05/17 22:21 Lactated Ringer's 1,000 ml @ 30 mls/hr Q24H PRN IV 10/07/17 23:30 10/10/17 23:29 (Betadine 5% Antisepsis Kit) 1 applic RIBBON WEAVER PRN EACH NARE 10/07/17 23:30 10/10/17 23:29 (Chlorhexidine 2% Cloth) 3 pack RIBBON WEAVER PRN TOPICAL 10/07/17 23:30 10/10/17 23:29 (NS Flush) 2 ml BID IV FLUSH 10/07/17 21:00 10/07/17 20:38 (NS Flush) 2 ml UNSCH PRN IV FLUSH 10/07/17 13:45 Dexmedetomidine HCl 200 mcg/ Sodium Chloride 52 ml @ 9.51 mls/hr TITRATE PRN IV 10/07/17 12:00 Nitroglycerin/ Dextrose 250 ml @ 1.5 mls/hr TITRATE PRN IV 10/07/17 15:30 Clevidipine 50 ml @ 2 mls/hr TITRATE PRN IV 10/07/17 12:00 Albumin Human 250 ml @ 250 mls/hr UNSCH PRN IV 10/07/17 12:00 Lactated Ringer's 500 ml @ 500 mls/hr Q1H PRN IV 10/07/17 15:00 (Aspirin Chew) 81 mg DAILY PO 10/08/17 09:00 (Plavix) 75 mg DAILY PO 10/08/17 09:00 (Protonix) 40 mg DAILY@06 PO 10/08/17 06:00 10/08/17 06:00 (Tylenol) 650 mg Q4H PRN PO 10/07/17 13:45 (Tylenol Supp) 650 mg Q4H PRN RECTAL 10/07/17 13:45 (Morphine Inj) 1 mg Q10M PRN IV PUSH 10/07/17 13:45 (Demerol Inj) 12.5 mg Q4H PRN IV PUSH 10/07/17 15:00 ([place] 5-325 Mg) 1 tab Q3H PRN PO 10/07/17 13:45 (Toradol Inj) 15 mg Q6H PRN IV PUSH 10/07/17 14:00 10/09/17 13:59 10/08/17 08:38 (fentaNYL INJ) 25 mcg Q1H PRN IV PUSH 10/07/17 14:00 10/08/17 07:02 (Zofran Inj) 4 mg Q6H PRN IV PUSH 10/07/17 13:45 10/08/17 08:38 (Apresoline Inj) 10 mg Q4H PRN IV PUSH 10/07/17 15:15 (Lopressor Inj) 2.5 mg Q1H PRN IV PUSH 10/07/17 12:00 Potassium Chloride 100 ml @ 50 mls/hr UNSCH PRN IV 10/07/17 14:00 Potassium Chloride 100 ml @ 50 mls/hr UNSCH PRN IV 10/07/17 14:00 Potassium Chloride 100 ml @ 50 mls/hr UNSCH PRN IV 10/07/17 14:00 (KCl) 20 meq UNSCH PRN PO 10/07/17 14:00 (KCl) 40 meq UNSCH PRN PO 10/07/17 14:00 Magnesium Sulfate 2 gm/Sodium Chloride 104 ml @ 100 mls/hr UNSCH PRN IV 10/07/17 14:00 Calcium Chloride 1 gm/Sodium Chloride 110 ml @ 100 mls/hr UNSCH PRN IV 10/07/17 12:00 10/07/17 16:53 (Calcium Chloride Inj) 0.5 gm UNSCH PRN IV PUSH 10/07/17 15:00 Insulin Human Regular 100 units/ Sodium Chloride 100 ml @ 3 mls/hr TITRATE PRN IV 10/07/17 12:00 10/07/17 12:23 (D50w (Vial) Inj) 50 ml UNSCH PRN IV PUSH 10/07/17 14:30 Cefazolin Sodium/ Dextrose 50 ml @ 100 mls/hr Q8H IV 10/07/17 20:00 10/09/17 04:29 10/08/17 04:43 (Sodium Bicarbonate 8.4% Inj) 50 meq UNSCH PRN IV PUSH 10/07/17 12:00 (Sodium Bicarbonate 8.4% Inj) 100 meq UNSCH PRN IV PUSH 10/07/17 14:00 (Duoneb Neb) 1 ampule Q6HR NEB NEB 10/07/17 16:00 10/08/17 02:39 (Duoneb Neb) 1 ampule Q2HR NEB PRN NEB 10/07/17 12:00 (Racepinephrine 2.25% Neb) 0.5 ml UNSCH X1 PRN NEB 10/07/17 14:00 10/08/17 13:59 Phenylephrine HCl 40 mg/Sodium Chloride 504 ml @ 30.24 mls/ hr TITRATE PRN IV 10/07/17 13:15 10/08/17 07:44 Dobutamine HCl 250 mg/Sodium Chloride 250 ml @ 13.72 mls/ hr CONTINUOUS WT BASED PRN IV 10/07/17 15:00 Propofol 100 ml @ 2.745 mls/ hr TITRATE PRN IV 10/07/17 15:00 (D50w (Vial) Inj) 50 ml UNSCH PRN IV PUSH 10/07/17 15:15 (Glucagon Inj) 1 mg UNSCH PRN OTHER 10/07/17 15:15 (NovoLIN R SUPPLEMENTAL SCALE) 1 Q6H SQ 10/07/17 15:15 Acetaminophen 100 ml @ 400 mls/hr Q6H IV 10/07/17 17:00 10/08/17 11:14 10/08/17 04:43 Dopamine HCl 800 mg/Sodium Chloride 500 ml @ 10.29 mls/ hr TITRATE PRN IV 10/07/17 18:15 Allergies Allergies Coded Allergies No Known Allergies (Unverified09/24/17) Review of Systems All other ROS: ROS reviewed as documented in chart, Unable to obtain Exam I&O / VS Vital Signs Date Time Temp Pulse Resp B/P (MAP) Pulse Ox O2 Delivery O2 Flow Rate FiO2 10/08/17 07:44 77 101/63 10/08/17 05:06 16 10/08/17 03:31 18 10/08/17 03:00 98.6 84 16 95/54 (68) 95 74/62 (66) 10/08/17 03:00 94 Nasal Cannula 5.00 10/08/17 03:00 81 10/07/17 23:00 98.5 73 18 103/67 (79) 97 113/58 (76) 10/07/17 23:00 97 Nasal Cannula 5.00 10/07/17 23:00 80 10/07/17 19:21 94 Nasal Cannula 5.00 10/07/17 19:00 98 Nasal Cannula 5.00 10/07/17 19:00 98.4 68 18 108/51 (70) 98 111/58 (75) 10/07/17 19:00 78 10/07/17 17:00 70 120/59 10/07/17 16:06 66 128/67 10/07/17 15:07 59 104/50 10/07/17 15:00 63 10/07/17 15:00 99 Nasal Cannula 5.00 10/07/17 15:00 97.6 63 14 119/79 (92) 99 120/51 (74) 10/07/17 14:28 95 Nasal Cannula 5.00 10/07/17 14:28 95 Nasal Cannula 5 10/07/17 14:00 63 104/59 10/07/17 13:10 96 50 10/07/17 12:30 63 94/50 10/07/17 12:26 95 40 10/07/17 12:23 59 10/07/17 12:23 98.9 59 16 103/57 (72) 99 104/50 (68) 10/07/17 12:23 59 104/50 10/07/17 12:23 40 Exam Comments alert, ox 2-3, not to year, pres Trump, calm and appropriate, follows, eomi, vff, ou 3-2mm, wheeler to gravity, no drift Objective Micro and Labs Laboratory Tests Test 10/07/17 14:43 10/08/17 04:18 White Blood Count 31.3 18.0 Red Blood Count 2.84 2.61 Hemoglobin 8.3 7.7 Hematocrit 25.0 23.0 Mean Corpuscular Volume 88.3 88.0 Mean Corpuscular Hemoglobin 29.2 29.7 Mean Corpuscular Hemoglobin Concent 33.1 33.7 Red Cell Distribution Width 14.0 14.1 Platelet Count 322 332 Mean Platelet Volume 9.5 9.4 Neutrophils (%) (Auto) 85.4 72.3 Lymphocytes (%) (Auto) 8.8 20.2 Monocytes (%) (Auto) 5.6 6.9 Eosinophils (%) (Auto) 0.0 0.0 Basophils (%) (Auto) 0.2 0.6 Neutrophils # (Auto) 26.7 13.0 Lymphocytes # (Auto) 2.8 3.6 Monocytes # (Auto) 1.8 1.2 Eosinophils # (Auto) 0.0 0.0 Basophils # (Auto) 0.1 0.1 CBC Comment AUTO DIFF DIFF FINAL Differential Total Cells Counted 100 Neutrophils % (Manual) 88 Band Neutrophils % 4 Lymphocytes % 4 Monocytes % 4 Neutrophils # (Manual) 28.8 Differential Comment FINAL DIFF MANUAL Platelet Estimate NORMAL Platelet Morphology Comment NORMAL Basophilic Stippling Blood Urea Nitrogen 17 20 Creatinine 0.85 1.07 Random Glucose 109 102 Total Protein 4.5 4.9 Albumin 1.7 1.9 Calcium Level 8.1 7.8 Phosphorus Level 3.9 Magnesium Level 2.1 2.0 Alkaline Phosphatase 47 55 Aspartate Amino Transf (AST/SGOT) 26 28 Alanine Aminotransferase (ALT/SGPT) 45 39 Total Bilirubin 0.5 0.5 Sodium Level 143 141 Potassium Level 4.2 4.2 Chloride Level 110 108 Carbon Dioxide Level 24.4 27.4 Anion Gap 9 6 Estimat Glomerular Filtration Rate 91 70 Date/Time Source Procedure Growth Status 09/30/17 13:45 Sputum Endotracheal Gram Stain - Final Complete 09/30/17 13:45 Sputum Culture - Final Serratia Marcescens Complete Delmar Huff MD Oct 08, 2017 09:02
[2017-10-08] MEDS: ASPIRIN 81 MG CHEW TAB PO SCH (09:18)
[2017-10-08] MEDS: ACETAMINOPHEN/HYDROcodone 325 MG/5 MG TAB PO PRN ×2 (09:18→14:14)
[2017-10-08] MEDS: SODIUM CHLORIDE 0.9% FLUSH 10 ML FLUSH IV FLUSH SCH ×3 (09:19→20:17)
[2017-10-08] MEDS: CLOPIDOGREL 75 MG TAB PO SCH (09:19)
[2017-10-08] MEDS ORDERED: FUROSEMIDE 20 MG/2 ML VIAL IV PUSH ONE (10:00)
[2017-10-08] MEDS ORDERED: GLUCAGON 1 MG/ML VIAL OTHER PRN (10:00)
[2017-10-08] MEDS ORDERED: SOD PHOSPHATE/SOD BIPHOSPHATE (ADULT) ENEMA 133ML RECTAL PRN (10:00)
[2017-10-08] MEDS ORDERED: ACETAMINOPHEN/HYDROcodone 325 MG/5 MG TAB PO PRN (10:00)
[2017-10-08] MEDS ORDERED: BISACODYL 10 MG SUPP RECTAL PRN (10:00)
[2017-10-08] MEDS ORDERED: DEXTROSE 50% IN WATER 50 ML VIAL(D50) IV PUSH PRN (10:00)
[2017-10-08] MEDS: DOCUSATE SODIUM 100 MG CAP PO SCH ×2 (10:00→20:16)
--- NOTE | 2017-10-08 10:14 | PD.CAR.PN ---
CVT Progress Note Subjective/Hospital Course: A 61-year-old male presented as a cardiac arrest witnessed on 09/24/2017. Apparently, was with his significant other when he was complaining of some gas pain and indigestion earlier that day. He sat on the couch, slumped over on his significant other's lap. She tried to wake him up and for the second time, he did not wake up, but she started CPR and called 911. EMS showed up and he was in V-fib arrest, so he was shocked and given ACLS drugs. He was intubated in the field, went into PEA arrest. CPR was continued. It was approximately 20 minutes when he regained pulses. He was found to have ST elevation and a STEMI upon arrival and had another episode of V-fib where he was defibrillated. At the time of the ER admission, he was also seen and evaluated by critical care. Since the patient had return of spontaneous circulation, was a post pulseless V-tach, V-fib arrest, he had initial poor neurological exam despite receiving no neuro altering meds, they held off the emergent left heart cath given poor neurological function; however, they did proceed with hypothermia therapy. The patient has since recovered neurologically, was extubated on last Wednesday. He then underwent cardiac cath today, which showed an EF of 40%. The echo shows an EF of 30%. He has left main of 60%, proximal LAD 80%, the diagonal 50%, the circumflex 100%, the OM1 of 100%, the RCA 100%. We were consulted to evaluate for coronary artery bypass grafting. The patient's echo also showed the EF of 35-40%, left atrial size mild to moderately dilated. The right atrial size was mildly dilated. There was trace to mild mitral regurgitation and trace tricuspid regurgitation. At this time, the patient has good long-term memory. He has some short-term memory problems; however, per his significant other, his short-term is improving daily. He has not been out of bed due to the weakness; however, he moves all extremities. He does answer questions appropriately with some obvious forgetfulness with some short-term memory. 10/07 surgery: Urgent Off-pump Coronary Artery Bypass Grafting x 4 with Left Internal Mammary Artery (ROGERS) to the Left Anterior Descending (LAD), reverse saphenous vein graft to the Obtuse Marginal 1 (OM1), reverse saphenous vein graft to the Posterolateral branch of the Right Coronary Artery (RPLB), Left Leg Endoscopic Vein [place] was also noted to have Sternal Comminuted Fractures ( previous CPR) pt was extremely agitated during weaning process , requiring propofol and precedex/ was then weaned and extubated, pt has chest binder in place for now crystalloid 3400cc, cell saver 750cc, 1400cc EBL 10/08 pt up in chair awake and alert , girlfriend at bedside will need aggressive pulm toileting OT/PT, very weak HGB 7.7 BP labile, on Juve, will give 2 units PRBC with lasix once weaned off juve, and VSS eval for transfer to stepdown continue Seroquel at night Objective: GENERAL: A&O, still with mild short term memory loss / improving SKIN: Warm and dry. prevena dressing to chest , analy wrap left leg / chest binder in place HEAD: Atraumatic. Normocephalic. EYES: Pupils equal and round. No scleral icterus. No injection or drainage. ENT: No nasal bleeding or discharge. Mucous membranes pink and moist. NECK: Trachea midline. No JVD. CARDIOVASCULAR: Regular rate and rhythm. NSR , mild edema RESPIRATORY: No accessory muscle use. Clear to auscultation. Breath sounds equal bilaterally. coarse breath sounds , chest tube to wall suction, no air leak / drained 230cc/ 12 hrs GASTROINTESTINAL: Abdomen soft, non-tender, nondistended. Hepatic and splenic margins not palpable. MUSCULOSKELETAL: Extremities without clubbing, cyanosis, or edema. No obvious deformities. NEUROLOGICAL: Awake and alert. No obvious cranial nerve deficits. Motor grossly within normal limits. Five out of 5 muscle strength in the arms and legs. Normal speech. PSYCHIATRIC: Appropriate mood and affect; insight and judgment normal. Vital Signs Date Time Temp Pulse Resp B/P (MAP) Pulse Ox O2 Delivery O2 Flow Rate FiO2 10/08/17 10:04 98 Nasal Cannula 6.00 10/08/17 08:00 98.2 79 16 103/66 (78) 96 101/58 (72) 10/08/17 08:00 16 10/08/17 08:00 79 10/08/17 08:00 95 Nasal Cannula 6.00 Humidified 10/08/17 07:44 77 101/63 10/08/17 05:06 16 10/08/17 03:31 18 10/08/17 03:00 98.6 84 16 95/54 (68) 95 74/62 (66) 10/08/17 03:00 94 Nasal Cannula 5.00 10/08/17 03:00 81 10/07/17 23:00 98.5 73 18 103/67 (79) 97 113/58 (76) 10/07/17 23:00 97 Nasal Cannula 5.00 10/07/17 23:00 80 10/07/17 19:21 94 Nasal Cannula 5.00 10/07/17 19:00 98 Nasal Cannula 5.00 10/07/17 19:00 98.4 68 18 108/51 (70) 98 111/58 (75) 10/07/17 19:00 78 10/07/17 17:00 70 120/59 10/07/17 16:06 66 128/67 10/07/17 15:07 59 104/50 10/07/17 15:00 63 10/07/17 15:00 99 Nasal Cannula 5.00 10/07/17 15:00 97.6 63 14 119/79 (92) 99 120/51 (74) 10/07/17 14:28 95 Nasal Cannula 5.00 10/07/17 14:28 95 Nasal Cannula 5 10/07/17 14:00 63 104/59 10/07/17 13:10 96 50 10/07/17 12:30 63 94/50 10/07/17 12:26 95 40 10/07/17 12:23 59 10/07/17 12:23 98.9 59 16 103/57 (72) 99 104/50 (68) 10/07/17 12:23 59 104/50 10/07/17 12:23 40 Labs: Laboratory Tests Test 10/08/17 04:18 White Blood Count 18.0 TH/MM3 (4.0-11.0) Red Blood Count 2.61 MIL/MM3 (4.50-5.90) Hemoglobin 7.7 GM/DL (13.0-17.0) Hematocrit 23.0 % (39.0-51.0) Mean Corpuscular Volume 88.0 FL (80.0-100.0) Mean Corpuscular Hemoglobin 29.7 PG (27.0-34.0) Mean Corpuscular Hemoglobin Concent 33.7 % (32.0-36.0) Red Cell Distribution Width 14.1 % (11.6-17.2) Platelet Count 332 TH/MM3 (150-450) Mean Platelet Volume 9.4 FL (7.0-11.0) Neutrophils (%) (Auto) 72.3 % (16.0-70.0) Lymphocytes (%) (Auto) 20.2 % (9.0-44.0) Monocytes (%) (Auto) 6.9 % (0.0-8.0) Eosinophils (%) (Auto) 0.0 % (0.0-4.0) Basophils (%) (Auto) 0.6 % (0.0-2.0) Neutrophils # (Auto) 13.0 TH/MM3 (1.8-7.7) Lymphocytes # (Auto) 3.6 TH/MM3 (1.0-4.8) Monocytes # (Auto) 1.2 TH/MM3 (0-0.9) Eosinophils # (Auto) 0.0 TH/MM3 (0-0.4) Basophils # (Auto) 0.1 TH/MM3 (0-0.2) CBC Comment DIFF FINAL Differential Comment Blood Urea Nitrogen 20 MG/DL (7-18) Creatinine 1.07 MG/DL (0.60-1.30) Random Glucose 102 MG/DL (74-106) Total Protein 4.9 GM/DL (6.4-8.2) Albumin 1.9 GM/DL (3.4-5.0) Calcium Level 7.8 MG/DL (8.5-10.1) Magnesium Level 2.0 MG/DL (1.5-2.5) Alkaline Phosphatase 55 U/L (45-117) Aspartate Amino Transf (AST/SGOT) 28 U/L (15-37) Alanine Aminotransferase (ALT/SGPT) 39 U/L (12-78) Total Bilirubin 0.5 MG/DL (0.2-1.0) Sodium Level 141 MEQ/L (136-145) Potassium Level 4.2 MEQ/L (3.5-5.1) Chloride Level 108 MEQ/L (98-107) Carbon Dioxide Level 27.4 MEQ/L (21.0-32.0) Anion Gap 6 MEQ/L (5-15) Estimat Glomerular Filtration Rate 70 ML/MIN (>89) Result Diagram: 10/08/17 0418 10/08/17 0418 (1) Acute ST elevation myocardial infarction (STEMI) (2) S/P CABG x 4 Plan: on ASA, statin , Plavix start statin , eval for analy when BP allows no BB 2/2/ labile BP pt will need rehab at discharge pulm toileting OOB PT/OT rehab (3) Cardiac arrest Plan: resolved (4) Ventricular fibrillation Plan: resolved (5) Cardiac arrest with ventricular fibrillation (6) Ventilator dependence Plan: resolved (7) IGNACIO (acute kidney injury) Plan: stable 1.07 (8) Blood loss anemia Plan: for 2 units PRBC today Jaylene Khan Oct 08, 2017 10:14
--- NOTE | 2017-10-08 10:27 | HHI.CCPN ---
Subjective Remarks/Hospital Course This is a 60yM who presented as an [id number] v. fib cardiac arrest. Per report, he complained of heartburn most of the day today. This evening he became acutely unresponsive. family member started bystander CPR. Reported down- time was 20 minutes. presenting rhythm to EMS was v. fib. ROSC was obtained and [id number] 12-leads suggests inferior st-elevations. upon arrival to ED, patient again had pulseless v. tach/v. fib arrest, ROSC obtained and again repeat 12-lead with inferior st- elevations. patient has poor neurologic exam despite receiving no neuro altering medications. long discussion with Dr. Zacarias: holding off on emergent left heart cath given poor neurologic function. no additional information obtainable from the patient due to his clinical condition. ROS unobtainable. 09/26: Currently actively being rewarmed. No further dysrhythmias noted. Remains on lidocaine drip at 2 mg/min. Gram-negative andre and sputum identified. 09/27: Afebrile. Patient has been rewarmed. Will initiate tube feeds today. Appears to be posturing with decerebrate positioning. EEG ordered for today. 09/28: Afebrile. Trickle feeds currently at 10 cc an hour. Required paralysis yesterday due to dyssynchrony of the ventilator causing hypoxia. Will diuresis with furosemide 40 mg IV 1 after potassium replacement today. No bowel movement since admission. Subjective 09/29: Afebrile. Continue trickle feeds at 10 cc an hour. Again required paralysis for dyssynchrony on the ventilator causing hypoxia. MRI brain at noon , EEG today. Neurology consult per family's request for prognosis. Quattro catheter removed yesterday 09/28 without complication. 09/30 Patient remains intubated and sedated with Versed, Diprivan, Fentanyl drips in addition he is on Nimbex. Afebrile. 10/01 Patient remains intubated now only on Precedex drip. T:100.2. On Heparin drip 10/02: Tmax 100.2. Patient alert and oriented 2, to person and place. Patient agitated during the night Precedex infusion restarted now discontinued. Patient continues on Keppra. Patient is tentatively scheduled for cardiac catheterization early next week. Patient having active bowel movements though KUB showed gaseous distention yesterday. The patient underwent formal swallow, currently tolerating a pured diet with honey thickened liquids. 10/07 Patient s/p CABG x 4 remains intubated on CPAP. On Precedex drip and being weaned off Neosyn. 10/08 Patient was extubated yesterday on 6L oxygen. Off all drips. Afebrile. Objective Vital Signs Date Time Temp Pulse Resp B/P (MAP) Pulse Ox O2 Delivery O2 Flow Rate FiO2 10/08/17 10:04 98 Nasal Cannula 6.00 10/08/17 08:00 98.2 79 16 103/66 (78) 101/58 (72) 10/07/17 13:10 50 Intake and Output 10/08/17 10/08/17 10/09/17 08:00 16:00 00:00 Intake Total 1165.9 ml Output Total 750 ml Balance 415.9 ml Result Diagram: 10/08/17 0418 10/08/17 0418 Other Results Laboratory Tests Test 10/07/17 14:43 10/08/17 04:18 White Blood Count 31.3 TH/MM3 18.0 TH/MM3 Red Blood Count 2.84 MIL/MM3 2.61 MIL/MM3 Hemoglobin 8.3 GM/DL 7.7 GM/DL Hematocrit 25.0 % 23.0 % Mean Corpuscular Volume 88.3 FL 88.0 FL Mean Corpuscular Hemoglobin 29.2 PG 29.7 PG Mean Corpuscular Hemoglobin Concent 33.1 % 33.7 % Red Cell Distribution Width 14.0 % 14.1 % Platelet Count 322 TH/MM3 332 TH/MM3 Mean Platelet Volume 9.5 FL 9.4 FL Neutrophils (%) (Auto) 85.4 % 72.3 % Lymphocytes (%) (Auto) 8.8 % 20.2 % Monocytes (%) (Auto) 5.6 % 6.9 % Eosinophils (%) (Auto) 0.0 % 0.0 % Basophils (%) (Auto) 0.2 % 0.6 % Neutrophils # (Auto) 26.7 TH/MM3 13.0 TH/MM3 Lymphocytes # (Auto) 2.8 TH/MM3 3.6 TH/MM3 Monocytes # (Auto) 1.8 TH/MM3 1.2 TH/MM3 Eosinophils # (Auto) 0.0 TH/MM3 0.0 TH/MM3 Basophils # (Auto) 0.1 TH/MM3 0.1 TH/MM3 CBC Comment AUTO DIFF DIFF FINAL Differential Total Cells Counted 100 Neutrophils % (Manual) 88 % Band Neutrophils % 4 % Lymphocytes % 4 % Monocytes % 4 % Neutrophils # (Manual) 28.8 TH/MM3 Differential Comment FINAL DIFF MANUAL Platelet Estimate NORMAL Platelet Morphology Comment NORMAL Basophilic Stippling Blood Urea Nitrogen 17 MG/DL 20 MG/DL Creatinine 0.85 MG/DL 1.07 MG/DL Random Glucose 109 MG/DL 102 MG/DL Total Protein 4.5 GM/DL 4.9 GM/DL Albumin 1.7 GM/DL 1.9 GM/DL Calcium Level 8.1 MG/DL 7.8 MG/DL Phosphorus Level 3.9 MG/DL Magnesium Level 2.1 MG/DL 2.0 MG/DL Alkaline Phosphatase 47 U/L 55 U/L Aspartate Amino Transf (AST/SGOT) 26 U/L 28 U/L Alanine Aminotransferase (ALT/SGPT) 45 U/L 39 U/L Total Bilirubin 0.5 MG/DL 0.5 MG/DL Sodium Level 143 MEQ/L 141 MEQ/L Potassium Level 4.2 MEQ/L 4.2 MEQ/L Chloride Level 110 MEQ/L 108 MEQ/L Carbon Dioxide Level 24.4 MEQ/L 27.4 MEQ/L Anion Gap 9 MEQ/L 6 MEQ/L Estimat Glomerular Filtration Rate 91 ML/MIN 70 ML/MIN Imaging Last Impressions Chest X-Ray 10/08/17 0500 Signed Impressions: Service Date/Time: Sunday, October 08, 2017 04:33 - CONCLUSION: 1. Interval extubation and removal of nasogastric tube. 2. Left-sided chest tube with no pneumothorax. 3. Mild cardiomegaly with hazy opacity of the lung bases. Perez Griffin MD Head CT 10/06/17 0000 Signed Impressions: Service Date/Time: Friday, October 06, 2017 13:45 - CONCLUSION: 1. No acute intracranial abnormality. Geovanni Pride MD Lower Extremity Ultrasound 10/04/17 0000 Signed Impressions: Service Date/Time: Wednesday, October 04, 2017 16:02 - CONCLUSION: Venous mapping as above Blaine Pride MD FACR Carotid Artery Ultrasound 10/04/17 0000 Signed Impressions: Service Date/Time: Wednesday, October 04, 2017 16:23 - CONCLUSION: Negative examination for a hemodynamically significant carotid stenosis. . Blaine Pride MD FACR Abdomen X-Ray 10/01/17 0000 Signed Impressions: Service Date/Time: Sunday, October 01, 2017 08:11 - CONCLUSION: 1. Mild gaseous distention of the colon. No free air. Kameron Zapata MD Liver Ultrasound 09/30/17 0000 Signed Impressions: Service Date/Time: September 17:06 - CONCLUSION: 1. Fatty liver, enlarged. No free fluid. No gallstones or biliary ductal dilatation. Kameron Zapata MD Brain MRI 09/29/17 0000 Signed Impressions: Service Date/Time: Friday, September 29, 2017 12:35 - CONCLUSION: 1. No recent infarct. Mild chronic white matter ischemic changes. 2. Sphenoid and ethmoid sinusitis. Kameron Zapata MD Objective Remarks GENERAL: A well-developed well-nourished male llying in bed in [facility] SKIN: Warm and dry. HEAD: Normocephalic. EYES: No scleral icterus. No injection or drainage. NECK: Supple, trachea midline. No JVD or lymphadenopathy. CARDIOVASCULAR: Regular rate and rhythm without murmurs, gallops, or rubs. RESPIRATORY: Breath sounds equal bilaterally. No accessory muscle use. GASTROINTESTINAL: Abdomen soft, non-tender, nondistended. MUSCULOSKELETAL: No cyanosis, or edema. Neuro: Awake and alert Date of Insertion: Sep 28, 2017 Line: Central Venous Catheter Side: Left Location: Internal, Jugular A/P Assessment and Plan Neuro/Psych: Hypoxic ischemic encephalopathy Hypoxic encephalopathy THC use Monitor neuro status and avoid any sedatives CT brain on admission revealed no acute intracranial findings. EEG ordered for a.m. 09/27 completed. Moderate slowing. No epileptiform features MRI brain 09/29 . No recent infarct. Mild chronic white matter ischemic changes. Neurology is following- Dr. Love. Continues on Keppra s/p hypothermia cool Respiratory: Acute hypoxic and hypercarbic respiratory failure Left lower lobe infiltrate Continue with oxygen keep sats >92 Albuterol/ipratropium aerosols every 6 hours with albuterol aerosols every 2 hours as needed dyspnea Incentive spirometry Cardiovascular: s/p CABG x4 10/07 Out of hospital V. fib cardiac arrest Recurrent ventricular tachycardia Cardiogenic shock Inferior STEMI Acute systolic and diastolic heart failure Elevated triglycerides Monitor HR and BP keep MAP>65mmHg, On ASA/Plavix/Lipitor/Lopressor 12.5mg BID Cardiology is following- Dr. Zacarias Lidocaine infusion currently 2 mg a/minute continue per cardiology recommendation discontinued 09/27. No further incidence of recurrent V. tach 2D echocardiogram revealed EF 35-40%. LVH. Inferior/global hypokinesis. Bilateral atrial enlargement. Grade 1 diastolic dysfunction. Renal: Acute kidney injury -resolving Monitor renal function, I/O's, electrolytes replacement per protocol. FEN/GI: Elevated transaminases Monitor LFT's( trending down) , on PO diet US Liver: Fatty liver, enlarged. No free fluid. No gallstones or biliary ductal dilatation. Heme/ID: Normocytic anemia Thrombocytopenia Serratia marcescens pneumonia Monitor for signs of infections ( fever, WBC) Perioperative abx ( Cefazolin) per CTS For transfusion 2u PRBC today Hgb 7.7 Pertinent cultures 09/25 -sputum -Serratia marcescens Endocrine: Hyperglycemia of critical illness -- SSI Novulog with Accu-Cheks every 4 hours medium protocol Prophylaxis: GI Prophylaxis Famotidine IV DVT Prophylaxis -- SCDs Start DVT prophylaxis once cleared by CTS Will sign off Level 2 Tai Shaw MD Oct 08, 2017 10:27
[2017-10-08] MEDS: INSULIN ASPART SUPPLEMENTAL SCALE SQ SCH ×4 (11:16→22:00)
--- NOTE | 2017-10-08 11:17 | PD.CARD.PN ---
Subjective Subjective Remarks Doing well No complaints Hemodynamically stable on Juve drip Objective Medications Current Medications Medications (Trade) Dose Ordered Sig/Isabel Route Start Time Stop Time Status Last Admin Piperacillin Sod/ Tazobactam Sod 100 ml @ 200 mls/hr Q6H IV 09/26/17 18:00 10/09/17 18:00 10/08/17 06:00 (Melatonin) 5 mg HS PRN PO 10/02/17 21:00 10/03/17 21:51 (SEROquel) 50 mg HS PRN PO 10/04/17 08:15 (Catapres) 0.1 mg Q6H PRN PO 10/05/17 00:45 10/05/17 22:21 (NS Flush) 2 ml BID IV FLUSH 10/07/17 21:00 10/08/17 09:19 (NS Flush) 2 ml UNSCH PRN IV FLUSH 10/07/17 13:45 (Aspirin Chew) 81 mg DAILY PO 10/08/17 09:00 10/08/17 09:18 (Plavix) 75 mg DAILY PO 10/08/17 09:00 10/08/17 09:19 (Protonix) 40 mg DAILY@06 PO 10/08/17 06:00 10/08/17 06:00 (Tylenol) 650 mg Q4H PRN PO 10/07/17 13:45 ([place] 5-325 Mg) 1 tab Q3H PRN PO 10/07/17 13:45 10/08/17 09:18 (Toradol Inj) 15 mg Q6H PRN IV PUSH 10/07/17 14:00 10/09/17 13:59 10/08/17 08:38 (fentaNYL INJ) 25 mcg Q1H PRN IV PUSH 10/07/17 14:00 10/08/17 07:02 (Zofran Inj) 4 mg Q6H PRN IV PUSH 10/07/17 13:45 10/08/17 08:38 Cefazolin Sodium/ Dextrose 50 ml @ 100 mls/hr Q8H IV 10/07/17 20:00 10/09/17 04:29 10/08/17 04:43 (Duoneb Neb) 1 ampule Q2HR NEB PRN NEB 10/07/17 12:00 Phenylephrine HCl 40 mg/Sodium Chloride 504 ml @ 30.24 mls/ hr TITRATE PRN IV 10/07/17 13:15 10/08/17 07:44 Acetaminophen 100 ml @ 400 mls/hr Q6H IV 10/07/17 17:00 10/08/17 11:14 10/08/17 04:43 ([place] 5-325 Mg) 2 tab Q4H PRN PO 10/08/17 10:00 (Duoneb Neb) 1 ampule Q6HR WHILE AWAKE NEB NEB 10/08/17 14:00 10/10/17 13:59 (Colace) 100 mg BID PO 10/08/17 10:00 (Theragran M Tab) 1 tab DAILY PO 10/09/17 09:00 (Milk Of Magnesia Liq) 30 ml DAILY PO 10/09/17 09:00 (Dulcolax Supp) 10 mg UNSCH PRN RECTAL 10/08/17 10:00 (Miralax) 17 gm DAILY PO 10/09/17 09:00 (Senokot) 8.6 mg HS PO 10/08/17 21:00 (Fleets Enema (Adult)) 118 ml UNSCH PRN RECTAL 10/08/17 10:00 (Lopressor) 12.5 mg BID PO 10/09/17 09:00 (NovoLOG SUPPLEMENTAL SCALE) 1 02,06,10,14,18,22 SQ 10/08/17 10:00 10/09/17 09:59 (D50w (Vial) Inj) 50 ml UNSCH PRN IV PUSH 10/08/17 10:00 (Glucagon Inj) 1 mg UNSCH PRN OTHER 10/08/17 10:00 (Lipitor) 80 mg HS PO 10/08/17 21:00 (NovoLOG SUPPLEMENTAL SCALE) 1 ACHS SQ 10/09/17 12:00 Vital Signs / I&O Vital Signs Date Time Temp Pulse Resp B/P (MAP) Pulse Ox O2 Delivery O2 Flow Rate FiO2 10/08/17 11:05 98.3 92 16 116/60 95 10/08/17 10:04 98 Nasal Cannula 6.00 10/08/17 08:00 98.2 79 16 103/66 (78) 96 101/58 (72) 10/08/17 08:00 16 10/08/17 08:00 79 10/08/17 08:00 95 Nasal Cannula 6.00 Humidified 10/08/17 07:44 77 101/63 10/08/17 05:06 16 10/08/17 03:31 18 10/08/17 03:00 98.6 84 16 95/54 (68) 95 74/62 (66) 10/08/17 03:00 94 Nasal Cannula 5.00 10/08/17 03:00 81 10/07/17 23:00 98.5 73 18 103/67 (79) 97 113/58 (76) 10/07/17 23:00 97 Nasal Cannula 5.00 10/07/17 23:00 80 10/07/17 19:21 94 Nasal Cannula 5.00 10/07/17 19:00 98 Nasal Cannula 5.00 10/07/17 19:00 98.4 68 18 108/51 (70) 98 111/58 (75) 10/07/17 19:00 78 10/07/17 17:00 70 120/59 10/07/17 16:06 66 128/67 10/07/17 15:07 59 104/50 10/07/17 15:00 63 10/07/17 15:00 99 Nasal Cannula 5.00 10/07/17 15:00 97.6 63 14 119/79 (92) 99 120/51 (74) 10/07/17 14:28 95 Nasal Cannula 5.00 10/07/17 14:28 95 Nasal Cannula 5 10/07/17 14:00 63 104/59 10/07/17 13:10 96 50 10/07/17 12:30 63 94/50 10/07/17 12:26 95 40 10/07/17 12:23 59 10/07/17 12:23 98.9 59 16 103/57 (72) 99 104/50 (68) 10/07/17 12:23 59 104/50 10/07/17 12:23 40 I/O 10/07/17 10/07/17 10/07/17 10/08/17 10/08/17 10/08/17 07:00 15:00 23:00 07:00 15:00 23:00 Intake Total 340 ml 4150 ml 1750 ml 1165.9 ml 10 ml Output Total 600 ml 2000 ml 670 ml 750 ml Balance -260 ml 2150 ml 1080 ml 415.9 ml 10 ml Intake Oral 240 ml 240 ml IV Total 100 ml 250 ml 925.9 ml Autotransfusion 750 ml Blood Product IV Normal Saline Flush 10 ml Other 3400 ml 1500 ml Output Urine Total 600 ml 600 ml 270 ml 520 ml Gastric Drainage Total 100 ml Chest Tube Drainage Total 300 ml 230 ml Estimated Blood Loss 1400 ml # Voids 4 # Bowel Movements 0 Physical Exam GENERAL: NAD SKIN: Warm/dry HEAD: Atraumatic. Normocephalic. EYES: Pupils equal and round. No scleral icterus. No injection or drainage. ENT: No nasal bleeding or discharge. Mucous membranes pink and moist. NECK: Trachea midline. No JVD. CARDIOVASCULAR: Regular rate and rhythm. Sternotomy clean/dry RESPIRATORY: No accessory muscle use. Clear to auscultation. Breath sounds equal bilaterally. GASTROINTESTINAL: Abdomen soft, non-tender, nondistended. Hepatic and splenic margins not palpable. MUSCULOSKELETAL: Extremities without clubbing, cyanosis, or edema. No obvious deformities. NEUROLOGICAL: No focal deficits Laboratory Laboratory Tests Test 10/07/17 14:43 10/08/17 04:18 White Blood Count 31.3 TH/MM3 18.0 TH/MM3 Red Blood Count 2.84 MIL/MM3 2.61 MIL/MM3 Hemoglobin 8.3 GM/DL 7.7 GM/DL Hematocrit 25.0 % 23.0 % Mean Corpuscular Volume 88.3 FL 88.0 FL Mean Corpuscular Hemoglobin 29.2 PG 29.7 PG Mean Corpuscular Hemoglobin Concent 33.1 % 33.7 % Red Cell Distribution Width 14.0 % 14.1 % Platelet Count 322 TH/MM3 332 TH/MM3 Mean Platelet Volume 9.5 FL 9.4 FL Neutrophils (%) (Auto) 85.4 % 72.3 % Lymphocytes (%) (Auto) 8.8 % 20.2 % Monocytes (%) (Auto) 5.6 % 6.9 % Eosinophils (%) (Auto) 0.0 % 0.0 % Basophils (%) (Auto) 0.2 % 0.6 % Neutrophils # (Auto) 26.7 TH/MM3 13.0 TH/MM3 Lymphocytes # (Auto) 2.8 TH/MM3 3.6 TH/MM3 Monocytes # (Auto) 1.8 TH/MM3 1.2 TH/MM3 Eosinophils # (Auto) 0.0 TH/MM3 0.0 TH/MM3 Basophils # (Auto) 0.1 TH/MM3 0.1 TH/MM3 CBC Comment AUTO DIFF DIFF FINAL Differential Total Cells Counted 100 Neutrophils % (Manual) 88 % Band Neutrophils % 4 % Lymphocytes % 4 % Monocytes % 4 % Neutrophils # (Manual) 28.8 TH/MM3 Differential Comment FINAL DIFF MANUAL Platelet Estimate NORMAL Platelet Morphology Comment NORMAL Basophilic Stippling Blood Urea Nitrogen 17 MG/DL 20 MG/DL Creatinine 0.85 MG/DL 1.07 MG/DL Random Glucose 109 MG/DL 102 MG/DL Total Protein 4.5 GM/DL 4.9 GM/DL Albumin 1.7 GM/DL 1.9 GM/DL Calcium Level 8.1 MG/DL 7.8 MG/DL Phosphorus Level 3.9 MG/DL Magnesium Level 2.1 MG/DL 2.0 MG/DL Alkaline Phosphatase 47 U/L 55 U/L Aspartate Amino Transf (AST/SGOT) 26 U/L 28 U/L Alanine Aminotransferase (ALT/SGPT) 45 U/L 39 U/L Total Bilirubin 0.5 MG/DL 0.5 MG/DL Sodium Level 143 MEQ/L 141 MEQ/L Potassium Level 4.2 MEQ/L 4.2 MEQ/L Chloride Level 110 MEQ/L 108 MEQ/L Carbon Dioxide Level 24.4 MEQ/L 27.4 MEQ/L Anion Gap 9 MEQ/L 6 MEQ/L Estimat Glomerular Filtration Rate 91 ML/MIN 70 ML/MIN Imaging Last 24 hours Impressions Chest X-Ray 10/08/17 0500 Signed Impressions: Service Date/Time: Sunday, October 08, 2017 04:33 - CONCLUSION: 1. Interval extubation and removal of nasogastric tube. 2. Left-sided chest tube with no pneumothorax. 3. Mild cardiomegaly with hazy opacity of the lung bases. Perez Griffin MD Assessment and Plan Problem List: (1) Acute ST elevation myocardial infarction (STEMI) ICD Codes: I21.3 - ST elevation (STEMI) myocardial infarction of unspecified site Status: Acute (2) S/P CABG x 4 ICD Codes: Z95.1 - Presence of aortocoronary bypass graft (3) Cardiac arrest ICD Codes: I46.9 - Cardiac arrest, cause unspecified (4) Ventricular fibrillation ICD Codes: I49.01 - Ventricular fibrillation (5) Cardiac arrest with ventricular fibrillation ICD Codes: I46.9 - Cardiac arrest, cause unspecified; I49.01 - Ventricular fibrillation Status: Acute (6) Ventilator dependence ICD Codes: Z99.11 - Dependence on respirator [ventilator] status (7) IGNACIO (acute kidney injury) ICD Codes: N17.9 - Acute kidney failure, unspecified Status: Acute (8) Blood loss anemia ICD Codes: D50.0 - Iron deficiency anemia secondary to blood loss (chronic) Assessment and Plan 1) Acute inferior STEMI/MVCAD s/p CABG x3 POD #1 ROGERS to LAD SVG to OM1 SVG to PDA 2) Cardiac arrest/Vfib arrest No further arrhythmias 3) EF 35-40% 4) Mild anoxic brain injury But doing much better, no longer acting "childish" 5) Wean Juve drip Plan for PRBC with Lasix in between Zeke Zacarias DO Oct 08, 2017 11:17
[2017-10-08] MEDS: SENNOSIDES 8.6 MG TAB PO SCH (20:17)
[2017-10-08] MEDS: ATORVASTATIN 80 MG TAB PO SCH (20:17)
--- NOTE | 2017-10-08 20:28 | EKG ---
Date Performed: 10/08/2017 Time Performed: 03:20:06 PTAGE: 61 years EKG: Sinus rhythm Short AK interval Extensive T wave changes may be due to myocardial ischemia Low QRS voltages in pre cordial leads Since previous tracing, no significant change noted Abnormal ECG PREVIOUS TRACING : 09/24/2017 23.22.47 DOCTOR: Arturo Rose Interpretating Date/Time 10/08/2017 20:27:17
[2017-10-08] MEDS: MELATONIN 5 MG TAB PO PRN (23:47)
[2017-10-09] VITALS (8 sets, daily range): BP systolic 95–137; BP diastolic 60–78; PULSE 75–95; RESP 16–20; TEMP 98–98.9; O2SAT 94–97
[2017-10-09] MEDS: PIPERACIL-TAZO 4.5 GM PREMIX 100 ML IV SCH ×4 (00:02→18:24)
[2017-10-09] MEDS: INSULIN ASPART SUPPLEMENTAL SCALE SQ SCH ×5 (01:57→20:36)
[2017-10-09] MEDS: ceFAZolin 2 GM PREMIX 50 ML IV SCH (04:06)
[2017-10-09] MEDS: ACETAMINOPHEN/HYDROcodone 325 MG/5 MG TAB PO PRN ×2 (04:54→09:26)
[2017-10-09 05:52] LABS: AUTOMATED NEUTROPHIL # 9.9 TH/MM3 (1.8-7.7); BASOPHIL # 0.1 TH/MM3 (0-0.2); BASOPHIL % 0.4 % (0.0-2.0); EOSINOPHIL % 0.2 % (0.0-4.0); HEMATOCRIT 23.9 % (39.0-51.0); HEMOGLOBIN 8.1 GM/DL (13.0-17.0); LYMPH % 18.4 % (9.0-44.0); LYMPHOCYTE # 2.5 TH/MM3 (1.0-4.8); MEAN CELL VOLUME 88.4 FL (80.0-100.0); MEAN CORPUSCULAR HEMOGLOBIN 29.9 PG (27.0-34.0); MEAN CORPUSCULAR HGB CONC 33.9 % (32.0-36.0); MEAN PLATELET VOLUME 9.5 FL (7.0-11.0); MONOCYTE # 0.9 TH/MM3 (0-0.9); PLATELET COUNT 236 TH/MM3 (150-450); RED BLOOD COUNT 2.71 MIL/MM3 (4.50-5.90); RED CELL DISTRIBUTION WIDTH 14.2 % (11.6-17.2); WHITE BLOOD COUNT 13.4 TH/MM3 (4.0-11.0)
[2017-10-09] MEDS: PANTOPRAZOLE SOD 40 MG DELAYED RELEASE TAB PO SCH (06:03)
[2017-10-09 06:15] LABS: ALBUMIN 1.9 GM/DL (3.4-5.0); ALT (GPT) 25 U/L (12-78); AST (GOT) 25 U/L (15-37); BICARBONATE 26.5 MEQ/L (21.0-32.0); BLOOD UREA NITROGEN 16 MG/DL (7-18); CALCIUM 7.6 MG/DL (8.5-10.1); CHLORIDE 105 MEQ/L (98-107); CREATININE 1.02 MG/DL (0.60-1.30); GLOMERULAR FILTRATION RATE 74 ML/MIN (>89); GLUCOSE,RANDOM 118 MG/DL (74-106); MAGNESIUM 2.1 MG/DL (1.5-2.5); SODIUM (NA) 140 MEQ/L (136-145)
[2017-10-09 06:19] LABS: ALKALINE PHOSPHATASE 55 U/L (45-117); TOTAL BILIRUBIN ADULT 0.5 MG/DL (0.2-1.0); TOTAL PROTEIN 5.1 GM/DL (6.4-8.2)
[2017-10-09] MEDS: RESP: ALBUTEROL 2.5 MG/IPRATROPIUM 0.5 MG NEB (SCH) NEB ×3 (07:41→19:24)
--- NOTE | 2017-10-09 08:25 | HHI.PR ---
Subjective Remarks no complaints this AM "had rough night' Objective Vitals heart reg lung chest tube. diminished air entry sternal wound covered. abd s/nt ext no pitting. Vital Signs Date Time Temp Pulse Resp B/P (MAP) Pulse Ox O2 Delivery O2 Flow Rate FiO2 10/09/17 07:40 94 Nasal Cannula 3.00 10/09/17 06:02 16 10/09/17 03:00 95 Nasal Cannula 6.00 Humidified 10/09/17 03:00 98.4 92 18 110/60 (77) 95 10/09/17 03:00 93 10/08/17 23:00 94 Nasal Cannula 6.00 Humidified 10/08/17 23:00 105 10/08/17 23:00 98.0 109 20 144/81 (102) 94 10/08/17 19:00 99.0 95 18 110/66 (81) 95 10/08/17 19:00 95 Nasal Cannula 6.00 Humidified 10/08/17 19:00 95 10/08/17 18:48 98.0 88 20 117/60 (79) 10/08/17 17:30 98.4 89 20 106/68 10/08/17 15:21 95 Nasal Cannula 6.00 Humidified 10/08/17 15:00 88 10/08/17 15:00 98.3 79 16 120/68 (85) 99 10/08/17 15:00 88 10/08/17 14:10 82 20 129/70 (89) 97 Arterial Line 10/08/17 14:00 98.0 87 20 130/76 98 10/08/17 12:00 98.0 70 18 117/70 (86) 95 10/08/17 11:15 98.7 82 16 109/58 99 10/08/17 11:05 98.3 92 16 116/60 95 10/08/17 11:00 92 10/08/17 11:00 92 10/08/17 11:00 98.3 79 16 119/66 (83) 99 10/08/17 11:00 95 Nasal Cannula 5.00 Humidified 10/08/17 10:04 98 Nasal Cannula 6.00 Result Diagram: 10/09/17 0430 10/09/17 0430 Imaging Last Impressions Abdomen X-Ray 10/01/17 0000 Signed Impressions: Service Date/Time: Sunday, October 01, 2017 08:11 - CONCLUSION: 1. Mild gaseous distention of the colon. No free air. Kameron Zapata MD Liver Ultrasound 09/30/17 0000 Signed Impressions: Service Date/Time: September 17:06 - CONCLUSION: 1. Fatty liver, enlarged. No free fluid. No gallstones or biliary ductal dilatation. Kameron Zapata MD Chest X-Ray 09/30/17 0000 Signed Impressions: Service Date/Time: September 13:15 - CONCLUSION: 1. Support apparatus unchanged. Basilar airspace disease and pleural effusions similar to September 28. Kameron Zapata MD Brain MRI 09/29/17 0000 Signed Impressions: Service Date/Time: Friday, September 29, 2017 12:35 - CONCLUSION: 1. No recent infarct. Mild chronic white matter ischemic changes. 2. Sphenoid and ethmoid sinusitis. Kameron Zapata MD Head CT 09/25/17 0000 Signed Impressions: Service Date/Time: Monday, September 25, 2017 00:31 - CONCLUSION: 1. No acute intracranial abnormality demonstrated. 2. Sinus disease. Mikhail Ruiz MD Date of Insertion: Sep 28, 2017 Line: Central Venous Catheter Side: Left Location: Internal, Jugular A/P Problem List: (1) Cardiac arrest with ventricular fibrillation ICD Codes: I46.9 - Cardiac arrest, cause unspecified; I49.01 - Ventricular fibrillation Status: Acute Plan: Acute inferior STEMI Cardiac arrest/Vfib arrest This is a 61 year old male patient who presented as an [id number] v. fib cardiac arrest. Per report, he complained of heartburn most of the day then in the evening he became acutely unresponsive. family member started bystander CPR. Reported down-time was 20 minutes. Upon arrival to ED, patient again had pulseless v. tach/v. fib arrest, ROSC obtained and again repeat 12-lead with inferior st- elevations. patient has poor neurologic exam despite receiving no neuro altering medications. long discussion with Dr. Zacarias: held off on emergent left heart cath given poor neurologic function. Patient was treated in the ICU with hypothermia protocol. Initially was intubated, sedated and required paralysis. Patient was also on Lidocaine drip to prevent further athymias. EF 35-40%. 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 slow improvement systolic chf EF 35-40% pna..sputum serratia marcescens. anemia. s/p 2 units prbc on 10/08 left knee pseudogout ..improved. cont current abx on scheduled lasix/kcl cont scheduled duonebs metoprolol/ plavix/asa/statin risperdal switched to seroquel per neurology.t. will need snf after dc PT daily. dvt prophylaxis (2) Acute ST elevation myocardial infarction (STEMI) ICD Codes: I21.3 - ST elevation (STEMI) myocardial infarction of unspecified site Status: Acute Plan: see above (3) Hypoxic encephalopathy ICD Codes: G93.1 - Anoxic brain damage, not elsewhere classified Status: Acute Plan: Patient followed by Neurology Dr. Huff who has DC keppra cleared for cardiac catheterization At this point neurology will follow peripherally. recommends outpatient cognitive testing if confusion persists. see above (4) Abnormal sputum ICD Codes: R09.3 - Abnormal sputum Status: Acute Plan: Left lower lobe infiltrate S/P vent support Albuterol/ipratropium aerosols every 6 hours with albuterol aerosols every 2 hours as needed dyspnea 10/01- extubated patient started on Zosyn 09/26/17 sputum serration marcescens (5) Transaminitis ICD Codes: R74.0 - Nonspecific elevation of levels of transaminase and lactic acid dehydrogenase [LDH] Status: Acute Plan: Monitor LFT's( trending down) Ammonia level: 30 (10/03) US Liver: Fatty liver, enlarged. No free fluid. No gallstones or biliary ductal dilatation. 10/01 KUB abdomen -mild gaseous distention. BM 10/02 laxatives on hold Sebastián uG MD Oct 09, 2017 08:25
[2017-10-09] MEDS: SODIUM CHLORIDE 0.9% FLUSH 10 ML FLUSH IV FLUSH SCH ×2 (09:25→20:29)
[2017-10-09] MEDS: DOCUSATE SODIUM 100 MG CAP PO SCH ×2 (09:25→20:35)
[2017-10-09] MEDS: METOPROLOL TARTRATE 25 MG TAB PO SCH ×2 (09:26→20:29)
[2017-10-09] MEDS: MULTIVITAMINS/MINERALS THERAPEUTIC TAB PO SCH (09:26)
[2017-10-09] MEDS: CLOPIDOGREL 75 MG TAB PO SCH (09:26)
[2017-10-09] MEDS: MAGNESIUM HYDROXIDE SUSP 30 ML CUP PO SCH (09:27)
[2017-10-09] MEDS: POLYETHYLENE GLYCOL 17 GM PKG PO SCH (09:27)
[2017-10-09] MEDS: ASPIRIN 81 MG CHEW TAB PO SCH (09:27)
--- NOTE | 2017-10-09 10:18 | PD.CAR.PN ---
CVT Progress Note CVT: POD #: 2 Subjective/Hospital Course: A 61-year-old male presented as a cardiac arrest witnessed on 09/24/2017. Apparently, was with his significant other when he was complaining of some gas pain and indigestion earlier that day. He sat on the couch, slumped over on his significant other's lap. She tried to wake him up and for the second time, he did not wake up, but she started CPR and called 911. EMS showed up and he was in V-fib arrest, so he was shocked and given ACLS drugs. He was intubated in the field, went into PEA arrest. CPR was continued. It was approximately 20 minutes when he regained pulses. He was found to have ST elevation and a STEMI upon arrival and had another episode of V-fib where he was defibrillated. At the time of the ER admission, he was also seen and evaluated by critical care. Since the patient had return of spontaneous circulation, was a post pulseless V-tach, V-fib arrest, he had initial poor neurological exam despite receiving no neuro altering meds, they held off the emergent left heart cath given poor neurological function; however, they did proceed with hypothermia therapy. The patient has since recovered neurologically, was extubated on last Wednesday. He then underwent cardiac cath today, which showed an EF of 40%. The echo shows an EF of 30%. He has left main of 60%, proximal LAD 80%, the diagonal 50%, the circumflex 100%, the OM1 of 100%, the RCA 100%. We were consulted to evaluate for coronary artery bypass grafting. The patient's echo also showed the EF of 35-40%, left atrial size mild to moderately dilated. The right atrial size was mildly dilated. There was trace to mild mitral regurgitation and trace tricuspid regurgitation. At this time, the patient has good long-term memory. He has some short-term memory problems; however, per his significant other, his short-term is improving daily. He has not been out of bed due to the weakness; however, he moves all extremities. He does answer questions appropriately with some obvious forgetfulness with some short-term memory. 10/07 surgery: Urgent Off-pump Coronary Artery Bypass Grafting x 4 with Left Internal Mammary Artery (ROGERS) to the Left Anterior Descending (LAD), reverse saphenous vein graft to the Obtuse Marginal 1 (OM1), reverse saphenous vein graft to the Posterolateral branch of the Right Coronary Artery (RPLB), Left Leg Endoscopic Vein Merrill was also noted to have Sternal Comminuted Fractures ( previous CPR) pt was extremely agitated during weaning process , requiring propofol and precedex/ was then weaned and extubated, pt has chest binder in place for now crystalloid 3400cc, cell saver 750cc, 1400cc EBL 10/08 pt up in chair awake and alert , girlfriend at bedside will need aggressive pulm toileting OT/PT, very weak HGB 7.7 BP labile, on Juve, will give 2 units PRBC with lasix once weaned off juve, and VSS eval for transfer to stepdown continue Seroquel at night 10/09/17 No c/o. improving, but still unsteady gait Objective: Vital Signs Date Time Temp Pulse Resp B/P (MAP) Pulse Ox O2 Delivery O2 Flow Rate FiO2 10/09/17 08:00 85 Nasal Cannula 3.00 10/09/17 08:00 98.5 87 16 118/67 (84) 94 10/09/17 08:00 85 10/09/17 07:40 94 Nasal Cannula 3.00 10/09/17 06:02 16 10/09/17 03:00 95 Nasal Cannula 6.00 Humidified 10/09/17 03:00 98.4 92 18 110/60 (77) 95 10/09/17 03:00 93 10/08/17 23:00 94 Nasal Cannula 6.00 Humidified 10/08/17 23:00 105 10/08/17 23:00 98.0 109 20 144/81 (102) 94 10/08/17 19:00 99.0 95 18 110/66 (81) 95 10/08/17 19:00 95 Nasal Cannula 6.00 Humidified 10/08/17 19:00 95 10/08/17 18:48 98.0 88 20 117/60 (79) 10/08/17 17:30 98.4 89 20 106/68 10/08/17 15:21 95 Nasal Cannula 6.00 Humidified 10/08/17 15:00 88 10/08/17 15:00 98.3 79 16 120/68 (85) 99 10/08/17 15:00 88 10/08/17 14:10 82 20 129/70 (89) 97 Arterial Line 10/08/17 14:00 98.0 87 20 130/76 98 10/08/17 12:00 98.0 70 18 117/70 (86) 95 10/08/17 11:15 98.7 82 16 109/58 99 10/08/17 11:05 98.3 92 16 116/60 95 10/08/17 11:00 92 10/08/17 11:00 92 10/08/17 11:00 98.3 79 16 119/66 (83) 99 10/08/17 11:00 95 Nasal Cannula 5.00 Humidified Labs: Laboratory Tests Test 10/09/17 04:30 White Blood Count 13.4 TH/MM3 (4.0-11.0) Red Blood Count 2.71 MIL/MM3 (4.50-5.90) Hemoglobin 8.1 GM/DL (13.0-17.0) Hematocrit 23.9 % (39.0-51.0) Mean Corpuscular Volume 88.4 FL (80.0-100.0) Mean Corpuscular Hemoglobin 29.9 PG (27.0-34.0) Mean Corpuscular Hemoglobin Concent 33.9 % (32.0-36.0) Red Cell Distribution Width 14.2 % (11.6-17.2) Platelet Count 236 TH/MM3 (150-450) Mean Platelet Volume 9.5 FL (7.0-11.0) Neutrophils (%) (Auto) 74.0 % (16.0-70.0) Lymphocytes (%) (Auto) 18.4 % (9.0-44.0) Monocytes (%) (Auto) 7.0 % (0.0-8.0) Eosinophils (%) (Auto) 0.2 % (0.0-4.0) Basophils (%) (Auto) 0.4 % (0.0-2.0) Neutrophils # (Auto) 9.9 TH/MM3 (1.8-7.7) Lymphocytes # (Auto) 2.5 TH/MM3 (1.0-4.8) Monocytes # (Auto) 0.9 TH/MM3 (0-0.9) Eosinophils # (Auto) 0.0 TH/MM3 (0-0.4) Basophils # (Auto) 0.1 TH/MM3 (0-0.2) CBC Comment DIFF FINAL Differential Comment Blood Urea Nitrogen 16 MG/DL (7-18) Creatinine 1.02 MG/DL (0.60-1.30) Random Glucose 118 MG/DL (74-106) Total Protein 5.1 GM/DL (6.4-8.2) Albumin 1.9 GM/DL (3.4-5.0) Calcium Level 7.6 MG/DL (8.5-10.1) Magnesium Level 2.1 MG/DL (1.5-2.5) Alkaline Phosphatase 55 U/L (45-117) Aspartate Amino Transf (AST/SGOT) 25 U/L (15-37) Alanine Aminotransferase (ALT/SGPT) 25 U/L (12-78) Total Bilirubin 0.5 MG/DL (0.2-1.0) Sodium Level 140 MEQ/L (136-145) Potassium Level 3.6 MEQ/L (3.5-5.1) Chloride Level 105 MEQ/L (98-107) Carbon Dioxide Level 26.5 MEQ/L (21.0-32.0) Anion Gap 9 MEQ/L (5-15) Estimat Glomerular Filtration Rate 74 ML/MIN (>89) Result Diagram: 10/09/17 0430 10/09/17 0430 Cardiovascular: RRR Telemetry: NSR Pulmonary: few crackles bilate GI/: NABS, NT Incision: dry and intact CT: 90ml/24hrs Plan: Remove chest tubes Encourage ambulation. up to chair Diurese Supp K (1) Acute ST elevation myocardial infarction (STEMI) (2) S/P CABG x 4 Plan: on ASA, statin , Plavix start statin , eval for analy when BP allows no BB 2/2/ labile BP pt will need rehab at discharge pulm toileting OOB PT/OT rehab (3) Cardiac arrest Plan: resolved (4) Ventricular fibrillation Plan: resolved (5) Cardiac arrest with ventricular fibrillation (6) Ventilator dependence Plan: resolved (7) IGNACIO (acute kidney injury) Plan: stable 1.07 (8) Blood loss anemia Plan: for 2 units PRBC today Alissa Santoro MD Oct 09, 2017 10:18
[2017-10-09] MEDS: KETOROLAC TROMETHAMINE 30 MG/ML (IVP) VIAL IV PUSH PRN (10:34)
--- NOTE | 2017-10-09 11:22 | PD.CARD.PN ---
Subjective Subjective Remarks Doing well No complaints Chest tubes being pulled Objective Medications Current Medications Medications (Trade) Dose Ordered Sig/Isabel Route Start Time Stop Time Status Last Admin Piperacillin Sod/ Tazobactam Sod 100 ml @ 200 mls/hr Q6H IV 09/26/17 18:00 10/09/17 18:00 10/09/17 06:03 (Melatonin) 5 mg HS PRN PO 10/02/17 21:00 10/08/17 23:47 (SEROquel) 50 mg HS PRN PO 10/04/17 08:15 (NS Flush) 2 ml BID IV FLUSH 10/07/17 21:00 10/09/17 09:25 (NS Flush) 2 ml UNSCH PRN IV FLUSH 10/07/17 13:45 (Aspirin Chew) 81 mg DAILY PO 10/08/17 09:00 10/09/17 09:27 (Plavix) 75 mg DAILY PO 10/08/17 09:00 10/09/17 09:26 (Protonix) 40 mg DAILY@06 PO 10/08/17 06:00 10/09/17 06:03 (Tylenol) 650 mg Q4H PRN PO 10/07/17 13:45 ([place] 5-325 Mg) 1 tab Q3H PRN PO 10/07/17 13:45 10/09/17 09:26 (Toradol Inj) 15 mg Q6H PRN IV PUSH 10/07/17 14:00 10/09/17 13:59 10/09/17 10:34 (Zofran Inj) 4 mg Q6H PRN IV PUSH 10/07/17 13:45 10/08/17 08:38 (Duoneb Neb) 1 ampule Q2HR NEB PRN NEB 10/07/17 12:00 Phenylephrine HCl 40 mg/Sodium Chloride 504 ml @ 30.24 mls/ hr TITRATE PRN IV 10/07/17 13:15 10/08/17 07:44 ([place] 5-325 Mg) 2 tab Q4H PRN PO 10/08/17 10:00 (Duoneb Neb) 1 ampule Q6HR WHILE AWAKE NEB NEB 10/08/17 14:00 10/10/17 13:59 10/09/17 07:41 (Colace) 100 mg BID PO 10/08/17 10:00 10/09/17 09:25 (Theragran M Tab) 1 tab DAILY PO 10/09/17 09:00 10/09/17 09:26 (Milk Of Magnesia Liq) 30 ml DAILY PO 10/09/17 09:00 10/09/17 09:27 (Dulcolax Supp) 10 mg UNSCH PRN RECTAL 10/08/17 10:00 (Miralax) 17 gm DAILY PO 10/09/17 09:00 10/09/17 09:27 (Senokot) 8.6 mg HS PO 10/08/17 21:00 10/08/17 20:17 (Fleets Enema (Adult)) 118 ml UNSCH PRN RECTAL 10/08/17 10:00 (Lopressor) 12.5 mg BID PO 10/09/17 09:00 10/09/17 09:26 (D50w (Vial) Inj) 50 ml UNSCH PRN IV PUSH 10/08/17 10:00 (Glucagon Inj) 1 mg UNSCH PRN OTHER 10/08/17 10:00 (Lipitor) 80 mg HS PO 10/08/17 21:00 10/08/17 20:17 (NovoLOG SUPPLEMENTAL SCALE) 1 ACHS SQ 10/09/17 12:00 (KCl) 30 meq Q12HR PO 10/09/17 11:00 (Lasix Inj) 40 mg BID@,18 IV PUSH 10/09/17 11:00 Vital Signs / I&O Vital Signs Date Time Temp Pulse Resp B/P (MAP) Pulse Ox O2 Delivery O2 Flow Rate FiO2 10/09/17 08:00 85 Nasal Cannula 3.00 10/09/17 08:00 98.5 87 16 118/67 (84) 94 10/09/17 08:00 85 10/09/17 07:40 94 Nasal Cannula 3.00 10/09/17 06:02 16 10/09/17 03:00 95 Nasal Cannula 6.00 Humidified 10/09/17 03:00 98.4 92 18 110/60 (77) 95 10/09/17 03:00 93 10/08/17 23:00 94 Nasal Cannula 6.00 Humidified 10/08/17 23:00 105 10/08/17 23:00 98.0 109 20 144/81 (102) 94 10/08/17 19:00 99.0 95 18 110/66 (81) 95 10/08/17 19:00 95 Nasal Cannula 6.00 Humidified 10/08/17 19:00 95 10/08/17 18:48 98.0 88 20 117/60 (79) 10/08/17 17:30 98.4 89 20 106/68 10/08/17 15:21 95 Nasal Cannula 6.00 Humidified 10/08/17 15:00 88 10/08/17 15:00 98.3 79 16 120/68 (85) 99 10/08/17 15:00 88 10/08/17 14:10 82 20 129/70 (89) 97 Arterial Line 10/08/17 14:00 98.0 87 20 130/76 98 10/08/17 12:00 98.0 70 18 117/70 (86) 95 I/O 10/08/17 10/08/17 10/08/17 10/09/17 10/09/17 10/09/17 07:00 15:00 23:00 07:00 15:00 23:00 Intake Total 1165.9 ml 422 ml 880 ml 390 ml Output Total 750 ml 750 ml 820 ml Balance 415.9 ml 422 ml 130 ml -430 ml Intake Oral 240 ml 420 ml 240 ml IV Total 925.9 ml 12 ml 50 ml 150 ml Packed Cells 400 ml 400 ml Blood Product IV Normal Saline Flush 10 ml 10 ml Output Urine Total 520 ml 750 ml 730 ml Chest Tube Drainage Total 230 ml 90 ml # Bowel Movements 0 0 0 Physical Exam GENERAL: NAD SKIN: Warm/dry HEAD: Atraumatic. Normocephalic. EYES: Pupils equal and round. No scleral icterus. No injection or drainage. ENT: No nasal bleeding or discharge. Mucous membranes pink and moist. NECK: Trachea midline. No JVD. CARDIOVASCULAR: Regular rate and rhythm. Sternotomy clean/dry RESPIRATORY: No accessory muscle use. Clear to auscultation. Breath sounds equal bilaterally. GASTROINTESTINAL: Abdomen soft, non-tender, nondistended. Hepatic and splenic margins not palpable. MUSCULOSKELETAL: Extremities without clubbing, cyanosis, or edema. No obvious deformities. NEUROLOGICAL: No focal deficits Laboratory Laboratory Tests Test 10/09/17 04:30 White Blood Count 13.4 TH/MM3 Red Blood Count 2.71 MIL/MM3 Hemoglobin 8.1 GM/DL Hematocrit 23.9 % Mean Corpuscular Volume 88.4 FL Mean Corpuscular Hemoglobin 29.9 PG Mean Corpuscular Hemoglobin Concent 33.9 % Red Cell Distribution Width 14.2 % Platelet Count 236 TH/MM3 Mean Platelet Volume 9.5 FL Neutrophils (%) (Auto) 74.0 % Lymphocytes (%) (Auto) 18.4 % Monocytes (%) (Auto) 7.0 % Eosinophils (%) (Auto) 0.2 % Basophils (%) (Auto) 0.4 % Neutrophils # (Auto) 9.9 TH/MM3 Lymphocytes # (Auto) 2.5 TH/MM3 Monocytes # (Auto) 0.9 TH/MM3 Eosinophils # (Auto) 0.0 TH/MM3 Basophils # (Auto) 0.1 TH/MM3 CBC Comment DIFF FINAL Differential Comment Blood Urea Nitrogen 16 MG/DL Creatinine 1.02 MG/DL Random Glucose 118 MG/DL Total Protein 5.1 GM/DL Albumin 1.9 GM/DL Calcium Level 7.6 MG/DL Magnesium Level 2.1 MG/DL Alkaline Phosphatase 55 U/L Aspartate Amino Transf (AST/SGOT) 25 U/L Alanine Aminotransferase (ALT/SGPT) 25 U/L Total Bilirubin 0.5 MG/DL Sodium Level 140 MEQ/L Potassium Level 3.6 MEQ/L Chloride Level 105 MEQ/L Carbon Dioxide Level 26.5 MEQ/L Anion Gap 9 MEQ/L Estimat Glomerular Filtration Rate 74 ML/MIN Assessment and Plan Problem List: (1) Acute ST elevation myocardial infarction (STEMI) ICD Codes: I21.3 - ST elevation (STEMI) myocardial infarction of unspecified site Status: Acute (2) S/P CABG x 4 ICD Codes: Z95.1 - Presence of aortocoronary bypass graft (3) Cardiac arrest ICD Codes: I46.9 - Cardiac arrest, cause unspecified (4) Ventricular fibrillation ICD Codes: I49.01 - Ventricular fibrillation (5) Cardiac arrest with ventricular fibrillation ICD Codes: I46.9 - Cardiac arrest, cause unspecified; I49.01 - Ventricular fibrillation Status: Acute (6) Ventilator dependence ICD Codes: Z99.11 - Dependence on respirator [ventilator] status (7) IGNACIO (acute kidney injury) ICD Codes: N17.9 - Acute kidney failure, unspecified Status: Acute (8) Blood loss anemia ICD Codes: D50.0 - Iron deficiency anemia secondary to blood loss (chronic) Assessment and Plan 1) Acute inferior STEMI/MVCAD s/p CABG x3 POD #2 ROGERS to LAD SVG to OM1 SVG to PDA 2) Cardiac arrest/Vfib arrest No further arrhythmias 3) EF 35-40% 4) Mild anoxic brain injury But doing much better, no longer acting "childish" Forming memories 5) Chest tubes out today 6) Rehab on discharge Zeke Zacarias DO Oct 09, 2017 11:22
[2017-10-09] MEDS: FUROSEMIDE 40 MG/4 ML VIAL IV PUSH SCH ×2 (12:11→17:25)
[2017-10-09] MEDS: POTASSIUM CHLORIDE 10 MEQ CONTROLLED RELEASE TAB PO SCH ×2 (12:12→20:28)
[2017-10-09] MEDS: ATORVASTATIN 80 MG TAB PO SCH (20:29)
[2017-10-09] MEDS: SENNOSIDES 8.6 MG TAB PO SCH (20:36)
[2017-10-09] MEDS: MELATONIN 5 MG TAB PO PRN (23:46)
[2017-10-10] VITALS (14 sets, daily range): BP systolic 118–134; BP diastolic 63–74; PULSE 76–104; RESP 16–18; TEMP 98.2–100.7; O2SAT 91–98
[2017-10-10 05:07] LABS: HEMATOCRIT 24.3 % (39.0-51.0); HEMOGLOBIN 8.2 GM/DL (13.0-17.0); MEAN CELL VOLUME 87.7 FL (80.0-100.0); MEAN CORPUSCULAR HEMOGLOBIN 29.5 PG (27.0-34.0); MEAN CORPUSCULAR HGB CONC 33.6 % (32.0-36.0); MEAN PLATELET VOLUME 9.3 FL (7.0-11.0); PLATELET COUNT 298 TH/MM3 (150-450); RED BLOOD COUNT 2.77 MIL/MM3 (4.50-5.90); RED CELL DISTRIBUTION WIDTH 14.4 % (11.6-17.2); WHITE BLOOD COUNT 11.5 TH/MM3 (4.0-11.0)
[2017-10-10 05:26] LABS: BICARBONATE 31.5 MEQ/L (21.0-32.0); CALCIUM 7.7 MG/DL (8.5-10.1); CREATININE 0.91 MG/DL (0.60-1.30)
[2017-10-10] MEDS: PANTOPRAZOLE SOD 40 MG DELAYED RELEASE TAB PO SCH (05:46)
[2017-10-10] MEDS: INSULIN ASPART SUPPLEMENTAL SCALE SQ SCH ×4 (08:00→21:00)
[2017-10-10] MEDS: FUROSEMIDE 40 MG/4 ML VIAL IV PUSH SCH ×2 (09:07→18:00)
[2017-10-10] MEDS: MAGNESIUM HYDROXIDE SUSP 30 ML CUP PO SCH (09:07)
[2017-10-10] MEDS: SODIUM CHLORIDE 0.9% FLUSH 10 ML FLUSH IV FLUSH SCH ×2 (09:07→21:39)
[2017-10-10] MEDS: METOPROLOL TARTRATE 25 MG TAB PO SCH ×2 (09:08→21:41)
[2017-10-10] MEDS: POTASSIUM CHLORIDE 10 MEQ CONTROLLED RELEASE TAB PO SCH ×2 (09:08→21:42)
[2017-10-10] MEDS: ASPIRIN 81 MG CHEW TAB PO SCH (09:09)
[2017-10-10] MEDS: DOCUSATE SODIUM 100 MG CAP PO SCH ×2 (09:09→21:00)
[2017-10-10] MEDS: CLOPIDOGREL 75 MG TAB PO SCH (09:09)
[2017-10-10] MEDS: POLYETHYLENE GLYCOL 17 GM PKG PO SCH (09:09)
[2017-10-10] MEDS: MULTIVITAMINS/MINERALS THERAPEUTIC TAB PO SCH (09:09)
--- NOTE | 2017-10-10 09:11 | HHI.PR ---
Subjective Remarks no complaints Objective Vitals heart reg lung good air entry sternal wound covered abd s/nt ext no pitting. Vital Signs Date Time Temp Pulse Resp B/P (MAP) Pulse Ox O2 Delivery O2 Flow Rate FiO2 10/10/17 08:21 95 Nasal Cannula 5.00 10/10/17 03:00 84 10/10/17 03:00 94 Nasal Cannula 6.00 Humidified 10/10/17 03:00 100.7 88 16 124/65 (84) 94 10/09/17 23:00 87 10/09/17 23:00 98.9 91 16 123/69 (87) 95 10/09/17 23:00 95 Nasal Cannula 6.00 Humidified 10/09/17 19:24 94 Nasal Cannula 5.00 10/09/17 19:00 95 10/09/17 19:00 95 Nasal Cannula 6.00 Humidified 10/09/17 19:00 98.2 95 20 137/71 (93) 96 10/09/17 16:00 94 Nasal Cannula 6.00 10/09/17 16:00 98.3 86 16 125/78 (94) 94 10/09/17 16:00 86 10/09/17 12:00 16 10/09/17 11:30 98.0 75 16 95/63 (74) 97 10/09/17 11:30 75 10/09/17 11:30 95 Nasal Cannula 6.00 10/09/17 10:30 16 Result Diagram: 10/10/17 0419 10/10/17 0419 Imaging Last Impressions Abdomen X-Ray 10/01/17 0000 Signed Impressions: Service Date/Time: Sunday, October 01, 2017 08:11 - CONCLUSION: 1. Mild gaseous distention of the colon. No free air. Kameron Zapata MD Liver Ultrasound 09/30/17 0000 Signed Impressions: Service Date/Time: September 17:06 - CONCLUSION: 1. Fatty liver, enlarged. No free fluid. No gallstones or biliary ductal dilatation. Kameron Zapata MD Chest X-Ray 09/30/17 0000 Signed Impressions: Service Date/Time: September 13:15 - CONCLUSION: 1. Support apparatus unchanged. Basilar airspace disease and pleural effusions similar to September 28. Kameron Zapata MD Brain MRI 09/29/17 0000 Signed Impressions: Service Date/Time: Friday, September 29, 2017 12:35 - CONCLUSION: 1. No recent infarct. Mild chronic white matter ischemic changes. 2. Sphenoid and ethmoid sinusitis. Kameron Zapata MD Head CT 09/25/17 0000 Signed Impressions: Service Date/Time: Monday, September 25, 2017 00:31 - CONCLUSION: 1. No acute intracranial abnormality demonstrated. 2. Sinus disease. Mikhail Ruiz MD Date of Insertion: Sep 28, 2017 Line: Central Venous Catheter Side: Left Location: Internal, Jugular A/P Problem List: (1) Cardiac arrest with ventricular fibrillation ICD Codes: I46.9 - Cardiac arrest, cause unspecified; I49.01 - Ventricular fibrillation Status: Acute Plan: Acute inferior STEMI Cardiac arrest/Vfib arrest This is a 61 year old male patient who presented as an imh-iz-husuhleq v. fib cardiac arrest. Per report, he complained of heartburn most of the day then in the evening he became acutely unresponsive. family member started bystander CPR. Reported down-time was 20 minutes. Upon arrival to ED, patient again had pulseless v. tach/v. fib arrest, ROSC obtained and again repeat 12-lead with inferior st- elevations. patient has poor neurologic exam despite receiving no neuro altering medications. long discussion with Dr. Zacarias: held off on emergent left heart cath given poor neurologic function. Patient was treated in the ICU with hypothermia protocol. Initially was intubated, sedated and required paralysis. Patient was also on Lidocaine drip to prevent further athymias. EF 35-40%. 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 slow improvement systolic chf EF 35-40% pna..sputum serratia marcescens.completed course zosyn anemia. s/p 2 units prbc on 10/08 left knee pseudogout ..improved. on scheduled lasix/kcl. monitor bmp cont scheduled duonebs metoprolol/ plavix/asa/statin risperdal switched to seroquel per neurology.t. will need snf after dc PT daily. dvt prophylaxis (2) Acute ST elevation myocardial infarction (STEMI) ICD Codes: I21.3 - ST elevation (STEMI) myocardial infarction of unspecified site Status: Acute Plan: see above (3) Hypoxic encephalopathy ICD Codes: G93.1 - Anoxic brain damage, not elsewhere classified Status: Acute Plan: Patient followed by Neurology Dr. Huff who has CA kera cleared for cardiac catheterization At this point neurology will follow peripherally. recommends outpatient cognitive testing if confusion persists. see above (4) Abnormal sputum ICD Codes: R09.3 - Abnormal sputum Status: Acute Plan: Left lower lobe infiltrate S/P vent support Albuterol/ipratropium aerosols every 6 hours with albuterol aerosols every 2 hours as needed dyspnea 10/01- extubated patient started on Zosyn 09/26/17 sputum serration marcescens (5) Transaminitis ICD Codes: R74.0 - Nonspecific elevation of levels of transaminase and lactic acid dehydrogenase [LDH] Status: Acute Plan: Monitor LFT's( trending down) Ammonia level: 30 (10/03) US Liver: Fatty liver, enlarged. No free fluid. No gallstones or biliary ductal dilatation. 10/01 KUB abdomen -mild gaseous distention. BM 10/02 laxatives on hold Sebastián Gu MD Oct 10, 2017 09:11
--- NOTE | 2017-10-10 10:39 | PD.CAR.PN ---
CVT Progress Note CVT: POD #: 3 Subjective/Hospital Course: A 61-year-old male presented as a cardiac arrest witnessed on 09/24/2017. Apparently, was with his significant other when he was complaining of some gas pain and indigestion earlier that day. He sat on the couch, slumped over on his significant other's lap. She tried to wake him up and for the second time, he did not wake up, but she started CPR and called 911. EMS showed up and he was in V-fib arrest, so he was shocked and given ACLS drugs. He was intubated in the field, went into PEA arrest. CPR was continued. It was approximately 20 minutes when he regained pulses. He was found to have ST elevation and a STEMI upon arrival and had another episode of V-fib where he was defibrillated. At the time of the ER admission, he was also seen and evaluated by critical care. Since the patient had return of spontaneous circulation, was a post pulseless V-tach, V-fib arrest, he had initial poor neurological exam despite receiving no neuro altering meds, they held off the emergent left heart cath given poor neurological function; however, they did proceed with hypothermia therapy. The patient has since recovered neurologically, was extubated on last Wednesday. He then underwent cardiac cath today, which showed an EF of 40%. The echo shows an EF of 30%. He has left main of 60%, proximal LAD 80%, the diagonal 50%, the circumflex 100%, the OM1 of 100%, the RCA 100%. We were consulted to evaluate for coronary artery bypass grafting. The patient's echo also showed the EF of 35-40%, left atrial size mild to moderately dilated. The right atrial size was mildly dilated. There was trace to mild mitral regurgitation and trace tricuspid regurgitation. At this time, the patient has good long-term memory. He has some short-term memory problems; however, per his significant other, his short-term is improving daily. He has not been out of bed due to the weakness; however, he moves all extremities. He does answer questions appropriately with some obvious forgetfulness with some short-term memory. 10/07 surgery: Urgent Off-pump Coronary Artery Bypass Grafting x 4 with Left Internal Mammary Artery (ROGERS) to the Left Anterior Descending (LAD), reverse saphenous vein graft to the Obtuse Marginal 1 (OM1), reverse saphenous vein graft to the Posterolateral branch of the Right Coronary Artery (RPLB), Left Leg Endoscopic Vein [place] was also noted to have Sternal Comminuted Fractures ( previous CPR) pt was extremely agitated during weaning process , requiring propofol and precedex/ was then weaned and extubated, pt has chest binder in place for now crystalloid 3400cc, cell saver 750cc, 1400cc EBL 10/08 pt up in chair awake and alert , girlfriend at bedside will need aggressive pulm toileting OT/PT, very weak HGB 7.7 BP labile, on Juve, will give 2 units PRBC with lasix once weaned off juve, and VSS eval for transfer to stepdown continue Seroquel at night 10/09/17 No c/o. improving, but still unsteady gait 10/10/17 Continues to be O2 dependent. No complaints today Objective: Vital Signs Date Time Temp Pulse Resp B/P (MAP) Pulse Ox O2 Delivery O2 Flow Rate FiO2 10/10/17 08:21 95 Nasal Cannula 5.00 10/10/17 07:00 99.6 83 18 118/73 (88) 91 10/10/17 07:00 83 10/10/17 07:00 91 Nasal Cannula 6.00 Humidified 10/10/17 03:00 84 10/10/17 03:00 94 Nasal Cannula 6.00 Humidified 10/10/17 03:00 100.7 88 16 124/65 (84) 94 10/09/17 23:00 87 10/09/17 23:00 98.9 91 16 123/69 (87) 95 10/09/17 23:00 95 Nasal Cannula 6.00 Humidified 10/09/17 19:24 94 Nasal Cannula 5.00 10/09/17 19:00 95 10/09/17 19:00 95 Nasal Cannula 6.00 Humidified 10/09/17 19:00 98.2 95 20 137/71 (93) 96 10/09/17 16:00 94 Nasal Cannula 6.00 10/09/17 16:00 98.3 86 16 125/78 (94) 94 10/09/17 16:00 86 10/09/17 12:00 16 10/09/17 11:30 98.0 75 16 95/63 (74) 97 10/09/17 11:30 75 10/09/17 11:30 95 Nasal Cannula 6.00 Labs: Laboratory Tests Test 10/10/17 04:19 White Blood Count 11.5 TH/MM3 (4.0-11.0) Red Blood Count 2.77 MIL/MM3 (4.50-5.90) Hemoglobin 8.2 GM/DL (13.0-17.0) Hematocrit 24.3 % (39.0-51.0) Mean Corpuscular Volume 87.7 FL (80.0-100.0) Mean Corpuscular Hemoglobin 29.5 PG (27.0-34.0) Mean Corpuscular Hemoglobin Concent 33.6 % (32.0-36.0) Red Cell Distribution Width 14.4 % (11.6-17.2) Platelet Count 298 TH/MM3 (150-450) Mean Platelet Volume 9.3 FL (7.0-11.0) Blood Urea Nitrogen 15 MG/DL (7-18) Creatinine 0.91 MG/DL (0.60-1.30) Random Glucose 108 MG/DL (74-106) Calcium Level 7.7 MG/DL (8.5-10.1) Sodium Level 140 MEQ/L (136-145) Potassium Level 3.5 MEQ/L (3.5-5.1) Chloride Level 100 MEQ/L (98-107) Carbon Dioxide Level 31.5 MEQ/L (21.0-32.0) Anion Gap 9 MEQ/L (5-15) Estimat Glomerular Filtration Rate 84 ML/MIN (>89) Result Diagram: 10/10/17 0419 10/10/17 0419 Cardiovascular: RRR Telemetry: NSR Pulmonary: Decreased BS bilat GI/: NABS, NT Incision: dry and intact Plan: Diurese Increase activity, ambulation PT/OT Will likely require SNF placement Supp K Anemic - Iron supplement Diurese, wean O2 (1) Acute ST elevation myocardial infarction (STEMI) (2) S/P CABG x 4 Plan: on ASA, statin , Plavix start statin , eval for analy when BP allows no BB 2/2/ labile BP pt will need rehab at discharge pulm toileting OOB PT/OT rehab (3) Cardiac arrest Plan: resolved (4) Ventricular fibrillation Plan: resolved (5) Cardiac arrest with ventricular fibrillation (6) Ventilator dependence Plan: resolved (7) IGNACIO (acute kidney injury) Plan: stable 1.07 (8) Blood loss anemia Plan: for 2 units PRBC today Alissa Santoro MD Oct 10, 2017 10:39
--- NOTE | 2017-10-10 10:57 | PD.CARD.PN ---
Subjective Subjective Remarks Doing well Only complaint of backside soreness, awaiting his pain pill Objective Medications Current Medications Medications (Trade) Dose Ordered Sig/Isabel Route Start Time Stop Time Status Last Admin (Melatonin) 5 mg HS PRN PO 10/02/17 21:00 10/09/17 23:46 (SEROquel) 50 mg HS PRN PO 10/04/17 08:15 (NS Flush) 2 ml BID IV FLUSH 10/07/17 21:00 10/10/17 09:07 (NS Flush) 2 ml UNSCH PRN IV FLUSH 10/07/17 13:45 (Aspirin Chew) 81 mg DAILY PO 10/08/17 09:00 10/10/17 09:09 (Plavix) 75 mg DAILY PO 10/08/17 09:00 10/10/17 09:09 (Protonix) 40 mg DAILY@06 PO 10/08/17 06:00 10/10/17 05:46 (Tylenol) 650 mg Q4H PRN PO 10/07/17 13:45 ([place] 5-325 Mg) 1 tab Q3H PRN PO 10/07/17 13:45 10/09/17 09:26 (Zofran Inj) 4 mg Q6H PRN IV PUSH 10/07/17 13:45 10/08/17 08:38 (Duoneb Neb) 1 ampule Q2HR NEB PRN NEB 10/07/17 12:00 10/10/17 08:17 Phenylephrine HCl 40 mg/Sodium Chloride 504 ml @ 30.24 mls/ hr TITRATE PRN IV 10/07/17 13:15 10/08/17 07:44 ([place] 5-325 Mg) 2 tab Q4H PRN PO 10/08/17 10:00 (Duoneb Neb) 1 ampule Q6HR WHILE AWAKE NEB NEB 10/08/17 14:00 10/10/17 13:59 10/09/17 19:24 (Colace) 100 mg BID PO 10/08/17 10:00 10/10/17 09:09 (Theragran M Tab) 1 tab DAILY PO 10/09/17 09:00 10/10/17 09:09 (Milk Of Magnesia Liq) 30 ml DAILY PO 10/09/17 09:00 10/10/17 09:07 (Dulcolax Supp) 10 mg UNSCH PRN RECTAL 10/08/17 10:00 (Miralax) 17 gm DAILY PO 10/09/17 09:00 10/10/17 09:09 (Senokot) 8.6 mg HS PO 10/08/17 21:00 10/08/17 20:17 (Fleets Enema (Adult)) 118 ml UNSCH PRN RECTAL 10/08/17 10:00 (Lopressor) 12.5 mg BID PO 10/09/17 09:00 10/10/17 09:08 (D50w (Vial) Inj) 50 ml UNSCH PRN IV PUSH 10/08/17 10:00 (Glucagon Inj) 1 mg UNSCH PRN OTHER 10/08/17 10:00 (Lipitor) 80 mg HS PO 10/08/17 21:00 10/09/17 20:29 (NovoLOG SUPPLEMENTAL SCALE) 1 ACHS SQ 10/09/17 12:00 (KCl) 30 meq Q12HR PO 10/09/17 11:00 10/10/17 09:08 (Lasix Inj) 40 mg BID@18 IV PUSH 10/09/17 11:00 10/10/17 09:07 (Nu-Iron) 150 mg Q12HR PO 10/10/17 10:45 Vital Signs / I&O Vital Signs Date Time Temp Pulse Resp B/P (MAP) Pulse Ox O2 Delivery O2 Flow Rate FiO2 10/10/17 08:21 95 Nasal Cannula 5.00 10/10/17 07:00 99.6 83 18 118/73 (88) 91 10/10/17 07:00 83 10/10/17 07:00 91 Nasal Cannula 6.00 Humidified 10/10/17 03:00 84 10/10/17 03:00 94 Nasal Cannula 6.00 Humidified 10/10/17 03:00 100.7 88 16 124/65 (84) 94 10/09/17 23:00 87 10/09/17 23:00 98.9 91 16 123/69 (87) 95 10/09/17 23:00 95 Nasal Cannula 6.00 Humidified 10/09/17 19:24 94 Nasal Cannula 5.00 10/09/17 19:00 95 10/09/17 19:00 95 Nasal Cannula 6.00 Humidified 10/09/17 19:00 98.2 95 20 137/71 (93) 96 10/09/17 16:00 94 Nasal Cannula 6.00 10/09/17 16:00 98.3 86 16 125/78 (94) 94 10/09/17 16:00 86 10/09/17 12:00 16 10/09/17 11:30 98.0 75 16 95/63 (74) 97 10/09/17 11:30 75 10/09/17 11:30 95 Nasal Cannula 6.00 I/O 10/09/17 10/09/17 10/09/17 10/10/17 10/10/17 10/10/17 07:00 15:00 23:00 07:00 15:00 23:00 Intake Total 390 ml 100 ml 800 ml 240 ml Output Total 820 ml 1500 ml 1800 ml Balance -430 ml 100 ml -700 ml -1560 ml Intake Oral 240 ml 800 ml 240 ml IV Total 150 ml 100 ml Output Urine Total 730 ml 1500 ml 1800 ml Chest Tube Drainage Total 90 ml # Bowel Movements 0 3 0 Physical Exam GENERAL: NAD SKIN: Warm/dry HEAD: Atraumatic. Normocephalic. EYES: Pupils equal and round. No scleral icterus. No injection or drainage. ENT: No nasal bleeding or discharge. Mucous membranes pink and moist. NECK: Trachea midline. No JVD. CARDIOVASCULAR: Regular rate and rhythm. Sternotomy clean/dry RESPIRATORY: No accessory muscle use. Clear to auscultation. Breath sounds equal bilaterally. GASTROINTESTINAL: Abdomen soft, non-tender, nondistended. Hepatic and splenic margins not palpable. MUSCULOSKELETAL: Extremities without clubbing, cyanosis, or edema. No obvious deformities. NEUROLOGICAL: No focal deficits Laboratory Laboratory Tests Test 10/10/17 04:19 White Blood Count 11.5 TH/MM3 Red Blood Count 2.77 MIL/MM3 Hemoglobin 8.2 GM/DL Hematocrit 24.3 % Mean Corpuscular Volume 87.7 FL Mean Corpuscular Hemoglobin 29.5 PG Mean Corpuscular Hemoglobin Concent 33.6 % Red Cell Distribution Width 14.4 % Platelet Count 298 TH/MM3 Mean Platelet Volume 9.3 FL Blood Urea Nitrogen 15 MG/DL Creatinine 0.91 MG/DL Random Glucose 108 MG/DL Calcium Level 7.7 MG/DL Sodium Level 140 MEQ/L Potassium Level 3.5 MEQ/L Chloride Level 100 MEQ/L Carbon Dioxide Level 31.5 MEQ/L Anion Gap 9 MEQ/L Estimat Glomerular Filtration Rate 84 ML/MIN Assessment and Plan Problem List: (1) Acute ST elevation myocardial infarction (STEMI) ICD Codes: I21.3 - ST elevation (STEMI) myocardial infarction of unspecified site Status: Acute (2) S/P CABG x 4 ICD Codes: Z95.1 - Presence of aortocoronary bypass graft (3) Cardiac arrest ICD Codes: I46.9 - Cardiac arrest, cause unspecified (4) Ventricular fibrillation ICD Codes: I49.01 - Ventricular fibrillation (5) Cardiac arrest with ventricular fibrillation ICD Codes: I46.9 - Cardiac arrest, cause unspecified; I49.01 - Ventricular fibrillation Status: Acute (6) Ventilator dependence ICD Codes: Z99.11 - Dependence on respirator [ventilator] status (7) IGNACIO (acute kidney injury) ICD Codes: N17.9 - Acute kidney failure, unspecified Status: Acute (8) Blood loss anemia ICD Codes: D50.0 - Iron deficiency anemia secondary to blood loss (chronic) Assessment and Plan 1) Acute inferior STEMI/MVCAD s/p CABG x3 POD #3 ROGERS to LAD SVG to OM1 SVG to PDA 2) Cardiac arrest/Vfib arrest No further arrhythmias 3) EF 35-40% 4) Mild anoxic brain injury But doing much better, no longer acting "childish" Forming memories 5) Chest tubes out 6) Rehab on discharge Zeke Zacarias DO Oct 10, 2017 10:57
[2017-10-10] MEDS: ACETAMINOPHEN/HYDROcodone 325 MG/5 MG TAB PO PRN (11:02)
[2017-10-10] MEDS: RESP: ALBUTEROL 2.5 MG/IPRATROPIUM 0.5 MG NEB (SCH) NEB (13:55)
[2017-10-10] MEDS: POLYSACCHARIDE IRON COMPLEX 150 MG CAP PO SCH ×2 (15:39→21:41)
[2017-10-10] MEDS: SENNOSIDES 8.6 MG TAB PO SCH (21:00)
[2017-10-10] MEDS: MELATONIN 5 MG TAB PO PRN (21:41)
[2017-10-10] MEDS: ATORVASTATIN 80 MG TAB PO SCH (21:41)
[2017-10-11] VITALS (17 sets, daily range): BP systolic 109–121; BP diastolic 64–70; PULSE 77–100; RESP 18–19; TEMP 98.1–99.4; O2SAT 92–95
[2017-10-11 04:46] LABS: BICARBONATE 31.4 MEQ/L (21.0-32.0); CALCIUM 8.1 MG/DL (8.5-10.1); CREATININE 0.9 MG/DL (0.60-1.30)
[2017-10-11] MEDS: PANTOPRAZOLE SOD 40 MG DELAYED RELEASE TAB PO SCH (06:18)
[2017-10-11] MEDS: INSULIN ASPART SUPPLEMENTAL SCALE SQ SCH ×2 (08:00→12:00)
[2017-10-11] MEDS: MAGNESIUM HYDROXIDE SUSP 30 ML CUP PO SCH (10:02)
[2017-10-11] MEDS: ACETAMINOPHEN/HYDROcodone 325 MG/5 MG TAB PO PRN (10:02)
[2017-10-11] MEDS: POLYETHYLENE GLYCOL 17 GM PKG PO SCH (10:02)
[2017-10-11] MEDS: POLYSACCHARIDE IRON COMPLEX 150 MG CAP PO SCH (10:03)
[2017-10-11] MEDS: ASPIRIN 81 MG CHEW TAB PO SCH (10:03)
[2017-10-11] MEDS: CLOPIDOGREL 75 MG TAB PO SCH (10:03)
[2017-10-11] MEDS: MULTIVITAMINS/MINERALS THERAPEUTIC TAB PO SCH (10:03)
[2017-10-11] MEDS: DOCUSATE SODIUM 100 MG CAP PO SCH (10:03)
[2017-10-11] MEDS: METOPROLOL TARTRATE 25 MG TAB PO SCH (10:04)
[2017-10-11] MEDS: FUROSEMIDE 40 MG/4 ML VIAL IV PUSH SCH (10:04)
[2017-10-11] MEDS: SODIUM CHLORIDE 0.9% FLUSH 10 ML FLUSH IV FLUSH SCH (10:04)
[2017-10-11] MEDS: POTASSIUM CHLORIDE 10 MEQ CONTROLLED RELEASE TAB PO SCH (10:04)
[2017-10-11] MEDS ORDERED: POTASSIUM BICARBONATE 25 MEQ EFFERVESCENT TAB PO ONE (11:00)
--- NOTE | 2017-10-11 11:05 | PD.CAR.PN ---
CVT Progress Note Subjective/Hospital Course: A 61-year-old male presented as a cardiac arrest witnessed on 09/24/2017. Apparently, was with his significant other when he was complaining of some gas pain and indigestion earlier that day. He sat on the couch, slumped over on his significant other's lap. She tried to wake him up and for the second time, he did not wake up, but she started CPR and called 911. EMS showed up and he was in V-fib arrest, so he was shocked and given ACLS drugs. He was intubated in the field, went into PEA arrest. CPR was continued. It was approximately 20 minutes when he regained pulses. He was found to have ST elevation and a STEMI upon arrival and had another episode of V-fib where he was defibrillated. At the time of the ER admission, he was also seen and evaluated by critical care. Since the patient had return of spontaneous circulation, was a post pulseless V-tach, V-fib arrest, he had initial poor neurological exam despite receiving no neuro altering meds, they held off the emergent left heart cath given poor neurological function; however, they did proceed with hypothermia therapy. The patient has since recovered neurologically, was extubated on last Wednesday. He then underwent cardiac cath today, which showed an EF of 40%. The echo shows an EF of 30%. He has left main of 60%, proximal LAD 80%, the diagonal 50%, the circumflex 100%, the OM1 of 100%, the RCA 100%. We were consulted to evaluate for coronary artery bypass grafting. The patient's echo also showed the EF of 35-40%, left atrial size mild to moderately dilated. The right atrial size was mildly dilated. There was trace to mild mitral regurgitation and trace tricuspid regurgitation. At this time, the patient has good long-term memory. He has some short-term memory problems; however, per his significant other, his short-term is improving daily. He has not been out of bed due to the weakness; however, he moves all extremities. He does answer questions appropriately with some obvious forgetfulness with some short-term memory. 10/07 surgery: Urgent Off-pump Coronary Artery Bypass Grafting x 4 with Left Internal Mammary Artery (ROGERS) to the Left Anterior Descending (LAD), reverse saphenous vein graft to the Obtuse Marginal 1 (OM1), reverse saphenous vein graft to the Posterolateral branch of the Right Coronary Artery (RPLB), Left Leg Endoscopic Vein [place] was also noted to have Sternal Comminuted Fractures ( previous CPR) pt was extremely agitated during weaning process , requiring propofol and precedex/ was then weaned and extubated, pt has chest binder in place for now crystalloid 3400cc, cell saver 750cc, 1400cc EBL 10/08 pt up in chair awake and alert , girlfriend at bedside will need aggressive pulm toileting OT/PT, very weak HGB 7.7 BP labile, on Juve, will give 2 units PRBC with lasix once weaned off juve, and VSS eval for transfer to stepdown continue Seroquel at night 10/09/17 No c/o. improving, but still unsteady gait 10/10/17 Continues to be O2 dependent. No complaints today 10/11 remains on 3 liter nasal cannula in NSR, + BM stable for dc to rehab from [facility] standpoint add low dose analy with EF 35-40% Objective: GENERAL: A&O x 3 SKIN: Warm and dry. 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 EYES: No scleral icterus. No injection or drainage. NECK: Supple, trachea midline. No JVD or lymphadenopathy. CARDIOVASCULAR: Regular rate and rhythm without murmurs, gallops, or rubs. RESPIRATORY: Breath sounds equal bilaterally. No accessory muscle use. faint exp wheeze GASTROINTESTINAL: Abdomen soft, non-tender, nondistended. MUSCULOSKELETAL: No cyanosis, or edema. BACK: Nontender without obvious deformity. No CVA tenderness. Vital Signs Date Time Temp Pulse Resp B/P (MAP) Pulse Ox O2 Delivery O2 Flow Rate FiO2 10/11/17 10:46 95 21 10/11/17 10:00 87 10/11/17 09:00 81 10/11/17 08:00 79 10/11/17 07:15 99.4 81 19 112/65 (81) 94 10/11/17 07:15 94 Nasal Cannula 3.50 10/11/17 07:00 82 10/11/17 06:03 100 10/11/17 05:00 84 10/11/17 04:00 85 10/11/17 03:00 82 10/11/17 03:00 98.1 85 121/70 (87) 93 10/11/17 03:00 93 Nasal Cannula 4.00 10/11/17 02:00 84 10/11/17 01:10 86 10/11/17 00:00 82 10/10/17 23:00 97 Nasal Cannula 4.00 10/10/17 23:00 86 10/10/17 23:00 98.8 104 130/67 (88) 97 10/10/17 22:00 92 10/10/17 21:44 98 Nasal Cannula 5.00 10/10/17 21:00 94 10/10/17 20:00 90 10/10/17 19:00 92 Nasal Cannula 5.00 10/10/17 19:00 99.2 91 134/67 (89) 92 10/10/17 19:00 92 10/10/17 18:00 88 10/10/17 17:00 90 10/10/17 16:00 98.2 82 16 119/63 (81) 94 10/10/17 16:00 84 10/10/17 15:00 86 10/10/17 15:00 98 Nasal Cannula 6.00 Labs: Laboratory Tests Test 10/11/17 04:06 Blood Urea Nitrogen 14 MG/DL (7-18) Creatinine 0.90 MG/DL (0.60-1.30) Random Glucose 108 MG/DL (74-106) Calcium Level 8.1 MG/DL (8.5-10.1) Sodium Level 140 MEQ/L (136-145) Potassium Level 3.7 MEQ/L (3.5-5.1) Chloride Level 100 MEQ/L (98-107) Carbon Dioxide Level 31.4 MEQ/L (21.0-32.0) Anion Gap 9 MEQ/L (5-15) Estimat Glomerular Filtration Rate 85 ML/MIN (>89) Result Diagram: 10/10/17 0419 10/11/17 0406 (1) Acute ST elevation myocardial infarction (STEMI) (2) S/P CABG x 4 Plan: on ASA, statin , Plavix start low dose analy pt will need rehab at discharge pulm toileting OOB PT/OT rehab (3) Cardiac arrest Plan: resolved (4) Ventricular fibrillation Plan: resolved (5) Cardiac arrest with ventricular fibrillation (6) Ventilator dependence Plan: resolved (7) IGNACIO (acute kidney injury) Plan: stable 1.07 (8) Blood loss anemia Plan: for 2 units PRBC HGB 8.2 stat ferrous sulfate Jaylene Khan Oct 11, 2017 11:05
[2017-10-11] MEDS ORDERED: HYDR-3516 PO (11:11)
[2017-10-11] MEDS ORDERED: NU-IRON PO (11:11)
[2017-10-11] MEDS ORDERED: METO25TA3 PO (11:11)
[2017-10-11] MEDS ORDERED: SERO25TA PO (11:11)
[2017-10-11] MEDS ORDERED: PLAV75TA29 PO (11:11)
[2017-10-11] MEDS ORDERED: DOCU1CAP39 PO (11:11)
[2017-10-11] MEDS ORDERED: ASPI81 PO (11:11)
[2017-10-11] MEDS ORDERED: ALTA1.256 PO (11:11)
[2017-10-11] MEDS ORDERED: POTA-163 PO (11:11)
[2017-10-11] MEDS ORDERED: ATOR80TA45 PO (11:11)
[2017-10-11] MEDS ORDERED: THERM PO (11:11)
[2017-10-11] MEDS ORDERED: FURO1TAB60 PO (11:11)
[2017-10-11] MEDS ORDERED: RAMIPRIL 1.25 MG CAP PO SCH (11:15)
[2017-10-11] MEDS ORDERED: FERROUS SULFATE 325 MG (65 MG ELEMENTAL IRON) TAB PO SCH (12:00)
--- NOTE | 2017-10-11 12:55 | HHI.DS ---
Discharge Summary Admission Date Sep 25, 2017 at 00:13 Discharge Date: Oct 11, 2017 Admitting Diagnosis POST CARDIAC ARREST (1) Cardiac arrest with ventricular fibrillation Diagnosis: Principal ICD Codes: I46.9 - Cardiac arrest, cause unspecified; I49.01 - Ventricular fibrillation Status: Acute (2) Acute ST elevation myocardial infarction (STEMI) Diagnosis: Principal ICD Codes: I21.3 - ST elevation (STEMI) myocardial infarction of unspecified site Status: Acute (3) Hypoxic encephalopathy Diagnosis: Principal ICD Codes: G93.1 - Anoxic brain damage, not elsewhere classified Status: Acute (4) Abnormal sputum Diagnosis: Secondary ICD Codes: R09.3 - Abnormal sputum Status: Acute (5) Transaminitis Diagnosis: Secondary ICD Codes: R74.0 - Nonspecific elevation of levels of transaminase and lactic acid dehydrogenase [LDH] Status: Acute CBC/BMP: 10/10/17 0419 10/11/17 0406 Significant Findings Laboratory Tests Test 10/09/17 04:30 10/10/17 04:19 10/11/17 04:06 White Blood Count 13.4 TH/MM3 (4.0-11.0) 11.5 TH/MM3 (4.0-11.0) Red Blood Count 2.71 MIL/MM3 (4.50-5.90) 2.77 MIL/MM3 (4.50-5.90) Hemoglobin 8.1 GM/DL (13.0-17.0) 8.2 GM/DL (13.0-17.0) Hematocrit 23.9 % (39.0-51.0) 24.3 % (39.0-51.0) Neutrophils (%) (Auto) 74.0 % (16.0-70.0) Neutrophils # (Auto) 9.9 TH/MM3 (1.8-7.7) Random Glucose 118 MG/DL (74-106) 108 MG/DL (74-106) 108 MG/DL (74-106) Total Protein 5.1 GM/DL (6.4-8.2) Albumin 1.9 GM/DL (3.4-5.0) Calcium Level 7.6 MG/DL (8.5-10.1) 7.7 MG/DL (8.5-10.1) 8.1 MG/DL (8.5-10.1) Estimat Glomerular Filtration Rate 74 ML/MIN (>89) 84 ML/MIN (>89) 85 ML/MIN (>89) Hospital Course (1) Cardiac arrest with ventricular fibrillation ICD Codes: I46.9 - Cardiac arrest, cause unspecified; I49.01 - Ventricular fibrillation Status: Acute Plan: Acute inferior STEMI Cardiac arrest/Vfib arrest This is a 61 year old male patient who presented as an [id number] v. fib cardiac arrest. Per report, he complained of heartburn most of the day then in the evening he became acutely unresponsive. family member started bystander CPR. Reported down-time was 20 minutes. Upon arrival to ED, patient again had pulseless v. tach/v. fib arrest, ROSC obtained and again repeat 12-lead with inferior st- elevations. patient has poor neurologic exam despite receiving no neuro altering medications. long discussion with Dr. Zacarias: held off on emergent left heart cath given poor neurologic function. Patient was treated in the ICU with hypothermia protocol. Initially was intubated, sedated and required paralysis. Patient was also on Lidocaine drip to prevent further athymias. EF 35-40%. 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 slow improvement systolic chf EF 35-40% pna..sputum serratia marcescens.completed course zosyn anemia. s/p 2 units prbc on 10/08 left knee pseudogout ..improved. on scheduled lasix/kcl. monitor bmp cont scheduled duonebs metoprolol/ plavix/asa/statin risperdal switched to seroquel per neurology.t. will need snf after dc PT daily. dvt prophylaxis (2) Acute ST elevation myocardial infarction (STEMI) ICD Codes: I21.3 - ST elevation (STEMI) myocardial infarction of unspecified site Status: Acute Plan: see above (3) Hypoxic encephalopathy ICD Codes: G93.1 - Anoxic brain damage, not elsewhere classified Status: Acute Plan: Patient followed by Neurology Dr. Huff who has DC kera cleared for cardiac catheterization At this point neurology will follow peripherally. recommends outpatient cognitive testing if confusion persists. see above (4) Abnormal sputum ICD Codes: R09.3 - Abnormal sputum Status: Acute Plan: Left lower lobe infiltrate S/P vent support Albuterol/ipratropium aerosols every 6 hours with albuterol aerosols every 2 hours as needed dyspnea 10/01- extubated patient started on Zosyn 09/26/17 sputum serration marcescens (5) Transaminitis ICD Codes: R74.0 - Nonspecific elevation of levels of transaminase and lactic acid dehydrogenase [LDH] Status: Acute Plan: Monitor LFT's( trending down) Ammonia level: 30 (10/03) US Liver: Fatty liver, enlarged. No free fluid. No gallstones or biliary ductal dilatation. 10/01 KUB abdomen -mild gaseous distention. BM 10/02 laxatives on hold Pt Condition on Discharge: Stable Discharge Disposition: Rehab Inpatient Discharge Instructions DIET: Follow Instructions for: Heart Healthy Diet Activities you can perform: Weight Bearing as [place] Activities to Avoid: Strenuous Activity Follow up Referrals: Cardiology - 4 Weeks with Zeke Zacarias DO Neurology - 4 Weeks with Delmar Huff MD PCP Follow-up - 2-3 Days with [facility] Surgical - 2 Weeks with Jaylene Khan New Medications: Furosemide (Lasix) 40 Mg Tab 40 MG PO DAILY for edema, #14 TAB 0 Refills Potassium Chloride ER (Potassium Chloride ER) 20 Meq Tab 20 MEQ PO DAILY for Electrolyte Replacement, #14 TAB 0 Refills Aspirin (Tgt Aspirin) 81 Mg Chw 81 MG PO DAILY for Blood Clot Prevention, #30 EA 2 Refills Atorvastatin (Atorvastatin) 80 Mg Tab 80 MG PO HS for Cholesterol Management, #30 TAB 2 Refills Clopidogrel (Plavix) 75 Mg Tab 75 MG PO DAILY for Blood Clot Prevention, #30 TAB 2 Refills Docusate Sodium (Dok) 100 Mg Cap 100 MG PO BID for Constipation, #60 CAP 0 Refills Hydrocodone/Acetaminophen (Hydrocodone-Acetamin 5-325 mg) 5 Mg-325 Mg Tablet 1 TAB PO Q4H PRN for PAIN SCALE 1 TO 5, #40 TAB 0 Refills Metoprolol Tartrate (Metoprolol Tartrate) 25 Mg Tab 12.5 MG PO BID for Blood Pressure Management, #60 TAB 2 Refills Multiple Vitamins W/ Minerals (Thera M Plus) 1 Tab 1 TAB PO DAILY for multi vitamin, #30 TAB 2 Refills Polysaccharide Iron Complex (Poly-Iron 150) 150 Mg Iron Cap 150 MG PO Q12HR for anemia , #60 CAP 0 Refills Quetiapine (Seroquel) 25 Mg Tab 50 MG PO HS PRN for insomnia, agitation, #30 TAB 2 Refills Ramipril (Altace) 1.25 Mg Cap 1.25 MG PO DAILY for Blood Pressure Management, #30 CAP 2 Refills Larry Urbina DO Oct 11, 2017 12:55
--- NOTE | 2017-10-12 11:30 | PD.WCN.NOT ---
Wound Consult Description: Consult placed for Wound Management of right buttock wound per Ace IRIZARRY Communicated with: Anel SANTIAGO, Jose Franks DIRECTOR OF [employer] Recommendation: 1. Turn patient Q2H to relieve pressure from sacral/buttocks areas. 2. Apply Calazime skin protectant paste to buttocks BID and PRN. 3. Use only disposable UltraSorb for moisture. *PLEASE DO NOT USE COTTON UNDER PADS WITH MOISTURE RELATED SKIN BREAKDOWN* Additional Information: Patient seen on 9th floor [facility] for wound evaluation. Patient was able to stand with minimal assistance needed. present with patient.Right and Left buttocks were visualized by sign writer hand. Right buttock noted with partial thickness skin loss measuring ~3cm x 2.1cm x <0.1cm with 100% pink tissue, oval shape, even sharp wound margins even with wound bed indicating a moisture/ friction injury. Calazime skin protectant paste residue noted to entire buttock with a blanching periwound.Left buttock healed partial thickness wounds are dry and appear to be of moisture etiology with blanching erythema and Calazime residue. Recommend to continue Calazime BID and PRN for partial thickness skin loss on right buttock and moisture related denuded incontinence associated dermatitis.Patient tolerated wound care well cotton underpad removed from bed.Patient ambulating with therapy daily. Terry Cho [facility] Oct 12, 2017 11:30
== END 2017-10-11 14:12 | DRG 233 ==
LOC: NEPC 23:14 → EDBD 09-25 00:13 → NEDA 09-25 00:13 → HCVI 09-25 00:40 → HCPC 09-27 14:24 → HCVI 09-27 14:27 → HCIS 10-04 12:11 → HCVI 10-07 12:25 → HCPC 10-10 14:51
PROVIDERS: ADMIT Hospitalist; ATTEND Hospitalist
PROC: 5A12012 Performance of Cardiac Output, Single, Manual (ICD-10-PCS; 2017-09-25)
PROC: 04HY32Z Insertion of Monitoring Device into Lower Artery, Percutaneous Approach (ICD-10-PCS; 2017-09-25)
PROC: 5A1955Z Respiratory Ventilation, Greater than 96 Consecutive Hours (ICD-10-PCS; 2017-09-25)
PROC: 5A2204Z Restoration of Cardiac Rhythm, Single (ICD-10-PCS; 2017-09-25)
PROC: 6A4Z0ZZ Hypothermia, Single (ICD-10-PCS; 2017-09-25)
PROC: 06HY33Z Insertion of Infusion Device into Lower Vein, Percutaneous Approach (ICD-10-PCS; 2017-09-25)
PROC: 05HN33Z Insertion of Infusion Device into Left Internal Jugular Vein, Percutaneous Approach (ICD-10-PCS; 2017-09-28)
PROC: 4A023N7 Measurement of Cardiac Sampling and Pressure, Left Heart, Percutaneous Approach (ICD-10-PCS; 2017-10-04)
PROC: B2111ZZ Fluoroscopy of Multiple Coronary Arteries using Low Osmolar Contrast (ICD-10-PCS; 2017-10-04)
PROC: 021209W Bypass Coronary Artery, Three Arteries from Aorta with Autologous Venous Tissue, Open Approach (ICD-10-PCS; 2017-10-07)
PROC: 06BQ4ZZ Excision of Left Saphenous Vein, Percutaneous Endoscopic Approach (ICD-10-PCS; 2017-10-07)
PROC: 5A09357 Assistance with Respiratory Ventilation, Less than 24 Consecutive Hours, Continuous Positive Airway Pressure (ICD-10-PCS; 2017-10-07)
PROC: 02100Z9 Bypass Coronary Artery, One Artery from Left Internal Mammary, Open Approach (ICD-10-PCS; principal; 2017-10-07 07:21)
PROC: 30233N1 Transfusion of Nonautologous Red Blood Cells into Peripheral Vein, Percutaneous Approach (ICD-10-PCS; 2017-10-08)
DX: I21.11 ST elevation (STEMI) myocardial infarction involving right coronary artery (principal); I49.01 Ventricular fibrillation; R57.0 Cardiogenic shock; I50.41 Acute combined systolic (congestive) and diastolic (congestive) heart failure; J96.01 Acute respiratory failure with hypoxia; J96.02 Acute respiratory failure with hypercapnia; I11.0 Hypertensive heart disease with heart failure; J15.6 Pneumonia due to other Gram-negative bacteria; S22.21XA Fracture of manubrium, initial encounter for closed fracture; D69.6 Thrombocytopenia, unspecified; G93.1 Anoxic brain damage, not elsewhere classified; I47.2 Ventricular tachycardia; N17.9 Acute kidney failure, unspecified; R73.9 Hyperglycemia, unspecified; I25.10 Atherosclerotic heart disease of native coronary artery without angina pectoris; T88.9XXA Complication of surgical and medical care, unspecified, initial encounter; K76.0 Fatty (change of) liver, not elsewhere classified; D50.0 Iron deficiency anemia secondary to blood loss (chronic); E78.1 Pure hyperglyceridemia; E83.39 Other disorders of phosphorus metabolism; E87.6 Hypokalemia; E88.09 Other disorders of plasma-protein metabolism, not elsewhere classified; R26.81 Unsteadiness on feet; W06.XXXA Fall from bed, initial encounter
CPT/HCPCS: 36430; 36600; 70450; 70551; 71045; 74018; 76705; 76937; 80048; 80053; 80061; 80076; 80307; 81001; 82140; 82150; 82550; 82552; 82805; 82948; 83036; 83605; 83735; 84100; 84132; 84155; 84443; 84484; 85007; 85025; 85027; 85384; 85610; 85730; 86850; 86900; 86901; 86920; 87070; 87077; 87186; 87205; 87641; 93005; 93306; 93318; 93458; 93880; 93970; 93998; 94002; 94003; 94010; 94150; 94640; 94664; 94667; 94668; 95819; 99291; C1768; C1769; C1893; J0131; J0171; J0282; J0461; J0690; J1644; J1815; J1817; J1885; J1940; J1953; J2001; J2060; J2250; J2310; J2370; J2405; J2440; J2543; J2930; J3010; J3370; J3475; J3480; J7030; J7040; J7050; J7613; P9016; Q9967